=== PATIENT | female | born 1935 | race Caucasian/White ===

== ENCOUNTER 2017-07-18 19:03 | Inpatient (IN) ==
[2017-07-18] MEDS ORDERED: 0.9 % Sodium Chloride 1,000 ML IVC ONE (19:07)
--- NOTE | 2017-07-18 19:13 | Emergency Department Note ---
Disposition Clinical Impression: HCAP (healthcare-associated pneumonia) Anemia Qualifiers: Anemia type: due to chronic kidney disease Chronic kidney disease stage: unspecified stage Qualified Code(s): N18.9 - Chronic kidney disease, unspecified ; D63.1 - Anemia in chronic kidney disease; D63.1 - Anemia in chronic kidney disease Disposition: Admitted As Inpatient Condition: Fair Time of Disposition: 21:02 General Adult HPI - General Stated complaint: Low hemoglobin Time Seen by Provider: 07/18/17 19:06 Nursing Notes Reviewed: Yes Vital Signs Reviewed: Yes - History of Present Illness HPI Narrative: 82-year-old female [facility]. Patient was found to have a hemoglobin of 6.9. Patient has a history of severe dementia and severe memory. Patient currently denies any discomforts other than feeling cold. - Related Data Home Medications Medication Instructions Recorded Confirmed Bisacodyl [Dulcolax] 10 mg RC DAILY PRN 08/09/15 03/20/17 Calcium Carbonate/Vitamin D3 [Qc 1 each PO DAILY 08/09/15 03/20/17 Calcium 600-Vit D3 400 Tab] Carboxymethylcellulose Sodium 15 ml OP Q1-2H PRN 08/09/15 03/20/17 [Refresh Tears] Clopidogrel [Plavix] 75 mg PO DAILY 08/09/15 03/20/17 Docusate Sodium [Stool Softener] 100 mg PO BID 08/09/15 03/20/17 Folic Acid 1 mg PO DAILY 08/09/15 03/20/17 Guaifenesin [Mucinex] 600 mg PO DAILY PRN 08/09/15 03/20/17 Levothyroxine Sodium [Tirosint] 125 mcg PO DAILY 08/09/15 03/20/17 Loratadine [Claritin] 10 mg PO DAILY 08/09/15 03/20/17 Magnesium Hydroxide [Milk of 30 ml PO BID PRN 08/09/15 03/20/17 Magnesia] Memantine [Namenda] 5 mg PO DAILY 08/09/15 03/20/17 Polyethylene Glycol [Polyox 17 gm PO DAILY PRN 08/09/15 03/20/17 [id number]] Diltiazem CD (24hr) [Cardizem CD] 120 mg PO DAILY 01/08/16 03/20/17 Acetaminophen [Tylenol] 650 mg PO Q6HR PRN 08/27/16 03/20/17 Cholecalciferol (D-3) [Vitamin D] 1,000 unit PO DAILY 08/27/16 03/20/17 Previous Rx's Medication Instructions Recorded Ferrous Sulfate [Iron] 325 mg PO DAILY #60 tablet 03/20/17 Allergies Allergy/AdvReac Type Severity Reaction Status Date / Time darifenacin Allergy Unknown See Verified 03/20/17 10:50 Comments ciprofloxacin AdvReac Nausea Verified 03/20/17 10:50 Sulfa (Sulfonamide AdvReac Nausea Verified 03/20/17 10:50 Antibiotics) All systems ED: reviewed and negative except as stated. Review of Systems: As Per HPI Constitutional: Denies: fever, chills Gastrointestinal: Denies: abdominal pain, nausea, vomiting, diarrhea Genitourinary: Denies: dysuria Musculoskeletal: Denies: back pain Past Medical History - Past Medical History Attestation: Yes The following information was validated with the patient. Source: patient, nursing notes reviewed Medical history: Reports: dementia, dialysis, GERD, renal disease, thyroid disease Surgical history: Reports: non-contributory Psychiatric history: Reports: anxiety - Social History Smoking Status: Never smoker Smokeless Tobacco Status: No Alcohol use: Reports: none Drug use: Reports: none Physical Exam Vital Signs Temperature 98.7 F 07/18/17 19:23 Pulse Rate 73 07/18/17 19:23 Respiratory Rate 20 07/18/17 19:23 Blood Pressure 173/81 07/18/17 19:23 O2 Sat by Pulse Oximetry 96 07/18/17 19:23 Temperature 98.7 F 07/18/17 19:31 Pulse Rate 72 07/18/17 19:31 Respiratory Rate 18 07/18/17 19:31 Blood Pressure 173/81 07/18/17 19:31 O2 Sat by Pulse Oximetry 97 07/18/17 19:35 Oxygen Delivery Oxygen Delivery Nasal Cannula CONSTITUTIONAL: Well-appearing; well-nourished; A&O X 3, in no apparent distress. HEAD: Normocephalic; atraumatic EYES: PERRL, no scleral icterus NOSE: The nose is normal in appearance without rhinorrhea NECK: No JVD or distended neck veins RESP: Normal chest excursion with respiration; breath sounds clear and equal bilaterally; no wheezes, rhonchi, or rales CARD: Regular rhythm, without murmurs, rub or gallop ABD: Non-distended; non-tender, soft, without rigidity, rebound or guarding,no pulsatile mass CHEST: No pain with palpation SKIN: Normal for age and race; warm and dry without diaphoresis ; no apparent lesions EXTREMITIES: Pulses are 2 plus and equal times 4 extremities, no peripheral edema or calf muscle pain Course - Reevaluation(s) Reevaluation #1: Negative fecal occult blood tests. Time: 20:07 Vital Signs Temperature 98.7 F 07/18/17 19:23 Pulse Rate 73 07/18/17 19:23 Respiratory Rate 20 07/18/17 19:23 Blood Pressure 173/81 07/18/17 19:23 O2 Sat by Pulse Oximetry 96 07/18/17 19:23 Temperature 98.7 F 07/18/17 19:31 Pulse Rate 72 07/18/17 19:31 Respiratory Rate 18 07/18/17 19:31 Blood Pressure 173/81 07/18/17 19:31 O2 Sat by Pulse Oximetry 97 07/18/17 19:35 Oxygen Delivery Oxygen Delivery Nasal Cannula Medical Decision Making - MDM Narrative Medical decision making narrative: Patient with anemia 7.6 on her lab report here. Patient had a hemoglobin of 6.9 at [facility] care [facility] facility. Patient has physical signs of anemia conjunctival pallor, visible pallor. Patient has severe dementia and is a poor historian. Patient is under care of Dr. Mendieta of nephrology. He is currently being prepared to start hemodialysis from renal failure. Patient also has an obstructing ureteral stone, with a plan for extraction via urology at [facility] sometime next week. I discussed the case with who recommends patient be given a transfusion today. 1 unit PRBC will be transfused and patient will be admitted. Dr. Ortiz has been consulted and will see the patient once she is admitted. Patient's lab work shows no clinically relevant elevations to patient's anemia today. Troponin was negative. Chest x-ray shows left-sided left lower lung consolidation and an effusion. Patient is started on cefepime and vancomycin for healthcare associated pneumonia Patient's son at bedside is been updated on progress and direction of patient care. He understands and agrees to treatment and plan. Patient also agrees to treatment plan. Dr. Pelaez the hospitalist as accepted patient for admission in stable condition - Lab Data Lab results reviewed: Yes I reviewed the patient's lab results. Lab results narrative: Short CBC 07/18/17 Range/Units 19:33 WBC 7.4 (4.3-11.1) K/mcL Hgb 7.6 L (11.5-15.4) g/dL Hct 23.6 L (35.3-44.9) % Plt Count 360 (140-400) K/mcL Neutrophils # 4.5 (1.6-8.9) K/mcL BMP 07/18/17 Range/Units 19:33 Sodium 132 L (136-145) mEq/L Potassium 4.7 (3.5-5.1) mEq/L Chloride 103 (98-107) mEq/L Carbon Dioxide 21 L (23-29) mEq/L BUN 40 H (8-23) mg/dL Creatinine 3.96 H (0.60-1.20) mg/dL Glucose 101 (70-105) mg/dL Calcium 8.0 L (8.6-10.3) mg/dL Cardiac Enzymes 07/18/17 Range/Units 19:33 Troponin I < 0.03 (< 0.04) ng/mL Liver Function 07/18/17 Range/Units 19:33 Total Bilirubin 0.2 L (0.3-1.0) mg/dL AST 22 (13-39) Units/L ALT 12 (7-52) Units/L Alkaline Phosphatase 122 H (34-104) Units/L Albumin 2.7 L (3.5-5.7) g/dL Result diagrams: 07/18/17 19:33 07/18/17 19:33 Lab Results 07/18/17 07/18/17 07/18/17 Range/Units 19:32 19:33 19:33 WBC 7.4 (4.3-11.1) K/mcL RBC 2.70 L (3.82-4.97) M/mcL Hgb 7.6 L (11.5-15.4) g/dL Hct 23.6 L (35.3-44.9) % MCV 87.4 (83.0-100.0) fL MCH 28.1 (28.0-33.3) pg MCHC 32.2 (31.6-35.5) g/dL RDW 15.9 H (11.5-14.5) % Plt Count 360 (140-400) K/mcL MPV 9.4 (9.4-12.4) fL Immature Gran % 1.2 (0-4) % Seg Neutrophils % 60.2 % Lymphocytes % 26.8 % Monocytes % 8.9 % Eosinophils % 2.4 % Basophils % 0.5 % Neutrophils # 4.5 (1.6-8.9) K/mcL Lymphocytes # 2.0 (0.6-4.6) K/mcL Monocytes # 0.7 (0.0-1.3) K/mcL Eosinophils # 0.2 (0.0-0.6) K/mcL Basophils # 0.0 (0.0-0.2) K/mcL PT 10.9 (9.4-12.1) Seconds INR 1.0 APTT 28.2 (26.0-36.0) Seconds Sodium (136-145) mEq/L Potassium (3.5-5.1) mEq/L Chloride (98-107) mEq/L Carbon Dioxide (23-29) mEq/L BUN (8-23) mg/dL Creatinine (0.60-1.20) mg/dL Est GFR ( Amer) (> 60) Est GFR (Non-Af Amer) (> 60) BUN/Creatinine Ratio (6-26) Glucose (70-105) mg/dL Calculated Osmolality (280-300) Calcium (8.6-10.3) mg/dL Total Bilirubin (0.3-1.0) mg/dL AST (13-39) Units/L ALT (7-52) Units/L Alkaline Phosphatase (34-104) Units/L Troponin I (< 0.04) ng/mL Serum Total Protein (6.4-8.9) g/dL Albumin (3.5-5.7) g/dL Globulin (2.4-3.5) g/dL Albumin/Globulin Ratio (1.1-2.2) Blood Type O POSITIVE 07/18/17 Range/Units 19:33 WBC (4.3-11.1) K/mcL RBC (3.82-4.97) M/mcL Hgb (11.5-15.4) g/dL Hct (35.3-44.9) % MCV (83.0-100.0) fL MCH (28.0-33.3) pg MCHC (31.6-35.5) g/dL RDW (11.5-14.5) % Plt Count (140-400) K/mcL MPV (9.4-12.4) fL Immature Gran % (0-4) % Seg Neutrophils % % Lymphocytes % % Monocytes % % Eosinophils % % Basophils % % Neutrophils # (1.6-8.9) K/mcL Lymphocytes # (0.6-4.6) K/mcL Monocytes # (0.0-1.3) K/mcL Eosinophils # (0.0-0.6) K/mcL Basophils # (0.0-0.2) K/mcL PT (9.4-12.1) Seconds INR APTT (26.0-36.0) Seconds Sodium 132 L (136-145) mEq/L Potassium 4.7 (3.5-5.1) mEq/L Chloride 103 (98-107) mEq/L Carbon Dioxide 21 L (23-29) mEq/L BUN 40 H (8-23) mg/dL Creatinine 3.96 H (0.60-1.20) mg/dL Est GFR ( Amer) 13 L (> 60) Est GFR (Non-Af Amer) 11 L (> 60) BUN/Creatinine Ratio 10 (6-26) Glucose 101 (70-105) mg/dL Calculated Osmolality 284 (280-300) Calcium 8.0 L (8.6-10.3) mg/dL Total Bilirubin 0.2 L (0.3-1.0) mg/dL AST 22 (13-39) Units/L ALT 12 (7-52) Units/L Alkaline Phosphatase 122 H (34-104) Units/L Troponin I < 0.03 (< 0.04) ng/mL Serum Total Protein 6.0 L (6.4-8.9) g/dL Albumin 2.7 L (3.5-5.7) g/dL Globulin 3.3 (2.4-3.5) g/dL Albumin/Globulin Ratio 0.8 L (1.1-2.2) Blood Type - Radiology Data Radiology results reviewed: Yes I reviewed the patient's radiology results. Chest X-Ray 07/18/17 19:07 IMPRESSION: 1. Interval development of left basilar consolidation and left pleural effusion. The 2. Calcific atherosclerotic disease aorta. 3. Otherwise unremarkable chest. D/ / Jaxson Manning / Jaxson Manning Interpreting Provider: Jaxson Manning - EKG Data EKG #1 EKG attestation: Yes I reviewed and interpreted this EKG. EKG results narrative: EKG taken 07/18/2017 and 1919 hrs. shows a sinus rhythm with first-degree AV block at a rate of 75 beats minute with no acute ST elevations or depressions and a leads. Today's EKG is improved from patient's prior EKG which shows a sinus tachycardia with ST depressions in V3 and V4 V5 and V6 as well as leads 2. ST elevation in aVR
[2017-07-18] MEDS ORDERED: 0.9 % Sodium Chloride 2,000 ML ONE (19:17)
[2017-07-18 19:44] LABS: Basophils % 0.5 %; Eosinophils # 0.2 K/mcL (0.0-0.6); Eosinophils % 2.4 %; Hematocrit 23.6 % (35.3-44.9); Immature Granulocytes % 1.2 % (0-4); Lymphocytes % 26.8 %; Mean Corpuscular HGB Conc 32.2 g/dL (31.6-35.5); Mean Corpuscular Hemoglobin 28.1 pg (28.0-33.3); Mean Corpuscular Volume 87.4 fL (83.0-100.0); Mean Platelet Volume 9.4 fL (9.4-12.4); Monocytes # 0.7 K/mcL (0.0-1.3); Monocytes % 8.9 %; Neutrophils # 4.5 K/mcL (1.6-8.9); Platelet Count 360 K/mcL (140-400); Red Cell Distribution Width 15.9 % (11.5-14.5); Segmented Neutrophils % 60.2 %
[2017-07-18 19:48] LABS: Hemoglobin 7.6 g/dL (11.5-15.4)
[2017-07-18 19:53] LABS: Prothrombin Time 10.9 Seconds (9.4-12.1)
[2017-07-18 19:56] LABS: Activated Partial Thrombo Time 28.2 Seconds (26.0-36.0)
[2017-07-18 20:04] LABS: Alanine Aminotransferase 12 Units/L (7-52); Albumin 2.7 g/dL (3.5-5.7); Albumin/Globulin Ratio 0.8 (1.1-2.2); Alkaline Phosphatase 122 Units/L (34-104); Aspartate Amino Transferase 22 Units/L (13-39); BUN/Creatinine Ratio 10 (6-26); Bilirubin,Total 0.2 mg/dL (0.3-1.0); Blood Urea Nitrogen 40 mg/dL (8-23); Carbon Dioxide 21 mEq/L (23-29); Chloride 103 mEq/L (98-107); Globulin 3.3 g/dL (2.4-3.5); Glucose 101 mg/dL (70-105); Osmolality,Calculated 284 (280-300); Potassium 4.7 mEq/L (3.5-5.1); Sodium 132 mEq/L (136-145); Troponin I < 0.03 ng/mL (< 0.04); eGFR For African Americans 13 (> 60); eGFR For Non-African Americans 11 (> 60)
--- NOTE | 2017-07-18 20:13 | Emergency Department Note ---
START Narrative - START START: I examined this patient and my medical decision-making was reviewed with the Resident Physician. I agree with the documented findings, disposition and treatment plan as described except to the extent set forth below. 82-year-old female got sent in from the [facility] for anemia. Patient is chronically anemic. She has got renal disease. She is being set up for hemodialysis. They just placed the fistula. She goes to [facility] for her care. Vitals are stable. We consult with nephrology based on this being chronically anemic. He would like to transfuse 1 unit of red blood cells now. We will admit to the hospitalist. Her rectal exam was negative for any occult blood. I feel her anemia secondary to chronic renal disease. Again, she is hemodynamically stable at this time. On exam she does appear pale. She is in no distress.
[2017-07-18] MEDS ORDERED: Cefepime HCl 2,000 MG in Water for inj. (sterile) 20 ML IVP ONE (20:46)
[2017-07-18 21:47] LABS: Albumin 2.4 g/dL (3.5-5.7); Albumin/Globulin Ratio 0.7 (1.1-2.2); Bilirubin,Direct 0.1 mg/dL (0.0-0.2); Bilirubin,Indirect 0.1 mg/dL (0.0-1.2); Bilirubin,Total 0.2 mg/dL (0.3-1.0); Globulin 3.3 g/dL (2.4-3.5); Magnesium 1.7 mg/dL (1.6-2.6); Phosphorous 5.1 mg/dL (2.7-4.5); Total Protein 5.7 g/dL (6.4-8.9)
[2017-07-18] MEDS ORDERED: 0.9 % Sodium Chloride 250 ML ONE (22:08)
[2017-07-18] MEDS ORDERED: Cefepime HCl 2,000 MG in Water for inj. (sterile) 10 ML IVP STA (22:27)
[2017-07-18] MEDS ORDERED: Cefepime HCl 2,000 MG in Water for inj. (sterile) 20 ML 20 ML IVP ONE (23:00)
[2017-07-18] MEDS ORDERED: Cefepime HCl 2,000 MG in Water for inj. (sterile) 20 ML 20 ML IVP STA (23:42)
[2017-07-19] MEDS ORDERED: Naloxone 0.4 MG/ML INJ IVP PRN (01:31)
--- NOTE | 2017-07-19 02:37 | Internal Med History&Physical ---
Date of Encounter: 07/19/17 Time of Encounter: 01:00 Internal Medicine - H&P: HPI Chief complaint: Low hemoglobin Admitted From: Long-term Nursing Facility Plans for Post Hospital Care: Transfer Detention Care History of present illness: Ms. Mcgraw is a 82 year old female transferred from [facility] for low hemoglobin. Past medical history is significant for end-stage renal disease not started hemodialysis yet, anemia, dementia. Patient is demented, not oriented to time, place, and the people. History is tender from transfer documentation and ER notes. When I saw patient in the floor, she looks comfortable, in no acute distress. Patient was a found hemoglobin low to 6.9 today and was send to ER for transfusion. In the emergency room, hemoglobin was repeated at 7.6. Chest x-ray shows left lower lobe consolidation. Patient denies cough or fever. FOBT test has been done in ER, result is negative. Patient was admitted for anemia, and left lower lobe pneumonia. Cannot discuss CODE STATUS with this demented patient. Per senior living transfer note, patient's CODE STATUS is DNR CCA. Past Med Surg Social Fam HX - Past Medical History Medical history: dementia, dialysis, GERD, renal disease, thyroid disease Psychiatric history: anxiety - Past Surgical History Surgical History: non-contributory - Social History Smoking Status: Never smoker Smokeless Tobacco Status: No Alcohol use: none Drug use: none - Family History Mother History Unknown: Yes Internal Medicine - H&P: Meds Aranesp 100 mcg SQ DAILY 07/18/17 [History] Aspirin 81 mg PO DAILY 07/18/17 [History] Calcium [id number] Chw Tb 1 tab PO DAILY 07/18/17 [History] Diltiazem 24 mg PO DAILY 07/18/17 [History] Ferrous Sulfate 325 mg PO DAILY 07/18/17 [History] Folic Acid 1 tab PO DAILY 07/18/17 [History] Levothyroxine 0.125 mcg PO DAILY 07/18/17 [History] Mirtazapine 7.5 mg PO DAILY 07/18/17 [History] Polyvinyl Alcohol 1 drop BOTH EYES PRN PRN 07/18/17 [History] Sennosides/Docusate Sodium 1 tab PO BID 07/18/17 [History] Vitamin D3 1.5 tab PO DAILY 07/18/17 [History] 3 Allergy/AdvReac Type Severity Reaction Status Date / Time darifenacin Allergy Unknown See Verified 03/20/17 10:50 Comments ciprofloxacin AdvReac Nausea Verified 03/20/17 10:50 Sulfa (Sulfonamide AdvReac Nausea Verified 03/20/17 10:50 Antibiotics) All Systems PM: A 10-system review of systems was performed and is negative for pertinent findings except as documented above in the HPI. - Constitutional Vitals: Temp Pulse Resp BP Pulse Ox 99.2 F 76 16 158/80 92 07/19/17 00:29 07/19/17 00:29 07/19/17 00:29 07/19/17 00:29 07/19/17 00:29 General appearance: Present: A&O X 0, no acute distress - Head Head exam: Present: atraumatic, normocephalic - Eye Eye exam: Present: PERRL, conjuntiva pink, sclera anicteric Pupils: Present: PERRL - Neck Neck exam general surgery: Present: supple, trachea midline. Absent: lymphadenopathy - Respiratory Respiratory exam: Present: CTAB. Absent: accessory muscle use, rales, rhonchi, wheezes - Cardiovascular Cardiovascular exam: Present: RRR, +S1, +S2. Absent: diastolic murmur, gallop, rubs, systolic murmur - GI/Abdominal GI/Abdominal exam: Present: normal bowel sounds, soft, no peritoneal signs. Absent: distended, tenderness - Extremities Exam Extremities exam: Present: warm, radial pulses palpable and symmetrical. Absent : calf tenderness, cyanotic, pedal edema - Neurological Exam Neurological exam: Present: CN II-XII intact, oriented X3, no focal deficits. Absent: pronater drift, facial droop, speech deficit - Skin Skin exam: Present: dry, intact Internal Med - H&P Results - Labs CBC & Chem 7: 07/18/17 19:33 07/18/17 19:33 - EKG Data -: EKG Interpreted by Myself EKG shows normal: sinus rhythm Rate: normal - Assessment and plan (1) End stage renal disease Current Visit: Yes Status: Acute Assessment and plan: Patient is a following with nephrology. Nephrology was counseled. (2) DVT prophylaxis Current Visit: Yes Status: Acute Assessment and plan: Heparin subcutaneously (3) Dementia Current Visit: Yes Status: Acute Assessment and plan: Continue closely monitor patient. Qualifiers: Dementia type: Alzheimer's disease Alzheimer's disease onset: unspecified onset Dementia behavioral disturbance: without behavioral disturbance Qualified Code(s): G30.9 - Alzheimer's disease, unspecified; F02.80 - Dementia in other diseases classified elsewhere without behavioral disturbance; F02.80 - Dementia in other diseases classified elsewhere without behavioral disturbance; F02.80 - Dementia in other diseases classified elsewhere without behavioral disturbance (4) Anemia Current Visit: Yes Status: Acute Assessment and plan: Patient has received 1 unit PRBC per nephrology recommendation. Continue closely monitor H&H Qualifiers: Anemia type: due to chronic kidney disease Chronic kidney disease stage: stage 5, not on chronic dialysis Qualified Code(s): N18.5 - Chronic kidney disease, stage 5; D63.1 - Anemia in chronic kidney disease; D63.1 - Anemia in chronic kidney disease (5) HCAP (healthcare-associated pneumonia) Current Visit: Yes Status: Acute Assessment and plan: Incidentally found by chest x-ray. Patient has no symptoms. Place patient on Vanco and cefepime. Closely monitor patient. - Time Spent With Patient Total time spent is greater than 50% in coordination of care (as documented) at patient's floor/unit and/or counseling patient: 40 minutes Greater than 35 minutes
[2017-07-19 05:35] LABS: Basophils % 0.5 %; Eosinophils # 0.2 K/mcL (0.0-0.6); Eosinophils % 2.8 %; Hematocrit 24.3 % (35.3-44.9); Hemoglobin 7.9 g/dL (11.5-15.4); Immature Granulocytes % 1.1 % (0-4); Lymphocytes % 31.1 %; Mean Corpuscular HGB Conc 32.5 g/dL (31.6-35.5); Mean Corpuscular Hemoglobin 28.3 pg (28.0-33.3); Mean Corpuscular Volume 87.1 fL (83.0-100.0); Mean Platelet Volume 9.5 fL (9.4-12.4); Monocytes # 0.7 K/mcL (0.0-1.3); Monocytes % 10.6 %; Neutrophils # 3.5 K/mcL (1.6-8.9); Platelet Count 301 K/mcL (140-400); Red Blood Count 2.79 M/mcL (3.82-4.97); Red Cell Distribution Width 15.9 % (11.5-14.5); Segmented Neutrophils % 53.9 %
[2017-07-19 05:54] LABS: Calcium 7.6 mg/dL (8.6-10.3); Magnesium 1.7 mg/dL (1.6-2.6); Potassium 4.5 mEq/L (3.5-5.1)
[2017-07-19] MEDS ORDERED: *HR* Heparin 5,000 UNIT/ML VIAL SQ SCH (06:00)
[2017-07-19] MEDS: Aspirin 81 MG TAB.CHEW PO SCH (08:18)
--- NOTE | 2017-07-19 11:23 | Internal Med Progress Note ---
Date of Encounter: 07/19/17 Time of Encounter: 10:50 - Assessment and plan (1) HCAP (healthcare-associated pneumonia) Current Visit: Yes Status: Acute Assessment and plan: Incidental finding on chest xray. Pt is asymptomatic. No fever, chills, cough, URI symptoms. Lungs are clear, diminshed with poor inspiratory effort. Pt is not requiring supplemental 02. Continue IV Vancomycin and Cefepime 02 prn sats > 92% Chest X-Ray 07/18/17 19:07 IMPRESSION: 1. Interval development of left basilar consolidation and left pleural effusion. The 2. Calcific atherosclerotic disease aorta. 3. Otherwise unremarkable chest. D/ / Jaxson Manning / Jaxson Manning Interpreting Provider: Jaxson Manning (2) Anemia Current Visit: Yes Status: Acute Assessment and plan: Anemia of chronic disease. Pt sent from [facility] for anemia, hgb < 7. 1 unit PRBCs transfused, hgb 7.9 now. Will trend q6h x 3 and again in the a.m. No obvious signs of bleeding. Qualifiers: Anemia type: due to chronic kidney disease Chronic kidney disease stage: stage 5, not on chronic dialysis Qualified Code(s): N18.5 - Chronic kidney disease, stage 5; D63.1 - Anemia in chronic kidney disease; D63.1 - Anemia in chronic kidney disease (3) End stage renal disease Current Visit: Yes Status: Acute Assessment and plan: Nephrology following. Pt with fistula, but has not had dialysis yet. Continue to avoid nephrotoxins Vancomycin dosed by pharmacy. (4) Dementia Current Visit: Yes Status: Acute Assessment and plan: Chronic. Pt is alert, able to answer name and recognized son in her room this a.m. Monitor for safety. She is a resident at [facility]. Pt is not on any medications for Dementia. Qualifiers: Dementia type: Alzheimer's disease Alzheimer's disease onset: unspecified onset Dementia behavioral disturbance: without behavioral disturbance Qualified Code(s): G30.9 - Alzheimer's disease, unspecified; F02.80 - Dementia in other diseases classified elsewhere without behavioral disturbance; F02.80 - Dementia in other diseases classified elsewhere without behavioral disturbance; F02.80 - Dementia in other diseases classified elsewhere without behavioral disturbance (5) DVT prophylaxis Current Visit: Yes Status: Acute Assessment and plan: SCDs, no pharmacological treatment due to anemia. - Time Spent With Patient Total time spent is greater than 50% in coordination of care (as documented) at patient's floor/unit and/or counseling patient: less than 15 minutes - Subjective Interval history: Pt was seen and assessed at 1050, son at bedside. All questions answered. Pt denies headache, n/v, diarrhea, abdominal pain, chest pain, SOB, or vision changes. - Constitutional Vitals: Temp Pulse Resp BP Pulse Ox 98.6 F 76 16 155/64 90 07/19/17 07:38 07/19/17 07:38 07/19/17 07:38 07/19/17 07:38 07/19/17 07:38 General appearance: Present: cooperative, A&O X 1, pleasant, no acute distress, answers questions appropriately - Head Head exam: Present: atraumatic, normal inspection, normocephalic - Eye Eye exam: Present: normal appearance, conjuntiva pink, sclera anicteric - Neck Neck exam general surgery: Present: supple, trachea midline. Absent: lymphadenopathy, tenderness - Respiratory Respiratory exam: Present: CTAB. Absent: accessory muscle use, chest wall tenderness, rales, respiratory distress, rhonchi, wheezes - Cardiovascular Cardiovascular exam: Present: RRR, +S1, +S2. Absent: diastolic murmur, gallop, rubs, systolic murmur - GI/Abdominal GI/Abdominal exam: Present: normal bowel sounds, soft, no peritoneal signs. Absent: distended, hepatomegaly, tenderness - Extremities Exam Extremities exam: Present: normal capillary refill, normal inspection, warm, radial pulses palpable and symmetrical. Absent: calf tenderness, cyanotic, pedal edema, tenderness - Neurological Exam Neurological exam: Present: alert, no focal deficits. Absent: facial droop, speech deficit - Skin Skin exam: Present: dry, intact, normal color, warm. Absent: rash Internal Medicine: Result - Labs CBC & Chem 7: 07/19/17 04:00 07/19/17 04:00 Labs: Short CBC 07/19/17 Range/Units 04:00 WBC 6.5 (4.3-11.1) K/mcL Hgb 7.9 L (11.5-15.4) g/dL Hct 24.3 L (35.3-44.9) % Plt Count 301 (140-400) K/mcL Neutrophils # 3.5 (1.6-8.9) K/mcL BMP 07/19/17 04:00 Sodium 133 L Potassium 4.5 Chloride 106 Carbon Dioxide 20 L BUN 37 H Creatinine 3.73 H Glucose 84 Calcium 7.6 L - ABG Interpretation ABG results: PT/INR, D-dimer PT 10.9 Seconds (9.4-12.1) 07/18/17 19:33 Consult Discharge Plan - Plan Referrals: NONE,PCP [Primary Care Provider] -
--- NOTE | 2017-07-19 13:26 | Nephrology Consult Note ---
Date of Encounter: 07/19/17 Time of Encounter: 12:20 Assessment and Plan (1) End stage renal disease Current Visit: Yes Status: Acute ESRD nearing HD start. Has AVG ready for access. No immediate need to startd HD today, however most likely will start HD during this hospital admission. Hx of obstructing ureteral stone, no documented urine output. Will place Sandra catheter, obtain renal US and UA. Suggest less nephrotoxic antibiotic coverage than Vanco. History of Present Illness - Reason for Consult end stage renal disease - History of Present Illness Ms. Mcgraw is a 82 year old female brought by EMS yesterday from [facility] with Hgb 6.9. Ms. Mcgraw is known to practice with ESRD, nearing start of dialysis. She had a right brachiocephalic AV graft placed approximately one month ago by Dr. Lange at [facility] in preparation of starting HD. Ms. Mcgraw has history of profound short term memory/dementia, therefore her HPI is obtained from prior notes. Other PMH- GERD, renal disease, thyroid disease. Patient also has an obstructing ureteral stone. Plans were for extraction next week at [facility]. FBOT negative. One unit PRBC's was transfused. Today Hgb 7.9, creat 3.73. Baseline 3.7-4.0. CXR- HCAP-LLL. Started on Cefepime and Vanco. There is no documented urine output. Past Med Surg Social Fam HX - Past Medical History Medical history: dementia, dialysis, GERD, renal disease, thyroid disease Psychiatric history: anxiety - Past Surgical History Surgical History: non-contributory - Social History Smoking Status: Never smoker Smokeless Tobacco Status: No Alcohol use: none Drug use: none - Family History Mother History Unknown: Yes Medications and Allergies Aspirin [Lo-Dose Aspirin EC] 81 mg PO DAILY 07/19/17 [History] Bisacodyl [Dulcolax] 10 mg RC DAILY PRN 07/19/17 [History] Calcium Carbonate/Vitamin D3 [Calcium 600 + Vit D Tablet] 1 tab PO DAILY [History] Ceftriaxone Na/Dextrose,Iso [Ceftriaxone 2 gm Piggyback] 2 gm IV 1200 07/19/17 [ History] Cholecalciferol (D-3) [Vitamin D] 1,500 unit PO DAILY 07/19/17 [History] Diltiazem HCl [Diltiazem 24Hr Cd] 240 mg PO DAILY 07/19/17 [History] Ferrous Sulfate 325 mg PO DAILY 07/19/17 [History] Folic Acid 1 mg PO DAILY 07/19/17 [History] Guaifenesin [Mucinex] 600 mg PO DAILY PRN 07/19/17 [History] Levothyroxine [Synthroid] 125 mcg PO QAM 07/19/17 [History] Loratadine [Allergy Relief] 10 mg PO DAILY PRN 07/19/17 [History] Magnesium Hydroxide [Milk of Magnesia] 2,400 mg PO DAILY PRN 07/19/17 [History] Mirtazapine 7.5 mg PO HS 07/19/17 [History] Oxycodone HCl/Acetaminophen [Percocet 5-325 mg Tablet] 1 tab PO Q6H PRN [History] Polyethylene Glycol 3350 [MiraLAX Powder Bulk 17.9 Oz] 1 scoop PO DAILY PRN [History] Promethazine [Phenergan] 12.5 mg RC Q6H PRN 07/19/17 [History] Sennosides/Docusate Sodium [Colace 2-in-1 Tablet] 1 tab PO BID 07/19/17 [History ] 3 Allergy/AdvReac Type Severity Reaction Status Date / Time darifenacin Allergy Unknown See Verified 03/20/17 10:50 Comments ciprofloxacin AdvReac Nausea Verified 03/20/17 10:50 Sulfa (Sulfonamide AdvReac Nausea Verified 03/20/17 10:50 Antibiotics) Exam - Vital Signs Vital signs: Initial Vital Signs Temp Pulse Resp BP Pulse Ox 98.7 F 73 20 173/81 96 07/18/17 19:23 07/18/17 19:23 07/18/17 19:23 07/18/17 19:23 07/18/17 19:23 Vital Signs - Last 8 Hours Temp Pulse Resp BP Pulse Ox 07/19/17 11:47 98.8 F 75 16 153/67 93 07/19/17 07:38 98.6 F 76 16 155/64 90 - General Appearance General appearance: well-developed, well-nourished, appears started age EENT: mucous membranes moist Neck: no JVD Respiratory: clear Additional Comments: diminished Cardiology: edema, regular rate, regular rhythm Additional Comments: pdal/ankle, vascular insufficiency - Dialysis Access Dialysis Vascular Access: Arteriovenous Graft thrill: Yes bruit: Yes Gastrointestinal: normoactive bowel sounds, no tenderness Integumentary: warm and dry Psychiatric: cooperative Results - Lab Results 07/19/17 04:00 07/19/17 04:00 Most recent lab results Calcium 7.6 mg/dL (8.6-10.3) L 07/19/17 04:00 Phosphorus 5.1 mg/dL (2.7-4.5) H 07/18/17 21:08 Magnesium 1.7 mg/dL (1.6-2.6) 07/19/17 04:00 Consult Discharge Plan - Plan Referrals: NONE,PCP [Primary Care Provider] -
[2017-07-19 13:53] LABS: Hematocrit 24.9 % (35.3-44.9); Hemoglobin 7.9 g/dL (11.5-15.4)
[2017-07-19 15:19] LABS: Bilirubin,Urine Negative (Negative); Blood,Urine Large (Negative); Clarity,Urine Turbid (Clear); Color,Urine Yellow (Yellow); Glucose,Urine (UA) Normal (Normal); Ketones,Urine Negative (Negative); Leukocyte Esterase,Urine Large (Negative); Nitrite,Urine Negative (Negative); Protein,Urine 100 mg/dL (Neg-Trace); Specific Gravity,Urine 1.012 (1.010-1.025); Urobilinogen,Urine Normal (Normal)
[2017-07-19 15:21] LABS: Bacteria,Urine None Seen per hpf (None-Few); Hyaline Casts,Urine None Seen per lpf (None-Few); Squamous Epithelial Cell,Urine Many per lpf (None-Few); WBC,Urine TNTC per hpf (0-3)
[2017-07-19 15:42] LABS: RBC,Urine 30-50 per hpf (0-3)
[2017-07-19 15:50] LABS: Hepatitis B Surface Antibody 0.69 mIU/mL; Hepatitis B Surface Antigen Nonreactive (Nonreactive)
[2017-07-19] MEDS: Cefepime HCl 1,000 MG in Water for inj. (sterile) 20 ML 10 ML IVPB SCH (17:24)
[2017-07-19 17:36] LABS: Hemoglobin 7.5 g/dL (11.5-15.4)
--- NOTE | 2017-07-19 19:26 | Electrocardiograph Report ---
[address] [place] [address] Test Date: 2017-07-18 Pat Name: Ruma Mcgraw Department: 103 Room: 3B64 Gender: F [employer] Stenographer: LENO : 1935 Requested By: Chad Gupta Order Number: [id number] Reading MD: Aishwarya Brush Measurements Intervals [place] Rate: 75 P: 58 ID: [id number] QRS: 16 QRSD: 93 T: 54 QT: 385 QTc: 413 Interpretive Statements SINUS RHYTHM WITH FIRST DEGREE AV BLOCK SEPTAL MYOCARDIAL INFARCTION [40+ ms Q WAVE IN V1/V2], OF INDETERMINATE AGE Electronically Signed On 07-19-2017 19:24:41 EDT by Aishwarya Brush
[2017-07-19 23:25] LABS: Hematocrit 22.7 % (35.3-44.9); Hemoglobin 7.3 g/dL (11.5-15.4)
[2017-07-20 04:50] LABS: Basophils % 0.5 %; Eosinophils # 0.2 K/mcL (0.0-0.6); Eosinophils % 2.9 %; Hematocrit 23.2 % (35.3-44.9); Hemoglobin 7.5 g/dL (11.5-15.4); Immature Granulocytes % 1.1 % (0-4); Lymphocytes # 2.3 K/mcL (0.6-4.6); Lymphocytes % 34.8 %; Mean Corpuscular HGB Conc 32.3 g/dL (31.6-35.5); Mean Corpuscular Hemoglobin 27.9 pg (28.0-33.3); Mean Corpuscular Volume 86.2 fL (83.0-100.0); Mean Platelet Volume 9.9 fL (9.4-12.4); Monocytes # 0.7 K/mcL (0.0-1.3); Monocytes % 10.5 %; Neutrophils # 3.3 K/mcL (1.6-8.9); Platelet Count 286 K/mcL (140-400); Red Blood Count 2.69 M/mcL (3.82-4.97); Red Cell Distribution Width 16.1 % (11.5-14.5); Segmented Neutrophils % 50.2 %
[2017-07-20 05:40] LABS: Calcium 7.9 mg/dL (8.6-10.3); Potassium 4.6 mEq/L (3.5-5.1)
[2017-07-20] MEDS ORDERED: Aminoglycoside Consult 1 EACH MC ONE (07:13)
[2017-07-20] MEDS: Aspirin 81 MG TAB.CHEW PO SCH (08:01)
[2017-07-20 08:54] LABS: Bilirubin,Urine Negative (Negative); Blood,Urine Large (Negative); Clarity,Urine Turbid (Clear); Color,Urine Yellow (Yellow); Glucose,Urine (UA) Normal (Normal); Ketones,Urine Negative (Negative); Leukocyte Esterase,Urine Large (Negative); Nitrite,Urine Negative (Negative); Protein,Urine 100 mg/dL (Neg-Trace); Specific Gravity,Urine 1.017 (1.010-1.025); Urobilinogen,Urine Normal (Normal)
[2017-07-20 08:56] LABS: Bacteria,Urine None Seen per hpf (None-Few); Hyaline Casts,Urine None Seen per lpf (None-Few); RBC,Urine TNTC per hpf (0-3); Squamous Epithelial Cell,Urine Moderate per lpf (None-Few); WBC,Urine TNTC per hpf (0-3)
--- NOTE | 2017-07-20 09:19 | Nephrology Progress Note ---
Date of Encounter: 07/20/17 Time of Encounter: 08:55 - Assessment and Plan (1) End stage renal disease Current Visit: Yes Status: Acute ESRD nearing HD start. Has AVG ready for access. No immediate need to started HD today, however most likely will start HD during this hospital admission. Hx of obstructing ureteral stone, repeat renal US states bilateral non obstructing calculi. Resolved left hydronephrosis. Sandra catheter, documented urine output 700cc. UA, TNTC WBC, will obtain culture. Suggest less nephrotoxic antibiotic coverage than Vanco. Subjective Interval history: Sitting up in bed, feeding self breakfast. No new complaints. Objective - Vital Signs Vital signs: Vital Signs Temp Pulse Resp BP Pulse Ox 07/20/17 06:32 98.9 F 85 14 156/73 92 07/20/17 02:44 98.5 F 87 16 155/69 93 07/19/17 23:03 98.7 F 90 14 159/80 93 07/19/17 19:50 92 07/19/17 19:41 98.4 F 76 169/70 07/19/17 15:30 98.8 F 76 16 161/64 92 07/19/17 11:47 98.8 F 75 16 153/67 93 Intake and Output 07/19/17 07/20/17 07/20/17 23:59 07:59 15:59 Intake Total 310 / 310 200 / 200 Output Total 700 / 700 Balance -390 / -390 200 / 200 Intake: IV Fluids 10 10 Maxipime 1,000 MG In Water for inj. (sterile) 10 ML @ 150 mls/ hr IVPB Q24H [facility] Rx#:[id number] Oral 300 / 300 200 / 200 Output: Catheter 700 / 700 Other: Meal Dinner Percent of Meal Consumed 30% Stool Size Large Stool Consistency soft Stool Color Brown # Bowel Movements 1 Weight 55 kg Patient Weight 07/20/17 23:59 Weight 55 kg - General Appearance General appearance: Present: well-developed, well-nourished, appears started age EENT: Present: mucous membranes moist Neck: Present: no JVD Respiratory: Present: clear Cardiology: Present: no edema, regular rate, regular rhythm Dialysis Vascular Access: Arteriovenous Graft thrill: Yes bruit: Yes Gastrointestinal: Present: normoactive bowel sounds, no tenderness Integumentary: Present: warm and dry Psychiatric: Present: mood/affect appropriate, cooperative - Lab 07/20/17 04:00 07/20/17 04:00 Most recent lab results Calcium 7.9 mg/dL (8.6-10.3) L 07/20/17 04:00 Phosphorus 5.1 mg/dL (2.7-4.5) H 07/18/17 21:08 Magnesium 1.7 mg/dL (1.6-2.6) 07/19/17 04:00 - VTE Documentation of Mechanical Device: Intermittent pneumatic compression device Consult Discharge Plan - Plan Referrals: NONE,PCP [Primary Care Provider] -
--- NOTE | 2017-07-20 13:09 | Internal Med Progress Note ---
Date of Encounter: 07/20/17 Time of Encounter: 08:45 - Assessment and plan (1) HCAP (healthcare-associated pneumonia) Current Visit: Yes Status: Acute Assessment and plan: Pt remains asymptomatic. No fever, chills, cough, URI symptoms. Lungs are clear, diminshed with poor inspiratory effort. Pt is not requiring supplemental 02. Continue IV Cefepime, IV Vancomycin has been stopped due to worsening renal function despite it being dosed by pharmacy. 02 prn sats > 92% Chest X-Ray 07/18/17 19:07 IMPRESSION: 1. Interval development of left basilar consolidation and left pleural effusion. The 2. Calcific atherosclerotic disease aorta. 3. Otherwise unremarkable chest. D/ / Jaxson Manning / Jaxson Manning Interpreting Provider: Jaxson Manning (2) Anemia Current Visit: Yes Status: Acute Assessment and plan: Anemia of chronic disease. Hgb has remained < 8 but stable. Continue to trend. No obvious signs of bleeding. Qualifiers: Anemia type: due to chronic kidney disease Chronic kidney disease stage: stage 5, not on chronic dialysis Qualified Code(s): N18.5 - Chronic kidney disease, stage 5; D63.1 - Anemia in chronic kidney disease; D63.1 - Anemia in chronic kidney disease (3) End stage renal disease Current Visit: Yes Status: Acute Assessment and plan: Nephrology following. Pt with fistula, but has not had dialysis yet. Renal function worsening, 4.14/10. Continue to avoid nephrotoxins Vancomycin discontinued. (4) Dementia Current Visit: Yes Status: Acute Assessment and plan: Chronic. Pt is alert, able to answer name only. Monitor for safety. Bed alarm, fall precautions Pt is not on any medications for Dementia. Qualifiers: Dementia type: Alzheimer's disease Alzheimer's disease onset: unspecified onset Dementia behavioral disturbance: without behavioral disturbance Qualified Code(s): G30.9 - Alzheimer's disease, unspecified; F02.80 - Dementia in other diseases classified elsewhere without behavioral disturbance; F02.80 - Dementia in other diseases classified elsewhere without behavioral disturbance; F02.80 - Dementia in other diseases classified elsewhere without behavioral disturbance (5) DVT prophylaxis Current Visit: Yes Status: Acute Assessment and plan: SCDs, no pharmacological treatment due to anemia. - Time Spent With Patient Total time spent is greater than 50% in coordination of care (as documented) at patient's floor/unit and/or counseling patient: - Subjective Interval history: Pt was seen and assessed at 0845. Pt is alert, oriented to name only. She is eating breakfast and states that I am bothering her while she is eating and does not have to answer those questions until she is done. Pt denies headache, n /v, diarrhea, abdominal pain, chest pain, SOB, or vision changes. - Constitutional Vitals: Temp Pulse Resp BP Pulse Ox 98.3 F 79 14 179/70 94 07/20/17 11:14 07/20/17 11:14 07/20/17 11:14 07/20/17 11:14 07/20/17 11:14 General appearance: Present: cooperative, A&O X 1, pleasant, no acute distress. Absent: answers questions appropriately - Head Head exam: Present: atraumatic, normal inspection, normocephalic - Eye Eye exam: Present: normal appearance, conjuntiva pink, sclera anicteric - Neck Neck exam general surgery: Present: supple, trachea midline. Absent: lymphadenopathy, tenderness - Respiratory Respiratory exam: Present: CTAB. Absent: accessory muscle use, chest wall tenderness, rales, respiratory distress, rhonchi, wheezes - Cardiovascular Cardiovascular exam: Present: RRR, +S1, +S2. Absent: diastolic murmur, gallop, rubs, systolic murmur - GI/Abdominal GI/Abdominal exam: Present: normal bowel sounds, soft, no peritoneal signs. Absent: distended, hepatomegaly, tenderness - Extremities Exam Extremities exam: Present: normal capillary refill, normal inspection, warm, radial pulses palpable and symmetrical. Absent: calf tenderness, cyanotic, pedal edema, tenderness - Neurological Exam Neurological exam: Present: alert, oriented X3, no focal deficits. Absent: facial droop, speech deficit - Skin Skin exam: Present: dry, intact, normal color, warm. Absent: rash Internal Medicine: Result - Labs CBC & Chem 7: 07/20/17 04:00 07/20/17 04:00 Labs: Short CBC 07/19/17 07/19/17 07/19/17 Range/Units 11:15 17:15 23:05 WBC (4.3-11.1) K/mcL Hgb 7.9 L 7.5 L 7.3 L (11.5-15.4) g/dL Hct 24.9 L 23.0 L 22.7 L (35.3-44.9) % Plt Count (140-400) K/mcL Neutrophils # (1.6-8.9) K/mcL 07/20/17 Range/Units 04:00 WBC 6.6 (4.3-11.1) K/mcL Hgb 7.5 L (11.5-15.4) g/dL Hct 23.2 L (35.3-44.9) % Plt Count 286 (140-400) K/mcL Neutrophils # 3.3 (1.6-8.9) K/mcL BMP 07/20/17 04:00 Sodium 131 L Potassium 4.6 Chloride 105 Carbon Dioxide 18 L BUN 38 H Creatinine 4.14 H Glucose 75 Calcium 7.9 L Urine 07/19/17 07/20/17 Range/Units 15:00 08:26 Urine Color Yellow Yellow (Yellow) Urine Clarity Turbid A Turbid A (Clear) Urine pH 7.0 7.0 (5.0-8.0) pH Units Ur Specific [place] 1.012 1.017 (1.010-1.025) Urine Protein 100 H 100 H (Neg-Trace) mg/dL Urine Glucose (UA) Normal Normal (Normal) mg/dL - ABG Interpretation ABG results: PT/INR, D-dimer PT 10.9 Seconds (9.4-12.1) 07/18/17 19:33 - Impressions Impressions Retroperitoneum Ultrasound 07/19/17 19:00 IMPRESSION: Previously noted left hydronephrosis has essentially resolved. Atrophic appearance of the kidneys, suggestive of chronic renal disease. Bilateral nephrolithiasis. D/ / Nathan Jackson MD / Nathan Jackson MD Interpreting Provider: Nathan Jackson MD - VTE Documentation of Mechanical Device: Intermittent pneumatic compression device Consult Discharge Plan - Plan Referrals: NONE,PCP [Primary Care Provider] -
[2017-07-20] MEDS: Cefepime HCl 1,000 MG in Water for inj. (sterile) 20 ML 10 ML IVPB SCH (17:02)
[2017-07-21 01:47] LABS: Basophils % 0.3 %; Eosinophils # 0.2 K/mcL (0.0-0.6); Eosinophils % 2.6 %; Hemoglobin 7.3 g/dL (11.5-15.4); Immature Granulocytes % 1.2 % (0-4); Lymphocytes # 2.2 K/mcL (0.6-4.6); Lymphocytes % 33.4 %; Mean Corpuscular HGB Conc 31.7 g/dL (31.6-35.5); Mean Corpuscular Hemoglobin 27.9 pg (28.0-33.3); Mean Corpuscular Volume 87.8 fL (83.0-100.0); Mean Platelet Volume 9.6 fL (9.4-12.4); Monocytes # 0.7 K/mcL (0.0-1.3); Monocytes % 10.9 %; Neutrophils # 3.3 K/mcL (1.6-8.9); Platelet Count 243 K/mcL (140-400); Red Blood Count 2.62 M/mcL (3.82-4.97); Segmented Neutrophils % 51.6 %
[2017-07-21 02:02] LABS: Calcium 7.9 mg/dL (8.6-10.3); Potassium 4.5 mEq/L (3.5-5.1)
--- NOTE | 2017-07-21 08:35 | Nephrology Progress Note ---
Date of Encounter: 07/21/17 Time of Encounter: 08:10 - Assessment and Plan (1) End stage renal disease Current Visit: Yes Status: Acute ESRD nearing HD start. Creat 4.41. Has AVG ready for access. No immediate need to started HD today, however most likely will start HD during this hospital admission. Hx of obstructing ureteral stone, repeat renal US states bilateral non obstructing calculi. Resolved left hydronephrosis. Sandra catheter, documented urine output 1600cc. Urine culture pending. SBP [id number] on Amlodipine 5mg BID. Subjective Interval history: Sitting up in bed, feeding self breakfast. No new complaints. Objective - Vital Signs Vital signs: Vital Signs Temp Pulse Resp BP Pulse Ox 07/21/17 07:09 99.0 F 83 15 179/71 92 07/21/17 03:56 98.2 F 85 16 166/74 94 07/20/17 23:06 99.2 F 88 16 157/73 95 07/20/17 18:56 98 F 82 18 170/73 94 07/20/17 15:23 98.4 F 84 16 177/72 96 07/20/17 11:14 98.3 F 79 14 179/70 94 Intake and Output 07/20/17 07/21/17 07/21/17 23:59 07:59 15:59 Intake Total 120 / 120 Output Total 700 / 700 575 / 575 Balance -580 / -580 -575 / -575 Intake: Oral 120 / 120 Output: Catheter 700 / 700 575 / 575 Other: Stool Size Large Small Stool Consistency soft soft Stool Color Brown Brown # Bowel Movement Diapers 1 Weight 62.6 kg Patient Weight 07/21/17 23:59 Weight 62.6 kg - General Appearance General appearance: Present: well-developed, well-nourished, appears started age EENT: Present: mucous membranes moist Neck: Present: no JVD Cardiology: Present: no edema, regular rate, regular rhythm Dialysis Vascular Access: Arteriovenous Graft thrill: Yes bruit: Yes Gastrointestinal: Present: normoactive bowel sounds, no tenderness Integumentary: Present: warm and dry Psychiatric: Present: mood/affect appropriate, cooperative - Lab 07/21/17 01:25 07/21/17 01:25 Most recent lab results Calcium 7.9 mg/dL (8.6-10.3) L 07/21/17 01:25 Phosphorus 5.1 mg/dL (2.7-4.5) H 07/18/17 21:08 Magnesium 1.7 mg/dL (1.6-2.6) 07/19/17 04:00 - VTE Documentation of Mechanical Device: Intermittent pneumatic compression device Consult Discharge Plan - Plan Referrals: NONE,PCP [Primary Care Provider] -
[2017-07-21] MEDS: Aspirin 81 MG TAB.CHEW PO SCH (08:58)
[2017-07-21] MEDS: amLODIPine 5 MG TABLET PO SCH ×2 (09:03→19:36)
--- NOTE | 2017-07-21 12:01 | Internal Med Progress Note ---
Date of Encounter: 07/21/17 Time of Encounter: 10:50 - Assessment and plan (1) HCAP (healthcare-associated pneumonia) Current Visit: Yes Status: Acute Assessment and plan: Pt remains asymptomatic. No fever, chills, cough, URI symptoms. Lungs are clear, diminshed with poor inspiratory effort, unable to follow commands due to baseline mental status. Pt is not requiring supplemental 02. Continue IV Cefepime 02 as needed to maintain sats > 92% Chest X-Ray 07/18/17 19:07 IMPRESSION: 1. Interval development of left basilar consolidation and left pleural effusion. The 2. Calcific atherosclerotic disease aorta. 3. Otherwise unremarkable chest. D/ / Jaxson Manning / Jaxson Manning Interpreting Provider: Jaxson Manning (2) Anemia Current Visit: Yes Status: Acute Assessment and plan: Anemia of chronic disease. Hgb has remained < 8 but stable. Continue to trend daily. Urine with lg amt of blood. Nephrology following. Qualifiers: Anemia type: due to chronic kidney disease Chronic kidney disease stage: stage 5, not on chronic dialysis Qualified Code(s): N18.5 - Chronic kidney disease, stage 5; D63.1 - Anemia in chronic kidney disease; D63.1 - Anemia in chronic kidney disease (3) End stage renal disease Current Visit: Yes Status: Acute Assessment and plan: Nephrology following. Pt with fistula, but has not had dialysis yet. May start tomorrow. Renal function worsening, 4.41/10. Continue to avoid nephrotoxins Vancomycin discontinued. (4) Dementia Current Visit: Yes Status: Acute Assessment and plan: Chronic. Pt is alert, able to answer name only. Monitor for safety. Bed alarm, fall precautions Qualifiers: Dementia type: Alzheimer's disease Alzheimer's disease onset: unspecified onset Dementia behavioral disturbance: without behavioral disturbance Qualified Code(s): G30.9 - Alzheimer's disease, unspecified; F02.80 - Dementia in other diseases classified elsewhere without behavioral disturbance; F02.80 - Dementia in other diseases classified elsewhere without behavioral disturbance; F02.80 - Dementia in other diseases classified elsewhere without behavioral disturbance (5) DVT prophylaxis Current Visit: Yes Status: Acute Assessment and plan: SCDs, no pharmacological intervention due to anemia. - Time Spent With Patient Total time spent is greater than 50% in coordination of care (as documented) at patient's floor/unit and/or counseling patient: less than 15 minutes - Subjective Interval history: Pt was seen and assessed at 1050. Pt is sleeping, is easily arouseable to verbal stimuli, she is alert, oriented to name only. Pt denies headache, n/v, diarrhea, abdominal pain, chest pain, SOB, or vision changes. She is pleasant and states, "I am fine, I used to be sick but I'm getting better." - Constitutional Vitals: Temp Pulse Resp BP Pulse Ox 98.0 F 78 17 162/69 94 07/21/17 11:49 07/21/17 11:49 07/21/17 11:49 07/21/17 11:49 07/21/17 11:49 General appearance: Present: cooperative, A&O X 1, pleasant, no acute distress. Absent: answers questions appropriately - Head Head exam: Present: atraumatic, normal inspection, normocephalic - Eye Eye exam: Present: conjuntiva pink, sclera anicteric. Absent: normal appearance - Neck Neck exam general surgery: Present: supple, trachea midline. Absent: lymphadenopathy, tenderness - Respiratory Respiratory exam: Present: CTAB. Absent: accessory muscle use, chest wall tenderness, rales, respiratory distress, rhonchi, wheezes - Cardiovascular Cardiovascular exam: Present: RRR, +S1, +S2. Absent: diastolic murmur, gallop, rubs, systolic murmur - GI/Abdominal GI/Abdominal exam: Present: normal bowel sounds, soft. Absent: distended, hepatomegaly, tenderness - Extremities Exam Extremities exam: Present: normal capillary refill, warm, radial pulses palpable and symmetrical. Absent: calf tenderness, cyanotic, pedal edema, tenderness - Neurological Exam Neurological exam: Present: alert, no focal deficits. Absent: oriented X3, facial droop, speech deficit - Skin Skin exam: Present: dry, intact, normal color, warm. Absent: rash Internal Medicine: Result - Labs CBC & Chem 7: 07/21/17 01:25 07/21/17 01:25 Labs: Short CBC 07/21/17 Range/Units 01:25 WBC 6.4 (4.3-11.1) K/mcL Hgb 7.3 L (11.5-15.4) g/dL Hct 23.0 L (35.3-44.9) % Plt Count 243 (140-400) K/mcL Neutrophils # 3.3 (1.6-8.9) K/mcL BMP 07/21/17 01:25 Sodium 133 L Potassium 4.5 Chloride 108 H Carbon Dioxide 20 L BUN 41 H Creatinine 4.41 H Glucose 88 Calcium 7.9 L - ABG Interpretation ABG results: PT/INR, D-dimer PT 10.9 Seconds (9.4-12.1) 07/18/17 19:33 - VTE Documentation of Mechanical Device: Intermittent pneumatic compression device Consult Discharge Plan - Plan Referrals: NONE,PCP [Primary Care Provider] -
[2017-07-21] MEDS ORDERED: 0.9 % Sodium Chloride 250 ML ONE ×2 (13:45→16:37)
[2017-07-21] MEDS: Cefepime HCl 1,000 MG in Water for inj. (sterile) 20 ML 10 ML IVPB SCH (16:30)
[2017-07-21] MEDS: Acetaminophen 325 MG TABLET PO PRN (23:55)
[2017-07-22 04:11] LABS: Basophils # 0.1 K/mcL (0.0-0.2); Eosinophils # 0.3 K/mcL (0.0-0.6); Eosinophils % 4.3 %; Hemoglobin 8.7 g/dL (11.5-15.4); Immature Granulocytes % 1.6 % (0-4); Lymphocytes # 1.9 K/mcL (0.6-4.6); Lymphocytes % 30.6 %; Mean Corpuscular HGB Conc 32.2 g/dL (31.6-35.5); Mean Corpuscular Hemoglobin 28.2 pg (28.0-33.3); Mean Corpuscular Volume 87.4 fL (83.0-100.0); Mean Platelet Volume 9.5 fL (9.4-12.4); Monocytes # 0.6 K/mcL (0.0-1.3); Monocytes % 10.5 %; Neutrophils # 3.2 K/mcL (1.6-8.9); Platelet Count 217 K/mcL (140-400); Red Blood Count 3.09 M/mcL (3.82-4.97); Red Cell Distribution Width 15.9 % (11.5-14.5)
[2017-07-22 04:27] LABS: Calcium 8.4 mg/dL (8.6-10.3); Potassium 4.3 mEq/L (3.5-5.1)
[2017-07-22] MEDS: amLODIPine 5 MG TABLET PO SCH ×2 (07:53→20:07)
[2017-07-22] MEDS: Aspirin 81 MG TAB.CHEW PO SCH (07:53)
[2017-07-22] MEDS ORDERED: 0.9 % Sodium Chloride 250 ML IVC PRN (09:01)
--- NOTE | 2017-07-22 09:05 | Nephrology Progress Note ---
Date of Encounter: 07/22/17 Time of Encounter: 08:35 - Assessment and Plan (1) End stage renal disease Current Visit: Yes Status: Acute ESRD nearing HD start. Creat 4.16, gfr 10. Has AVG ready for access. Will start HD today, orders given. Hx of obstructing ureteral stone, repeat renal US states bilateral non obstructing calculi. Resolved left hydronephrosis. Sandra catheter, documented urine output 1700cc. Urine culture prelim-no growth. Arrangements being made with office staff for outpatient chronic HD with [facility]. Subjective Interval history: Sitting up in bed, feeding self breakfast. No new complaints. Objective - Vital Signs Vital signs: Vital Signs Temp Pulse Resp BP Pulse Ox 07/22/17 07:07 98.2 F 77 15 175/77 93 07/22/17 03:00 98.1 F 78 12 154/69 95 07/21/17 23:00 98.1 F 82 12 179/76 92 07/21/17 19:24 98.8 F 79 20 158/65 94 07/21/17 16:22 97.8 F 92 16 167/70 94 07/21/17 14:18 98.1 F 78 14 158/67 07/21/17 14:03 98.4 F 82 14 162/75 07/21/17 11:49 98.0 F 78 17 162/69 94 Intake and Output 07/21/17 07/22/17 07/22/17 23:59 07:59 15:59 Intake Total 358 / 358 Output Total 600 / 600 550 / 550 Balance -242 / -242 -550 / -550 Intake: Blood Product 358 / 358 Rbcs Leuko Poor As-1 Unit 358 / 358 [id number] Output: Catheter 600 / 600 550 / 550 Other: Stool Size Small Stool Consistency soft Stool Color Brown # Bowel Movement Diapers 1 Weight 63 kg Blood Glucose* 111 Patient Weight 07/22/17 23:59 Weight 63 kg - General Appearance General appearance: Present: well-developed, well-nourished, appears started age EENT: Present: mucous membranes moist Neck: Present: no JVD Respiratory: Present: clear Cardiology: Present: no edema Dialysis Vascular Access: Arteriovenous Graft thrill: Yes bruit: Yes Gastrointestinal: Present: normoactive bowel sounds, no tenderness Integumentary: Present: warm and dry Psychiatric: Present: mood/affect appropriate, cooperative - Lab 07/22/17 04:02 07/22/17 04:02 Most recent lab results Calcium 8.4 mg/dL (8.6-10.3) L 07/22/17 04:02 Phosphorus 5.1 mg/dL (2.7-4.5) H 07/18/17 21:08 Magnesium 1.7 mg/dL (1.6-2.6) 07/19/17 04:00 - VTE Documentation of Mechanical Device: Intermittent pneumatic compression device Consult Discharge Plan - Plan Referrals: NONE,PCP [Primary Care Provider] -
[2017-07-22] MEDS ORDERED: 0.9 % Sodium Chloride 1,000 ML PRIME SCH (09:15)
--- NOTE | 2017-07-22 17:36 | Internal Med Progress Note ---
Date of Encounter: 07/22/17 Time of Encounter: 08:45 - Assessment and plan (1) HCAP (healthcare-associated pneumonia) Current Visit: Yes Status: Acute Assessment and plan: Pt remains asymptomatic. No fever, chills, cough, URI symptoms. Lungs are clear, diminshed with poor inspiratory effort, unable to follow commands due to baseline mental status. Pt is not requiring supplemental 02. Continue IV Cefepime, tomorrow is day 5, could deescalate to po. 02 as needed to maintain sats > 92% Chest X-Ray 07/18/17 19:07 IMPRESSION: 1. Interval development of left basilar consolidation and left pleural effusion. The 2. Calcific atherosclerotic disease aorta. 3. Otherwise unremarkable chest. D/ / Jaxson Manning / Jaxson Manning Interpreting Provider: Jaxson Manning (2) Anemia Current Visit: Yes Status: Acute Assessment and plan: Anemia of chronic disease. Pt received 1 unit PRBCs last pm and has improved overall condition. Hgb 8.7 today. Continue to trend. Nephrology following. Qualifiers: Anemia type: due to chronic kidney disease Chronic kidney disease stage: stage 5, not on chronic dialysis Qualified Code(s): N18.5 - Chronic kidney disease, stage 5; D63.1 - Anemia in chronic kidney disease; D63.1 - Anemia in chronic kidney disease (3) End stage renal disease Current Visit: Yes Status: Chronic Assessment and plan: Nephrology following. Dialysis started today. Renal function worsening, 4.07/01. Continue to avoid nephrotoxins Vancomycin discontinued. (4) Dementia Current Visit: Yes Status: Chronic Assessment and plan: Chronic. Pt is alert, able to answer name only. Pt partially aware of year today. Monitor for safety. Bed alarm, fall precautions Qualifiers: Dementia type: Alzheimer's disease Alzheimer's disease onset: unspecified onset Dementia behavioral disturbance: without behavioral disturbance Qualified Code(s): G30.9 - Alzheimer's disease, unspecified; F02.80 - Dementia in other diseases classified elsewhere without behavioral disturbance; F02.80 - Dementia in other diseases classified elsewhere without behavioral disturbance; F02.80 - Dementia in other diseases classified elsewhere without behavioral disturbance (5) DVT prophylaxis Current Visit: Yes Status: Acute Assessment and plan: SCDs, no pharmacological intervention due to anemia. Encourage pt to get into chair daily. - Time Spent With Patient Total time spent is greater than 50% in coordination of care (as documented) at patient's floor/unit and/or counseling patient: less than 15 minutes - Subjective Interval history: Pt was seen and assessed at 0845. Pt is alert, awake, pleasant,oriented to name only. Pt denies headache, n/v, diarrhea, abdominal pain, chest pain, SOB, or vision changes. Pt states today that she feels well and is aware that the year is "Two thousand something." - Constitutional Vitals: Temp Pulse Resp BP Pulse Ox 99.2 F 79 15 169/75 93 07/22/17 16:13 07/22/17 16:13 07/22/17 16:13 07/22/17 16:13 07/22/17 16:13 General appearance: Present: cooperative, A&O X 1, pleasant, no acute distress. Absent: answers questions appropriately - Head Head exam: Present: atraumatic, normal inspection, normocephalic - Eye Eye exam: Present: normal appearance, conjuntiva pink, sclera anicteric - Neck Neck exam general surgery: Present: supple, trachea midline. Absent: lymphadenopathy, tenderness - Respiratory Respiratory exam: Present: CTAB. Absent: accessory muscle use, rales, rhonchi, wheezes - Cardiovascular Cardiovascular exam: Present: RRR, +S1, +S2. Absent: diastolic murmur, gallop, rubs, systolic murmur - GI/Abdominal GI/Abdominal exam: Present: normal bowel sounds, soft. Absent: distended, hepatomegaly, tenderness - Extremities Exam Extremities exam: Present: normal capillary refill, normal inspection, warm, radial pulses palpable and symmetrical. Absent: calf tenderness, cyanotic, pedal edema, tenderness - Neurological Exam Neurological exam: Present: alert, oriented X3, no focal deficits. Absent: facial droop, speech deficit - Skin Skin exam: Present: dry, intact, normal color, warm. Absent: rash Internal Medicine: Result - Labs CBC & Chem 7: 07/22/17 04:02 07/22/17 04:02 Labs: Short CBC 07/22/17 Range/Units 04:02 WBC 6.1 (4.3-11.1) K/mcL Hgb 8.7 L (11.5-15.4) g/dL Hct 27.0 L (35.3-44.9) % Plt Count 217 (140-400) K/mcL Neutrophils # 3.2 (1.6-8.9) K/mcL BMP 07/22/17 04:02 Sodium 135 L Potassium 4.3 Chloride 109 H Carbon Dioxide 19 L BUN 39 H Creatinine 4.16 H Glucose 80 Calcium 8.4 L - ABG Interpretation ABG results: PT/INR, D-dimer PT 10.9 Seconds (9.4-12.1) 07/18/17 19:33 - VTE Documentation of Mechanical Device: Intermittent pneumatic compression device Consult Discharge Plan - Plan Referrals: NONE,PCP [Primary Care Provider] -
[2017-07-22] MEDS: Cefepime HCl 1,000 MG in Water for inj. (sterile) 20 ML 10 ML IVPB SCH (18:19)
[2017-07-23 03:41] LABS: Basophils % 0.6 %; Eosinophils # 0.3 K/mcL (0.0-0.6); Eosinophils % 4.3 %; Hematocrit 23.1 % (35.3-44.9); Hemoglobin 7.6 g/dL (11.5-15.4); Immature Granulocytes % 1.5 % (0-4); Lymphocytes # 2.1 K/mcL (0.6-4.6); Lymphocytes % 29.7 %; Mean Corpuscular HGB Conc 32.9 g/dL (31.6-35.5); Mean Corpuscular Hemoglobin 28.7 pg (28.0-33.3); Mean Corpuscular Volume 87.2 fL (83.0-100.0); Mean Platelet Volume 9.4 fL (9.4-12.4); Monocytes # 0.7 K/mcL (0.0-1.3); Monocytes % 9.6 %; Neutrophils # 3.9 K/mcL (1.6-8.9); Platelet Count 176 K/mcL (140-400); Red Blood Count 2.65 M/mcL (3.82-4.97); Red Cell Distribution Width 16.1 % (11.5-14.5); Segmented Neutrophils % 54.3 %
[2017-07-23 04:03] LABS: Calcium 8.1 mg/dL (8.6-10.3); Potassium 4.5 mEq/L (3.5-5.1)
[2017-07-23] MEDS: amLODIPine 5 MG TABLET PO SCH ×2 (07:46→20:17)
[2017-07-23] MEDS: Aspirin 81 MG TAB.CHEW PO SCH (07:46)
--- NOTE | 2017-07-23 08:05 | Nephrology Progress Note ---
Date of Encounter: 07/23/17 Time of Encounter: 08:03 - Assessment and Plan (1) End-stage renal disease Current Visit: Yes Status: Acute The patient has a long-standing history of progressive chronic kidney disease. She is now at end-stage renal disease. She had her first dialysis yesterday. They dialysis session was terminated early because of infiltration of the AV access. She still has quite a bit of swelling around the access. For that reason were going to hold dialysis today. If the swelling improves we will proceed with dialysis again tomorrow. Hemoglobin is quite low. We can give her additional blood on dialysis tomorrow. (2) Anemia Current Visit: Yes Status: Acute Qualifiers: Anemia type: due to chronic kidney disease Chronic kidney disease stage: stage 5, not on chronic dialysis Qualified Code(s): N18.5 - Chronic kidney disease, stage 5; D63.1 - Anemia in chronic kidney disease; D63.1 - Anemia in chronic kidney disease (3) Dementia Current Visit: Yes Status: Chronic Qualifiers: Dementia type: Alzheimer's disease Alzheimer's disease onset: unspecified onset Dementia behavioral disturbance: without behavioral disturbance Qualified Code(s): G30.9 - Alzheimer's disease, unspecified; F02.80 - Dementia in other diseases classified elsewhere without behavioral disturbance; F02.80 - Dementia in other diseases classified elsewhere without behavioral disturbance; F02.80 - Dementia in other diseases classified elsewhere without behavioral disturbance Subjective Interval history: Patient is alert but confused. This is her baseline. She had dialysis initiated yesterday but the session was terminated early because of infiltration of her AV graft. Objective - Vital Signs Vital signs: Vital Signs Temp Pulse Resp BP Pulse Ox 07/23/17 07:19 99.0 F 83 16 163/84 90 07/23/17 02:52 98.9 F 108 15 163/68 91 07/22/17 23:27 98.7 F 82 15 154/68 96 07/22/17 19:18 98.8 F 73 16 159/62 95 07/22/17 16:13 99.2 F 79 15 169/75 93 07/22/17 12:16 98.5 F 69 15 163/70 91 07/22/17 10:25 97.9 F 20 136/60 07/22/17 10:10 134/62 07/22/17 10:00 147/70 07/22/17 09:45 148/69 07/22/17 09:30 98.0 F 18 146/69 Intake and Output 07/22/17 07/23/17 07/23/17 23:59 07:59 15:59 Intake Total 480 / 480 Output Total 500 / 500 400 / 400 Balance -20 / -20 -400 / -400 Intake: Oral 480 / 480 Output: Catheter 500 / 500 400 / 400 Other: Meal Dinner Percent of Meal Consumed 50% Stool Size Moderate # Bowel Movement Diapers 1 Weight 55.9 kg Patient Weight 07/23/17 23:59 Weight 55.9 kg - General Appearance Exam: The patient is in no acute distress. Lungs diminished breath sounds otherwise clear. Heart regular rate and rhythm with a 2/6 talk ejection murmur. Abdomen was benign. There is no lower extremity swelling. There is a functioning AV graft in the right upper extremity. There is a perigraft hematoma present from previous infiltration. There is some edema of the access arm as well. - Lab 07/23/17 03:29 07/23/17 03:29 Most recent lab results Calcium 8.1 mg/dL (8.6-10.3) L 07/23/17 03:29 Phosphorus 5.1 mg/dL (2.7-4.5) H 07/18/17 21:08 Magnesium 1.7 mg/dL (1.6-2.6) 07/19/17 04:00 - VTE Documentation of Mechanical Device: Intermittent pneumatic compression device Consult Discharge Plan - Plan Referrals: NONE,PCP [Primary Care Provider] -
[2017-07-23 08:26] LABS: Phosphorous 4.4 mg/dL (2.7-4.5)
--- NOTE | 2017-07-23 10:35 | Internal Med Progress Note ---
Date of Encounter: 07/23/17 Time of Encounter: 10:33 - Assessment and plan (1) HCAP (healthcare-associated pneumonia) Current Visit: Yes Status: Acute Assessment and plan: 07/18/17 CXR concerning for LLL pneumonia. Afebrile, no elevated to VBC, no cough, no wheezing. Completed 5 days IV cefepime (2) Anemia Current Visit: Yes Status: Acute Assessment and plan: Anemia of chronic disease. Hgb dropped to 7.3. S/p 1 unit PRBC with improvement in Hgb to 8.7. Now Hgb 7.6 with possible hematuria. Transfuse 1 unit PRBC, monitor repeat H&H. Qualifiers: Anemia type: due to chronic kidney disease Chronic kidney disease stage: stage 5, not on chronic dialysis Qualified Code(s): N18.5 - Chronic kidney disease, stage 5; D63.1 - Anemia in chronic kidney disease; D63.1 - Anemia in chronic kidney disease (3) End stage renal disease Current Visit: Yes Status: Chronic Assessment and plan: long-standing history of progressive chronic kidney disease, nnow at end-stage renal disease. First dialysis 07/22/2017. Nephrology following (4) Dementia Current Visit: Yes Status: Chronic Assessment and plan: per hx. Alert to self only; mentation at baseline. Supportive care. Qualifiers: Dementia type: Alzheimer's disease Alzheimer's disease onset: unspecified onset Dementia behavioral disturbance: without behavioral disturbance Qualified Code(s): G30.9 - Alzheimer's disease, unspecified; F02.80 - Dementia in other diseases classified elsewhere without behavioral disturbance; F02.80 - Dementia in other diseases classified elsewhere without behavioral disturbance; F02.80 - Dementia in other diseases classified elsewhere without behavioral disturbance (5) DVT prophylaxis Current Visit: Yes Status: Acute Assessment and plan: SCDs, no pharmacological intervention due to anemia. - Time Spent With Patient Total time spent is greater than 50% in coordination of care (as documented) at patient's floor/unit and/or counseling patient: - Subjective Interval history: Seen and examined at bedside. Patient is new to me, information obtained from chart review and family as patient has dementia and alert to self only. Poor historian and does not know details. Family feels patient is improved from yesterday. Spoke with Dr. Alexander and okay to discharge from a nephrology standpoint. Patient is able to answer simple yes/no questions but does not provide details. - Constitutional Vitals: Temp Pulse Resp BP Pulse Ox 99.0 F 83 16 163/84 90 07/23/17 07:19 07/23/17 07:19 07/23/17 07:19 07/23/17 07:19 07/23/17 07:19 General appearance: Present: cooperative, A&O X 1, pleasant, no acute distress. Absent: answers questions appropriately - Head Head exam: Present: atraumatic, normocephalic - Eye Eye exam: Present: PERRL, conjuntiva pink, sclera anicteric Pupils: Present: PERRL - Neck Neck exam general surgery: Present: supple, trachea midline. Absent: lymphadenopathy - Respiratory Respiratory exam: Present: CTAB. Absent: accessory muscle use, rales, rhonchi, wheezes - Cardiovascular Cardiovascular exam: Present: RRR, +S1, +S2. Absent: diastolic murmur, gallop, rubs, systolic murmur - GI/Abdominal GI/Abdominal exam: Present: normal bowel sounds, soft, no peritoneal signs. Absent: distended, tenderness - Extremities Exam Extremities exam: Present: warm, radial pulses palpable and symmetrical. Absent : calf tenderness, cyanotic, pedal edema - Neurological Exam Neurological exam: Present: CN II-XII intact, oriented X3, no focal deficits. Absent: pronater drift, facial droop, speech deficit - Skin Skin exam: Present: dry, intact Internal Medicine: Result - Labs CBC & Chem 7: 07/23/17 03:29 07/23/17 03:29 Labs: Short CBC 07/23/17 Range/Units 03:29 WBC 7.2 (4.3-11.1) K/mcL Hgb 7.6 L (11.5-15.4) g/dL Hct 23.1 L (35.3-44.9) % Plt Count 176 (140-400) K/mcL Neutrophils # 3.9 (1.6-8.9) K/mcL BMP 07/23/17 03:29 Sodium 136 Potassium 4.5 Chloride 110 H Carbon Dioxide 20 L BUN 40 H Creatinine 4.03 H Glucose 86 Calcium 8.1 L - ABG Interpretation ABG results: PT/INR, D-dimer PT 10.9 Seconds (9.4-12.1) 07/18/17 19:33 - VTE Documentation of Mechanical Device: Intermittent pneumatic compression device Consult Discharge Plan - Plan Referrals: NONE,PCP [Primary Care Provider] -
[2017-07-23] MEDS: Acetaminophen 325 MG TABLET PO PRN (17:58)
[2017-07-23] MEDS: Cefepime HCl 1,000 MG in Water for inj. (sterile) 20 ML 10 ML IVPB SCH (17:59)
[2017-07-24 03:41] LABS: Basophils # 0.1 K/mcL (0.0-0.2); Basophils % 0.9 %; Eosinophils # 0.4 K/mcL (0.0-0.6); Eosinophils % 6.5 %; Hemoglobin 8.9 g/dL (11.5-15.4); Immature Granulocytes % 3.2 % (0-4); Lymphocytes # 2.1 K/mcL (0.6-4.6); Lymphocytes % 32.2 %; Mean Corpuscular Hemoglobin 28.6 pg (28.0-33.3); Mean Corpuscular Volume 86.8 fL (83.0-100.0); Mean Platelet Volume 9.4 fL (9.4-12.4); Monocytes # 0.7 K/mcL (0.0-1.3); Monocytes % 10.7 %; Neutrophils # 3.1 K/mcL (1.6-8.9); Nucleated Red Blood Cells 0.3 /100 WBC (0); Platelet Count 177 K/mcL (140-400); Red Blood Count 3.11 M/mcL (3.82-4.97); Red Cell Distribution Width 16.6 % (11.5-14.5); Segmented Neutrophils % 46.5 %
[2017-07-24 04:00] LABS: Albumin 2.5 g/dL (3.5-5.7); Albumin/Globulin Ratio 0.8 (1.1-2.2); Bilirubin,Total 0.3 mg/dL (0.3-1.0); Calcium 8.4 mg/dL (8.6-10.3); Potassium 4.7 mEq/L (3.5-5.1); Total Protein 5.5 g/dL (6.4-8.9)
[2017-07-24] MEDS ORDERED: Ferumoxytol 510 MG in 0.9 % Sodium Chloride 100 ML IVPB ONE (08:01)
--- NOTE | 2017-07-24 08:01 | Nephrology Progress Note ---
Date of Encounter: 07/24/17 Time of Encounter: 08:00 - Assessment and Plan (1) End-stage renal disease Current Visit: Yes Status: Acute The patient has a long-standing history of progressive chronic kidney disease. She is now at end-stage renal disease. The patient still has a significant perigraft hematoma resulting from a previous infiltration. I am not going to have her get dialysis today because of the hematoma. Her renal function is stable. Hemoglobin is improved. Clinically she could be discharged back to the custodial if this is thought to be appropriate. She will then follow up with outpatient dialysis. Her iron saturation is 6% so I am going to give her some parenteral iron here today. (2) Anemia Current Visit: Yes Status: Acute Qualifiers: Anemia type: due to chronic kidney disease Chronic kidney disease stage: stage 5, not on chronic dialysis Qualified Code(s): N18.5 - Chronic kidney disease, stage 5; D63.1 - Anemia in chronic kidney disease; D63.1 - Anemia in chronic kidney disease (3) Dementia Current Visit: Yes Status: Chronic Qualifiers: Dementia type: Alzheimer's disease Alzheimer's disease onset: unspecified onset Dementia behavioral disturbance: without behavioral disturbance Qualified Code(s): G30.9 - Alzheimer's disease, unspecified; F02.80 - Dementia in other diseases classified elsewhere without behavioral disturbance; F02.80 - Dementia in other diseases classified elsewhere without behavioral disturbance; F02.80 - Dementia in other diseases classified elsewhere without behavioral disturbance Subjective Interval history: Patient is alert but confused. This is her baseline. Patient is complaining of some soreness around her AV access. She continues to have a significant hematoma. Objective - Vital Signs Vital signs: Vital Signs Temp Pulse Resp BP Pulse Ox 07/24/17 07:00 98.3 F 77 14 158/61 95 07/24/17 02:55 98.2 F 78 16 159/69 92 07/23/17 23:06 97.6 F 75 16 168/74 95 07/23/17 18:48 98.0 F 71 16 155/63 93 07/23/17 17:50 98.2 F 72 18 94 07/23/17 17:30 97.6 F 72 18 163/75 94 07/23/17 16:30 97.8 F 75 16 147/58 94 07/23/17 16:06 98.3 F 78 18 156/63 94 07/23/17 16:00 97.8 F 80 16 163/75 93 07/23/17 15:40 97.8 F 72 16 145/66 93 07/23/17 15:35 97.8 F 72 18 133/67 93 07/23/17 15:30 97.8 F 73 16 144/67 93 07/23/17 15:25 97.8 F 72 16 157/70 93 07/23/17 11:18 98.3 F 74 18 138/65 96 Intake and Output 07/23/17 07/23/17 07/24/17 15:59 23:59 07:59 Intake Total 1000 / 1000 710 / 710 Output Total 550 / 550 500 / 500 650 / 650 Balance 450 / 450 210 / 210 -650 / -650 Intake: IV Fluids Maxipime 1,000 MG In Water for inj. (sterile) 10 ML @ 150 mls/ hr IVPB Q24H [facility] Rx#:[id number] Oral 600 / 600 0 / 0 Blood Product 400 / 400 700 / 700 Rbcs Leuko Poor As-1 Unit 400 / 400 700 / 700 [id number] Output: Catheter 550 / 550 500 / 500 650 / 650 Other: Meal Lunch Percent of Meal Consumed 95% Stool Size Moderate Stool Consistency soft Stool Color Brown # Bowel Movement Diapers 1 Weight 59.8 kg Patient Weight 07/24/17 23:59 Weight 59.8 kg - General Appearance Exam: Patient is alert. Lungs essentially clear to auscultation. Heart regular rate and rhythm with a 2/6.ejection murmur. Abdomen was benign. There is no edema. She has a functioning AV graft in the right upper extremity. A bruit is present. There is a large perigraft hematoma. - Lab 07/24/17 03:06 07/24/17 03:06 Most recent lab results Calcium 8.4 mg/dL (8.6-10.3) L 07/24/17 03:06 Phosphorus 4.4 mg/dL (2.7-4.5) 07/23/17 03:29 Magnesium 1.7 mg/dL (1.6-2.6) 07/19/17 04:00 - VTE Documentation of Mechanical Device: Intermittent pneumatic compression device Consult Discharge Plan - Plan Referrals: NONE,PCP [Primary Care Provider] -
[2017-07-24] MEDS: Aspirin 81 MG TAB.CHEW PO SCH (08:09)
[2017-07-24] MEDS: amLODIPine 5 MG TABLET PO SCH (08:09)
--- NOTE | 2017-07-24 09:01 | Discharge Summary ---
Date of Encounter: 07/24/17 Time of Encounter: 08:56 - Discharge Diagnosis (1) End stage renal disease Priority: Primary Status: Chronic Assessment and Plan: long-standing history of progressive chronic kidney disease, now at end-stage renal disease. First dialysis 07/22/2017; of note, dialysis session was terminated early because of infiltration of the AV access. No further HD inpatient due to persistent right AV access hematoma. Follow-up with dialysis outpatient. Nephrology followed. (2) Ureteral stone with hydronephrosis Priority: Primary Status: Acute Assessment and Plan: Hx of obstructing ureteral stone. 07/19/2017 repeat renal US states bilateral non obstructing calculi and resolved left hydronephrosis. Leave Hoffman catheter in palce at discharge until seen by nephrology outpatient. (3) Anemia Priority: Primary Status: Acute Assessment and Plan: anemia of chronic disease combined with iron deficiency anemia. Hgb dropped to 7.3; received 2 units PRBC this admission. Iron saturation 6; received 1 time dose IV iron. Hgb 8.9 at discharge. CBC can be monitored at SNF. Qualifiers: Anemia type: due to chronic kidney disease Chronic kidney disease stage: stage 5, not on chronic dialysis Qualified Code(s): N18.5 - Chronic kidney disease, stage 5; D63.1 - Anemia in chronic kidney disease; D63.1 - Anemia in chronic kidney disease (4) HCAP (healthcare-associated pneumonia) Priority: Primary Status: Acute Assessment and Plan: 07/18/17 CXR concerning for LLL pneumonia. Afebrile, no elevated WBC, no cough, no wheezing. Completed 5 days IV cefepime (5) Dementia Priority: Secondary Status: Chronic Assessment and Plan: per hx. Alert to self only; mentation at baseline. Supportive care. Qualifiers: Dementia type: Alzheimer's disease Alzheimer's disease onset: unspecified onset Dementia behavioral disturbance: without behavioral disturbance Qualified Code(s): G30.9 - Alzheimer's disease, unspecified; F02.80 - Dementia in other diseases classified elsewhere without behavioral disturbance; F02.80 - Dementia in other diseases classified elsewhere without behavioral disturbance; F02.80 - Dementia in other diseases classified elsewhere without behavioral disturbance (6) Essential hypertension Priority: Primary Status: Acute Assessment and Plan: per hx. Diltiazem stopped and amlodipine started per Nephrology. BP normotensive. BP can be monitored at SNF (7) Hypothyroidism Priority: Primary Status: Acute Assessment and Plan: per hx. Cont home synthyroid Qualifiers: Hypothyroidism type: acquired Qualified Code(s): E03.9 - Hypothyroidism, unspecified (8) Lung nodule Priority: Secondary Status: Chronic Assessment and Plan: per hx. CXR with stable and calcified granuloma to left lung apex. Hospital course: See assessment and plan for hospital course Discharge discussed with: patient (Seen and examined at bedside; alert to self only. Complaining of some pain at right AV hematoma site. She does not describe pain, does not radiate. No CP, no SOB. Discussed case with Dr. Alexander and plan to transfer patient to SNF today.) - Time Spent with Patient Total time spent providing and/or coordinating discharge services: Greater than 30 minutes (38 minutes) - Discharge Medications Prescriptions: OxyCODONE/APAP 5/325 [Percocet 5/325 MG] 1 each PO Q8HR PRN 7 Days #21 tablet PRN Reason: Pain Home Medications: Aspirin [Lo-Dose Aspirin EC] 81 mg PO DAILY 07/19/17 [History] Bisacodyl [Dulcolax] 10 mg RC DAILY PRN 07/19/17 [History] Calcium Carbonate/Vitamin D3 [Calcium 600 + Vit D Tablet] 1 tab PO DAILY [History] Cholecalciferol (D-3) [Vitamin D] 1,500 unit PO DAILY 07/19/17 [History] Ferrous Sulfate 325 mg PO DAILY 07/19/17 [History] Folic Acid 1 mg PO DAILY 07/19/17 [History] Guaifenesin [Mucinex] 600 mg PO DAILY PRN 07/19/17 [History] Levothyroxine [Synthroid] 125 mcg PO QAM 07/19/17 [History] Loratadine [Allergy Relief] 10 mg PO DAILY PRN 07/19/17 [History] Magnesium Hydroxide [Milk of Magnesia] 2,400 mg PO DAILY PRN 07/19/17 [History] Mirtazapine 7.5 mg PO HS 07/19/17 [History] Polyethylene Glycol 3350 [MiraLAX Powder Bulk 17.9 Oz] 1 scoop PO DAILY PRN [History] Sennosides/Docusate Sodium [Colace 2-in-1 Tablet] 1 tab PO BID 07/19/17 [History ] OxyCODONE/APAP 5/325 [Percocet 5/325 MG] 1 each PO Q8HR PRN 7 Days #21 tablet [Rx] Oxycodone HCl/Acetaminophen [Percocet 5-325 mg Tablet] 1 tab PO Q8H PRN 7 Days # 21 07/24/17 [Rx] amLODIPine [Norvasc] 5 mg PO BID tablet 07/24/17 [Rx] Allergies/Adverse Reactions: 3 Allergy/AdvReac Type Severity Reaction Status Date / Time darifenacin Allergy Unknown See Verified 03/20/17 10:50 Comments ciprofloxacin AdvReac Nausea Verified 03/20/17 10:50 Sulfa (Sulfonamide AdvReac Nausea Verified 03/20/17 10:50 Antibiotics) Date of admission: 07/19/17 01:31 Primary care physician: PCP NONE Consults: 07/22/17 09:15 Consult to Dialysis [CONS] ONCE Discharging clinician: Linda Parker Anticipated date of discharge: 07/24/17 - Constitutional Vitals: Temp Pulse Resp BP Pulse Ox 98.3 F 77 14 158/61 95 07/24/17 07:00 07/24/17 07:00 07/24/17 07:00 07/24/17 07:00 07/24/17 07:00 General appearance: Present: cooperative, A&O X 1, pleasant, no acute distress. Absent: answers questions appropriately - Head Head exam: Present: atraumatic, normocephalic - Eye Eye exam: Present: PERRL, conjuntiva pink, sclera anicteric Pupils: Present: PERRL - Neck Neck exam general surgery: Present: supple, trachea midline. Absent: lymphadenopathy - Respiratory Respiratory exam: Present: CTAB. Absent: accessory muscle use, rales, rhonchi, wheezes - Cardiovascular Cardiovascular exam: Present: RRR, +S1, +S2. Absent: diastolic murmur, gallop, rubs, systolic murmur - GI/Abdominal GI/Abdominal exam: Present: normal bowel sounds, soft, no peritoneal signs. Absent: distended, tenderness - Additional comments: + hoffman catheter - Extremities Exam Extremities exam: Present: warm, radial pulses palpable and symmetrical. Absent : calf tenderness, cyanotic, pedal edema Additional comments: Right upper AV site with persistent hematoma and interstitial edema - Neurological Exam Neurological exam: Present: CN II-XII intact, oriented X3, no focal deficits. Absent: pronater drift, facial droop, speech deficit - Skin Skin exam: Present: dry, intact - Patient Status Disposition: Transfer SNF Condition: Fair Functional capacity at discharge: uses cane/walker Overall status at discharge: patient is progressing back to baseline - Discharge Instructions Instructions: Dialysis Diet (DC), End-Stage Kidney Disease (DC), Iron Rich Diet (DC), Anemia (DC) Follow Up With: NONE,PCP [Primary Care Provider] - Forms: ED Satisfaction Letter, Work/School Release - Diet and Activity Activity: as per physical therapy Diet: low salt diet - VTE Documentation of Mechanical Device: Intermittent pneumatic compression device
--- NOTE | 2017-07-24 09:29 | Physician Discharge Referral ---
ExtendedCare Referral Info Transfer To: SNF Provider in Charge: Linda Amaro CNP Provider in Charge after Transfer: PCP Institutional Level of Care: Skilled - Diagnosis (1) End stage renal disease Status: Chronic (2) Ureteral stone with hydronephrosis Status: Acute (3) Anemia Status: Acute (4) HCAP (healthcare-associated pneumonia) Status: Acute (5) Dementia Status: Chronic (6) Essential hypertension Status: Acute (7) Hypothyroidism Status: Acute (8) Lung nodule Status: Chronic - Transfer Medications Prescriptions: OxyCODONE/APAP 5/325 [Percocet 5/325 MG] 1 each PO Q8HR PRN 7 Days #21 tablet PRN Reason: Pain Home Medications: Aspirin [Lo-Dose Aspirin EC] 81 mg PO DAILY 07/19/17 [History] Bisacodyl [Dulcolax] 10 mg RC DAILY PRN 07/19/17 [History] Calcium Carbonate/Vitamin D3 [Calcium 600 + Vit D Tablet] 1 tab PO DAILY [History] Cholecalciferol (D-3) [Vitamin D] 1,500 unit PO DAILY 07/19/17 [History] Ferrous Sulfate 325 mg PO DAILY 07/19/17 [History] Folic Acid 1 mg PO DAILY 07/19/17 [History] Guaifenesin [Mucinex] 600 mg PO DAILY PRN 07/19/17 [History] Levothyroxine [Synthroid] 125 mcg PO QAM 07/19/17 [History] Loratadine [Allergy Relief] 10 mg PO DAILY PRN 07/19/17 [History] Magnesium Hydroxide [Milk of Magnesia] 2,400 mg PO DAILY PRN 07/19/17 [History] Mirtazapine 7.5 mg PO HS 07/19/17 [History] Polyethylene Glycol 3350 [MiraLAX Powder Bulk 17.9 Oz] 1 scoop PO DAILY PRN [History] Sennosides/Docusate Sodium [Colace 2-in-1 Tablet] 1 tab PO BID 07/19/17 [History ] OxyCODONE/APAP 5/325 [Percocet 5/325 MG] 1 each PO Q8HR PRN 7 Days #21 tablet [Rx] Oxycodone HCl/Acetaminophen [Percocet 5-325 mg Tablet] 1 tab PO Q8H PRN 7 Days # 21 07/24/17 [Rx] amLODIPine [Norvasc] 5 mg PO BID tablet 07/24/17 [Rx] Allergies/Adverse Reactions: 3 Allergy/AdvReac Type Severity Reaction Status Date / Time darifenacin Allergy Unknown See Verified 03/20/17 10:50 Comments ciprofloxacin AdvReac Nausea Verified 03/20/17 10:50 Sulfa (Sulfonamide AdvReac Nausea Verified 03/20/17 10:50 Antibiotics) - Respiratory Orders None Smoking Cessation: Smoking cessation has been advised. For more information, call the [place] Tobacco Quit Line at 6-840-BBQT-NOW. - Lab Orders Lab Orders: Other (include drug levels w/frequency) (Recommend repeating CBC within 3-5 days to monitor Hgb) - Advance Directives Code Status: DNR-Arrest - Mobility Orders Ambulate - Rehabiliation Orders Rehab Potential: Fair Rehab Orders: Evaluation for Physical Therapy, Evaluation for Occupational Therapy - Diet Orders Renal CERTIFICATION: I certify that the transfer of the above named patient to an Extended Care Facility is necessary for the continuing treatment of the diagnosis listed. The above information is true and accurate reflection of patient's current condition. Confidential - Redisclosure prohibited without a patient's written consent.
[2017-07-24 11:40] VITALS: BP 144/55
--- NOTE | 2017-07-24 14:48 | Event Note ---
Date of Encounter: 07/24/17 Time of Encounter: 14:47 Patient has right subclavian power line that was placed at [facility] on 07/09/17 4 snf IV access that she needed antibiotics with urosepsis and bacteremia. IV ATB completed on 07/20/2017 and no longer has a need for long- term IV access. IR consult to remove tunneled catheter.
--- NOTE | 2017-07-24 15:24 | IR Procedure Note ---
Date of procedure: 07/24/17 Consent Obtained: Verbal consent, Written consent Timeout: Correct patient and procedure verified, Correct site verified, Time out performed, Skin prep completed Local anesthetic: Lidocaine 1% Indications: no longer needed Procedure Performed: tunneled PICC removal Was there an physical therapist assistant present: No Estimated blood loss (cc): 0 Complications: None; Tolerated procedure well Specimen: none
== END 2017-07-24 16:29 | DRG 193 ==
LOC: EMEROO 19:03 → 3BNU 19:03
PROVIDERS: ADMIT Internal Medicine; ATTEND Internal Medicine

== ENCOUNTER 2017-08-13 11:19 | Inpatient (IN) ==
[2017-08-13] MEDS ORDERED: 0.9 % Sodium Chloride 1,000 ML IVC ONE (11:22)
--- NOTE | 2017-08-13 11:29 | Emergency Department Note ---
Disposition Clinical Impression: Facial droop CVA (cerebral vascular accident) Qualifiers: CVA mechanism: unspecified Qualified Code(s): I63.9 - Cerebral infarction, unspecified Disposition: Admitted As Inpatient Condition: Fair Referrals: NONE,PCP [Primary Care Provider] - Forms: ED Satisfaction Letter Time of Disposition: 13:34 Neuro HPI - General Chief Complaint: ED Neuro Symptoms/Deficit Stated Complaint: L side weakness Time Seen by Provider: 08/13/17 11:22 Source: patient, EMS Mode of arrival: EMS Limitations: no limitations Nursing Notes Reviewed: Yes Vital Signs Reviewed: Yes - History of Present Illness HPI Narrative: 82 year old female from [facility] presents to the eD via EMS for CVA rule out. Last known well was last night when she went to bed and woke up this morning around 1000. Robert presented with left sided facial droop and slurred speech and mild left upper extreimity weakness. No previisou history of strokes. No recent history of illness or fevers, cough, UTI, abdominal or chest pain. Tabitha is A/Ox2 and pleasantly demented, confusion to time. She however follows comands easily and is hearing impaired. Not currenlty on blood thinners. - Related Data Home Medications: Home Medications Medication Instructions Recorded Confirmed Aspirin [Lo-Dose Aspirin EC] 81 mg PO DAILY 07/19/17 08/13/17 Bisacodyl [Dulcolax] 10 mg RC DAILY PRN 07/19/17 08/13/17 Calcium Carbonate/Vitamin D3 1 tab PO DAILY 07/19/17 08/13/17 [Calcium 600 + Vit D Tablet] Cholecalciferol (D-3) [Vitamin D] 2,000 unit PO DAILY 07/19/17 08/13/17 Ferrous Sulfate 325 mg PO DAILY 07/19/17 08/13/17 Folic Acid 1 mg PO DAILY 07/19/17 08/13/17 Guaifenesin [Mucinex] 600 mg PO DAILY PRN 07/19/17 08/13/17 Levothyroxine [Synthroid] 125 mcg PO QAM 07/19/17 08/13/17 Loratadine [Allergy Relief] 10 mg PO DAILY PRN 07/19/17 08/13/17 Magnesium Hydroxide [Milk of 2,400 mg PO DAILY PRN 07/19/17 08/13/17 Magnesia] Mirtazapine 7.5 mg PO HS 07/19/17 08/13/17 Polyethylene Glycol 3350 [MiraLAX 1 scoop PO DAILY PRN 07/19/17 08/13/17 Powder Bulk 17.9 Oz] Sennosides/Docusate Sodium [Colace 1 tab PO BID 07/19/17 08/13/17 2-in-1 Tablet] Previous Rx's Medication Instructions Recorded Oxycodone HCl/Acetaminophen 1 tab PO Q8H PRN 7 Days #21 07/24/17 [Percocet 5-325 mg Tablet] amLODIPine [Norvasc] 5 mg PO BID tablet 07/24/17 Allergies/Adverse Reactions: Allergies Allergy/AdvReac Type Severity Reaction Status Date / Time darifenacin Allergy Unknown See Verified 08/03/17 00:29 Comments ciprofloxacin AdvReac Nausea Verified 08/03/17 00:29 Sulfa (Sulfonamide AdvReac Nausea Verified 08/03/17 00:29 Antibiotics) Constitutional: Denies: fever, chills, weakness, weight change Eyes: Denies: eye pain, eye discharge, vision change ENT ED: Denies: ear pain, throat pain, dental pain, hearing loss, epistaxis, congestion, dysphagia Cardiovascular: Denies: chest pain, palpitations, dyspnea on exertion, edema, syncope Respiratory: Denies: cough, dyspnea, wheezes, hemoptysis, stridor Gastrointestinal: Denies: abdominal pain, nausea, vomiting, diarrhea, constipation, hematemesis, melena, hematochezia Genitourinary: Denies: dysuria, frequency, hematuria, discharge Musculoskeletal: Denies: back pain, neck pain, arthralgia, myalgia Integumentary: Denies: rash, abrasion, lesions Neurological: Reports: other (left sided facial droop and slurred speech). Denies: headache, weakness, numbness, paresthesias, confusion, abnormal gait, vertigo Psychiatric: Denies: anxiety, depression, suicidal thoughts, homicidal thoughts , auditory hallucinations, visual hallucinations Endocrine: Denies: fatigue Hematological/Lymphatic: Denies: easy bleeding, easy bruising Allergic/Immunologic: Denies: facial swelling, urticaria Past Medical History - Past Medical History Medical history: Reports: dementia, dialysis, GERD, renal disease, thyroid disease Surgical history: Reports: non-contributory Psychiatric history: Reports: anxiety - Social History Smoking Status: Never smoker Smokeless Tobacco Status: No Alcohol use: Reports: none Drug use: Reports: none Physical Exam - General Limitations: no limitations General appearance: alert, in no apparent distress - Head Head exam: atraumatic, normocephalic, normal inspection - Eye Eye exam: Present: normal appearance, PERRL, EOMI - Expanded Eye Exam Pupils: Bilateral: reactive - ENT ENT exam: normal exam, normal oropharynx, mucous membranes moist - Expanded ENT Exam External ear exam: Present: normal external inspection Mouth exam: Present: normal external inspection Teeth exam: Present: normal inspection Throat exam: Present: normal inspection - Neck Neck exam: Present: normal inspection, full ROM, trachea midline - Chest Chest inspection: Present: normal inspection, symmetric chest wall rise - Respiratory Respiratory exam: Present: normal lung sounds bilaterally - Cardiovascular Cardiovascular exam: Present: regular rate, normal rhythm, normal heart sounds - Abdominal Exam Abdominal exam: Present: soft, Non-Tender. Absent: tenderness, distention, guarding, rebound, rigidity - Extremities Exam Extremities exam: Present: normal inspection, full ROM. Absent: tenderness, pedal edema - Expanded Upper Extremity Exam Shoulder exam: Present: normal inspection, full ROM Arm exam: Present: normal inspection, full ROM, ecchymosis Elbow exam: Present: normal inspection, full ROM Forearm/Wrist exam: Present: normal inspection, full ROM Hand exam: Present: normal inspection, full ROM Vascular exam: Normal: capillary refill, radial pulse - Expanded Lower Extremity Exam Hip/Pelvis exam: Present: normal inspection, full ROM Upper leg exam: Present: normal inspection, full ROM Knee exam: Present: normal inspection, full ROM Lower leg exam: Present: normal inspection, full ROM Ankle exam: Present: normal inspection, full ROM Foot/toe exam: Present: normal inspection, full ROM Neurovascular/Tendon exam: Absent: motor deficit, sensory deficit, tendon deficit - Back Exam Back exam: Present: normal inspection, full ROM. Absent: tenderness - Neurological Exam Neurological exam: Present: alert - Expanded Neurological Exam Patient oriented to: Present: person, place Speech: Present: expressive aphasia (mild to moderate slurred speech) Cranial nerves: EOM function (II, III, IV, ): Abnormal Left, facial sensation (V): Normal, facial palsy (VII): Abnormal Left, gag reflex (IX): Normal, spinal accessory function (XI): Normal, tongue deviation (XII): Normal Cerebellar function: finger to nose: Normal, heel to acuña: Normal Motor strength - LUE: 5/5 Motor strength - RUE: 5/5 Motor strength - LLE: 5/5 Motor strength - RLE: 5/5 Upper motor neuron exam: ban neglect: Absent bilaterally, pronator drift: Present on left Sensory exam upper extremity: light touch: Normal, pin prick: Normal Sensory exam lower extremity: light touch: Normal, pin prick: Normal Coma Scale Eye Opening: Spontaneous Coma Scale Motor Response: Obeys Commands Coma Scale Verbal Response: Oriented Coma Scale Total: 15 - Psychiatric Psychiatric exam: Present: normal affect, normal mood - Skin Skin exam: Present: warm, dry, intact, normal color Course Course Narrative: we will do TIA r/o CVA workup, consult with neurology and then admit to medicine - Reevaluation(s) Reevaluation #1: updated patinet and family and they are agreeable to admision. resting comfortably Time: 13:33 - Consultations Consultation #1: discussed case with Dr. Madden and he will see as consult with admissin to medicine Time: 12:06 Consultation #2: discussed case with Dr. Chaudhry and she has accepted patient to her service Time: 13:33 Vital Signs Temperature 98.9 F 08/13/17 11:23 Pulse Rate 82 08/13/17 11:23 Respiratory Rate 14 08/13/17 11:23 Blood Pressure 155/86 08/13/17 11:23 O2 Sat by Pulse Oximetry 97 08/13/17 11:23 Temperature 98.9 F 08/13/17 11:23 Pulse Rate 67 08/13/17 13:22 Respiratory Rate 14 08/13/17 13:22 Blood Pressure 155/86 08/13/17 11:23 O2 Sat by Pulse Oximetry 100 08/13/17 13:22 Oxygen Delivery Oxygen Delivery Nasal Cannula Neuro Symptoms/Deficit - Lab Data Result diagrams: 08/13/17 12:01 08/13/17 12:01 Lab Results 08/13/17 08/13/17 08/13/17 Range/Units 11:26 12:01 12:01 WBC (4.3-11.1) K/mcL RBC (3.82-4.97) M/mcL Hgb (11.5-15.4) g/dL Hct (35.3-44.9) % MCV (83.0-100.0) fL MCH (28.0-33.3) pg MCHC (31.6-35.5) g/dL RDW (11.5-14.5) % Plt Count (140-400) K/mcL MPV (9.4-12.4) fL Immature Gran % (0-4) % Seg Neutrophils % % Lymphocytes % % Monocytes % % Eosinophils % % Basophils % % Neutrophils # (1.6-8.9) K/mcL Lymphocytes # (0.6-4.6) K/mcL Monocytes # (0.0-1.3) K/mcL Eosinophils # (0.0-0.6) K/mcL Basophils # (0.0-0.2) K/mcL PT 11.3 (9.4-12.1) Seconds INR 1.1 APTT 33.3 (26.0-36.0) Seconds Sodium 136 (136-145) mEq/L Potassium 4.2 (3.5-5.1) mEq/L Chloride 101 (98-107) mEq/L Carbon Dioxide 28 (23-29) mEq/L BUN 22 (8-23) mg/dL Creatinine 2.51 H (0.60-1.20) mg/dL Est GFR ( Amer) 22 L (> 60) Est GFR (Non-Af Amer) 18 L (> 60) BUN/Creatinine Ratio 9 (6-26) Glucose 83 (70-105) mg/dL POC Glucose 80 (70-99) mg/dL Calculated Osmolality 284 (280-300) Calcium 9.3 (8.6-10.3) mg/dL Troponin I < 0.03 (< 0.04) ng/mL Ur Specimen Adequacy Urine Color (Yellow) Urine Clarity (Clear) Urine pH (5.0-8.0) pH Units Ur Specific [place] (1.010-1.025) Urine Protein (Neg-Trace) mg/dL Urine Glucose (UA) (Normal) mg/dL Urine Ketones (Negative) mg/dL Urine Blood (Negative) Urine Nitrite (Negative) Urine Bilirubin (Negative) Urine Urobilinogen (Normal) mg/dL Ur Leukocyte Esterase (Negative) Urine Microscopic RBC (0-3) per hpf Urine Microscopic WBC (0-3) per hpf Ur Squamous Epith Cells (None-Few) per lpf Urine Bacteria (None-Few) per hpf Ur Culture Indicated? (NO) Specimen Rejected 08/13/17 08/13/17 08/13/17 Range/Units 12:01 12:01 12:39 WBC 8.6 (4.3-11.1) K/mcL RBC 3.37 L (3.82-4.97) M/mcL Hgb 10.1 L (11.5-15.4) g/dL Hct 32.2 L (35.3-44.9) % MCV 95.5 D (83.0-100.0) fL MCH 30.0 (28.0-33.3) pg MCHC 31.4 L (31.6-35.5) g/dL RDW 18.6 H (11.5-14.5) % Plt Count 131 L (140-400) K/mcL MPV 9.8 (9.4-12.4) fL Immature Gran % 0.5 (0-4) % Seg Neutrophils % 47.8 % Lymphocytes % 33.5 % Monocytes % 9.7 % Eosinophils % 7.6 % Basophils % 0.9 % Neutrophils # 4.1 (1.6-8.9) K/mcL Lymphocytes # 2.9 (0.6-4.6) K/mcL Monocytes # 0.8 (0.0-1.3) K/mcL Eosinophils # 0.7 H (0.0-0.6) K/mcL Basophils # 0.1 (0.0-0.2) K/mcL PT (9.4-12.1) Seconds INR APTT (26.0-36.0) Seconds Sodium (136-145) mEq/L Potassium (3.5-5.1) mEq/L Chloride (98-107) mEq/L Carbon Dioxide (23-29) mEq/L BUN (8-23) mg/dL Creatinine (0.60-1.20) mg/dL Est GFR ( Amer) (> 60) Est GFR (Non-Af Amer) (> 60) BUN/Creatinine Ratio (6-26) Glucose (70-105) mg/dL POC Glucose (70-99) mg/dL Calculated Osmolality (280-300) Calcium (8.6-10.3) mg/dL Troponin I (< 0.04) ng/mL Ur Specimen Adequacy See below A Urine Color Yellow (Yellow) Urine Clarity Cloudy A (Clear) Urine pH 8.0 (5.0-8.0) pH Units Ur Specific [place] 1.008 L (1.010-1.025) Urine Protein >=300 H (Neg-Trace) mg/dL Urine Glucose (UA) Normal (Normal) mg/dL Urine Ketones Negative (Negative) mg/dL Urine Blood Moderate H (Negative) Urine Nitrite Positive A (Negative) Urine Bilirubin Negative (Negative) Urine Urobilinogen Normal (Normal) mg/dL Ur Leukocyte Esterase Large H (Negative) Urine Microscopic RBC 30-50 H (0-3) per hpf Urine Microscopic WBC TNTC H (0-3) per hpf Ur Squamous Epith Cells Few (None-Few) per lpf Urine Bacteria Many H (None-Few) per hpf Ur Culture Indicated? YES A (NO) Specimen Rejected MCV Delta NIH Stroke Scale - Level of Consciousness LOC: Alert - LOC Questions LOC Questions: Answers both correctly - LOC Commands LOC Commands: Performs both correctly - Best Gaze Best Gaze: Normal - Visual Visual: No visual loss - Facial Palsy Facial Palsy: Partial, total, or near-total paralysis of lower face - Motor Arms Motor Arm-Left: Drift, does NOT hit bed Motor Arm-Right: No drift for 10 seconds - Motor Legs Motor Leg-Left: No drift for 5 seconds Motor Leg-Right: No drift for 5 seconds - Limb Ataxia Limb Ataxia: Normal, No Ataxia - Sensory Sensory: Normal - Best Language Best Language: No aphasia - Dysarthria Dysarthria: Mild, slurs some words - Extinction and Inattention Extinction and Inattention: Normal - NIHSS Total Score NIHSS Total Score: 4 TPA Checklist - LKW: 3-4.5 hrs Add. Warnings/Precautions Patient/family understanding: The patient/family members have been counseled and understood the risk, benefit , and alternatives of treatment.
[2017-08-13 12:17] LABS: INR 1.1; Prothrombin Time 11.3 Seconds (9.4-12.1)
[2017-08-13 12:20] LABS: Activated Partial Thrombo Time 33.3 Seconds (26.0-36.0)
[2017-08-13 12:32] LABS: BUN/Creatinine Ratio 9 (6-26); Basophils # 0.1 K/mcL (0.0-0.2); Basophils % 0.9 %; Blood Urea Nitrogen 22 mg/dL (8-23); Calcium 9.3 mg/dL (8.6-10.3); Carbon Dioxide 28 mEq/L (23-29); Chloride 101 mEq/L (98-107); Eosinophils # 0.7 K/mcL (0.0-0.6); Eosinophils % 7.6 %; Glucose 83 mg/dL (70-105); Hematocrit 32.2 % (35.3-44.9); Hemoglobin 10.1 g/dL (11.5-15.4); Immature Granulocytes % 0.5 % (0-4); Lymphocytes # 2.9 K/mcL (0.6-4.6); Lymphocytes % 33.5 %; Mean Corpuscular HGB Conc 31.4 g/dL (31.6-35.5); Mean Platelet Volume 9.8 fL (9.4-12.4); Monocytes # 0.8 K/mcL (0.0-1.3); Monocytes % 9.7 %; Neutrophils # 4.1 K/mcL (1.6-8.9); Osmolality,Calculated 284 (280-300); Platelet Count 131 K/mcL (140-400); Potassium 4.2 mEq/L (3.5-5.1); Red Blood Count 3.37 M/mcL (3.82-4.97); Red Cell Distribution Width 18.6 % (11.5-14.5); Segmented Neutrophils % 47.8 %; Sodium 136 mEq/L (136-145); Troponin I < 0.03 ng/mL (< 0.04); eGFR For African Americans 22 (> 60); eGFR For Non-African Americans 18 (> 60)
[2017-08-13 12:33] LABS: Mean Corpuscular Volume 95.5 fL (83.0-100.0)
[2017-08-13 12:59] LABS: Bilirubin,Urine Negative (Negative); Blood,Urine Moderate (Negative); Clarity,Urine Cloudy (Clear); Color,Urine Yellow (Yellow); Glucose,Urine (UA) Normal (Normal); Ketones,Urine Negative (Negative); Leukocyte Esterase,Urine Large (Negative); Nitrite,Urine Positive (Negative); Protein,Urine >=300 mg/dL (Neg-Trace); Specific Gravity,Urine 1.008 (1.010-1.025); Urobilinogen,Urine Normal (Normal)
[2017-08-13 13:01] LABS: RBC,Urine 30-50 per hpf (0-3); Squamous Epithelial Cell,Urine Few per lpf (None-Few); WBC,Urine TNTC per hpf (0-3)
[2017-08-13 13:02] LABS: Bacteria,Urine Many per hpf (None-Few)
[2017-08-13] MEDS ORDERED: cefTRIAXone 1,000 MG in Water for inj. (sterile) 20 ML 10 ML IVP ONE (13:20)
[2017-08-13] MEDS ORDERED: MOM Conc 10 ML UD.LIQ PO PRN (15:22)
[2017-08-13] MEDS ORDERED: Loratadine 10 MG TABLET PO PRN (15:22)
[2017-08-13] MEDS ORDERED: *HR* OxyCODONE/APAP 5/325 TABLET PO PRN (15:22)
[2017-08-13] MEDS ORDERED: Bisacodyl 10 MG RECTAL SUPPOSITORY RC PRN (15:22)
[2017-08-13] MEDS ORDERED: Naloxone 0.4 MG/ML INJ IVP PRN (15:26)
[2017-08-13] MEDS ORDERED: Gadolinium Contrast Agent (WT Based) IV PRN (15:27)
--- NOTE | 2017-08-13 15:36 | Internal Med History&Physical ---
Date of Encounter: 08/13/17 Time of Encounter: 15:15 Internal Medicine - H&P: HPI Chief complaint: left sided facial droop Admitted From: Long-term Nursing Facility Plans for Post Hospital Care: Transfer Lunchroom Aide Care History of present illness: Ms. Mcgraw is a 82 year old female with PMH of ESRD on HD, HTN, hypothyroidism, advanced dementia who is sent to the ER from [place] for evaluation of left sided facial droop and slurred speech. Pt is oriented times one at baseline due to which history is obtained from the med records. Pt's last well known time was last night before she went to sleep. She woke up this morning with left sided facial droop and slurred speech and was sent to the ER. Head CT reported no acute intracranial abnormality. Neurology has been consulted by the ER physician. Pt's facial droop persists but her speech has returned to baseline. She is currently resting in bed and pleasantly confused. She is AAO x 1 and denies any headache, dizziness, vision changes, sob, chest pain, abd pain, n/v, fever, or chills. She is able to follow commands. ER work up also reported a UTI. Pt's code status is DNR CC Arrest as per her half-way documents Past Med Surg Social Fam HX - Past Medical History Medical history: dementia, dialysis, GERD, renal disease, thyroid disease Psychiatric history: anxiety - Past Surgical History Surgical History: non-contributory - Social History Smoking Status: Never smoker Smokeless Tobacco Status: No Alcohol use: none Drug use: none Internal Medicine - H&P: Meds Aspirin [Lo-Dose Aspirin EC] 81 mg PO DAILY 07/19/17 [History] Bisacodyl [Dulcolax] 10 mg RC DAILY PRN 07/19/17 [History] Calcium Carbonate/Vitamin D3 [Calcium 600 + Vit D Tablet] 1 tab PO DAILY [History] Cholecalciferol (D-3) [Vitamin D] 2,000 unit PO DAILY 07/19/17 [History] Ferrous Sulfate 325 mg PO DAILY 07/19/17 [History] Folic Acid 1 mg PO DAILY 07/19/17 [History] Guaifenesin [Mucinex] 600 mg PO DAILY PRN 07/19/17 [History] Levothyroxine [Synthroid] 125 mcg PO QAM 07/19/17 [History] Loratadine [Allergy Relief] 10 mg PO DAILY PRN 07/19/17 [History] Magnesium Hydroxide [Milk of Magnesia] 2,400 mg PO DAILY PRN 07/19/17 [History] Mirtazapine 7.5 mg PO HS 07/19/17 [History] Polyethylene Glycol 3350 [MiraLAX Powder Bulk 17.9 Oz] 1 scoop PO DAILY PRN [History] Sennosides/Docusate Sodium [Colace 2-in-1 Tablet] 1 tab PO BID 07/19/17 [History ] Oxycodone HCl/Acetaminophen [Percocet 5-325 mg Tablet] 1 tab PO Q8H PRN 7 Days # 21 07/24/17 [Rx] amLODIPine [Norvasc] 5 mg PO BID tablet 07/24/17 [Rx] 3 Allergy/AdvReac Type Severity Reaction Status Date / Time darifenacin Allergy Unknown See Verified 08/03/17 00:29 Comments ciprofloxacin AdvReac Nausea Verified 08/03/17 00:29 Sulfa (Sulfonamide AdvReac Nausea Verified 08/03/17 00:29 Antibiotics) All Systems PM: A 10-system review of systems was performed and is negative for pertinent findings except as documented above in the HPI. - EENT Eyes: no blurry vision, no change in vision, no diplopia - Cardiovascular Cardiovascular ROS IM: no chest pain, no dyspnea, no lightheadedness - Respiratory Respiratory: no cough, no dyspnea - Gastrointestinal Gastrointestinal: no diarrhea, no nausea, no vomiting - Neurological Neurological ROS: as per HPI, no confusion, no dizziness, no frequent falls, no headache(s), no loss of vision - Constitutional Vitals: Temp Pulse Resp BP Pulse Ox 98.9 F 80 18 149/97 100 08/13/17 11:23 08/13/17 14:34 08/13/17 14:40 08/13/17 14:40 08/13/17 13:22 General appearance: Present: A&O X 1, no acute distress - Head Head exam: Present: atraumatic, normocephalic - Eye Eye exam: Present: conjuntiva pink, sclera anicteric - Respiratory Respiratory exam: Present: CTAB. Absent: accessory muscle use, rales, rhonchi, wheezes - Cardiovascular Cardiovascular exam: Present: RRR, +S1, +S2. Absent: diastolic murmur, gallop, rubs, systolic murmur - GI/Abdominal GI/Abdominal exam: Present: normal bowel sounds, soft, no peritoneal signs. Absent: distended, tenderness - Extremities Exam Extremities exam: Present: warm, radial pulses palpable and symmetrical. Absent : calf tenderness, pedal edema - Neurological Exam Neurological exam: Present: alert, facial droop. Absent: pronater drift Internal Med - H&P Results - Labs CBC & Chem 7: 08/13/17 12:01 08/13/17 12:01 - Assessment and plan (1) CVA (cerebral vascular accident) Current Visit: Yes Status: Acute Assessment and plan: Concern for acute CVA given current presentation f/u neurology evaluation with Dr. Madden(called by the ER physician) continue ASA,lipitor f/u 2D echo, carotid doppler MR brain f/u speech therapy evaluation f/u PT/OT evaluation tele monitoring Qualifiers: CVA mechanism: unspecified Qualified Code(s): I63.9 - Cerebral infarction, unspecified (2) UTI (urinary tract infection) Current Visit: No Status: Acute Assessment and plan: f/u urine cultures continue IV ceftriaxone at this time Qualifiers: Urinary tract infection type: site unspecified Hematuria presence: without hematuria Qualified Code(s): N39.0 - Urinary tract infection, site not specified (3) ESRD (end stage renal disease) on dialysis Current Visit: Yes Status: Chronic Assessment and plan: f/u nephrology consult with Dr. Mendieta and continue pt's outpatient dialysis schedule (4) Anemia Current Visit: No Status: Chronic Assessment and plan: H&H low but acceptable no acute bleeding reported at this time continue to monitor continue home dose of iron supplementation Qualifiers: Anemia type: other cause Other causes of anemia: chronic disease, other Qualified Code(s): D63.8 - Anemia in other chronic diseases classified elsewhere (5) Dementia Current Visit: No Status: Chronic Qualifiers: Dementia type: Alzheimer's disease Alzheimer's disease onset: unspecified onset Dementia behavioral disturbance: without behavioral disturbance Qualified Code(s): G30.9 - Alzheimer's disease, unspecified; F02.80 - Dementia in other diseases classified elsewhere without behavioral disturbance; F02.80 - Dementia in other diseases classified elsewhere without behavioral disturbance; F02.80 - Dementia in other diseases classified elsewhere without behavioral disturbance (6) Hypothyroidism Current Visit: No Status: Chronic Assessment and plan: continue home dose of levothyroxine Qualifiers: Hypothyroidism type: acquired Qualified Code(s): E03.9 - Hypothyroidism, unspecified (7) DVT prophylaxis Current Visit: Yes Status: Acute Assessment and plan: Heparin SQ - Time Spent With Patient Total time spent is greater than 50% in coordination of care (as documented) at patient's floor/unit and/or counseling patient:
[2017-08-13] MEDS: *HR* Heparin 5,000 UNIT/ML VIAL SQ SCH (17:02)
--- NOTE | 2017-08-13 18:46 | Neurology - Consult Note ---
Date of Encounter: 08/13/17 Time of Encounter: 18:44 Assessment and Plan (1) CVA (cerebral vascular accident) Current Visit: Yes Status: Acute Patient is an 82 year old woman with HTN, and ESRD on HD hyperlipidemia who developed acute onset of left sided hemiparesis related to lacunar infarct involving the right BG, likely small vessel etiology. 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 Recommend full strength aspirin as secondary CVA prevention. Continue statin therapy. DVT prophylaxis. PT evaluation. carotid artery duplex and KARRIE. total time spend on this patient is approximately 50 minutes Qualifiers: CVA mechanism: unspecified Qualified Code(s): I63.9 - Cerebral infarction, unspecified History of Present Illness Chief complaint: left facial droop and left sided weakness HPI: Ms. Mcgraw is a 82 year old female with PMH significant for GERD, hyperlipidemia, ESRD on HD, HTN and previous history of CVA who developed acute onset of left facial droop and left sided weakness. last known last night so time onset of symptoms unclear. Initial CT of head was read as no acute intracranial abnormality. Patient states that she is not feeling bad. She denies focal weakness. Son states that she had history of stroke about 10 years ago caused ' spot on her brain' CT of head showed extensive white matter hypodensity and also left temppral encephalomalacia. At the time of this interview, MRI of brain completed and showed small lacunar infarct at the right BG, please refer to radiology report for details. NO cerebral hemorrhage noted Past Med Surg Social Fam HX - Past Medical History Medical history: dementia, dialysis, GERD, renal disease, thyroid disease Psychiatric history: anxiety - Past Surgical History Surgical History: non-contributory - Social History Smoking Status: Never smoker Smokeless Tobacco Status: No Alcohol use: none Drug use: none Medications and Allergies Aspirin [Lo-Dose Aspirin EC] 81 mg PO DAILY 07/19/17 [History] Bisacodyl [Dulcolax] 10 mg RC DAILY PRN 07/19/17 [History] Calcium Carbonate/Vitamin D3 [Calcium 600 + Vit D Tablet] 1 tab PO DAILY [History] Cholecalciferol (D-3) [Vitamin D] 2,000 unit PO DAILY 07/19/17 [History] Ferrous Sulfate 325 mg PO DAILY 07/19/17 [History] Folic Acid 1 mg PO DAILY 07/19/17 [History] Guaifenesin [Mucinex] 600 mg PO DAILY PRN 07/19/17 [History] Levothyroxine [Synthroid] 125 mcg PO QAM 07/19/17 [History] Loratadine [Allergy Relief] 10 mg PO DAILY PRN 07/19/17 [History] Magnesium Hydroxide [Milk of Magnesia] 2,400 mg PO DAILY PRN 07/19/17 [History] Mirtazapine 7.5 mg PO HS 07/19/17 [History] Polyethylene Glycol 3350 [MiraLAX Powder Bulk 17.9 Oz] 1 scoop PO DAILY PRN [History] Sennosides/Docusate Sodium [Colace 2-in-1 Tablet] 1 tab PO BID 07/19/17 [History ] Oxycodone HCl/Acetaminophen [Percocet 5-325 mg Tablet] 1 tab PO Q8H PRN 7 Days # 21 07/24/17 [Rx] amLODIPine [Norvasc] 5 mg PO BID tablet 07/24/17 [Rx] 3 Allergy/AdvReac Type Severity Reaction Status Date / Time darifenacin Allergy Unknown See Verified 08/03/17 00:29 Comments ciprofloxacin AdvReac Nausea Verified 08/03/17 00:29 Sulfa (Sulfonamide AdvReac Nausea Verified 08/03/17 00:29 Antibiotics) All Systems: The remainder of the systems were reviewed and are negative Physical Examination - Vital Signs Vital Signs: Initial Vital Signs Temp Pulse Resp BP Pulse Ox 98.9 F 82 14 155/86 97 08/13/17 11:23 08/13/17 11:23 08/13/17 11:23 08/13/17 11:23 08/13/17 11:23 - Constitutional General appearance: comfortable - Neurologic Sensorimotor examination: other (Grossly intact) Motor examination - right side: 55: deltoids, biceps, triceps, wrist flexion, wrist extension, energy efficiency engineer, hip flexors, tibialis Anterior, quadriceps, toe extension (EHL), plantarflexion Motor examination - left side: 4/5: deltoids, biceps, triceps, wrist flexion, wrist extension, hip flexors, energy efficiency engineer, quadriceps, tibialis Anterior, toe extension (EHL), plantarflexion Detailed sensory examination: other (Grossly intact) Posture: other (None) Reflex and gait examination: other (Gait not assessed) Reflexes: Biceps: 1+, Triceps: 1+, Brachioradialis: 1+, Patella: 1+, Achilles: 1 + Mental Status Examination: awake, alert, oriented to person (Recognizes his son) , oriented to place (Does not know the place), follows commands appropriately, makes eye contact, follows simple commands, answers questions by nodding yes or no, impaired memory, cognitive impairment Cranial nerve examination: PERRL, EOMI, visual mendez intact, corneal reflexes brisk symmetrically, sensory to face intact, mastication intact, no facial asymmetry is present (Left facial droop noted), no dysarthria, hearing is intact symmetrically, soft palate elevates bilaterally upon phonation, gag reflex intact, flexes SCM and trapezius muscles symmetrically with full power, tongue protrudes midline, no atrophy or facial fasiculations present Results - Laboratory Findings CBC and BMP: 08/13/17 12:01 08/13/17 12:01 Abnormal lab findings: Abnormal lab results RBC 3.37 M/mcL (3.82-4.97) L 08/13/17 12:01 Hgb 10.1 g/dL (11.5-15.4) L 08/13/17 12:01 Hct 32.2 % (35.3-44.9) L 08/13/17 12:01 MCHC 31.4 g/dL (31.6-35.5) L 08/13/17 12:01 RDW 18.6 % (11.5-14.5) H 08/13/17 12:01 Plt Count 131 K/mcL (140-400) L 08/13/17 12:01 Eosinophils # 0.7 K/mcL (0.0-0.6) H 08/13/17 12:01 Creatinine 2.51 mg/dL (0.60-1.20) H 08/13/17 12:01 Est GFR ( Amer) 22 (> 60) L 08/13/17 12:01 Est GFR (Non-Af Amer) 18 (> 60) L 08/13/17 12:01 Ur Specimen Adequacy See below A 08/13/17 12:39 Urine Clarity Cloudy (Clear) A 08/13/17 12:39 Ur Specific [place] 1.008 (1.010-1.025) L 08/13/17 12:39 Urine Protein >=300 mg/dL (Neg-Trace) H 08/13/17 12:39 Urine Blood Moderate (Negative) H 08/13/17 12:39 Urine Nitrite Positive (Negative) A 08/13/17 12:39 Ur Leukocyte Esterase Large (Negative) H 08/13/17 12:39 Urine Microscopic RBC 30-50 per hpf (0-3) H 08/13/17 12:39 Urine Microscopic WBC TNTC per hpf (0-3) H 08/13/17 12:39 Urine Bacteria Many per hpf (None-Few) H 08/13/17 12:39 Ur Culture Indicated? YES (NO) A 08/13/17 12:39 Consult Discharge Plan - Plan Referrals: NONE,PCP [Primary Care Provider] -
[2017-08-13] MEDS: Sennosides/Docusate Sodium TABLET PO SCH (21:50)
[2017-08-13] MEDS: Mirtazapine 15 MG TABLET PO SCH (21:50)
[2017-08-13] MEDS: amLODIPine 5 MG TABLET PO SCH (21:50)
[2017-08-14] MEDS: 0.9 % Sodium Chloride 1,000 ML IVC SCH ×2 (02:17→19:48)
[2017-08-14] MEDS: *HR* Heparin 5,000 UNIT/ML VIAL SQ SCH ×2 (05:40→19:51)
[2017-08-14 05:48] LABS: Basophils # 0.1 K/mcL (0.0-0.2); Eosinophils # 0.8 K/mcL (0.0-0.6); Eosinophils % 11.5 %; Hematocrit 28.2 % (35.3-44.9); Immature Granulocytes % 0.4 % (0-4); Lymphocytes # 2.4 K/mcL (0.6-4.6); Lymphocytes % 33.9 %; Mean Corpuscular HGB Conc 31.9 g/dL (31.6-35.5); Mean Corpuscular Hemoglobin 30.1 pg (28.0-33.3); Mean Corpuscular Volume 94.3 fL (83.0-100.0); Mean Platelet Volume 9.7 fL (9.4-12.4); Monocytes # 0.6 K/mcL (0.0-1.3); Monocytes % 9.2 %; Neutrophils # 3.1 K/mcL (1.6-8.9); Platelet Count 136 K/mcL (140-400); Red Blood Count 2.99 M/mcL (3.82-4.97); Red Cell Distribution Width 18.4 % (11.5-14.5)
[2017-08-14 06:06] LABS: Calcium 8.5 mg/dL (8.6-10.3); Chol/HDL Ratio 4.1 (0-4.9); Magnesium 2.1 mg/dL (1.6-2.6); Phosphorous 3.5 mg/dL (2.7-4.5); Potassium 4.1 mEq/L (3.5-5.1)
[2017-08-14] MEDS ORDERED: NON-FORMULARY MEDICATION 1 EACH EACH (Calcium Carbonate/Vitamin D3 [Calcium 600 + Vit D Ta PO SCH (09:00)
[2017-08-14] MEDS: cefTRIAXone 1,000 MG in Water for inj. (sterile) 20 ML 10 ML IVP SCH (09:43)
[2017-08-14] MEDS: Folic Acid 1 MG TABLET PO SCH (10:04)
[2017-08-14] MEDS: Sennosides/Docusate Sodium TABLET PO SCH ×2 (10:04→19:52)
[2017-08-14] MEDS: amLODIPine 5 MG TABLET PO SCH ×2 (10:04→19:52)
[2017-08-14] MEDS: Aspirin Enteric Coated 81 MG Tablet PO SCH (10:04)
[2017-08-14] MEDS: Cholecalciferol (D-3) 1,000 UNIT TABLET PO SCH (10:05)
[2017-08-14] MEDS ORDERED: 0.9 % Sodium Chloride 250 ML IVC PRN (12:11)
[2017-08-14] MEDS ORDERED: *HR* Heparin 10,000 UNIT/10 ML VIAL IV PRN (12:11)
[2017-08-14] MEDS ORDERED: 0.9 % Sodium Chloride 1,000 ML PRIME SCH (12:15)
--- NOTE | 2017-08-14 12:48 | Nephrology Consult Note ---
Date of Encounter: 08/14/17 Time of Encounter: 12:46 Assessment and Plan (1) End stage renal disease Current Visit: No Status: Chronic The patient will undergo dialysis today with the tunnel dialysis catheter. She will be on Aranesp for her anemia. Evaluation for her stroke is currently in progress. (2) Dementia Current Visit: No Status: Chronic Qualifiers: Dementia type: Alzheimer's disease Alzheimer's disease onset: unspecified onset Dementia behavioral disturbance: without behavioral disturbance Qualified Code(s): G30.9 - Alzheimer's disease, unspecified; F02.80 - Dementia in other diseases classified elsewhere without behavioral disturbance; F02.80 - Dementia in other diseases classified elsewhere without behavioral disturbance; F02.80 - Dementia in other diseases classified elsewhere without behavioral disturbance (3) CVA (cerebral vascular accident) Current Visit: Yes Status: Acute Qualifiers: CVA mechanism: unspecified Qualified Code(s): I63.9 - Cerebral infarction, unspecified History of Present Illness - History of Present Illness This is an 82-year-old female who recently started on dialysis with a history of pyelonephritis. [facility]. She has dementia and extremely limited short-term memory. [facility] staff noted that the patient had a facial droop and some left-sided weakness. She was admitted to the hospital. An MRI showed an acute stroke in the right basal ganglia. Currently the patient has a left facial droop. She has some mild dysphagia. Otherwise she appears clinically stable. She is unable to give a history on her own. She is scheduled for her usual dialysis today. Past Med Surg Social Fam HX - Past Medical History Medical history: dementia, dialysis, GERD, renal disease, thyroid disease Psychiatric history: anxiety - Past Surgical History Surgical History: non-contributory - Social History Smoking Status: Never smoker Smokeless Tobacco Status: No Alcohol use: none Drug use: none Medications and Allergies Aspirin [Lo-Dose Aspirin EC] 81 mg PO DAILY 07/19/17 [History] Bisacodyl [Dulcolax] 10 mg RC DAILY PRN 07/19/17 [History] Calcium Carbonate/Vitamin D3 [Calcium 600 + Vit D Tablet] 1 tab PO DAILY [History] Cholecalciferol (D-3) [Vitamin D] 2,000 unit PO DAILY 07/19/17 [History] Ferrous Sulfate 325 mg PO DAILY 07/19/17 [History] Folic Acid 1 mg PO DAILY 07/19/17 [History] Guaifenesin [Mucinex] 600 mg PO DAILY PRN 07/19/17 [History] Levothyroxine [Synthroid] 125 mcg PO QAM 07/19/17 [History] Loratadine [Allergy Relief] 10 mg PO DAILY PRN 07/19/17 [History] Magnesium Hydroxide [Milk of Magnesia] 2,400 mg PO DAILY PRN 07/19/17 [History] Mirtazapine 7.5 mg PO HS 07/19/17 [History] Polyethylene Glycol 3350 [MiraLAX Powder Bulk 17.9 Oz] 1 scoop PO DAILY PRN [History] Sennosides/Docusate Sodium [Colace 2-in-1 Tablet] 1 tab PO BID 07/19/17 [History ] Oxycodone HCl/Acetaminophen [Percocet 5-325 mg Tablet] 1 tab PO Q8H PRN 7 Days # 21 07/24/17 [Rx] amLODIPine [Norvasc] 5 mg PO BID tablet 07/24/17 [Rx] 3 Allergy/AdvReac Type Severity Reaction Status Date / Time darifenacin Allergy Unknown See Verified 08/03/17 00:29 Comments ciprofloxacin AdvReac Nausea Verified 08/03/17 00:29 Sulfa (Sulfonamide AdvReac Nausea Verified 08/03/17 00:29 Antibiotics) Review of Systems ROS unobtainable: due to mental status Exam - Vital Signs Vital signs: Initial Vital Signs Temp Pulse Resp BP Pulse Ox 98.9 F 82 14 155/86 97 08/13/17 11:23 08/13/17 11:23 08/13/17 11:23 08/13/17 11:23 08/13/17 11:23 Vital Signs - Last 8 Hours Temp Pulse Resp BP Pulse Ox 08/14/17 10:00 98.3 F 97 16 152/65 97 08/14/17 06:47 98.4 F 87 16 163/72 94 08/14/17 06:02 167/64 Intake and Output 08/13/17 08/14/17 08/14/17 23:59 07:59 15:59 Intake Total 0 / 0 0 / 0 0 / 0 Output Total 0 / 0 0 / 0 Balance 0 / 0 0 / 0 0 / 0 Intake: Oral 0 / 0 0 / 0 0 / 0 Output: Urine 0 / 0 0 / 0 Other: Meal Dinner Breakfast Percent of Meal Consumed 100% 50% Stool Size Smear Stool Consistency soft formed # Urine Diapers 2 1 Weight 54.4 kg Patient Weight 08/14/17 23:59 Weight 54.4 kg - General Appearance Exam: Patient is sleeping. She awakens easily. She does respond to her name and will answer simple questions. She does exhibit a left facial droop. She has tenderness motor function of both upper and lower extremities. There is a tunnel dialysis catheter in the right chest and an immature AV fistula in the right upper extremity. Lungs essentially clear to auscultation. Heart regular rate and rhythm with a 2/6 talk ejection murmur. Abdomen is benign. There is no lower extremity swelling. Results - Lab Results 08/14/17 05:19 08/14/17 05:19 Most recent lab results Calcium 8.5 mg/dL (8.6-10.3) L 08/14/17 05:19 Phosphorus 3.5 mg/dL (2.7-4.5) 08/14/17 05:19 Magnesium 2.1 mg/dL (1.6-2.6) 08/14/17 05:19 Consult Discharge Plan - Plan Referrals: NONE,PCP [Primary Care Provider] -
[2017-08-14] MEDS ORDERED: Darbepoetin 100 MCG/0.5 ML SYRINGE SQ SCH (13:00)
--- NOTE | 2017-08-14 17:06 | Neurology Progress Note ---
Date of Encounter: 08/14/17 Time of Encounter: 17:03 Assessment and Plan (1) CVA (cerebral vascular accident) Current Visit: Yes Status: Acute Patient is an 82 year old woman with HTN, and ESRD on HD hyperlipidemia who developed acute onset of left sided hemiparesis related to lacunar infarct involving the right BG, likely small vessel etiology. 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 Carotid artery duplex and TTE completed and showed no significant pathology to change current treatment plan. Recommend full strength aspirin as secondary CVA prevention. Continue statin therapy. DVT prophylaxis. PT evaluation. Will sign off at this time please call if any questions Qualifiers: CVA mechanism: unspecified Qualified Code(s): I63.9 - Cerebral infarction, unspecified Subjective Principal diagnosis: CVA Interval history: patient seen and examined. She is doing fine and denies any significant neurological discomforts. echocardiography and carotid artery duplex studies completed. normal LVEF, no regional wall motion abnormality, no PFO. No significant valvular disease. Preliminary carotid artery duplex study showed nonstenotic plaques on the right, left normal. Objective - Constitutional Vitals: Temp Pulse Resp BP Pulse Ox 98.5 F 77 15 168/65 95 08/14/17 14:24 08/14/17 14:24 08/14/17 14:24 08/14/17 14:24 08/14/17 14:24 - Neurological Exam Sensorimotor examination: Present: other (Grossly intact) Motor examination - left side: 4/5: deltoids, biceps, triceps, wrist flexion, wrist extension, hip flexors, erp implementation consultant, quadriceps, tibialis Anterior, toe extension (EHL), plantarflexion Sensation intact: Present: other (Grossly intact) Posture: Present: other (None) Reflex and gait examination: other (Gait not assessed) Mental Status Examination: Present: awake, alert, oriented to person ( Recognizes his son), oriented to place (Does not know the place), follows commands appropriately, makes eye contact, follows simple commands, answers questions by nodding yes or no, impaired memory, cognitive impairment Cranial nerve examination: Present: PERRL, EOMI, visual mendez intact, corneal reflexes brisk symmetrically, sensory to face intact, mastication intact, no facial asymmetry is present (Left facial droop noted), no dysarthria, hearing is intact symmetrically, soft palate elevates bilaterally upon phonation, gag reflex intact, flexes SCM and trapezius muscles symmetrically with full power, tongue protrudes midline, no atrophy or facial fasiculations present Results - Laboratory Findings CBC and BMP: 08/14/17 05:19 08/14/17 05:19 Abnormal lab findings: Abnormal lab results RBC 2.99 M/mcL (3.82-4.97) L 08/14/17 05:19 Hgb 9.0 g/dL (11.5-15.4) L 08/14/17 05:19 Hct 28.2 % (35.3-44.9) L 08/14/17 05:19 RDW 18.4 % (11.5-14.5) H 08/14/17 05:19 Plt Count 136 K/mcL (140-400) L 08/14/17 05:19 Eosinophils # 0.8 K/mcL (0.0-0.6) H 08/14/17 05:19 Chloride 108 mEq/L (98-107) H 08/14/17 05:19 BUN 26 mg/dL (8-23) H 08/14/17 05:19 Creatinine 2.61 mg/dL (0.60-1.20) H 08/14/17 05:19 Est GFR ( Amer) 21 (> 60) L 08/14/17 05:19 Est GFR (Non-Af Amer) 18 (> 60) L 08/14/17 05:19 Calcium 8.5 mg/dL (8.6-10.3) L 08/14/17 05:19 Cholesterol 231 mg/dL (< 200) H 08/14/17 05:19 LDL Cholesterol, Calc 152 mg/dL (0-99) H 08/14/17 05:19 Ur Specimen Adequacy See below A 08/13/17 12:39 Urine Clarity Cloudy (Clear) A 08/13/17 12:39 Ur Specific [place] 1.008 (1.010-1.025) L 08/13/17 12:39 Urine Protein >=300 mg/dL (Neg-Trace) H 08/13/17 12:39 Urine Blood Moderate (Negative) H 08/13/17 12:39 Urine Nitrite Positive (Negative) A 08/13/17 12:39 Ur Leukocyte Esterase Large (Negative) H 08/13/17 12:39 Urine Microscopic RBC 30-50 per hpf (0-3) H 08/13/17 12:39 Urine Microscopic WBC TNTC per hpf (0-3) H 08/13/17 12:39 Urine Bacteria Many per hpf (None-Few) H 08/13/17 12:39 Ur Culture Indicated? YES (NO) A 08/13/17 12:39 Consult Discharge Plan - Plan Referrals: NONE,PCP [Primary Care Provider] -
--- NOTE | 2017-08-14 18:01 | Internal Med Progress Note ---
Date of Encounter: 08/14/17 Time of Encounter: 12:50 - Assessment and plan (1) Anemia Current Visit: Yes Status: Chronic Assessment and plan: H&H low, but acceptable. Pt with chronic anemia and it appears to be above baseline. no acute bleeding reported at this time continue to monitor labs Continue Ferrous Sulfate 325mg po daily. Patient has been placed on Aranesp for anemia by nephrology. Qualifiers: Anemia type: other cause Other causes of anemia: chronic disease, other Qualified Code(s): D63.8 - Anemia in other chronic diseases classified elsewhere (2) UTI (urinary tract infection) Current Visit: Yes Status: Acute Assessment and plan: Urine indicative of UTI. Treated with Rocephin 1 gram IV daily. Initial culture gram negative rods, will narrow as sensitivity is available. Pt denies urinary symptoms. Qualifiers: Urinary tract infection type: site unspecified Hematuria presence: without hematuria Qualified Code(s): N39.0 - Urinary tract infection, site not specified (3) Dementia Current Visit: Yes Status: Chronic Assessment and plan: Pt is alert, awake, oriented to name only. She is a resident at [facility] and will go back after discharge. Monitor for safety and falls. Qualifiers: Dementia type: Alzheimer's disease Alzheimer's disease onset: unspecified onset Dementia behavioral disturbance: without behavioral disturbance Qualified Code(s): G30.9 - Alzheimer's disease, unspecified; F02.80 - Dementia in other diseases classified elsewhere without behavioral disturbance; F02.80 - Dementia in other diseases classified elsewhere without behavioral disturbance; F02.80 - Dementia in other diseases classified elsewhere without behavioral disturbance (4) Hypothyroidism Current Visit: Yes Status: Chronic Assessment and plan: Chronic. Continue home medications. Qualifiers: Hypothyroidism type: acquired Qualified Code(s): E03.9 - Hypothyroidism, unspecified (5) CVA (cerebral vascular accident) Current Visit: Yes Status: Acute Assessment and plan: Pt from [facility], reports left sided facial droop and slurred speech. Patient with advanced dementia, as well as global weakness from deconditioning. Last known well at bedtime the night prior to admission. Head CT negative. Brain MRI shows acute infarct in posterior margin of right basal ganglia extending the right periventricular white matter. No acute intracranial hemorrhage. Severe chronic small vessel ischemic changes. Remote lacunar infarct with a right basal ganglia. Echo shows LVEF of 6065%, mild LV DD, no evidence of PFO, no significant valvular dysfunction. Right carotid has minimal plaque throughout, left carotid is normal throughout. Pt has been evaluated by neurology, recommended full-strength aspirin, continue statin, PT evaluation. She has been evaluated by speech therapy, patient had modified barium swallow with speech was aspiration of thin barium and penetration of nectar thick liquid. PT recommends return to long-term care. Head CT 08/13/17 11:22 IMPRESSION: 1. No definite acute intracranial abnormality. Given the extent of chronic changes, consider further evaluation with MRI. 2. Unchanged encephalomalacia involving the bilateral temporal lobes and bilateral basal ganglia. 3. Mild age-appropriate diffuse atrophy with severe chronic small vessel ischemic changes. D/ / Fly Laws MD / Fly Laws MD Interpreting Provider: Fly Laws MD Chest X-Ray 08/13/17 11:23 IMPRESSION: No evidence for acute cardiopulmonary process. D/ / 08/13/2017 12:46:25 Ten Sharif MD / tobi Interpreting Provider: Ten Sharif MD Brain MRI 08/13/17 15:27 IMPRESSION: 1. There is an acute 1.0 x 1.5 cm infarct involving the posterior margin of the right basal ganglia extending to the right periventricular white matter. 2. No acute intracranial hemorrhage. 3. Severe chronic small vessel ischemic changes. 4. Remote lacunar infarct within the right basal ganglia. The findings were sent to the Radiology Results Communication [facility] at 6:29 pm on 08/13/2017to be communicated to a licensed caregiver. D/ / 08/13/2017 18:36:17 Kolby Brannon MD / tobi Interpreting Provider: Kolby Brannon MD Echocardiogram 08/14/17 08:00 Impressions: LVEF 60-65%. Normal LV chamber size, wall thickness and function. Mild left ventricular diastolic dysfunction. Normal right ventricular structure and function. No evidence of pulmonary hypertension. No evidence of PFO with agitated saline contrast. No significant valvular dysfunction. Left Ventricular Wall Motion: Rest Echo Findings All wall segments showed normal motion. Findings: Study Quality * Technically adequate exam. ECG Findings * Normal sinus rhythm. Left Ventricle * LVEF 60-65%. * Normal LV chamber size, wall thickness and function. * Mild left ventricular diastolic dysfunction. Right Ventricle * Normal right ventricular structure and function. Left Atrium * Mildly dilated left atrium. Right Atrium * Normal right atrial size. Aortic Valve * Aortic valve not well visualized. * Trace aortic regurgitation. * Aortic valve leaflets are restricted. Mitral Valve * Normal mitral valve structure and function. * No mitral regurgitation. * No mitral stenosis. Tricuspid Valve * Normal tricuspid valve structure and function. * Trace tricuspid regurgitation. * No evidence of pulmonary hypertension. Pulmonic Valve * Normal pulmonic valve structure and function. * No pulmonic regurgitation. Aorta * Normally sized aortic root. Pericardium * There is a trivial pericardial effusion present. IVC * Normal IVC dimensions and inspiratory collapse. Pulmonary Artery * Normal visualized portions of the main pulmonary artery. Interatrial Septum * No evidence of PFO with agitated saline contrast. Videofluoroscopic Swallow 08/14/17 16:24 IMPRESSION: Aspiration of thin barium and penetration of nectar thick liquid. Please see separate speech pathology report for full discussion of findings and recommendations. D/ / Senia Perez MD / Senia Perez MD Interpreting Provider: Senia Perez MD Qualifiers: CVA mechanism: unspecified Qualified Code(s): I63.9 - Cerebral infarction, unspecified (6) DVT prophylaxis Current Visit: Yes Status: Acute Assessment and plan: Heparin SQ twice a day. (7) ESRD (end stage renal disease) on dialysis Current Visit: Yes Status: Chronic Assessment and plan: Patient has been evaluated by nephrology. She was to have dialysis today with a tunneled dialysis catheter. Patient will continue Aranesp for her anemia. Continue to monitor labs and vital signs. Try to avoid nephrotoxins. - Time Spent With Patient Total time spent is greater than 50% in coordination of care (as documented) at patient's floor/unit and/or counseling patient: less than 15 minutes - Subjective Interval history: Pt was seen and assessed at bedside at 1250, she had just returned to the room from testing, son at bedside. Pt was alert and awake, oriented to name only, stated that she felt well. Pt with obvious left sided facial droop and slurred speech. Pt with weakness to all extremities. At the time of assessment, not all test results were back, will stay overnight and discharge in the a.m. Pt denies headache, chest pain, nausea, vomiting. - Constitutional Vitals: Temp Pulse Resp BP Pulse Ox 98.5 F 77 15 168/65 95 08/14/17 14:24 08/14/17 14:24 08/14/17 14:24 08/14/17 14:24 08/14/17 14:24 General appearance: Present: cooperative, A&O X 1, mild distress, pleasant, no acute distress. Absent: answers questions appropriately - Head Head exam: Present: atraumatic, normal inspection, normocephalic - Eye Eye exam: Present: normal appearance, conjuntiva pink, sclera anicteric - Neck Neck exam general surgery: Present: supple, trachea midline. Absent: lymphadenopathy, tenderness - Respiratory Respiratory exam: Present: CTAB. Absent: accessory muscle use, rales, rhonchi, wheezes - Cardiovascular Cardiovascular exam: Present: RRR, +S1, +S2. Absent: diastolic murmur, gallop, rubs, systolic murmur - GI/Abdominal GI/Abdominal exam: Present: normal bowel sounds, soft. Absent: distended, hepatomegaly, tenderness - Extremities Exam Extremities exam: Present: normal capillary refill, normal inspection, warm, radial pulses palpable and symmetrical. Absent: calf tenderness, cyanotic, pedal edema, tenderness - Neurological Exam Neurological exam: Present: alert, oriented X3, no focal deficits. Absent: facial droop, speech deficit - Skin Skin exam: Present: dry, intact, normal color, warm. Absent: rash Internal Medicine: Result - Labs CBC & Chem 7: 08/14/17 05:19 08/14/17 05:19 - ABG Interpretation ABG results: PT/INR, D-dimer PT 11.3 Seconds (9.4-12.1) 08/13/17 12:01 - Impressions Impressions Videofluoroscopic Swallow 08/14/17 16:24 IMPRESSION: Aspiration of thin barium and penetration of nectar thick liquid. Please see separate speech pathology report for full discussion of findings and recommendations. D/ / Senia Perez MD / Senia Perez MD Interpreting Provider: eSnia Perez MD Consult Discharge Plan - Plan Referrals: NONE,PCP [Primary Care Provider] -
[2017-08-14] MEDS: Mirtazapine 15 MG TABLET PO SCH (19:52)
[2017-08-15] MEDS: *HR* Heparin 5,000 UNIT/ML VIAL SQ SCH ×2 (05:44→17:58)
[2017-08-15 08:13] LABS: Basophils # 0.1 K/mcL (0.0-0.2); Basophils % 0.8 %; Eosinophils # 0.9 K/mcL (0.0-0.6); Eosinophils % 11.7 %; Hematocrit 33.3 % (35.3-44.9); Immature Granulocytes % 0.5 % (0-4); Lymphocytes # 2.2 K/mcL (0.6-4.6); Lymphocytes % 28.1 %; Mean Corpuscular HGB Conc 32.4 g/dL (31.6-35.5); Mean Corpuscular Hemoglobin 30.4 pg (28.0-33.3); Mean Corpuscular Volume 93.8 fL (83.0-100.0); Mean Platelet Volume 9.6 fL (9.4-12.4); Monocytes # 0.6 K/mcL (0.0-1.3); Monocytes % 8.1 %; Neutrophils # 3.9 K/mcL (1.6-8.9); Nucleated Red Blood Cells 0.3 /100 WBC (0); Platelet Count 121 K/mcL (140-400); Red Blood Count 3.55 M/mcL (3.82-4.97); Red Cell Distribution Width 17.7 % (11.5-14.5); Segmented Neutrophils % 50.8 %
[2017-08-15 09:33] LABS: Hemoglobin 10.8 g/dL (11.5-15.4)
[2017-08-15] MEDS: Sennosides/Docusate Sodium TABLET PO SCH (10:06)
[2017-08-15] MEDS: Aspirin Enteric Coated 81 MG Tablet PO SCH (10:06)
[2017-08-15] MEDS: cefTRIAXone 1,000 MG in Water for inj. (sterile) 20 ML 10 ML IVP SCH (10:07)
[2017-08-15] MEDS: Folic Acid 1 MG TABLET PO SCH (10:07)
[2017-08-15] MEDS: amLODIPine 5 MG TABLET PO SCH (10:07)
[2017-08-15] MEDS: Cholecalciferol (D-3) 1,000 UNIT TABLET PO SCH (10:07)
[2017-08-15 10:14] LABS: Calcium 9.1 mg/dL (8.6-10.3); Potassium 4.1 mEq/L (3.5-5.1)
--- NOTE | 2017-08-15 10:57 | Nephrology Progress Note ---
Date of Encounter: 08/15/17 Time of Encounter: 10:30 - Assessment and Plan (1) End-stage renal disease Current Visit: No Status: Acute Seems at prior baseline mentation. No HD today, keeping MWF schedule. Subjective Principal diagnosis: CVA Interval history: Laying in bed, alert. Short term memory per hx. Son at bedside, conversing well with him. Son states patient may be going home today. Objective - Vital Signs Vital signs: Vital Signs Temp Pulse Resp BP Pulse Ox 08/15/17 08:10 98.2 F 68 18 179/76 96 08/15/17 05:38 98.4 F 72 16 175/70 95 08/14/17 23:09 97.9 F 70 17 150/66 97 08/14/17 20:00 98.1 F 77 15 178/66 94 08/14/17 19:10 97.4 F L 18 135/67 08/14/17 18:50 131/67 08/14/17 18:35 132/65 08/14/17 18:20 122/48 08/14/17 18:05 136/54 08/14/17 17:50 139/50 08/14/17 17:35 142/51 08/14/17 17:20 139/61 08/14/17 17:05 150/64 08/14/17 16:50 144/64 08/14/17 16:35 138/65 08/14/17 16:20 129/75 08/14/17 16:05 98.6 F 18 148/67 08/14/17 14:24 98.5 F 77 15 168/65 95 08/14/17 13:55 152/65 Intake and Output 08/14/17 08/15/17 08/15/17 23:59 07:59 15:59 Intake Total 750 / 750 140 / 140 Output Total 2600 / 2600 Balance -1850 / -1850 140 / 140 Intake: IV Fluids 20 / 20 Rocephin 1,000 MG In Water for 20 / 20 inj. (sterile) 10 ML @ 600 mls/ hr IVP DAILY [facility] Rx#:[id number] Oral 150 / 150 120 / 120 Intake, Rinseback and Flushes 600 / 600 Output: Urine 0 / 0 Total Dialysis (HD) Output 2600 / 2600 Other: Meal Dinner Breakfast Percent of Meal Consumed 25% 75% # Urine Diapers 1 1 1 Weight 53.4 kg Hemodialysis Net Fluid Removed 2000 (mL) Patient Weight 08/15/17 23:59 Weight 53.4 kg - General Appearance General appearance: Present: frail EENT: Present: mucous membranes moist Neck: Present: no JVD Respiratory: Present: clear Cardiology: Present: edema, regular rate, regular rhythm Additional Comments: mild LE Dialysis Vascular Access: Arteriovenous Fistula thrill: Yes bruit: Yes Additional Comments: right CVC Gastrointestinal: Present: normoactive bowel sounds Integumentary: Present: warm and dry Psychiatric: Present: mood/affect appropriate, cooperative - Lab 08/15/17 07:52 08/15/17 07:52 Most recent lab results Calcium 9.1 mg/dL (8.6-10.3) 08/15/17 07:52 Phosphorus 3.5 mg/dL (2.7-4.5) 08/14/17 05:19 Magnesium 2.1 mg/dL (1.6-2.6) 08/14/17 05:19 Consult Discharge Plan - Plan Referrals: NONE,PCP [Primary Care Provider] -
[2017-08-15] MEDS: 0.9 % Sodium Chloride 1,000 ML IVC SCH ×2 (11:38→11:39)
--- NOTE | 2017-08-15 16:03 | Discharge Summary ---
- NOTES TO OUTPATIENT PROVIDER Notes to Outpatient Provider: Pt was admitted for CVA, UTI. Patient presented with left facial droop and slurred speech. Brain MRI showed acute infarct in posterior margin of right basal ganglia extending the right periventricular white matter. She will return to [facility] for PT and will be placed on full strength aspirin and continue statin. UTI positive for Escherichia coli she was treated with Rocephin 1 g IV daily until culture returned, patient reports Cipro is an allergy, son says that it causes her to have nausea. Patient will be sent home with a prescription for Zofran ODT and son and I discussed taking Levaquin for treatment of UTI. He was in agreement that that would be best for her versus another IV antibiotic. Orders not resulted at time of discharge: Pending orders 08/16/17 04:00 BMP [Basic Metabolic Panel] AM 0400 Complete Blood Count w/o Diff [HEME] AM 0400 08/17/17 04:00 BMP [Basic Metabolic Panel] AM 0400 Complete Blood Count w/o Diff [HEME] AM 04008/18/17 04:00 BMP [Basic Metabolic Panel] AM 0400 Complete Blood Count w/o Diff [HEME] AM 0400 08/19/17 04:00 BMP [Basic Metabolic Panel] AM 0400 Complete Blood Count w/o Diff [HEME] AM 0400 08/20/17 04:00 BMP [Basic Metabolic Panel] AM 0400 Complete Blood Count w/o Diff [HEME] AM 0400 08/21/17 04:00 BMP [Basic Metabolic Panel] AM 0400 Complete Blood Count w/o Diff [HEME] AM 0400 Date of Encounter: 08/15/17 Time of Encounter: 12:15 - Discharge Diagnosis (1) CVA (cerebral vascular accident) Priority: Primary Status: Acute Assessment and Plan: Assessment remains unchanged today. Patient is alert, awake, does not answer questions appropriately, but is at her baseline mentation. Head CT negative. Brain MRI shows acute infarct in posterior margin of right basal ganglia extending the right periventricular white matter. No acute intracranial hemorrhage. Severe chronic small vessel ischemic changes. Remote lacunar infarct with a right basal ganglia. Echo shows LVEF of 6065%, mild LV DD, no evidence of PFO, no significant valvular dysfunction. Right carotid has minimal plaque throughout, left carotid is normal throughout. Continue aspirin 325 mg by mouth daily, statin. PT recommends long-term care. She has been evaluated by speech therapy, patient had modified barium swallow with speech was aspiration of thin barium and penetration of nectar thick liquid. Head CT 08/13/17 11:22 IMPRESSION: 1. No definite acute intracranial abnormality. Given the extent of chronic changes, consider further evaluation with MRI. 2. Unchanged encephalomalacia involving the bilateral temporal lobes and bilateral basal ganglia. 3. Mild age-appropriate diffuse atrophy with severe chronic small vessel ischemic changes. D/ / Fly Laws MD / Fly Laws MD Interpreting Provider: Fly Laws MD Chest X-Ray 08/13/17 11:23 IMPRESSION: No evidence for acute cardiopulmonary process. D/ / 08/13/2017 12:46:25 Ten Sharif MD / tobi Interpreting Provider: Ten Sharif MD Brain MRI 08/13/17 15:27 IMPRESSION: 1. There is an acute 1.0 x 1.5 cm infarct involving the posterior margin of the right basal ganglia extending to the right periventricular white matter. 2. No acute intracranial hemorrhage. 3. Severe chronic small vessel ischemic changes. 4. Remote lacunar infarct within the right basal ganglia. The findings were sent to the [facility] at 6:29 pm on 08/13/2017to be communicated to a licensed caregiver. D/ / 08/13/2017 18:36:17 Kolby Brannon MD / tobi Interpreting Provider: Kolby Brannon MD Echocardiogram 08/14/17 08:00 Impressions: LVEF 60-65%. Normal LV chamber size, wall thickness and function. Mild left ventricular diastolic dysfunction. Normal right ventricular structure and function. No evidence of pulmonary hypertension. No evidence of PFO with agitated saline contrast. No significant valvular dysfunction. Left Ventricular Wall Motion: Rest Echo Findings All wall segments showed normal motion. Findings: Study Quality * Technically adequate exam. ECG Findings * Normal sinus rhythm. Left Ventricle * LVEF 60-65%. * Normal LV chamber size, wall thickness and function. * Mild left ventricular diastolic dysfunction. Right Ventricle * Normal right ventricular structure and function. Left Atrium * Mildly dilated left atrium. Right Atrium * Normal right atrial size. Aortic Valve * Aortic valve not well visualized. * Trace aortic regurgitation. * Aortic valve leaflets are restricted. Mitral Valve * Normal mitral valve structure and function. * No mitral regurgitation. * No mitral stenosis. Tricuspid Valve * Normal tricuspid valve structure and function. * Trace tricuspid regurgitation. * No evidence of pulmonary hypertension. Pulmonic Valve * Normal pulmonic valve structure and function. * No pulmonic regurgitation. Aorta * Normally sized aortic root. Pericardium * There is a trivial pericardial effusion present. IVC * Normal IVC dimensions and inspiratory collapse. Pulmonary Artery * Normal visualized portions of the main pulmonary artery. Interatrial Septum * No evidence of PFO with agitated saline contrast. Videofluoroscopic Swallow 08/14/17 16:24 IMPRESSION: Aspiration of thin barium and penetration of nectar thick liquid. Please see separate speech pathology report for full discussion of findings and recommendations. D/ / Senia Perez MD / Senia Perez MD Interpreting Provider: Senia Perez MD Qualifiers: CVA mechanism: unspecified Qualified Code(s): I63.9 - Cerebral infarction, unspecified (2) Anemia Priority: Secondary Status: Chronic Assessment and Plan: H&H low, but acceptable. Hgb 10.8 today. no acute bleeding reported at this time Continue Ferrous Sulfate 325mg po daily. Patient has been placed on Aranesp for anemia by nephrology. Qualifiers: Anemia type: other cause Other causes of anemia: chronic disease, other Qualified Code(s): D63.8 - Anemia in other chronic diseases classified elsewhere (3) UTI (urinary tract infection) Priority: Secondary Status: Acute Assessment and Plan: Urine indicative of UTI. Treated with Rocephin 1 gram IV daily. Final culture E. coli, pansensitive and will treat with Levaquin po. Pt lists Cipro as an allergy, son states that pt has nausea with it. We discussed that Levaquin is the best po antibiotic for her UTI and he is agreeable to use Levaquin po to avoid IV antibiotic at [facility]. Levaquin 500mg po every other day x 5 doses Qualifiers: Urinary tract infection type: site unspecified Hematuria presence: without hematuria Qualified Code(s): N39.0 - Urinary tract infection, site not specified (4) Dementia Priority: Primary Status: Chronic Assessment and Plan: Chronic and stable. Will return to [facility]. Qualifiers: Dementia type: Alzheimer's disease Alzheimer's disease onset: unspecified onset Dementia behavioral disturbance: without behavioral disturbance Qualified Code(s): G30.9 - Alzheimer's disease, unspecified; F02.80 - Dementia in other diseases classified elsewhere without behavioral disturbance; F02.80 - Dementia in other diseases classified elsewhere without behavioral disturbance; F02.80 - Dementia in other diseases classified elsewhere without behavioral disturbance (5) Hypothyroidism Priority: Secondary Status: Chronic Assessment and Plan: Chronic. Continue home dose of levothyroxine. Qualifiers: Hypothyroidism type: acquired Qualified Code(s): E03.9 - Hypothyroidism, unspecified (6) DVT prophylaxis Priority: Secondary Status: Acute Assessment and Plan: Heparin (7) ESRD (end stage renal disease) on dialysis Priority: Secondary Status: Chronic Assessment and Plan: Patient has been evaluated by nephrology, I appreciate the recommendation of consultation. Continue dialysis on Saturday, Saturday, Saturday schedule. Patient will continue Aranesp for her anemia. Serum creatinine 1.92, GFR 25. This is improved, both patient's normal baseline. Hospital course: Ms. Mcgraw is a 82 year old female with past medical history of hypertension, see KD stage IV, anemia, he has RD, hypothyroidism. Patient was sent from [facility] to emergency room for evaluation of slurred speech and facial droop. Patient was found to have a stroke, MRI showed acute 1.0 x 1.5 cm infarct in posterior margin of the right basal ganglia, as well as remote lacunar infarct within right basal ganglia. Patient has been evaluated by CT, will go back to [facility] and continue therapy. Her son reports that she has been in a wheelchair for about a year. Carotid Dopplers show right carotid with minimal plaque throughout, left is normal. Echocardiogram shows LVEF of 60-65%, mild LV DD, no evidence of PFO, no significant valvular dysfunction. Patient also positive for UTI. Escherichia coli was pansensitive. The best by mouth antibiotic is Levaquin, patient with Cipro as an allergy. Son reports that it makes her nauseated. We had a discussion about the risks and benefits of taking Levaquin, he was in agreement that he like to try that instead of IV antibiotic. She will be sent home with Levaquin 500 mg by mouth every 48 hours as well as Zofran ODT 4 mg 30 minutes prior to antibiotic. Son reports the patient is returned to her baseline. She is alert and oriented to name only. Her physical exam is unremarkable other than facial droop and slurred speech. Patient has been evaluated both by nephrology and neurology. Neurology's recommendation includes PT, full-strength aspirin, continue statin therapy. Patient with end-stage renal disease on dialysis, we will continue her normal Saturday, Saturday, Saturday schedule. Patient is mildly anemic which is chronic and she has been placed on Aranesp. Patient's vital signs are within normal limits, patient has mild, permissive hypertension status post CVA. She is stable and appropriate for discharge back to ECF. Discharge discussed with: family - Time Spent with Patient Total time spent providing and/or coordinating discharge services: Less than 30 minutes - Discharge Medications Prescriptions: Aspirin Enteric Coated [Aspirin EC] 325 mg PO DAILY #30 tablet. Atorvastatin [Lipitor] 40 mg PO HS #30 tablet Levofloxacin [Levaquin] 500 mg PO Q48H #5 tablet Home Medications: Bisacodyl [Dulcolax] 10 mg RC DAILY PRN 07/19/17 [History] Calcium Carbonate/Vitamin D3 [Calcium 600 + Vit D Tablet] 1 tab PO DAILY [History] Cholecalciferol (D-3) [Vitamin D] 2,000 unit PO DAILY 07/19/17 [History] Ferrous Sulfate 325 mg PO DAILY 07/19/17 [History] Folic Acid 1 mg PO DAILY 07/19/17 [History] Guaifenesin [Mucinex] 600 mg PO DAILY PRN 07/19/17 [History] Levothyroxine [Synthroid] 125 mcg PO QAM 07/19/17 [History] Loratadine [Allergy Relief] 10 mg PO DAILY PRN 07/19/17 [History] Magnesium Hydroxide [Milk of Magnesia] 2,400 mg PO DAILY PRN 07/19/17 [History] Mirtazapine 7.5 mg PO HS 07/19/17 [History] Polyethylene Glycol 3350 [MiraLAX Powder Bulk 17.9 Oz] 1 scoop PO DAILY PRN [History] Sennosides/Docusate Sodium [Colace 2-in-1 Tablet] 1 tab PO BID 07/19/17 [History ] Oxycodone HCl/Acetaminophen [Percocet 5-325 mg Tablet] 1 tab PO Q8H PRN 7 Days # 21 07/24/17 [Rx] amLODIPine [Norvasc] 5 mg PO BID tablet 07/24/17 [Rx] Aspirin Enteric Coated [Aspirin EC] 325 mg PO DAILY #30 tablet. 08/15/17 [Rx] Atorvastatin [Lipitor] 40 mg PO HS #30 tablet 08/15/17 [Rx] Darbepoetin [Aranesp] 100 mcg SQ We syringe 08/15/17 [Rx] Levofloxacin [Levaquin] 500 mg PO Q48H #5 tablet 08/15/17 [Rx] Losartan [Cozaar] 25 mg PO BID tablet 08/15/17 [Rx] Allergies/Adverse Reactions: 3 Allergy/AdvReac Type Severity Reaction Status Date / Time darifenacin Allergy Unknown See Verified 08/03/17 00:29 Comments ciprofloxacin AdvReac Nausea Verified 08/03/17 00:29 Sulfa (Sulfonamide AdvReac Nausea Verified 08/03/17 00:29 Antibiotics) Date of admission: 08/14/17 12:34 Primary care physician: PCP NONE Discharging clinician: Sarah Lazcano Anticipated date of discharge: 08/15/17 - Constitutional Vitals: Temp Pulse Resp BP Pulse Ox 98.2 F 68 18 162/68 96 08/15/17 08:10 08/15/17 08:10 08/15/17 08:10 08/15/17 12:28 08/15/17 09:00 General appearance: Present: cooperative, A&O X 1, mild distress, pleasant, no acute distress. Absent: answers questions appropriately - Head Head exam: Present: atraumatic, normal inspection, normocephalic - Eye Eye exam: Present: normal appearance, conjuntiva pink, sclera anicteric - Neck Neck exam general surgery: Present: normal inspection, supple, trachea midline. Absent: lymphadenopathy, tenderness - Respiratory Respiratory exam: Present: CTAB. Absent: accessory muscle use, rales, rhonchi, wheezes - Cardiovascular Cardiovascular exam: Present: RRR, +S1, +S2. Absent: diastolic murmur, gallop, rubs, systolic murmur - GI/Abdominal GI/Abdominal exam: Present: normal bowel sounds, soft. Absent: distended, hepatomegaly, tenderness - Extremities Exam Extremities exam: Present: normal capillary refill, normal inspection, warm, radial pulses palpable and symmetrical. Absent: calf tenderness, cyanotic, pedal edema, tenderness - Neurological Exam Neurological exam: Present: alert, oriented X3, no focal deficits. Absent: facial droop, speech deficit - Skin Skin exam: Present: dry, intact, normal color, warm. Absent: rash - Patient Status Disposition: Home, Self-Care Condition: Good Functional capacity at discharge: wheelchair bound Overall status at discharge: patient is progressing back to baseline - Discharge Instructions Follow Up With: NONE,PCP [Primary Care Provider] - - Diet and Activity Activity: increase activity as tolerated Diet: other (advanced soft diet with thin liquids)
--- NOTE | 2017-08-15 16:45 | Physician Discharge Referral ---
ExtendedCare Referral Info Transfer To: [facility] Provider in Charge after Transfer: PCP Institutional Level of Care: Intermediate - Diagnosis (1) CVA (cerebral vascular accident) Priority: Primary Status: Acute (2) Anemia Priority: Secondary Status: Chronic (3) UTI (urinary tract infection) Priority: Secondary Status: Acute (4) Dementia Priority: Secondary Status: Chronic (5) Hypothyroidism Priority: Secondary Status: Chronic (6) DVT prophylaxis Priority: Secondary Status: Acute (7) ESRD (end stage renal disease) on dialysis Priority: Secondary Status: Chronic Prognosis: Fair Aware of Diagnosis: Family - Transfer Medications Prescriptions: Aspirin Enteric Coated [Aspirin EC] 325 mg PO DAILY #30 tablet. Atorvastatin [Lipitor] 40 mg PO HS #30 tablet Levofloxacin [Levaquin] 500 mg PO Q48H #5 tablet Ondansetron ODT [Zofran ODT] 4 mg PO Q48H #5 tab.rapdis Home Medications: Bisacodyl [Dulcolax] 10 mg RC DAILY PRN 07/19/17 [History] Calcium Carbonate/Vitamin D3 [Calcium 600 + Vit D Tablet] 1 tab PO DAILY [History] Cholecalciferol (D-3) [Vitamin D] 2,000 unit PO DAILY 07/19/17 [History] Ferrous Sulfate 325 mg PO DAILY 07/19/17 [History] Folic Acid 1 mg PO DAILY 07/19/17 [History] Guaifenesin [Mucinex] 600 mg PO DAILY PRN 07/19/17 [History] Levothyroxine [Synthroid] 125 mcg PO QAM 07/19/17 [History] Loratadine [Allergy Relief] 10 mg PO DAILY PRN 07/19/17 [History] Magnesium Hydroxide [Milk of Magnesia] 2,400 mg PO DAILY PRN 07/19/17 [History] Mirtazapine 7.5 mg PO HS 07/19/17 [History] Polyethylene Glycol 3350 [MiraLAX Powder Bulk 17.9 Oz] 1 scoop PO DAILY PRN [History] Sennosides/Docusate Sodium [Colace 2-in-1 Tablet] 1 tab PO BID 07/19/17 [History ] Oxycodone HCl/Acetaminophen [Percocet 5-325 mg Tablet] 1 tab PO Q8H PRN 7 Days # 21 07/24/17 [Rx] amLODIPine [Norvasc] 5 mg PO BID tablet 07/24/17 [Rx] Aspirin Enteric Coated [Aspirin EC] 325 mg PO DAILY #30 tablet. 08/15/17 [Rx] Atorvastatin [Lipitor] 40 mg PO HS #30 tablet 08/15/17 [Rx] Darbepoetin [Aranesp] 100 mcg SQ We syringe 08/15/17 [Rx] Levofloxacin [Levaquin] 500 mg PO Q48H #5 tablet 08/15/17 [Rx] Losartan [Cozaar] 25 mg PO BID tablet 08/15/17 [Rx] Ondansetron ODT [Zofran ODT] 4 mg PO Q48H #5 tab.rapdis 08/15/17 [Rx] Allergies/Adverse Reactions: 3 Allergy/AdvReac Type Severity Reaction Status Date / Time darifenacin Allergy Unknown See Verified 08/03/17 00:29 Comments ciprofloxacin AdvReac Nausea Verified 08/03/17 00:29 Sulfa (Sulfonamide AdvReac Nausea Verified 08/03/17 00:29 Antibiotics) - Respiratory Orders Smoking Cessation: Smoking cessation has been advised. For more information, call the [place] Tobacco Quit Line at 3-497-QFBS-NOW. - Lab Orders Lab Orders: CBC, U/A, Leonardo 17, CXR yearly - Ancillary Orders May use pressure relief devices daily prn, May go on ONUR w/family/respon green party w /meds at nurse discretion PRN - Advance Directives Code Status: DNR-Arrest - Mobility Orders Chair - Rehabiliation Orders Rehab Potential: Fair Rehab Orders: ROM Exercises, Evaluation for Physical Therapy, Evaluation for Occupational Therapy, Evaluation for Speech Therapy - Treatments May check for fecal impaction rectally daily PRN, Fleet enema rectally every other day PRN cleansing purposes - Diet Orders Mechanical Soft (Thin liquids) CERTIFICATION: I certify that the transfer of the above named patient to an Extended Care Facility is necessary for the continuing treatment of the diagnosis listed. The above information is true and accurate reflection of patient's current condition. Confidential - Redisclosure prohibited without a patient's written consent.
[2017-08-15 17:30] VITALS: BP 186/78
== END 2017-08-15 20:37 | DRG 64 ==
LOC: 3ANU 11:19 → EMEROO 11:19 → 3ANU 14:06
PROVIDERS: ADMIT Internal Medicine; ATTEND Internal Medicine

== ENCOUNTER 2018-02-11 18:48 | Inpatient (IN) ==
[2018-02-11] MEDS ORDERED: 0.9 % Sodium Chloride 1,000 ML IVC ONE (18:54)
[2018-02-11] MEDS ORDERED: Ondansetron 4 MG/2 ML VIAL IVP ONE (18:54)
[2018-02-11] MEDS ORDERED: Isovue-370 500 ML INFUS..BTL IV ONE ×2 (18:56→19:07)
[2018-02-11] MEDS ORDERED: Piperacillin/Tazobactam 3.375 GM in Water for inj. (sterile) 20 ML 20 ML IVP ONE (19:08)
[2018-02-11 19:16] LABS: Basophils % 0.2 %; Eosinophils % 0.1 %; Hematocrit 34.5 % (35.3-44.9); Hemoglobin 11.4 g/dL (11.5-15.4); Immature Granulocytes % 0.5 % (0-4); Lymphocytes # 0.6 K/mcL (0.6-4.6); Lymphocytes % 3.2 %; Mean Corpuscular Hemoglobin 31.7 pg (28.0-33.3); Mean Corpuscular Volume 95.8 fL (83.0-100.0); Mean Platelet Volume 9.4 fL (9.4-12.4); Monocytes # 1.2 K/mcL (0.0-1.3); Monocytes % 5.9 %; Platelet Count 179 K/mcL (140-400); Red Cell Distribution Width 14.4 % (11.5-14.5); Segmented Neutrophils % 90.1 %
[2018-02-11] MEDS ORDERED: Ketorolac 30 MG/ML VIAL IVP ONE (19:16)
[2018-02-11 19:25] LABS: INR 1.1
[2018-02-11 19:28] LABS: Activated Partial Thrombo Time 32.7 Seconds (26.0-36.0)
[2018-02-11 19:36] LABS: Troponin I 0.03 ng/mL (< 0.04)
--- NOTE | 2018-02-11 19:41 | Emergency Department Note ---
Disposition Clinical Impression: Sepsis Qualifiers: Sepsis type: sepsis due to unspecified organism Qualified Code(s): A41.9 - Sepsis, unspecified organism Disposition: Admitted As Inpatient Condition: Good Referrals: Navid Frias [Primary Care Provider] - Time of Disposition: 19:41 General Adult HPI - General Chief complaint: ED Fever Stated complaint: nausea, vomiting Time Seen by Provider: 02/11/18 18:52 Source: EMS Limitations: no limitations - History of Present Illness Pain Scale: 0 - Related Data Home Medications Medication Instructions Recorded Confirmed Bisacodyl [Dulcolax] 10 mg RC DAILY PRN 07/19/17 08/13/17 Calcium Carbonate/Vitamin D3 1 tab PO DAILY 07/19/17 08/13/17 [Calcium 600 + Vit D Tablet] Cholecalciferol (D-3) [Vitamin D] 2,000 unit PO DAILY 07/19/17 08/13/17 Ferrous Sulfate 325 mg PO DAILY 07/19/17 08/13/17 Folic Acid 1 mg PO DAILY 07/19/17 08/13/17 Guaifenesin [Mucinex] 600 mg PO DAILY PRN 07/19/17 08/13/17 Levothyroxine [Synthroid] 125 mcg PO QAM 07/19/17 08/13/17 Loratadine [Allergy Relief] 10 mg PO DAILY PRN 07/19/17 08/13/17 Magnesium Hydroxide [Milk of 2,400 mg PO DAILY PRN 07/19/17 08/13/17 Magnesia] Mirtazapine 7.5 mg PO HS 07/19/17 08/13/17 Polyethylene Glycol 3350 [MiraLAX 1 scoop PO DAILY PRN 07/19/17 08/13/17 Powder Bulk 17.9 Oz] Sennosides/Docusate Sodium [Colace 1 tab PO BID 07/19/17 08/13/17 2-in-1 Tablet] Previous Rx's Medication Instructions Recorded Oxycodone HCl/Acetaminophen 1 tab PO Q8H PRN 7 Days #21 07/24/17 [Percocet 5-325 mg Tablet] amLODIPine [Norvasc] 5 mg PO BID tablet 07/24/17 Aspirin Enteric Coated [Aspirin EC] 325 mg PO DAILY #30 tablet. 08/15/17 Atorvastatin [Lipitor] 40 mg PO HS #30 tablet 08/15/17 Darbepoetin [Aranesp] 100 mcg SQ We syringe 08/15/17 Levofloxacin [Levaquin] 500 mg PO Q48H #5 tablet 08/15/17 Losartan [Cozaar] 25 mg PO BID tablet 08/15/17 Ondansetron ODT [Zofran ODT] 4 mg PO Q48H #5 tab.rapdis 08/15/17 Allergies Allergy/AdvReac Type Severity Reaction Status Date / Time darifenacin Allergy Unknown See Verified 08/03/17 00:29 Comments ciprofloxacin AdvReac Nausea Verified 08/03/17 00:29 Sulfa (Sulfonamide AdvReac Nausea Verified 08/03/17 00:29 Antibiotics) Past Medical History - Past Medical History Medical history: Reports: dementia, dialysis, GERD, renal disease, thyroid disease Surgical history: Reports: non-contributory Psychiatric history: Reports: anxiety - Social History Smoking Status: Never smoker Smokeless Tobacco Status: No Alcohol use: Reports: none Drug use: Reports: none Physical Exam - General Limitations: no limitations General appearance: alert Course Vital Signs Temperature 102.4 F H 02/11/18 18:58 Pulse Rate 106 02/11/18 18:58 Respiratory Rate 18 02/11/18 18:58 Blood Pressure 114/57 02/11/18 18:58 O2 Sat by Pulse Oximetry 95 02/11/18 18:58 Temperature 102.4 F H 02/11/18 18:58 Pulse Rate 106 02/11/18 18:58 Respiratory Rate 18 02/11/18 18:58 Blood Pressure 114/57 02/11/18 18:58 O2 Sat by Pulse Oximetry 95 02/11/18 18:58 Oxygen Delivery Oxygen Delivery Room Air Medical Decision Making - Lab Data Result diagrams: 02/11/18 18:58 Lab Results 02/11/18 02/11/18 02/11/18 Range/Units 18:58 18:58 18:58 WBC 20.0 H (4.3-11.1) K/mcL RBC 3.60 L (3.82-4.97) M/mcL Hgb 11.4 L (11.5-15.4) g/dL Hct 34.5 L (35.3-44.9) % MCV 95.8 (83.0-100.0) fL MCH 31.7 (28.0-33.3) pg MCHC 33.0 (31.6-35.5) g/dL RDW 14.4 (11.5-14.5) % Plt Count 179 (140-400) K/mcL MPV 9.4 (9.4-12.4) fL Immature Gran % 0.5 (0-4) % Seg Neutrophils % 90.1 % Lymphocytes % 3.2 % Monocytes % 5.9 % Eosinophils % 0.1 % Basophils % 0.2 % Neutrophils # 18.0 H (1.6-8.9) K/mcL Lymphocytes # 0.6 (0.6-4.6) K/mcL Monocytes # 1.2 (0.0-1.3) K/mcL Eosinophils # 0.0 (0.0-0.6) K/mcL Basophils # 0.0 (0.0-0.2) K/mcL PT 12.0 (9.4-12.1) Seconds INR 1.1 APTT 32.7 (26.0-36.0) Seconds Lactic Acid (0.5-2.2) mmol/L Troponin I 0.03 (< 0.04) ng/mL 02/11/18 Range/Units 18:58 WBC (4.3-11.1) K/mcL RBC (3.82-4.97) M/mcL Hgb (11.5-15.4) g/dL Hct (35.3-44.9) % MCV (83.0-100.0) fL MCH (28.0-33.3) pg MCHC (31.6-35.5) g/dL RDW (11.5-14.5) % Plt Count (140-400) K/mcL MPV (9.4-12.4) fL Immature Gran % (0-4) % Seg Neutrophils % % Lymphocytes % % Monocytes % % Eosinophils % % Basophils % % Neutrophils # (1.6-8.9) K/mcL Lymphocytes # (0.6-4.6) K/mcL Monocytes # (0.0-1.3) K/mcL Eosinophils # (0.0-0.6) K/mcL Basophils # (0.0-0.2) K/mcL PT (9.4-12.1) Seconds INR APTT (26.0-36.0) Seconds Lactic Acid 0.6 (0.5-2.2) mmol/L Troponin I (< 0.04) ng/mL Attestation Statement - Attestation Attestation: I examined this patient and my medical decision-making was reviewed with the Resident Physician. I agree with the documented findings, disposition and treatment plan as described except to the extent set forth below. 83 year old female presents to the ED with complaints of chronic dementia and sepsis criteria with fever and tachycardia and typically has a history of UTIs. PAtient is poor historn and familiy member at bedside statest that she has baseline nausea and typically has a UTI. Patient has been a SIRS alert and we will start IVF and zosyn for therapy as her UTIs have been treated with this in the past. She will be admitted to medicine after CT scans.
[2018-02-11 19:43] LABS: Albumin 3.7 g/dL (3.5-5.7); Albumin/Globulin Ratio 1.2 (1.1-2.2); Bilirubin,Direct 0.1 mg/dL (0.0-0.2); Bilirubin,Indirect 0.3 mg/dL (0.0-1.2); Bilirubin,Total 0.4 mg/dL (0.3-1.0); Calcium 8.7 mg/dL (8.6-10.3); Globulin 3.2 g/dL (2.4-3.5); Potassium 4.7 mEq/L (3.5-5.1); Total Protein 6.9 g/dL (6.4-8.9)
--- NOTE | 2018-02-11 20:02 | Emergency Department Note ---
Addendum entered and electronically signed by Justin Mohamud 02/11/18 23:40: ECG Eval performed shortly after arrival, documented after admission: Sinus Tachycardia Rate 103 Normal [place] No interval prolongation QRS <120 CT <200 No segment elevations or depressions No T wave abnormality Tachycardia, otherwise normal ECG Original Note: Disposition Clinical Impression: Sepsis Qualifiers: Sepsis type: sepsis due to unspecified organism Qualified Code(s): A41.9 - Sepsis, unspecified organism Disposition: Admitted As Inpatient Condition: Good Fever HPI - General Chief Complaint: ED Fever Stated Complaint: nausea, vomiting Time Seen by Provider: 02/11/18 18:52 Source: EMS Limitations: no limitations - History of Present Illness HPI Narrative: Ruma is an 83 YO F with a PMH significant for dementia, CHF, CKD on HD, CVA and hypothyroidism who presents to [facility] ED with a chief complaint of fever. Due to patient's demented state the history comes primarily from EMS. EMS was called by [facility] for a reported fever of 103.4. She was given rectal tylenol at some point prior to EMS arrival. Upon arrival, the patient appeared flushed and warm. She was transported to [place] where her repeat temperature was 102.4. Ruma is somewhat communicative, and she was able to deny any headache, chest pain, abdominal pain or trouble breathing. She did admit to a sore throat. Pt Subjective Complaint: fever Onset (ago): hour(s) Temperature Source: oral Associated symptoms: Reports: chills, sore throat. Denies: headache, chest pain, abdominal pain, nausea Improves with: acetaminophen Treatments prior to arrival fever: acetaminophen - Related Data Home Medications Medication Instructions Recorded Confirmed Bisacodyl [Dulcolax] 10 mg RC DAILY PRN 07/19/17 02/11/18 Folic Acid 1 mg PO DAILY 07/19/17 02/11/18 Magnesium Hydroxide [Milk of 2,400 mg PO DAILY PRN 07/19/17 02/11/18 Magnesia] Polyethylene Glycol 3350 [MiraLAX 1 scoop PO DAILY PRN 07/19/17 02/11/18 Powder Bulk 17.9 Oz] Sennosides/Docusate Sodium [Colace 1 tab PO BID 07/19/17 02/11/18 2-in-1 Tablet] Acetaminophen [Non-Aspirin] 650 mg PO Q4H PRN 02/11/18 02/11/18 Lactobacillus Acidophilus 1 cap PO DAILY 02/11/18 02/11/18 [Acidophilus Lactobacilli] Levothyroxine Sodium [Synthroid] 137 mcg PO DAILY 02/11/18 02/11/18 Losartan [Cozaar] 25 mg PO DAILY 02/11/18 02/11/18 Ondansetron ODT [Zofran ODT] 4 mg PO Q8H PRN 02/11/18 02/11/18 Sevelamer Carbonate [Renvela] 1.6 gm PO TID 02/11/18 02/11/18 amLODIPine [Norvasc] 5 mg PO DAILY 02/11/18 02/11/18 Previous Rx's Medication Instructions Recorded Aspirin Enteric Coated [Aspirin EC] 325 mg PO DAILY #30 tablet. 08/15/17 Atorvastatin [Lipitor] 40 mg PO HS #30 tablet 08/15/17 Allergies Allergy/AdvReac Type Severity Reaction Status Date / Time darifenacin Allergy Unknown See Verified 08/03/17 00:29 Comments ciprofloxacin AdvReac Nausea Verified 08/03/17 00:29 Sulfa (Sulfonamide AdvReac Nausea Verified 08/03/17 00:29 Antibiotics) Limitations: ROS unobtainable due to patients medical condition (partial ROS was obtained) Constitutional: Reports: fever, chills, weakness Eyes: Denies: eye discharge ENT ED: Reports: throat pain Cardiovascular: Denies: chest pain, palpitations Respiratory: Denies: cough, wheezes, sputum production Gastrointestinal: Denies: abdominal pain, nausea, vomiting, diarrhea Genitourinary: Reports: as per HPI. Denies: urgency, dysuria Fever PMH - Past Medical History Medical history: Reports: dementia, dialysis, GERD, renal disease, thyroid disease Surgical history: Reports: non-contributory Psychiatric history: Reports: anxiety - Social History Smoking Status: Never smoker Alcohol use: Reports: none Drug use: Reports: none Physical Exam - General Limitations: no limitations General appearance: alert, in no apparent distress - Head Head exam: atraumatic, normocephalic, normal inspection - Eye Eye exam: Present: normal appearance, PERRL, EOMI - ENT ENT exam: normal exam, normal oropharynx, mucous membranes moist - Neck Neck exam: Present: normal inspection. Absent: lymphadenopathy - Chest Chest inspection: Present: normal inspection, symmetric chest wall rise. Absent: tenderness - Respiratory Respiratory exam: Present: normal lung sounds bilaterally, respiratory distress. Absent: wheezes, accessory muscle use - Cardiovascular Cardiovascular exam: Present: regular rate, normal rhythm, tachycardia, systolic murmur. Absent: rubs, gallop - Abdominal Exam Abdominal exam: Present: soft, Non-Tender, normal bowel sounds. Absent: distention, guarding - Neurological Exam Neurological exam: Present: alert, CN II-XII intact - Psychiatric Psychiatric exam: Present: normal mood, flat affect - Skin Skin exam: Present: warm, dry, intact Course Course Narrative: Fever of unknown origin in an elderly demented female. Will obtain sepsis labs including blood cultures and start broad spectrum antibiotics. - Reevaluation(s) Reevaluation #1: Lab and imaging studies reveal leukocytosis in the setting of a urinary tract infection complicated by a nephroureteral stent. This finding was discussed with Dr. Mann of the urology team, who agreed to follow Ruma in a consulting status after being admitted. The admitting hospitalist service was contacted, who agreed to admit Ruma to inpatient care. Vital Signs Temperature 102.4 F H 02/11/18 18:58 Pulse Rate 106 02/11/18 18:58 Respiratory Rate 18 02/11/18 18:58 Blood Pressure 114/57 02/11/18 18:58 O2 Sat by Pulse Oximetry 95 02/11/18 18:58 Temperature 98.1 F 02/11/18 22:28 Pulse Rate 85 02/11/18 22:18 Respiratory Rate 18 02/11/18 22:18 Blood Pressure 105/52 02/11/18 22:18 O2 Sat by Pulse Oximetry 96 02/11/18 22:18 Oxygen Delivery Oxygen Delivery Room Air Fever - Lab Data Result diagrams: 02/11/18 18:58 02/11/18 18:58 Lab Results 02/11/18 02/11/18 02/11/18 Range/Units 18:58 18:58 18:58 WBC 20.0 H (4.3-11.1) K/mcL RBC 3.60 L (3.82-4.97) M/mcL Hgb 11.4 L (11.5-15.4) g/dL Hct 34.5 L (35.3-44.9) % MCV 95.8 (83.0-100.0) fL MCH 31.7 (28.0-33.3) pg MCHC 33.0 (31.6-35.5) g/dL RDW 14.4 (11.5-14.5) % Plt Count 179 (140-400) K/mcL MPV 9.4 (9.4-12.4) fL Immature Gran % 0.5 (0-4) % Seg Neutrophils % 90.1 % Lymphocytes % 3.2 % Monocytes % 5.9 % Eosinophils % 0.1 % Basophils % 0.2 % Neutrophils # 18.0 H (1.6-8.9) K/mcL Lymphocytes # 0.6 (0.6-4.6) K/mcL Monocytes # 1.2 (0.0-1.3) K/mcL Eosinophils # 0.0 (0.0-0.6) K/mcL Basophils # 0.0 (0.0-0.2) K/mcL PT 12.0 (9.4-12.1) Seconds INR 1.1 APTT 32.7 (26.0-36.0) Seconds Sodium 135 L (136-145) mEq/L Potassium 4.7 (3.5-5.1) mEq/L Chloride 99 (98-107) mEq/L Carbon Dioxide 24 (23-29) mEq/L BUN 48 H (8-23) mg/dL Creatinine 5.14 H (0.60-1.20) mg/dL Est GFR ( Amer) 10 L (> 60) Est GFR (Non-Af Amer) 8 L (> 60) BUN/Creatinine Ratio 9 (6-26) Glucose 126 H (70-105) mg/dL Calculated Osmolality 294 (280-300) Lactic Acid (0.5-2.2) mmol/L Calcium 8.7 (8.6-10.3) mg/dL Total Bilirubin 0.4 (0.3-1.0) mg/dL Direct Bilirubin 0.1 (0.0-0.2) mg/dL Indirect Bilirubin 0.3 (0.0-1.2) mg/dL AST 44 H (13-39) Units/L ALT 39 (7-52) Units/L Alkaline Phosphatase 97 (34-104) Units/L Troponin I 0.03 (< 0.04) ng/mL Serum Total Protein 6.9 (6.4-8.9) g/dL Albumin 3.7 (3.5-5.7) g/dL Globulin 3.2 (2.4-3.5) g/dL Albumin/Globulin Ratio 1.2 (1.1-2.2) Lipase 107 H (11-82) Units/L Urine Color (Yellow) Urine Clarity (Clear) Urine pH (5.0-8.0) pH Units Ur Specific [place] (1.010-1.025) Urine Protein (Neg-Trace) mg/dL Urine Glucose (UA) (Normal) mg/dL Urine Ketones (Negative) mg/dL Urine Blood (Negative) Urine Nitrite (Negative) Urine Bilirubin (Negative) Urine Urobilinogen (Normal) mg/dL Ur Leukocyte Esterase (Negative) Urine Microscopic RBC (0-3) per hpf Urine Microscopic WBC (0-3) per hpf Urine Bacteria (None-Few) per hpf Ur Culture Indicated? (NO) 02/11/18 02/11/18 Range/Units 18:58 20:06 WBC (4.3-11.1) K/mcL RBC (3.82-4.97) M/mcL Hgb (11.5-15.4) g/dL Hct (35.3-44.9) % MCV (83.0-100.0) fL MCH (28.0-33.3) pg MCHC (31.6-35.5) g/dL RDW (11.5-14.5) % Plt Count (140-400) K/mcL MPV (9.4-12.4) fL Immature Gran % (0-4) % Seg Neutrophils % % Lymphocytes % % Monocytes % % Eosinophils % % Basophils % % Neutrophils # (1.6-8.9) K/mcL Lymphocytes # (0.6-4.6) K/mcL Monocytes # (0.0-1.3) K/mcL Eosinophils # (0.0-0.6) K/mcL Basophils # (0.0-0.2) K/mcL PT (9.4-12.1) Seconds INR APTT (26.0-36.0) Seconds Sodium (136-145) mEq/L Potassium (3.5-5.1) mEq/L Chloride (98-107) mEq/L Carbon Dioxide (23-29) mEq/L BUN (8-23) mg/dL Creatinine (0.60-1.20) mg/dL Est GFR ( Amer) (> 60) Est GFR (Non-Af Amer) (> 60) BUN/Creatinine Ratio (6-26) Glucose (70-105) mg/dL Calculated Osmolality (280-300) Lactic Acid 0.6 (0.5-2.2) mmol/L Calcium (8.6-10.3) mg/dL Total Bilirubin (0.3-1.0) mg/dL Direct Bilirubin (0.0-0.2) mg/dL Indirect Bilirubin (0.0-1.2) mg/dL AST (13-39) Units/L ALT (7-52) Units/L Alkaline Phosphatase (34-104) Units/L Troponin I (< 0.04) ng/mL Serum Total Protein (6.4-8.9) g/dL Albumin (3.5-5.7) g/dL Globulin (2.4-3.5) g/dL Albumin/Globulin Ratio (1.1-2.2) Lipase (11-82) Units/L Urine Color Yellow (Yellow) Urine Clarity Turbid A (Clear) Urine pH 7.5 (5.0-8.0) pH Units Ur Specific [place] 1.016 (1.010-1.025) Urine Protein >=300 H (Neg-Trace) mg/dL Urine Glucose (UA) Normal (Normal) mg/dL Urine Ketones Negative (Negative) mg/dL Urine Blood Moderate H (Negative) Urine Nitrite Negative (Negative) Urine Bilirubin Negative (Negative) Urine Urobilinogen Normal (Normal) mg/dL Ur Leukocyte Esterase Large H (Negative) Urine Microscopic RBC 5-15 H (0-3) per hpf Urine Microscopic WBC TNTC H (0-3) per hpf Urine Bacteria Many H (None-Few) per hpf Ur Culture Indicated? YES A (NO)
[2018-02-11 20:31] LABS: Bilirubin,Urine Negative (Negative); Blood,Urine Moderate (Negative); Clarity,Urine Turbid (Clear); Color,Urine Yellow (Yellow); Glucose,Urine (UA) Normal (Normal); Ketones,Urine Negative (Negative); Leukocyte Esterase,Urine Large (Negative); Nitrite,Urine Negative (Negative); PH,Urine 7.5 pH Units (5.0-8.0); Protein,Urine >=300 mg/dL (Neg-Trace); Specific Gravity,Urine 1.016 (1.010-1.025); Urobilinogen,Urine Normal (Normal)
[2018-02-11 20:55] LABS: Bacteria,Urine Many per hpf (None-Few); WBC,Urine TNTC per hpf (0-3)
[2018-02-11] MEDS ORDERED: 0.9 % Sodium Chloride 500 ML IVC ONE (21:59)
[2018-02-11] MEDS ORDERED: 0.9 % Sodium Chloride 1,000 ML IVC SCH (22:00)
[2018-02-11] MEDS ORDERED: Bisacodyl 10 MG RECTAL SUPPOSITORY RC PRN (23:03)
[2018-02-11] MEDS ORDERED: MOM Conc 10 ML UD.LIQ PO PRN (23:03)
--- NOTE | 2018-02-11 23:22 | Internal Med History&Physical ---
Date of Encounter: 02/11/18 Time of Encounter: 23:19 Internal Medicine - H&P: HPI Chief complaint: fever Admitted From: Long-term Nursing Facility Plans for Post Hospital Care: Transfer Appeals Analyst Care History of present illness: Ruma Mcgraw is an 83-year-old woman with dementia, ESRD on dialysis, hypothyroidism, history of CVA and recurrent urinary tract infections who is brought into the ED with a complaint of fever. Her poor mental status impedes her ability to obtain a history from her therefore bulk of information is obtained via EMS. She comes from [facility] where it is reported she had a fever of 103.4 and was administered rectal Tylenol prior to transportation. Upon arrival to the ER she appeared flushed and warm. Her repeat temperature was 102.4 with a slight lowering trend to her blood pressure although she was never tachycardic. Studies done revealed low a WBC of 20 and a grossly remarkable UA concerning for infection. She was started on IV fluids and empiric antibiotics. On my assessment she is poorly verbal, not so head and responds yes or no occasionally. PMHx: As above. SHx: Current prison resident. FHx: Unable to obtain due to mental status. Review of systems: All systems reviewed with the yes or no questions and negative except as listed above in the HPI. Past Med Surg Social Fam HX - Past Medical History Medical history: dementia, dialysis, GERD, renal disease, thyroid disease Additional medical history: anemia Psychiatric history: anxiety - Past Surgical History Surgical History: non-contributory Additional surgical history: unknown surgical hx, right side arm fistula - Social History Smoking Status: Never smoker Smokeless Tobacco Status: No Alcohol use: none Drug use: none Internal Medicine - H&P: Meds Bisacodyl [Dulcolax] 10 mg RC DAILY PRN 07/19/17 [History] Folic Acid 1 mg PO DAILY 07/19/17 [History] Magnesium Hydroxide [Milk of Magnesia] 2,400 mg PO DAILY PRN 07/19/17 [History] Polyethylene Glycol 3350 [MiraLAX Powder Bulk 17.9 Oz] 1 scoop PO DAILY PRN 07/19/17 [History] Sennosides/Docusate Sodium [Colace 2-in-1 Tablet] 1 tab PO BID 07/19/17 [History] Aspirin Enteric Coated [Aspirin EC] 325 mg PO DAILY #30 tablet. 08/15/17 [Rx] Atorvastatin [Lipitor] 40 mg PO HS #30 tablet 08/15/17 [Rx] Acetaminophen [Non-Aspirin] 650 mg PO Q4H PRN 02/11/18 [History] Lactobacillus Acidophilus [Acidophilus Lactobacilli] 1 cap PO DAILY 02/11/18 [History] Levothyroxine Sodium [Synthroid] 137 mcg PO DAILY 02/11/18 [History] Losartan [Cozaar] 25 mg PO DAILY 02/11/18 [History] Ondansetron ODT [Zofran ODT] 4 mg PO Q8H PRN 02/11/18 [History] Sevelamer Carbonate [Renvela] 1.6 gm PO TID 02/11/18 [History] amLODIPine [Norvasc] 5 mg PO DAILY 02/11/18 [History] Allergy/AdvReac Type Severity Reaction Status Date / Time darifenacin Allergy Unknown See Verified 08/03/17 00:29 Comments ciprofloxacin AdvReac Nausea Verified 08/03/17 00:29 Sulfa (Sulfonamide AdvReac Nausea Verified 08/03/17 00:29 Antibiotics) All Systems PM: A 10-system review of systems was performed and is negative for pertinent findings except as documented above in the HPI. - Constitutional Vitals: Temp Pulse Resp BP Pulse Ox 97.5 F L 81 17 99/54 96 02/11/18 23:04 02/11/18 23:04 02/11/18 23:04 02/11/18 23:04 02/11/18 23:04 Exam: Vitals: Reviewed General: Emaciated and asthenic appearing in NAD. Skin: Warm, pale, reduced turgor. HEENT: Dry mucous membranes. (+) conjunctivae pallor. Neck: No lymphadenopathy. No JVD. No carotid bruits. No palpable thyroid. Chest: Normal thoracic expansion. Normal breath sounds. Clear to auscultation. Heart: Normal S1 & S2; rhythmic. No rubs or murmurs. Abdomen: Non-distended, soft and no apparent tenderness to palpation. : No vulvar/perineal lesions. Urine smell is pungent. Extremities: No clubbing, cyanosis or edema. No calf tenderness. Normal distal pulses. Neurological: Awake and arousable to verbal stimuli. Unable to assess orientation due to poor verbal state. Psych: Flat affect. Internal Med - H&P Results - Labs CBC & Chem 7: 02/11/18 18:58 02/11/18 18:58 Labs: Short CBC 02/11/18 Range/Units 18:58 WBC 20.0 H (4.3-11.1) K/mcL Hgb 11.4 L (11.5-15.4) g/dL Hct 34.5 L (35.3-44.9) % Plt Count 179 (140-400) K/mcL Neutrophils # 18.0 H (1.6-8.9) K/mcL BMP 02/11/18 18:58 Sodium 135 L Potassium 4.7 Chloride 99 Carbon Dioxide 24 BUN 48 H Creatinine 5.14 H Glucose 126 H Calcium 8.7 Cardiac Enzymes 02/11/18 Range/Units 18:58 Troponin I 0.03 (< 0.04) ng/mL Liver Function 02/11/18 Range/Units 18:58 Total Bilirubin 0.4 (0.3-1.0) mg/dL Direct Bilirubin 0.1 (0.0-0.2) mg/dL AST 44 H (13-39) Units/L ALT 39 (7-52) Units/L Alkaline Phosphatase 97 (34-104) Units/L Albumin 3.7 (3.5-5.7) g/dL Urine 02/11/18 Range/Units 20:06 Urine Color Yellow (Yellow) Urine Clarity Turbid A (Clear) Urine pH 7.5 (5.0-8.0) pH Units Ur Specific [place] 1.016 (1.010-1.025) Urine Protein >=300 H (Neg-Trace) mg/dL Urine Glucose (UA) Normal (Normal) mg/dL - Impressions ITS Impressions Abdomen/Pelvis CT 02/11/18 18:56 IMPRESSION: No findings to suggest large central pulmonary embolism. Optimal peripheral branch evaluation limited by artifact. Dependent bilateral atelectasis and trace pleural effusions. Nodularity is seen adjacent to staple line within the right lower lobe and there is additional nodule versus loculated fluid along the lateral margin of the right major fissure. Enlarged subcarinal lymph node is also seen. Comparison with any outside prior chest CT would be suggested to establish stability. Otherwise, given emphysema, PET-CT could be performed for further evaluation of the findings. Urothelial enhancement is demonstrated of bilateral renal pelves. Mild left renal pelviectasis, with nephroureteral stent in place. Moderate inflammatory stranding about the left renal collecting system. As infection is a consideration, recommend correlation with urinalysis. Diverticulosis. D/ / Miguel Anthony MD / Miguel Anthony MD Interpreting Provider: Miguel Anthony MD Chest CTA 02/11/18 18:56 IMPRESSION: No findings to suggest large central pulmonary embolism. Optimal peripheral branch evaluation limited by artifact. Dependent bilateral atelectasis and trace pleural effusions. Nodularity is seen adjacent to staple line within the right lower lobe and there is additional nodule versus loculated fluid along the lateral margin of the right major fissure. Enlarged subcarinal lymph node is also seen. Comparison with any outside prior chest CT would be suggested to establish stability. Otherwise, given emphysema, PET-CT could be performed for further evaluation of the findings. Urothelial enhancement is demonstrated of bilateral renal pelves. Mild left renal pelviectasis, with nephroureteral stent in place. Moderate inflammatory stranding about the left renal collecting system. As infection is a consideration, recommend correlation with urinalysis. Diverticulosis. D/ / Miguel Anthony MD / Miguel Anthony MD Interpreting Provider: Miguel Anthony MD Chest X-Ray 02/11/18 18:56 IMPRESSION: No acute pulmonary disease. Calcific atherosclerotic disease aorta. D/ / Jaxson Manning / Jaxson Manning Interpreting Provider: Jaxson Manning - Assessment and plan (1) Sepsis secondary to UTI Current Visit: Yes Status: Acute Assessment and plan: As evidenced by fever, leukocytosis and positive UA. this is a complicated UTI given her indwelling nephroureteral stent. CT findings of bilateral urothelial enhancement, mild left renal pelviectasis and moderate inflammatory stranding about the left renal collecting system are noted. Will consult urology for assistance in management and f/u. 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 Follow urine and blood cultures sent today and manage accordingly. (2) Anemia Current Visit: Yes Status: Chronic Assessment and plan: Stable. Chronic and secondary to CKD. No overt signs of bleeding. Qualifiers: Anemia type: due to chronic kidney disease Chronic kidney disease stage: on chronic dialysis Qualified Code(s): N18.6 - End stage renal disease; D63.1 - Anemia in chronic kidney disease; Z99.2 - Dependence on renal dialysis (3) CVA (cerebral vascular accident) Current Visit: Yes Status: Chronic Assessment and plan: Stable condition. Continue antiplatelet and statin therapy. Qualifiers: CVA mechanism: unspecified Qualified Code(s): I63.9 - Cerebral infarction, unspecified (4) End-stage renal disease Current Visit: Yes Status: Chronic Assessment and plan: Will consult nephrology for placement on M/W/F schedule. (5) DVT prophylaxis Current Visit: No Status: Acute - Time Spent With Patient Total time spent is greater than 50% in coordination of care (as documented) at patient's floor/unit and/or counseling patient: Greater than 35 minutes
[2018-02-12] MEDS: *HR* Heparin 5,000 UNIT/ML VIAL SQ SCH ×3 (01:26→18:11)
[2018-02-12] MEDS: Ondansetron ODT 4 MG TAB.RAPDIS PO PRN (03:23)
[2018-02-12 06:40] LABS: Basophils # 0.1 K/mcL (0.0-0.2); Basophils % 0.3 %; Eosinophils # 0.1 K/mcL (0.0-0.6); Eosinophils % 0.2 %; Hematocrit 36.7 % (35.3-44.9); Hemoglobin 11.8 g/dL (11.5-15.4); Immature Granulocytes % 0.4 % (0-4); Lymphocytes # 1.5 K/mcL (0.6-4.6); Lymphocytes % 6.5 %; Mean Corpuscular HGB Conc 32.2 g/dL (31.6-35.5); Mean Corpuscular Hemoglobin 31.7 pg (28.0-33.3); Mean Corpuscular Volume 98.7 fL (83.0-100.0); Mean Platelet Volume 9.4 fL (9.4-12.4); Monocytes # 1.1 K/mcL (0.0-1.3); Monocytes % 4.8 %; Platelet Count 138 K/mcL (140-400); Red Blood Count 3.72 M/mcL (3.82-4.97); Red Cell Distribution Width 14.6 % (11.5-14.5); Segmented Neutrophils % 87.8 %
[2018-02-12 06:59] LABS: Magnesium 2.2 mg/dL (1.6-2.6); Potassium 5.1 mEq/L (3.5-5.1)
[2018-02-12] MEDS: Lactobacillus 1 EACH CAP.SPRINK PO SCH (08:12)
[2018-02-12] MEDS: Folic Acid 1 MG TABLET PO SCH (08:12)
[2018-02-12] MEDS: Sennosides/Docusate Sodium TABLET PO SCH ×2 (08:12→21:28)
[2018-02-12] MEDS: Aspirin Enteric Coated 325 MG Tablet PO SCH (08:13)
[2018-02-12] MEDS ORDERED: amLODIPine 5 MG TABLET PO SCH (09:00)
[2018-02-12] MEDS ORDERED: Cefepime HCl 1,000 MG in Water for inj. (sterile) 20 ML 10 ML IVPB SCH ×2 (09:00→18:00)
[2018-02-12] MEDS: Acetaminophen 325 MG TABLET PO PRN (09:59)
[2018-02-12 10:05] LABS: Acinetobacter baumannii by PCR Not Detected (Not Detect); Candida albicans by PCR Not Detected (Not Detect); Candida glabrata by PCR Not Detected (Not Detect); Candida krusei by PCR Not Detected (Not Detect); Candida parapsilosis by PCR Not Detected (Not Detect); Candida tropicalis by PCR Not Detected (Not Detect); Enterobacter cloacae Cmplx PCR Not Detected (Not Detect); Enterobacteriaceae by PCR Not Detected (Not Detect); Enterococcus by PCR Not Detected (Not Detect); Escherichia coli by PCR Not Detected (Not Detect); Klebsiella oxytoca by PCR Not Detected (Not Detect); Klebsiella pneumoniae by PCR Not Detected (Not Detect); Proteus by PCR Not Detected (Not Detect); Pseudomonas aeruginosa by PCR Not Detected (Not Detect); Serratia marcescens by PCR Not Detected (Not Detect); Staphylococcus by PCR DETECTED (Not Detect); Streptococcus agalactiae(B)PCR Not Detected (Not Detect); Streptococcus by PCR Not Detected (Not Detect); Streptococcus pneumoniae PCR Not Detected (Not Detect); Streptococcus pyogenes (A) PCR Not Detected (Not Detect); blaKPC Carbapenem-Resist Gene Not Detected (Not Detect); mecA Methicillin-Resist Gene Not Detected (Not Detect); vanA/B Vancomycin-Resist Genes Not Detected (Not Detect)
[2018-02-12 10:06] LABS: Staphylococcus aureus by PCR DETECTED (Not Detect)
--- NOTE | 2018-02-12 10:55 | Urology - Consult Note ---
Addendum entered and electronically signed by Rubio Mann MD 02/12/18 13:06: Patient seen and examined with the PA. Agree with assessment and plan. We will keep the indwelling stent in place for now to maximize drainage from her kidney. This can be removed as an outpatient once her sepsis has cleared. Continue hoffman to maximize urine drainage. Sepsis/pyelonephritis may take some time resolve given ESRD. Urology will continue to follow along. Original Note: Date of Encounter: 02/12/18 Time of Encounter: 10:00 - Assessment and Plan (1) Sepsis secondary to UTI Current Visit: Yes Status: Acute Assessment and plan: Patient is a 83-year-old female who presents the history of urosepsis. Patient has been placed on IV cefepime and linezolid. Blood cultures and urine cultures are still pending. Patient's son has agreed to sign a records release in order to obtain records from [facility]. We will continue to follow patient and anticipate to proceed with a cystoscopy and ureteral stent removal as an outpatient. Urology CN:HPI Consult date: 02/12/18 Reason for consult Urology: Other (urinary tract infection; retained left ureteral stent) History of present illness: Patient is an 83-year-old female who presents the history of urinary tract infection. Patient was transferred from her extended care facility at [facility] for unexplained fever of 103 degrees. Patient was found to have a positive urine and markedly elevated white blood cell count on admission. Patient suffers from dementia, chronic kidney disease for which she is receiving dialysis, and is unable to participate in history and physical. Patient's son is present and is able to relate most of her past medical history. Patient's son reports she has had an indwelling urethral catheter for several months, and he is unsure how often it is changed at the [facility]. Patient's son states she intermittently suffers from urinary tract infections, and she does have a history of renal stones. Patient's son states she was treated at [facility] 8 months ago for a left renal stone and underwent left ureteral stent placement at that time. Patient underwent a CT scan of abdomen and pelvis revealing pelviectasis and inflammatory stranding along the left nephroureteral tract. Currently, Hoffman catheter is indwelling and draining clear urine into bedside bag. Past Med Surg Social Fam HX - Past Medical History Medical history: dementia, dialysis, GERD, renal disease, thyroid disease Additional medical history: anemia Psychiatric history: anxiety - Past Surgical History Surgical History: non-contributory Additional surgical history: unknown surgical hx, right side arm fistula - Social History Smoking Status: Never smoker Smokeless Tobacco Status: No Alcohol use: none Drug use: none Medications and Allergies Bisacodyl [Dulcolax] 10 mg RC DAILY PRN 07/19/17 [History] Folic Acid 1 mg PO DAILY 07/19/17 [History] Magnesium Hydroxide [Milk of Magnesia] 2,400 mg PO DAILY PRN 07/19/17 [History] Polyethylene Glycol 3350 [MiraLAX Powder Bulk 17.9 Oz] 1 scoop PO DAILY PRN 07/19/17 [History] Sennosides/Docusate Sodium [Colace 2-in-1 Tablet] 1 tab PO BID 07/19/17 [History] Aspirin Enteric Coated [Aspirin EC] 325 mg PO DAILY #30 tablet. 08/15/17 [Rx] Atorvastatin [Lipitor] 40 mg PO HS #30 tablet 08/15/17 [Rx] Acetaminophen [Non-Aspirin] 650 mg PO Q4H PRN 02/11/18 [History] Lactobacillus Acidophilus [Acidophilus Lactobacilli] 1 cap PO DAILY 02/11/18 [Hi story] Levothyroxine Sodium [Synthroid] 137 mcg PO DAILY 02/11/18 [History] Losartan [Cozaar] 25 mg PO DAILY 02/11/18 [History] Ondansetron ODT [Zofran ODT] 4 mg PO Q8H PRN 02/11/18 [History] Sevelamer Carbonate [Renvela] 1.6 gm PO TID 02/11/18 [History] amLODIPine [Norvasc] 5 mg PO DAILY 02/11/18 [History] Allergy/AdvReac Type Severity Reaction Status Date / Time darifenacin Allergy Unknown See Verified 08/03/17 00:29 Comments ciprofloxacin AdvReac Nausea Verified 08/03/17 00:29 Sulfa (Sulfonamide AdvReac Nausea Verified 08/03/17 00:29 Antibiotics) Review of Systems ROS unobtainable: due to mental status Exam Initial Vital Signs Temp Pulse Resp BP Pulse Ox 102.4 F H 106 18 114/57 95 02/11/18 18:58 02/11/18 18:58 02/11/18 18:58 02/11/18 18:58 02/11/18 18:58 - General physical appearance Present: well developed, no distress, no pain - Eyes Present: PERRL, normal ocular movement - ENT Present: normal nares, no congestion - Neck Present: no masses - Respiratory Present: normal respiratory effort - Cardiovascular Cardiovascular exam IM: RRR - Abdomen Abdomen: Present: soft, non tender - Genitourinary Present: other (urine is clear and draining into bedside bag ) - Integumentary Present: no rash, no abnormal pigmentation - Neurologic Present: normal coordination - Musculoskeletal Present: other (normal posture ) Urology Results - Labs 02/12/18 06:19 02/12/18 06:19 Abnormal lab results WBC 22.7 K/mcL (4.3-11.1) H 02/12/18 06:19 RBC 3.72 M/mcL (3.82-4.97) L 02/12/18 06:19 RDW 14.6 % (11.5-14.5) H 02/12/18 06:19 Plt Count 138 K/mcL (140-400) L 02/12/18 06:19 Neutrophils # 20.0 K/mcL (1.6-8.9) H 02/12/18 06:19 Carbon Dioxide 21 mEq/L (23-29) L 02/12/18 06:19 BUN 50 mg/dL (8-23) H 02/12/18 06:19 Creatinine 5.46 mg/dL (0.60-1.20) H 02/12/18 06:19 Est GFR ( Amer) 9 (> 60) L 02/12/18 06:19 Est GFR (Non-Af Amer) 7 (> 60) L 02/12/18 06:19 Phosphorus 5.0 mg/dL (2.7-4.5) H 02/12/18 06:19 AST 44 Units/L (13-39) H 02/11/18 18:58 Lipase 107 Units/L (11-82) H 02/11/18 18:58 Urine Clarity Turbid (Clear) A 02/11/18 20:06 Urine Protein >=300 mg/dL (Neg-Trace) H 02/11/18 20:06 Urine Blood Moderate (Negative) H 02/11/18 20:06 Ur Leukocyte Esterase Large (Negative) H 02/11/18 20:06 Urine Microscopic RBC 5-15 per hpf (0-3) H 02/11/18 20:06 Urine Microscopic WBC TNTC per hpf (0-3) H 02/11/18 20:06 Urine Bacteria Many per hpf (None-Few) H 02/11/18 20:06 Ur Culture Indicated? YES (NO) A 02/11/18 20:06 Staphylococcus sp PCR DETECTED (Not Detect) A 02/11/18 18:58 Staph aureus (PCR) DETECTED (Not Detect) A 02/11/18 18:58 Diabetes panel 02/11/18 02/12/18 Range/Units 18:58 06:19 Sodium 135 L 137 (136-145) mEq/L Potassium 4.7 5.1 (3.5-5.1) mEq/L Chloride 99 105 (98-107) mEq/L Carbon Dioxide 24 21 L (23-29) mEq/L BUN 48 H 50 H (8-23) mg/dL Creatinine 5.14 H 5.46 H (0.60-1.20) mg/dL Glucose 126 H 77 (70-105) mg/dL Calcium 8.7 9.0 (8.6-10.3) mg/dL AST 44 H (13-39) Units/L ALT 39 (7-52) Units/L Alkaline Phosphatase 97 (34-104) Units/L Albumin 3.7 (3.5-5.7) g/dL Calcium panel 02/11/18 02/12/18 Range/Units 18:58 06:19 Calcium 8.7 9.0 (8.6-10.3) mg/dL Phosphorus 5.0 H (2.7-4.5) mg/dL Albumin 3.7 (3.5-5.7) g/dL Pituitary panel 02/11/18 02/12/18 Range/Units 18:58 06:19 Sodium 135 L 137 (136-145) mEq/L Potassium 4.7 5.1 (3.5-5.1) mEq/L Chloride 99 105 (98-107) mEq/L Carbon Dioxide 24 21 L (23-29) mEq/L BUN 48 H 50 H (8-23) mg/dL Creatinine 5.14 H 5.46 H (0.60-1.20) mg/dL Glucose 126 H 77 (70-105) mg/dL Calcium 8.7 9.0 (8.6-10.3) mg/dL Adrenal panel 02/11/18 02/12/18 Range/Units 18:58 06:19 Sodium 135 L 137 (136-145) mEq/L Potassium 4.7 5.1 (3.5-5.1) mEq/L Chloride 99 105 (98-107) mEq/L Carbon Dioxide 24 21 L (23-29) mEq/L BUN 48 H 50 H (8-23) mg/dL Creatinine 5.14 H 5.46 H (0.60-1.20) mg/dL Glucose 126 H 77 (70-105) mg/dL Calcium 8.7 9.0 (8.6-10.3) mg/dL Total Bilirubin 0.4 (0.3-1.0) mg/dL AST 44 H (13-39) Units/L ALT 39 (7-52) Units/L Alkaline Phosphatase 97 (34-104) Units/L Albumin 3.7 (3.5-5.7) g/dL All other labs normal. - Imaging CT scan - abdomen: report reviewed, image reviewed CT scan - pelvis: report reviewed, image reviewed Consult Discharge Plan - Plan Referrals: Navid Frias [Primary Care Provider] -
[2018-02-12] MEDS ORDERED: 0.9 % Sodium Chloride 250 ML IVC PRN (12:24)
[2018-02-12] MEDS ORDERED: *HR* Heparin 10,000 UNIT/10 ML VIAL IV PRN (12:24)
[2018-02-12] MEDS ORDERED: 0.9 % Sodium Chloride 1,000 ML PRIME SCH (12:30)
--- NOTE | 2018-02-12 12:50 | Internal Med Progress Note ---
Hospitalist Progress Note - Encounter Date of Encounter: 02/12/18 Time of Encounter: 11:00 - Subjective Interval History: H&P reviewed. Patient with history of ESRD on hemodialysis, kidney stones status post left ureteral stent insertion, dementia, recurrent UTI, is admitted for fever with concern for urosepsis. Had temperature of 102.4 in the ED but has been afebrile since then. History is limited due to her underlying dementia the patient appears comfortable. - Exam Vitals: Temp Pulse Resp BP Pulse Ox 98.4 F 77 18 104/48 95 02/12/18 10:59 02/12/18 10:59 02/12/18 10:59 02/12/18 10:59 02/12/18 10:59 Exam: General: Alert, confused, not in acute distress. Cardiovascular:Normal S1 & S2, No JVD. Pulse regular. Lungs: clear to auscultation, no wheezes/rales Abdomen:Soft, non-tender, no rigidity. : No CVA tenderness Neurological: grossly non-focal - Assessment and Plan (1) Sepsis secondary to UTI Current Visit: Yes Status: Acute Assessment and Plan: As evidenced by fever, leukocytosis and positive UA Complicated UTI given her indwelling nephroureteral stent. CT findings of bilateral urothelial enhancement, mild left renal pelviectasis and moderate inflammatory stranding about the left renal collecting system are noted Urology input appreciated: Likely for outpatient cystoscopy and ureteral stent removal started on zyvox/cefepime based on her old urine cultures Hold off on antihypertensives will consult ID follow up on blood and urine cultures (2) End-stage renal disease Current Visit: Yes Status: Chronic Assessment and Plan: HD MWF follow with nephrology (3) Essential hypertension Current Visit: No Status: Chronic Assessment and Plan: Hold off on Norvasc and losartan given her sepsis with borderline pressure (4) Anemia Current Visit: Yes Status: Chronic Assessment and Plan: Stable. Chronic and secondary to CKD. No overt signs of bleeding. (5) CVA (cerebral vascular accident) Current Visit: Yes Status: Chronic Assessment and Plan: Stable condition. Continue antiplatelet and statin therapy. (6) DVT prophylaxis Current Visit: No Status: Acute Assessment and Plan: Sub-cutaneous heparin - Time Spent with Patient Total time spent is greater than 50% in coordination of care (as documented) at patient's floor/unit and/or counseling patient: Plan of Care Discussed with: nurse (Also discussed with ID) Internal Medicine: Result - Labs CBC & Chem 7: 02/12/18 06:19 02/12/18 06:19 Labs: Short CBC 02/11/18 02/12/18 Range/Units 18:58 06:19 WBC 20.0 H 22.7 H (4.3-11.1) K/mcL Hgb 11.4 L 11.8 (11.5-15.4) g/dL Hct 34.5 L 36.7 (35.3-44.9) % Plt Count 179 138 L (140-400) K/mcL Neutrophils # 18.0 H 20.0 H (1.6-8.9) K/mcL BMP 02/11/18 02/12/18 18:58 06:19 Sodium 135 L 137 Potassium 4.7 5.1 Chloride 99 105 Carbon Dioxide 24 21 L BUN 48 H 50 H Creatinine 5.14 H 5.46 H Glucose 126 H 77 Calcium 8.7 9.0 Cardiac Enzymes 02/11/18 Range/Units 18:58 Troponin I 0.03 (< 0.04) ng/mL Liver Function 02/11/18 Range/Units 18:58 Total Bilirubin 0.4 (0.3-1.0) mg/dL Direct Bilirubin 0.1 (0.0-0.2) mg/dL AST 44 H (13-39) Units/L ALT 39 (7-52) Units/L Alkaline Phosphatase 97 (34-104) Units/L Albumin 3.7 (3.5-5.7) g/dL Urine 02/11/18 Range/Units 20:06 Urine Color Yellow (Yellow) Urine Clarity Turbid A (Clear) Urine pH 7.5 (5.0-8.0) pH Units Ur Specific Vaughn 1.016 (1.010-1.025) Urine Protein >=300 H (Neg-Trace) mg/dL Urine Glucose (UA) Normal (Normal) mg/dL - ABG Interpretation ABG results: PT/INR, D-dimer PT 12.0 Seconds (9.4-12.1) 02/11/18 18:58 - Impressions Impressions Abdomen/Pelvis CT 02/11/18 18:56 IMPRESSION: No findings to suggest large central pulmonary embolism. Optimal peripheral branch evaluation limited by artifact. Dependent bilateral atelectasis and trace pleural effusions. Nodularity is seen adjacent to staple line within the right lower lobe and there is additional nodule versus loculated fluid along the lateral margin of the right major fissure. Enlarged subcarinal lymph node is also seen. Comparison with any outside prior chest CT would be suggested to establish stability. Otherwise, given emphysema, PET-CT could be performed for further evaluation of the findings. Urothelial enhancement is demonstrated of bilateral renal pelves. Mild left renal pelviectasis, with nephroureteral stent in place. Moderate inflammatory stranding about the left renal collecting system. As infection is a consideration, recommend correlation with urinalysis. Diverticulosis. D/ / Miguel Anthony MD / Miguel Anthony MD Interpreting Provider: Miguel Anthony MD Chest CTA 02/11/18 18:56 IMPRESSION: No findings to suggest large central pulmonary embolism. Optimal peripheral branch evaluation limited by artifact. Dependent bilateral atelectasis and trace pleural effusions. Nodularity is seen adjacent to staple line within the right lower lobe and there is additional nodule versus loculated fluid along the lateral margin of the right major fissure. Enlarged subcarinal lymph node is also seen. Comparison with any outside prior chest CT would be suggested to establish stability. Otherwise, given emphysema, PET-CT could be performed for further evaluation of the findings. Urothelial enhancement is demonstrated of bilateral renal pelves. Mild left renal pelviectasis, with nephroureteral stent in place. Moderate inflammatory stranding about the left renal collecting system. As infection is a consideration, recommend correlation with urinalysis. Diverticulosis. D/ / Miguel Anthony MD / Miguel Anthony MD Interpreting Provider: Miguel Anthony MD Chest X-Ray 02/11/18 18:56 IMPRESSION: No acute pulmonary disease. Calcific atherosclerotic disease aorta. D/ / Jaxson Manning / Jaxson Manning Interpreting Provider: Jaxson Manning Consult Discharge Plan - Plan Referrals: Navid Frias [Primary Care Provider] - (4) Anemia Qualifiers: Anemia type: due to chronic kidney disease Chronic kidney disease stage: on chronic dialysis Qualified Code(s): N18.6 - End stage renal disease; D63.1 - Anemia in chronic kidney disease; Z99.2 - Dependence on renal dialysis (5) CVA (cerebral vascular accident) Qualifiers: CVA mechanism: unspecified Qualified Code(s): I63.9 - Cerebral infarction, unspecified
--- NOTE | 2018-02-12 13:06 | Infectious Disease Consult ---
Date of Encounter: 02/12/18 Time of Encounter: 13:02 Assessment and Plan (1) Sepsis Status: Acute Assessment and plan: The patient had three SIRS criteria on admission. Likely secondary to bacteremia and possible UTI. WBc worse this morning, but she has been afebrile. Tachycardia has improved. Blood cultures drawn peripherally 02/11/18 are positive 2/2 sets for GPC, MSSA per PCR. Recommendations: - Exchange hoffman catheter and repeat urine culture. - Await final ID and sensitivities on blood cultures. - Await urine culture results. - Repeat blood cultures x 2 sets now (1 peripherally and 1 from the HD catheter - draw at the same time). - Will likely need to remove HD catheter. Will discuss with nephrology. - Check rheumatoid factor. - Get TTE. Will likely need a KARRIE prior to discharge. - Recommend pulmonary to evaluate for lung nodule. - Continue Zyvox 600mg IV Q12H. - Continue cefepime 2 grams IV daily on HD days only. - Duration of treatment depends on the clinical picture. - Monitor renal function and for drug toxicity and dose-adjust antibiotics. Qualifiers: Sepsis type: sepsis due to unspecified organism Qualified Code(s): A41.9 - Sepsis, unspecified organism (2) Bacteremia Status: Acute Assessment and plan: Causative organism: MSSA per PCR. Source: Unclear. Urine vs. HD catheter vs. other. Blood cultures drawn 02/11/18 are positive 2/2 sets for MSSA per PCR. Clinically, the patient's HD catheter does not appear infected, but we do not have another source. I do not appreciate any other skin or soft tissue infections. It is possible that the urine is the source, but not likely. The patient has one major and one minor Modified Erwin's criteria. No endocarditis stigmata noted on exam. (3) UTI (urinary tract infection) Status: Acute Assessment and plan: UTI vs. asymptomatic bacteriuria. CT scan of the abdomen and pelvis does show moderate inflammatory stranding at the left renal collection system and mild left renal pelviactasis with nephroureteral stent in place. Urology consulted. Recommendations as stated above. Qualifiers: Urinary tract infection type: site unspecified Hematuria presence: without hematuria Qualified Code(s): N39.0 - Urinary tract infection, site not specified (4) Lung nodule Status: Chronic Assessment and plan: CT Chest showed a nodule vs. loculation at the lateral margin of the right fissure. Recommend pulmonary to evaluate. (5) Dementia Status: Chronic Qualifiers: Dementia type: Alzheimer's disease Alzheimer's disease onset: unspecified onset Dementia behavioral disturbance: without behavioral disturbance Qualified Code(s): G30.9 - Alzheimer's disease, unspecified; F02.80 - Dementia in other diseases classified elsewhere without behavioral disturbance (6) ESRD (end stage renal disease) on dialysis Status: Chronic Assessment and plan: Nephrology consulted to assist with HD management. Infectious Disease HPI - Data of Consult Patient: new to practice Consult date: 02/12/18 Requesting Physician: Jeromy Blackburn MD Primary Care Provider: Navid Frias - Consult Narrative Reason for consult: Sepsis, hx UTI History of present illness: Ms. Mcgraw is a 83 year old female with a past medical history of dementia, end- stage renal disease on hemodialysis, GERD, CVA, CHF, and recurrent urinary tract infections status post nephroureteral stent placement about 8 months ago at [facility]. The patient was admitted to the hospital 02/11/18 for sepsis. We are consulted 02/12/18 for antibiotic recommendations for sepsis with a history of UTI. Briefly, the patient is an 83-year-old female with past medical history as stated above. Her dementia precludes her ability to provide me with much information therefore most of the information is obtained from medical record. Apparently, the patient presented to the emergency department from the retirement where she resides with complaints of fever, nausea, and vomiting. Upon arrival, she was febrile with 2 major 1 and 2.4 with tachycardia and leukocytosis. Lactic acid was normal. Renal function was indicative of her end-stage renal disease. Urinalysis was obtained that showed moderate blood, too numerous to count white cells, and many bacteria. She was CT of the abdomen and pelvis that showed a nodule versus loculation at the lateral margin of the right fissure, moderate inflammatory stranding of the left renal collection system, mild left renal pelviectasis with nephroureteral stent placement. Blood cultures were obtained 2 sets. She was started empirically on IV antibiotics and admitted to the hospital for further evaluation. Since admission, the patient has been afebrile. Her white blood cell count did go up today to 22. Urology has been consulted to assist with management of her ureteral stent. Nephrology is being consulted to assist with managing her dialysis schedule. Blood cultures obtained in the emergency department are +1 out of 2 sets for MSSA per the PCR. Currently, she is on cefepime and Zyvox. Review of her culture history indicates a previous urine culture in November positive for Escherichia coli, enterococcus, Morganella. Prior to that in October, she had a urine culture positive for Escherichia coli and Klebsiella. In September she had a urine culture positive for VRE. In August she had a urine culture positive for Proteus and VRE. In July, she had a urine culture positive for Escherichia coli. We have been asked to evaluate and make further recommendations. During my exam today, the patient states overall she feels well. She denies chest pain, shortness of breath, or cough. Denies known urinary symptoms and has a chronic indwelling hoffman catheter and she is not sure the last time it was changed. She denies abdominal pain and states her appetite has been okay. States she thinks she has been having fevers, but she isn't sure about chills or rigors. ROS is otherwise negative. CC: Jeromy Blackburn MD Past Med Surg Social Fam HX - Past Medical History Source: old records reviewed, nursing notes reviewed Medical history: dementia, dialysis, GERD, renal disease, thyroid disease Additional medical history: anemia Psychiatric history: anxiety - Past Surgical History Surgical History: non-contributory Additional surgical history: unknown surgical hx, right side arm fistula - Social History Smoking Status: Never smoker Smokeless Tobacco Status: No Alcohol use: none Drug use: none Current living situation: [facility] Infectious Disease-CN:Meds RX: Bisacodyl [Dulcolax] 10 mg RC DAILY PRN 07/19/17 [History] RX: Folic Acid 1 mg PO DAILY 07/19/17 [History] RX: Magnesium Hydroxide [Milk of Magnesia] 2,400 mg PO DAILY PRN 07/19/17 [History] RX: Polyethylene Glycol 3350 [MiraLAX Powder Bulk 17.9 Oz] 1 scoop PO DAILY PRN 07/19/17 [History] RX: Sennosides/Docusate Sodium [Colace 2-in-1 Tablet] 1 tab PO BID 07/19/17 [History] Aspirin Enteric Coated [Aspirin EC] 325 mg PO DAILY #30 tablet. 08/15/17 [Rx] RX: Atorvastatin [Lipitor] 40 mg PO HS #30 tablet 08/15/17 [Rx] Acetaminophen [Non-Aspirin] 650 mg PO Q4H PRN 02/11/18 [History] Lactobacillus Acidophilus [Acidophilus Lactobacilli] 1 cap PO DAILY 02/11/18 [H istory] Levothyroxine Sodium [Synthroid] 137 mcg PO DAILY 02/11/18 [History] Ondansetron ODT [Zofran ODT] 4 mg PO Q8H PRN 02/11/18 [History] RX: Losartan [Cozaar] 25 mg PO DAILY 02/11/18 [History] RX: amLODIPine [Norvasc] 5 mg PO DAILY 02/11/18 [History] Sevelamer Carbonate [Renvela] 1.6 gm PO TID 02/11/18 [History] Allergy/AdvReac Type Severity Reaction Status Date / Time darifenacin Allergy Unknown See Verified 08/03/17 00:29 Comments ciprofloxacin AdvReac Nausea Verified 08/03/17 00:29 Sulfa (Sulfonamide AdvReac Nausea Verified 08/03/17 00:29 Antibiotics) All systems: reviewed and no additional remarkable complaints except as stated Exam - Constitutional Vitals: Temp Pulse Resp BP Pulse Ox 98.4 F 77 18 104/48 95 02/12/18 10:59 02/12/18 10:59 02/12/18 10:59 02/12/18 10:59 02/12/18 10:59 General appearance: average body habitus, cooperative, no acute distress - Head Head exam: Present: atraumatic, normal inspection, normocephalic - Eye Eye exam: Present: EOMI, normal appearance, PERRL Pupils: Present: normal accommodation Additional comments: No subconjunctival hemorrhage noted. - ENT ENT exam: Present: mucous membranes moist - Neck Neck exam: Present: normal inspection - Respiratory Respiratory exam: Present: CTAB. Absent: rales, respiratory distress, rhonchi, wheezes - Cardiovascular Cardiovascular exam: Present: RRR, +S1, +S2 - GI/Abdominal GI/Abdominal exam: Present: normal bowel sounds, soft. Absent: distended, tenderness - Extremities Exam Extremities exam: Present: normal inspection. Absent: joint swelling, pedal edema, tenderness Additional comments: No endocarditis stigmata noted. AV fistula noted to the RUE without redness, warmth, or drainage. - Neurological Exam Neurological exam: Present: alert, no focal deficits. Absent: oriented X3 (Oriented to person only.) - Psychiatric Psychiatric exam: Present: normal affect, normal mood - Skin Skin exam: Present: dry, intact, normal color, warm - Additional findings Additional findings: Perma-cath noted to the right upper chest with transparent dressing C/D/I. No erythema, warmth, or tenderness noted. Infectious Disease CN: Results - Labs CBC & Chem 7: 02/13/18 06:25 02/13/18 06:25 Cultures: Cultures 02/11/18 18:58 Blood Culture - Preliminary Peripheral Venipuncture Gram Positive Cocci 02/11/18 20:12 Blood Culture - Preliminary Peripheral Venipuncture Culture is incubating and being continuously monitored for growth. Final report to follow. Serology: Serology 02/11/18 02/11/18 Range/Units 20:06 18:58 Urine Color Yellow (Yellow) Urine Clarity Turbid A (Clear) Urine pH 7.5 (5.0-8.0) pH Units Ur Specific [place] 1.016 (1.010-1.025) Urine Protein >=300 H (Neg-Trace) mg/dL Urine Glucose (UA) Normal (Normal) mg/dL Urine Ketones Negative (Negative) mg/dL Urine Blood Moderate H (Negative) Urine Nitrite Negative (Negative) Urine Bilirubin Negative (Negative) Urine Urobilinogen Normal (Normal) mg/dL Ur Leukocyte Esterase Large H (Negative) Urine Microscopic RBC 5-15 H (0-3) per hpf Urine Microscopic WBC TNTC H (0-3) per hpf Urine Bacteria Many H (None-Few) per hpf Ur Culture Indicated? YES A (NO) A. baumannii (PCR) Not Detected (Not Detect) Adri albicans (PCR) Not Detected (Not Detect) C. glabrata (PCR) Not Detected (Not Detect) C. krusei (PCR) Not Detected (Not Detect) C. parapsilosis (PCR) Not Detected (Not Detect) C. tropicalis (PCR) Not Detected (Not Detect) Enterobacteriac sp PCR Not Detected (Not Detect) E. cloacae complex PCR Not Detected (Not Detect) Enterococcus sp PCR Not Detected (Not Detect) E. coli (PCR) Not Detected (Not Detect) H. influenzae (PCR) Not Detected (Not Detect) Klebsiella oxytoca PCR Not Detected (Not Detect) Klebsiella pneumoniae Not Detected (Not Detect) List. monocytogenes PCR Not Detected (Not Detect) N. meningitidis (PCR) Not Detected (Not Detect) Proteus species (PCR) Not Detected (Not Detect) Serratia marcescens PCR Not Detected (Not Detect) Staphylococcus sp PCR DETECTED A (Not Detect) Staph aureus (PCR) DETECTED A (Not Detect) mecA-Methicil Res Gene Not Detected (Not Detect) Streptococcus sp PCR Not Detected (Not Detect) Group A Strep DNA Not Detected (Not Detect) Group B Strep (PCR) Not Detected (Not Detect) Strep pneumoniae (PCR) Not Detected (Not Detect) P. aeruginosa (PCR) Not Detected (Not Detect) Dyan/B-Vanco Res Genes Not Detected (Not Detect) KPC (blaKPC) Detect PCR Not Detected (Not Detect) Consult Discharge Plan - Plan Referrals: Navid Frias [Primary Care Provider] - - Attending Attestation I examined this patient and my medical decision-making was reviewed with the Resident Physician. I agree with the documented findings, disposition and treatment plan as described except to the extent set forth below. This is an addendum to original report dictated by Dior Paez CNP. Please refer to Dior's note for full detail. Patient seen and examined during dialysis. She tells me that she has not fe eling well. I agree with above findings and review of system. Next Assessment and plan: Sepsis Bacteremia with MSSA. Source not clear History of UTI with multidrug resistant organisms including Enterobacter and her he Assessment and plan: At this point will continue broad-spectrum antibiotics while the cultures finalize I will probably have to switch the patient to the appropriate antibiotics once cultures finalize. I am not sure if the patient does have a UTI or asymptomatic bacteriuria. She does use quite a lot of urine but patient tells me she is asymptomatic. Maybe the sepsis is alternated to the MSSA bacteremia Patient will need a TTE and a KARRIE prior to discharge
[2018-02-12 14:15] LABS: Hepatitis B Surface Antigen Nonreactive (Nonreactive)
[2018-02-12 14:16] LABS: Hepatitis B Surface Antibody 21.71 mIU/mL
--- NOTE | 2018-02-12 17:03 | Nephrology Consult Note ---
Date of Encounter: 02/12/18 Time of Encounter: 17:00 Assessment and Plan (1) ESRD (end stage renal disease) on dialysis Current Visit: No Status: Chronic HD MWF. Renal vitamins. Renal dose medications. Renal diet. Additional dialysis and ultrafiltration as needed. Patient was seen on dialysis today. (2) Sepsis secondary to UTI Current Visit: Yes Status: Acute Being managed by the primary team and infectious disease. (3) Anemia Current Visit: Yes Status: Chronic Transfuse as needed. Qualifiers: Anemia type: due to chronic kidney disease Chronic kidney disease stage: on chronic dialysis Qualified Code(s): N18.6 - End stage renal disease; D63.1 - Anemia in chronic kidney disease; Z99.2 - Dependence on renal dialysis (4) Essential hypertension Current Visit: No Status: Chronic Titrate antihypertensive medication as needed. History of Present Illness - Reason for Consult Consult date: 02/12/18 end stage renal disease - Chief Complaint ESRD - History of Present Illness Ms. Mcgraw is an 83 yo woman with a history of ESRD. Patient is unable to provide history so the history is obtained from review of her medical records. She is in with altered mental status from a suspected infection. [facility] was consulted for ongoing dialysis needs. Patient was seen in her room and later while she was on dialysis.. Past Med Surg Social Fam HX - Past Medical History Medical history: dementia, dialysis, GERD, renal disease, thyroid disease Additional medical history: anemia Psychiatric history: anxiety - Past Surgical History Surgical History: non-contributory Additional surgical history: unknown surgical hx, right side arm fistula - Social History Smoking Status: Never smoker Smokeless Tobacco Status: No Alcohol use: none Drug use: none Medications and Allergies Bisacodyl [Dulcolax] 10 mg RC DAILY PRN 07/19/17 [History] Folic Acid 1 mg PO DAILY 07/19/17 [History] Magnesium Hydroxide [Milk of Magnesia] 2,400 mg PO DAILY PRN 07/19/17 [History] Polyethylene Glycol 3350 [MiraLAX Powder Bulk 17.9 Oz] 1 scoop PO DAILY PRN 07/19/17 [History] Sennosides/Docusate Sodium [Colace 2-in-1 Tablet] 1 tab PO BID 07/19/17 [History] Aspirin Enteric Coated [Aspirin EC] 325 mg PO DAILY #30 tablet. 08/15/17 [Rx] Atorvastatin [Lipitor] 40 mg PO HS #30 tablet 08/15/17 [Rx] Acetaminophen [Non-Aspirin] 650 mg PO Q4H PRN 02/11/18 [History] Lactobacillus Acidophilus [Acidophilus Lactobacilli] 1 cap PO DAILY 02/11/18 [History] Levothyroxine Sodium [Synthroid] 137 mcg PO DAILY 02/11/18 [History] Losartan [Cozaar] 25 mg PO DAILY 02/11/18 [History] Ondansetron ODT [Zofran ODT] 4 mg PO Q8H PRN 02/11/18 [History] Sevelamer Carbonate [Renvela] 1.6 gm PO TID 02/11/18 [History] amLODIPine [Norvasc] 5 mg PO DAILY 02/11/18 [History] Allergy/AdvReac Type Severity Reaction Status Date / Time darifenacin Allergy Unknown See Verified 08/03/17 00:29 Comments ciprofloxacin AdvReac Nausea Verified 08/03/17 00:29 Sulfa (Sulfonamide AdvReac Nausea Verified 08/03/17 00:29 Antibiotics) Review of Systems ROS unobtainable: due to mental status Exam - Vital Signs Vital signs: Initial Vital Signs Temp Pulse Resp BP Pulse Ox 102.4 F H 106 18 114/57 95 02/11/18 18:58 02/11/18 18:58 02/11/18 18:58 02/11/18 18:58 02/11/18 18:58 Vital Signs - Last 8 Hours Temp Pulse Resp BP Pulse Ox 02/12/18 16:30 113/53 02/12/18 16:15 101/51 02/12/18 16:00 107/51 02/12/18 15:45 98/43 02/12/18 15:30 98/43 02/12/18 15:15 103/52 02/12/18 15:00 114/49 02/12/18 14:45 86/45 02/12/18 14:30 93/48 02/12/18 14:15 98.2 F 18 96/47 02/12/18 10:59 98.4 F 77 18 104/48 95 Intake and Output 02/12/18 02/12/18 02/12/18 07:59 15:59 23:59 Intake Total 500 / 500 840 / 840 Balance 500 / 500 840 / 840 Intake: IV Fluids 500 / 500 0.9 % Sodium Chloride 500 ML @ 500 / 500 999 mls/hr IVC .Q31M ONE Rx#: [id number] Oral 240 / 240 Intake, Rinseback and Flushes 600 / 600 Other: Meal Breakfast Percent of Meal Consumed 60% Weight 57.9 kg Hemodialysis Net Fluid Removed 1000 1430 (mL) Patient Weight 02/12/18 23:59 Weight 57.9 kg - General Appearance General appearance: well-developed, well-nourished EENT: ATNC Neck: supple Respiratory: clear Cardiology: no edema, regular rate - Dialysis Access Dialysis Vascular Access: Venous Catheter Gastrointestinal: no guarding Integumentary: warm and dry Musculoskeletal: no cyanosis Results - Lab Results 02/12/18 06:19 02/12/18 06:19 Most recent lab results Calcium 9.0 mg/dL (8.6-10.3) 02/12/18 06:19 Phosphorus 5.0 mg/dL (2.7-4.5) H 02/12/18 06:19 Magnesium 2.2 mg/dL (1.6-2.6) 02/12/18 06:19 Consult Discharge Plan - Plan Referrals: Navid Frias [Primary Care Provider] -
[2018-02-13] MEDS: *HR* Heparin 5,000 UNIT/ML VIAL SQ SCH ×2 (06:02→16:47)
[2018-02-13 07:08] LABS: Basophils % 0.3 %; Eosinophils # 0.1 K/mcL (0.0-0.6); Eosinophils % 0.7 %; Hematocrit 31.6 % (35.3-44.9); Hemoglobin 10.4 g/dL (11.5-15.4); Immature Granulocytes % 0.6 % (0-4); Lymphocytes # 1.3 K/mcL (0.6-4.6); Lymphocytes % 8.8 %; Mean Corpuscular HGB Conc 32.9 g/dL (31.6-35.5); Mean Corpuscular Volume 97.2 fL (83.0-100.0); Mean Platelet Volume 9.9 fL (9.4-12.4); Monocytes % 7.2 %; Neutrophils # 11.7 K/mcL (1.6-8.9); Platelet Count 148 K/mcL (140-400); Red Blood Count 3.25 M/mcL (3.82-4.97); Red Cell Distribution Width 14.4 % (11.5-14.5); Segmented Neutrophils % 82.4 %
--- NOTE | 2018-02-13 08:07 | Urology Progress Note ---
Date of Encounter: 02/13/18 Time of Encounter: 08:06 - Assessment and Plan (1) Sepsis secondary to UTI Current Visit: Yes Status: Acute Assessment and plan: 83-year-old woman with an indwelling left ureteral stent and a urinary tract infection. Await results of urine cultures. Continue antibiotic. We will arrange to remove her stent as an outpatient. (2) Ureteral stone with hydronephrosis Current Visit: No Status: Acute Progress Note Narrative: Patient seems to be at her baseline. No fevers overnight. Urine is cloudy. Objective Initial Vital Signs Temp Pulse Resp BP Pulse Ox 102.4 F H 106 18 114/57 95 02/11/18 18:58 02/11/18 18:58 02/11/18 18:58 02/11/18 18:58 02/11/18 18:58 - General physical appearance Present: other (Confused) - Genitourinary Urine Appearance: Present: Clear, Cloudy - Labs 02/13/18 06:25 02/12/18 06:19 Consult Discharge Plan - Plan Referrals: Navid Frias [Primary Care Provider] -
[2018-02-13 08:44] LABS: Calcium 8.6 mg/dL (8.6-10.3); Potassium 3.8 mEq/L (3.5-5.1)
--- NOTE | 2018-02-13 08:53 | Electrocardiograph Report ---
[address] [place] [address] Test Date: 2018-02-11 Pat Name: Ruma Mcgraw Department: [id number] Room: 2A Gender: F [employer]bound Sales [employer]: : 1935 Requested By: Krysta Vigil Order Number: [id number] Reading MD: Luciano Carrillo Measurements Intervals [place] Rate: 103 P: 76 CT: 207 QRS: 25 QRSD: 84 T: 77 QT: 334 QTc: 438 Interpretive Statements Sinus tachycardia Borderline prolonged CT interval Possible septal infarct, old Electronically Signed On 02-13-2018 8:51:24 EST by Luciano Carrillo
[2018-02-13] MEDS: Folic Acid 1 MG TABLET PO SCH (09:00)
[2018-02-13] MEDS: Sennosides/Docusate Sodium TABLET PO SCH ×2 (09:00→20:53)
[2018-02-13] MEDS: Lactobacillus 1 EACH CAP.SPRINK PO SCH (09:00)
[2018-02-13] MEDS: Aspirin Enteric Coated 325 MG Tablet PO SCH (09:01)
--- NOTE | 2018-02-13 10:51 | Internal Med Progress Note ---
Hospitalist Progress Note - Encounter Date of Encounter: 02/13/18 Time of Encounter: 09:20 - Subjective Interval History: Patient appears more alert and interactive today. No focal complaints. Spoke to patient's son by bedside who also reports that his mother looks better than yesterday. No fever overnight. - Exam Vitals: Temp Pulse Resp BP Pulse Ox 99.4 F 82 16 113/50 96 02/13/18 07:25 02/13/18 07:25 02/13/18 07:25 02/13/18 07:25 02/13/18 07:25 Exam: General: Alert, confused, not in acute distress. Chest: R tunneled HD catheter site appears unremarkable. Cardiovascular:Normal S1 & S2, No JVD. Pulse regular. Lungs: clear to auscultation, no wheezes/rales Abdomen:Soft, non-tender, no rigidity. : No CVA tenderness Neurological: grossly non-focal - Assessment and Plan (1) Sepsis Current Visit: Yes Status: Suspected Assessment and Plan: As evidenced by fever, leukocytosis and positive UA initially attributed to complicated UTI given her indwelling nephroureteral stent. CT findings of bilateral urothelial enhancement, mild left renal pelviectasis and moderate inflammatory stranding about the left renal collecting system are noted previous urine culture grews Escherichia coli, enterococcus, Morganella, and VRE Urology input appreciated: Likely for outpatient cystoscopy and ureteral stent removal blood culture growing GPC, preliminary report is S. aureus ?other source of sepsis, she has hoffman, HD catheter, and ureteral stent as well repeat culture from HD catheter 02/12 pending discussed with nephro today regarding HD catheter removal, appreciate further input started on zyvox/cefepime with downtrending WBC, continue per ID TTE, may also need KARRIE if negative will consult pulm tomorrow for R lower lobe/major fissure nodule ?septic emboli Hold off on antihypertensives (2) End-stage renal disease Current Visit: Yes Status: Chronic Assessment and Plan: HD MWF follow with nephrology HD catheter and alternative access discussed with nephro (3) Essential hypertension Current Visit: No Status: Chronic Assessment and Plan: Hold off on Norvasc and losartan given her sepsis (4) Anemia Current Visit: Yes Status: Chronic Assessment and Plan: Stable. Chronic and secondary to CKD. No overt signs of bleeding. (5) CVA (cerebral vascular accident) Current Visit: Yes Status: Chronic Assessment and Plan: Stable condition. Continue antiplatelet and statin therapy. (6) DVT prophylaxis Current Visit: No Status: Acute Assessment and Plan: Sub-cutaneous heparin - Time Spent with Patient Total time spent is greater than 50% in coordination of care (as documented) at patient's floor/unit and/or counseling patient: Greater than 35 minutes Plan of Care Discussed with: family (discussed with pt's son and nephrology at length) Internal Medicine: Result - Labs CBC & Chem 7: 02/13/18 06:25 02/13/18 06:25 Labs: Short CBC 02/13/18 Range/Units 06:25 WBC 14.2 H (4.3-11.1) K/mcL Hgb 10.4 L (11.5-15.4) g/dL Hct 31.6 L (35.3-44.9) % Plt Count 148 (140-400) K/mcL Neutrophils # 11.7 H (1.6-8.9) K/mcL BMP 02/13/18 06:25 Sodium 136 Potassium 3.8 Chloride 101 Carbon Dioxide 24 BUN 24 H Creatinine 3.61 H Glucose 111 H Calcium 8.6 - ABG Interpretation ABG results: PT/INR, D-dimer PT 12.0 Seconds (9.4-12.1) 02/11/18 18:58 Consult Discharge Plan - Plan Referrals: Navid Frias [Primary Care Provider] - (1) Sepsis Qualifiers: Sepsis type: methicillin susceptible Staphylococcus aureus Qualified Code(s): A41.01 - Sepsis due to Methicillin susceptible Staphylococcus aureus (4) Anemia Qualifiers: Anemia type: due to chronic kidney disease Chronic kidney disease stage: on chronic dialysis Qualified Code(s): N18.6 - End stage renal disease; D63.1 - Anemia in chronic kidney disease; Z99.2 - Dependence on renal dialysis (5) CVA (cerebral vascular accident) Qualifiers: CVA mechanism: unspecified Qualified Code(s): I63.9 - Cerebral infarction, unspecified
--- NOTE | 2018-02-13 11:03 | Infectious Disease Progress No ---
Date of Encounter: 02/13/18 Time of Encounter: 11:02 - Assessment and Plan (1) Sepsis Current Visit: Yes Status: Suspected The patient had three SIRS criteria on admission. Likely secondary to bacteremia and possible UTI. WBc worse this morning, but she has been afebrile. Tachycardia has improved. Blood cultures drawn peripherally 02/11/18 are positive 2/2 sets for GPC, MSSA per PCR. Recommendations: - Exchange hoffman catheter and repeat urine culture. - Await final ID and sensitivities on blood cultures. - Await urine culture results. - Based on the clinical picture, I believe that the sepsis is due to the bacteremia with MSSA likely source HD catheter but we are not sure. I will DC the Zyvox and cefepime and start the patient on cefazolin and see how she does clinically. - Repeat blood cultures 2 to make sure they bacteremia has resolved - If patient starts having sepsis like picture and then then we will reconsider treating the asymptomatic bacteriuria/UTI - We will need to TTE and KARRIE prior to discharge Qualifiers: Sepsis type: methicillin susceptible Staphylococcus aureus Qualified Code (s): A41.01 - Sepsis due to Methicillin susceptible Staphylococcus aureus (2) Bacteremia Current Visit: Yes Status: Acute Causative organism: MSSA per PCR. Source: Unclear. Urine vs. HD catheter vs. other. Blood cultures drawn 02/11/18 are positive 2/2 sets for MSSA per PCR. Clinically, the patient's HD catheter does not appear infected, but we do not have another source. I do not appreciate any other skin or soft tissue infections. It is possible that the urine is the source, but not likely. The patient has one major and one minor Modified Erwin's criteria. No endocarditis stigmata noted on exam. (3) UTI (urinary tract infection) Current Visit: No Status: Acute I believe this time and set asymptomatic bacteriuria I believe that the sepsis is due to the bacteremia with MSSA Will not treat the UTI/asymptomatic bacteriuria at this time unless clinically the patient changes or show signs of worsening sepsis/infection Continue to put the patient in contact isolation second or 2 previous VRE Qualifiers: Urinary tract infection type: site unspecified Hematuria presence: without hematuria Qualified Code(s): N39.0 - Urinary tract infection, site not spec ified (4) Lung nodule Current Visit: No Status: Chronic (5) Dementia Current Visit: No Status: Chronic Qualifiers: Dementia type: Alzheimer's disease Alzheimer's disease onset: unspecified onset Dementia behavioral disturbance: without behavioral disturbance Qu alified Code(s): G30.9 - Alzheimer's disease, unspecified; F02.80 - Dementia in other diseases classified elsewhere without behavioral disturbance (6) ESRD (end stage renal disease) on dialysis Current Visit: No Status: Chronic - Subjective Interval history: Patient seen and examined. Appears comfortable. More awake more alert. No chest pain or shortness of breath. No nausea or vomiting. Good appetite. No urinary symptoms. Patient afebrile with a MAXIMUM TEMPERATURE of 99.4 Tachycardic Labs: WBC 14.2 down from 22.7 BUN 24 creatinine 3.61 Blood cultures 2 out of 2 sets MSSA Urine culture pending Infect Dis PN-Objective Data - Labs CBC & Chem 7: 02/13/18 06:25 02/13/18 06:25 Labs: Laboratory Results - last 24 hr 02/12/18 02/13/18 02/13/18 12:39 06:25 06:25 WBC 14.2 H RBC 3.25 L Hgb 10.4 L Hct 31.6 L MCV 97.2 MCH 32.0 MCHC 32.9 RDW 14.4 Plt Count 148 MPV 9.9 Immature Gran % 0.6 Seg Neutrophils % 82.4 Lymphocytes % 8.8 Monocytes % 7.2 Eosinophils % 0.7 Basophils % 0.3 Neutrophils # 11.7 H Lymphocytes # 1.3 Monocytes # 1.0 Eosinophils # 0.1 Basophils # 0.0 Sodium 136 Potassium 3.8 Chloride 101 Carbon Dioxide 24 BUN 24 H Creatinine 3.61 H Est GFR ( Amer) 15 L Est GFR (Non-Af Amer) 12 L BUN/Creatinine Ratio 7 Glucose 111 H Calculated Osmolality 287 Calcium 8.6 Hep Bs Antigen Nonreactive Hep Bs Antibody 21.71 Cultures: Cultures 02/11/18 18:58 Blood Culture - Preliminary Peripheral Venipuncture Gram Positive Cocci 02/11/18 20:12 Blood Culture - Preliminary Peripheral Venipuncture Gram Positive Cocci 02/12/18 14:15 Blood Culture - Preliminary Central Venous Catheter Culture is incubating and being continuously monitored for growth. Final report to follow. Serology 02/12/18 02/11/18 02/11/18 Range/Units 12:39 20:06 18:58 Urine Color Yellow (Yellow) Urine Clarity Turbid A (Clear) Urine pH 7.5 (5.0-8.0) pH Units Ur Specific [place] 1.016 (1.010-1.025) Urine Protein >=300 H (Neg-Trace) mg/dL Urine Glucose (UA) Normal (Normal) mg/dL Urine Ketones Negative (Negative) mg/dL Urine Blood Moderate H (Negative) Urine Nitrite Negative (Negative) Urine Bilirubin Negative (Negative) Urine Urobilinogen Normal (Normal) mg/dL Ur Leukocyte Esterase Large H (Negative) Urine Microscopic RBC 5-15 H (0-3) per hpf Urine Microscopic WBC TNTC H (0-3) per hpf Urine Bacteria Many H (None-Few) per hpf Ur Culture Indicated? YES A (NO) A. baumannii (PCR) Not Detected (Not Detect) Adri albicans (PCR) Not Detected (Not Detect) C. glabrata (PCR) Not Detected (Not Detect) C. krusei (PCR) Not Detected (Not Detect) C. parapsilosis (PCR) Not Detected (Not Detect) C. tropicalis (PCR) Not Detected (Not Detect) Enterobacteriac sp PCR Not Detected (Not Detect) E. cloacae complex PCR Not Detected (Not Detect) Enterococcus sp PCR Not Detected (Not Detect) E. coli (PCR) Not Detected (Not Detect) H. influenzae (PCR) Not Detected (Not Detect) Hep Bs Antigen Nonreactive (Nonreactive) Hep Bs Antibody 21.71 mIU/mL Klebsiella oxytoca PCR Not Detected (Not Detect) Klebsiella pneumoniae Not Detected (Not Detect) List. monocytogenes PCR Not Detected (Not Detect) N. meningitidis (PCR) Not Detected (Not Detect) Proteus species (PCR) Not Detected (Not Detect) Serratia marcescens PCR Not Detected (Not Detect) Staphylococcus sp PCR DETECTED A (Not Detect) Staph aureus (PCR) DETECTED A (Not Detect) mecA-Methicil Res Gene Not Detected (Not Detect) Streptococcus sp PCR Not Detected (Not Detect) Group A Strep DNA Not Detected (Not Detect) Group B Strep (PCR) Not Detected (Not Detect) Strep pneumoniae (PCR) Not Detected (Not Detect) P. aeruginosa (PCR) Not Detected (Not Detect) Dyna/B-Vanco Res Genes Not Detected (Not Detect) KPC (blaKPC) Detect PCR Not Detected (Not Detect) Exam - Constitutional Vitals: Temp Pulse Resp BP Pulse Ox 99.4 F 82 16 113/50 96 02/13/18 07:25 02/13/18 07:25 02/13/18 07:25 02/13/18 07:25 02/13/18 07:25 General appearance: no acute distress, no febrile - Respiratory Respiratory exam: Present: CTAB. Absent: wheezes - Cardiovascular Cardiovascular exam: Present: RRR, +S1, +S2 Additional comments: Dialysis catheter right chest intact with no signs of erythema or drainage - GI/Abdominal GI/Abdominal exam: Present: soft. Absent: tenderness - Extremities Exam Extremities exam: Present: normal inspection. Absent: pedal edema Consult Discharge Plan - Plan Referrals: Navid Frias [Primary Care Provider] -
[2018-02-13] MEDS: ceFAZolin 1,000 MG in Water for inj. (sterile) 20 ML 10 ML IVP SCH (13:35)
[2018-02-13 15:10] LABS: Bilirubin,Urine Small (Negative); Blood,Urine Large (Negative); Clarity,Urine Turbid (Clear); Color,Urine Dark Yellow (Yellow); Glucose,Urine (UA) Normal (Normal); Ketones,Urine Negative (Negative); Leukocyte Esterase,Urine Large (Negative); Nitrite,Urine Negative (Negative); Protein,Urine >=300 mg/dL (Neg-Trace); Urobilinogen,Urine Normal (Normal)
[2018-02-13 15:12] LABS: Bacteria,Urine None Seen per hpf (None-Few); Hyaline Casts,Urine Few per lpf (None-Few); RBC,Urine TNTC per hpf (0-3); Squamous Epithelial Cell,Urine Moderate per lpf (None-Few); WBC,Urine TNTC per hpf (0-3)
--- NOTE | 2018-02-13 19:04 | Nephrology Progress Note ---
Date of Encounter: 02/13/18 Time of Encounter: 10:00 - Assessment and Plan (1) ESRD (end stage renal disease) on dialysis Current Visit: No Status: Chronic HD MWF. Renal vitamins. Renal dose medications. Renal diet. Additional dialysis and ultrafiltration as needed. Plan to use fistula and if it works will remove her tunneled catheter. (2) Sepsis secondary to UTI Current Visit: Yes Status: Acute Being managed by the primary team and infectious disease. Presumed secondary to UTI. With bacteremia (GPC) could be from line infection. Await blood cultures from HD catheter and remove catheter if fistula works or if culture is positive. Discussed with Dr. Blackburn. (3) Anemia Current Visit: Yes Status: Chronic Transfuse as needed. Qualifiers: Anemia type: due to chronic kidney disease Chronic kidney disease stage: on chronic dialysis Qualified Code(s): N18.6 - End stage renal disease; D63.1 - Anemia in chronic kidney disease; Z99.2 - Dependence on renal dialysis (4) Essential hypertension Current Visit: No Status: Chronic Titrate antihypertensive medication as needed. Subjective Principal diagnosis: ESRD Interval history: Patient seen and evaluated. She is pleasantly demented. She denies new complaint. Objective - Vital Signs Vital signs: Vital Signs Temp Pulse Resp BP Pulse Ox 02/13/18 18:48 98.0 F 84 16 104/54 96 02/13/18 15:50 98.1 F 75 17 105/46 96 02/13/18 11:19 98.0 F 78 16 116/57 94 02/13/18 07:25 99.4 F 82 16 113/50 96 02/13/18 04:45 99.3 F 82 16 102/56 96 02/13/18 00:03 98.8 F 94 17 140/48 97 02/12/18 20:36 99.6 F 98 14 90/48 95 Intake and Output 02/13/18 02/13/18 02/13/18 07:59 15:59 23:59 Intake Total 360 / 360 Output Total 100 / 100 Balance 260 / 260 Intake: Oral 360 / 360 Output: Catheter 100 / 100 Other: Meal Lunch Percent of Meal Consumed 20% Weight 56.9 kg Patient Weight 02/13/18 23:59 Weight 56.9 kg - General Appearance General appearance: Present: well-developed, well-nourished, frail EENT: Present: ATNC Neck: Present: supple Respiratory: Present: course breath sounds Cardiology: Present: no edema, regular rate Dialysis Vascular Access: Arteriovenous Fistula (RUE) thrill: Yes bruit: Yes Gastrointestinal: Present: no tenderness Integumentary: Present: warm and dry Musculoskeletal: Present: no cyanosis Psychiatric: Present: mood/affect appropriate - Lab 02/13/18 06:25 02/13/18 06:25 Most recent lab results Calcium 8.6 mg/dL (8.6-10.3) 02/13/18 06:25 Phosphorus 5.0 mg/dL (2.7-4.5) H 02/12/18 06:19 Magnesium 2.2 mg/dL (1.6-2.6) 02/12/18 06:19 Consult Discharge Plan - Plan Referrals: Navid Frias [Primary Care Provider] -
[2018-02-14 04:55] LABS: Basophils # 0.1 K/mcL (0.0-0.2); Basophils % 0.5 %; Eosinophils # 0.3 K/mcL (0.0-0.6); Eosinophils % 2.9 %; Hemoglobin 9.6 g/dL (11.5-15.4); Immature Granulocytes % 0.5 % (0-4); Lymphocytes # 1.8 K/mcL (0.6-4.6); Lymphocytes % 18.3 %; Mean Corpuscular Hemoglobin 31.1 pg (28.0-33.3); Mean Corpuscular Volume 97.1 fL (83.0-100.0); Mean Platelet Volume 9.9 fL (9.4-12.4); Monocytes % 10.5 %; Neutrophils # 6.7 K/mcL (1.6-8.9); Platelet Count 160 K/mcL (140-400); Red Blood Count 3.09 M/mcL (3.82-4.97); Red Cell Distribution Width 14.3 % (11.5-14.5); Segmented Neutrophils % 67.3 %
[2018-02-14 05:11] LABS: Calcium 8.7 mg/dL (8.6-10.3); Phosphorous 2.7 mg/dL (2.7-4.5)
[2018-02-14] MEDS: *HR* Heparin 5,000 UNIT/ML VIAL SQ SCH ×2 (05:52→17:08)
[2018-02-14] MEDS ORDERED: 0.9 % Sodium Chloride 250 ML IVC PRN (08:14)
[2018-02-14] MEDS ORDERED: *HR* Heparin 10,000 UNIT/10 ML VIAL IV PRN (08:14)
[2018-02-14] MEDS ORDERED: 0.9 % Sodium Chloride 1,000 ML PRIME SCH (08:15)
[2018-02-14] MEDS: Folic Acid 1 MG TABLET PO SCH (08:53)
[2018-02-14] MEDS: Lactobacillus 1 EACH CAP.SPRINK PO SCH (08:53)
[2018-02-14] MEDS: Sennosides/Docusate Sodium TABLET PO SCH ×2 (08:53→20:42)
[2018-02-14] MEDS: ceFAZolin 1,000 MG in Water for inj. (sterile) 20 ML 10 ML IVP SCH ×2 (08:53→17:07)
[2018-02-14] MEDS: Aspirin Enteric Coated 325 MG Tablet PO SCH (08:53)
--- NOTE | 2018-02-14 09:58 | Nephrology Progress Note ---
Addendum entered and electronically signed by Karsten Chairez MD 02/14/18 18:19: I examined this patient and my medical decision-making was reviewed with the Resident Physician. I agree with the documented findings, disposition and treatment plan as described except to the extent set forth below. Patient seen on dialysis. Plan to remove the HD line after dialysis. Continue antibiotics for bacteremia. Will use fistula during dialysis on Saturday. Original Note: Date of Encounter: 02/14/18 Time of Encounter: 10:03 - Assessment and Plan (1) ESRD (end stage renal disease) on dialysis Current Visit: Yes Status: Chronic - Hemodialysis normally scheduled Saturday - Dialysis via tunneled dialysis line in right IJ - Electrolytes and kidney function at baseline - Renal vitamins - Renal diet - Proceed with scheduled HD this morning Plan - Does have sepsis with MSSA bacteremia, infectious disease is following -Possible source of bacteremia does include the dialysis line - Patient does have fistula on right arm which appears to be patent with bruit and thrill - We will attempt to use fistula during dialysis session today. If successful, can remove tunneled catheter - If unable to use fistula, will still need removal of catheter with replacement likely Saturday. (2) Sepsis secondary to UTI Current Visit: Yes Status: Acute - Being managed by primary team and infectious disease - This was secondary to UTI versus bacteremia versus CLABSI - Cultures from dialysis line of so far negative for growth, however on inspection of the area there is a discharge coming from the site is suspicious for infection - We will continue to await blood cultures from HD catheter and remove as above - Discussed with primary team (3) Anemia Current Visit: Yes Status: Chronic Stable at 9.6 this morning. At baseline Transfuse as needed Qualifiers: Anemia type: due to chronic kidney disease Chronic kidney disease stage: on chronic dialysis Qualified Code(s): N18.6 - End stage renal disease; D63.1 - Anemia in chronic kidney disease; Z99.2 - Dependence on renal dialysis (4) Essential hypertension Current Visit: Yes Status: Chronic Well-controlled at this time Continue to monitor and resume home medications of amlodipine and losartan as needed Subjective Principal diagnosis: ESRD Interval history: Patient was seen and examined at bedside this morning. She is notably not oriented and asks repeating questions. Her son who is at bedside states that this is her baseline mental status. 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 Per the son, her dialysis line has been present for about 6 weeks at which point was changed out due to central line infection. She does have a fistula in her right arm which is present for about 7-8 months but has not been used. The son stated that it was tried one time before the fistula was fully matured and has not been attempted since. At this time, he did have questions regarding continuing dialysis versus stopping as the lines keep getting infected. I did inform him that discontinuing dialysis would lead to increased confusion, renal failure, electrolyte abnormalities and eventually . He did understand this and acknowledge it. Objective - Vital Signs Vital signs: Vital Signs Temp Pulse Resp BP Pulse Ox 02/14/18 07:07 99.1 F 79 16 123/68 96 02/14/18 04:04 99.3 F 91 16 129/62 98 02/13/18 23:39 99.0 F 73 16 135/53 95 02/13/18 18:48 98.0 F 84 16 104/54 96 02/13/18 15:50 98.1 F 75 17 105/46 96 02/13/18 11:19 98.0 F 78 16 116/57 94 Intake and Output 02/13/18 02/14/18 02/14/18 23:59 07:59 15:59 Intake Total 130 / 130 Balance 130 / 130 Intake: IV Fluids Ancef 1,000 MG In Water for inj . (sterile) 10 ML @ 200 mls/hr IVP DAILY [facility] Rx#:[id number] Oral 120 / 120 Other: Weight 58 kg - General Appearance Exam: Gen.: Vitals noted. No acute distress. AOx1, resting comfortably in bed. Thin HEENT: PERRL/EOMI, oropharynx clear, Normocephalic, atraumatic, MMM Cardiac: RRR, systolic murmur present, +S1/S2 Pulmonary: CTA bilaterally, no wheezes, rales or rhonchi, equal chest expansion Abdomen: soft, nontender, BS noted, no guarding, no rebound. MSK: ROM assessed, no joint swelling noted Extremities: no BLE edema, nontender calf, no cyanosis or clubbing. Right arm fistula wit palpable thrill and bruit Neuro: A&Ox1, moves all extremities, no focal deficits Psych: Appropriate mood and behavior, pleasant - Lab 02/14/18 04:33 02/14/18 04:33 Most recent lab results Calcium 8.7 mg/dL (8.6-10.3) 02/14/18 04:33 Phosphorus 2.7 mg/dL (2.7-4.5) 02/14/18 04:33 Magnesium 2.2 mg/dL (1.6-2.6) 02/12/18 06:19 Consult Discharge Plan - Plan Referrals: Navid Frias [Primary Care Provider] -
--- NOTE | 2018-02-14 11:00 | Internal Med Progress Note ---
Hospitalist Progress Note - Encounter Date of Encounter: 02/14/18 Time of Encounter: 08:30 - Subjective Interval History: Up in bed and having breakfast without new complaints. No fever overnight. Overnight RN noted that she had unopposed wound on her R neck (where her CVC was) that had some yellowish discharges expressed. - Exam Vitals: Temp Pulse Resp BP Pulse Ox 99.1 F 79 16 123/68 96 02/14/18 07:07 02/14/18 07:07 02/14/18 07:07 02/14/18 07:07 02/14/18 07:07 Exam: General: Alert, confused, not in acute distress. Neck: R neck puncture/incision sites with minimal amount of yellowish discharge, dressing also slightly stained with the same material Chest: R tunneled HD catheter site appears unremarkable. Cardiovascular:Normal S1 & S2, No JVD. Pulse regular. Lungs: clear to auscultation, no wheezes/rales Abdomen:Soft, non-tender, no rigidity. : No CVA tenderness - Assessment and Plan (1) Sepsis Current Visit: Yes Status: Acute Assessment and Plan: As evidenced by fever, leukocytosis and positive UA initially attributed to complicated UTI given her indwelling nephroureteral stent. CT findings of bilateral urothelial enhancement, mild left renal pelviectasis and moderate inflammatory stranding about the left renal collecting system are noted previous urine culture grews Escherichia coli, enterococcus, Morganella, and VRE blood culture 02/11 MSSA repeat culture from HD catheter 02/12 pending possibly from skin source where her CVC was inserted, wound has not completely opposed yet wound care ordered discussed with nephro: will attempt dialysis through the fistula today and remove HD catheter, appreciate input started on zyvox/cefepime -> switch to cefazolin and WBC downtrending, continue per ID TTE -ve, will discuss with ID today regarding KARRIE as well as the need to consult pulm ?septic emboli in R lower lobe/major fissure nodule Urology input appreciated: Likely for outpatient cystoscopy and ureteral stent removal (2) End-stage renal disease Current Visit: Yes Status: Chronic Assessment and Plan: HD MWF follow with nephrology HD catheter and alternative access discussed with nephro as above (3) Essential hypertension Current Visit: No Status: Chronic Assessment and Plan: Hold off on Norvasc and losartan given her sepsis and normotension (4) Anemia Current Visit: Yes Status: Chronic Assessment and Plan: Stable. Chronic and secondary to CKD. No signs of overt bleeding. (5) CVA (cerebral vascular accident) Current Visit: Yes Status: Chronic Assessment and Plan: Stable condition. Continue antiplatelet and statin therapy. (6) DVT prophylaxis Current Visit: No Status: Acute Assessment and Plan: Sub-cutaneous heparin - Time Spent with Patient Total time spent is greater than 50% in coordination of care (as documented) at patient's floor/unit and/or counseling patient: Plan of Care Discussed with: patient (discussed with pt's son, department of sociology chair, and ID in detail) Internal Medicine: Result - Labs CBC & Chem 7: 02/14/18 04:33 02/14/18 04:33 Labs: Short CBC 02/14/18 Range/Units 04:33 WBC 9.9 (4.3-11.1) K/mcL Hgb 9.6 L (11.5-15.4) g/dL Hct 30.0 L (35.3-44.9) % Plt Count 160 (140-400) K/mcL Neutrophils # 6.7 (1.6-8.9) K/mcL BMP 02/14/18 04:33 Sodium 137 Potassium 4.0 Chloride 102 Carbon Dioxide 26 BUN 40 H Creatinine 5.21 H Glucose 96 Calcium 8.7 Urine 02/13/18 Range/Units 15:03 Urine Color Dark Yellow (Yellow) Urine Clarity Turbid A (Clear) Urine pH 8.0 (5.0-8.0) pH Units Ur Specific [place] 1.010 (1.010-1.025) Urine Protein >=300 H (Neg-Trace) mg/dL Urine Glucose (UA) Normal (Normal) mg/dL - ABG Interpretation ABG results: PT/INR, D-dimer PT 12.0 Seconds (9.4-12.1) 02/11/18 18:58 - Impressions Impressions Echocardiogram 02/13/18 10:56 Impressions: LVEF 60-65%. Normal LV chamber size, wall thickness and function. Mild left ventricular diastolic dysfunction. Normal right ventricular structure and function. Aortic valve not well visualized. Mild aortic stenosis by Doppler. Mean gradient 13 mmHg. No evidence of pulmonary hypertension. Left Ventricular Wall Motion: Rest Echo Findings All wall segments showed normal motion. Findings: Study Quality * Technically adequate exam. ECG Findings * Normal sinus rhythm. Left Ventricle * LVEF 60-65%. * Normal LV chamber size, wall thickness and function. * Mild left ventricular diastolic dysfunction. Right Ventricle * Normal right ventricular structure and function. Left Atrium * Mildly dilated left atrium. Right Atrium * Normal right atrial size. Aortic Valve * Aortic valve not well visualized. * Mild aortic stenosis by Doppler. Mean gradient 13 mmHg. * Trace aortic regurgitation. Mitral Valve * Mild mitral annular calcification * Mildly thickened mitral valve leaflets. * No mitral regurgitation. * No mitral stenosis. Tricuspid Valve * Normal tricuspid valve structure and function. * Trace tricuspid regurgitation. * No evidence of pulmonary hypertension. Pulmonic Valve * Pulmonic valve is not well visualized. Aorta * Normally sized aortic root. Pericardium * The pericardium appears normal. IVC * Normal IVC dimensions and inspiratory collapse. Pulmonary Artery * Normal visualized portions of the main pulmonary artery. Consult Discharge Plan - Plan Referrals: Navid Frias [Primary Care Provider] - (1) Sepsis Qualifiers: Sepsis type: methicillin susceptible Staphylococcus aureus Qualified Code(s): A41.01 - Sepsis due to Methicillin susceptible Staphylococcus aureus (4) Anemia Qualifiers: Anemia type: due to chronic kidney disease Chronic kidney disease stage: on chronic dialysis Qualified Code(s): N18.6 - End stage renal disease; D63.1 - Anemia in chronic kidney disease; Z99.2 - Dependence on renal dialysis (5) CVA (cerebral vascular accident) Qualifiers: CVA mechanism: unspecified Qualified Code(s): I63.9 - Cerebral infarction, unspecified
--- NOTE | 2018-02-14 16:18 | Infectious Disease Progress No ---
Date of Encounter: 02/14/18 Time of Encounter: 16:16 - Assessment and Plan (1) Sepsis Current Visit: Yes Status: Acute The patient had three SIRS criteria on admission. Likely secondary to bacteremia and possible UTI. WBc worse this morning, but she has been afebrile. Tachycardia has improved. Blood cultures drawn peripherally 02/11/18 are positive 2/2 sets for GPC, MSSA per PCR. Recommendations: - Exchange hoffman catheter and repeat urine culture. - Await final ID and sensitivities on blood cultures. - Await urine culture results. - Based on the clinical picture, I believe that the sepsis is due to the bacteremia with MSSA likely source HD catheter but we are not sure. I will DC the Zyvox and cefepime and start the patient on cefazolin and see how she does clinically. - Repeat blood cultures 2 to make sure they bacteremia has resolved - If patient starts having sepsis like picture and then then we will reconsider treating the asymptomatic bacteriuria/UTI - We will need to TTE and KARRIE prior to discharge Qualifiers: Sepsis type: methicillin susceptible Staphylococcus aureus Qualified Code(s): A41.01 - Sepsis due to Methicillin susceptible Staphylococcus aureus (2) Bacteremia Current Visit: Yes Status: Acute Causative organism: MSSA per PCR. Source: Unclear. Urine vs. HD catheter vs. other. Blood cultures drawn 02/11/18 are positive 2/2 sets for MSSA per PCR. Clinically, the patient's HD catheter does not appear infected, but we do not have another source. I do not appreciate any other skin or soft tissue infections. It is possible that the urine is the source, but not likely. The patient has one major and one minor Modified Erwin's criteria. No endocarditis stigmata noted on exam. (3) UTI (urinary tract infection) Current Visit: No Status: Acute I believe this time and set asymptomatic bacteriuria I believe that the sepsis is due to the bacteremia with MSSA Will not treat the UTI/asymptomatic bacteriuria at this time unless clinically the patient changes or show signs of worsening sepsis/infection Continue to put the patient in contact isolation second or 2 previous VRE Qualifiers: Urinary tract infection type: site unspecified Hematuria presence: without hematuria Qualified Code(s): N39.0 - Urinary tract infection, site not specified (4) Lung nodule Current Visit: No Status: Chronic (5) Dementia Current Visit: No Status: Chronic Qualifiers: Dementia type: Alzheimer's disease Alzheimer's disease onset: unspecified onset Dementia behavioral disturbance: without behavioral disturbance Qualif ied Code(s): G30.9 - Alzheimer's disease, unspecified; F02.80 - Dementia in other diseases classified elsewhere without behavioral disturbance (6) ESRD (end stage renal disease) on dialysis Current Visit: Yes Status: Chronic - Subjective Interval history: Patient seen and examined. Appears comfortable. More awake more alert. No chest pain or shortness of breath. No nausea or vomiting. Good appetite. No urinary symptoms. Patient afebrile Labs: WBC 9.9 Blood cultures 2 out of 2 sets MSSA repeat culture February 12 no growth Urine culture pending Infect Dis PN-Objective Data - Labs CBC & Chem 7: 02/14/18 04:33 02/14/18 04:33 Labs: Laboratory Results - last 24 hr 02/14/18 02/14/18 04:33 04:33 WBC 9.9 RBC 3.09 L Hgb 9.6 L Hct 30.0 L MCV 97.1 MCH 31.1 MCHC 32.0 RDW 14.3 Plt Count 160 MPV 9.9 Immature Gran % 0.5 Seg Neutrophils % 67.3 Lymphocytes % 18.3 Monocytes % 10.5 Eosinophils % 2.9 Basophils % 0.5 Neutrophils # 6.7 Lymphocytes # 1.8 Monocytes # 1.0 Eosinophils # 0.3 Basophils # 0.1 Sodium 137 Potassium 4.0 Chloride 102 Carbon Dioxide 26 BUN 40 H Creatinine 5.21 H Est GFR ( Amer) 10 L Est GFR (Non-Af Amer) 8 L BUN/Creatinine Ratio 8 Glucose 96 Calculated Osmolality 294 Calcium 8.7 Phosphorus 2.7 Cultures: Cultures 02/13/18 15:03 Urine Culture - Final Urine,[place] No significant growth. 02/11/18 18:58 Blood Culture - Final Peripheral Venipuncture Staphylococcus aureus 02/11/18 20:12 Blood Culture - Final Peripheral Venipuncture Staphylococcus aureus 02/11/18 20:06 Urine Culture - Final Urine,Clean Catch Escherichia coli Klebsiella oxytoca 02/12/18 14:15 Blood Culture - Preliminary Central Venous Catheter Culture is incubating and being continuously monitored for growth. Final report to follow. Serology 02/13/18 02/12/18 02/11/18 Range/Units 15:03 12:39 20:06 Urine Color Dark Yellow Yellow (Yellow) Urine Clarity Turbid A Turbid A (Clear) Urine pH 8.0 7.5 (5.0-8.0) pH Units Ur Specific [place] 1.010 1.016 (1.010-1.025) Urine Protein >=300 H >=300 H (Neg-Trace) mg/dL Urine Glucose (UA) Normal Normal (Normal) mg/dL Urine Ketones Negative Negative (Negative) mg/dL Urine Blood Large H Moderate H (Negative) Urine Nitrite Negative Negative (Negative) Urine Bilirubin Small H Negative (Negative) Urine Urobilinogen Normal Normal (Normal) mg/dL Ur Leukocyte Esterase Large H Large H (Negative) Urine Microscopic RBC TNTC H 5-15 H (0-3) per hpf Urine Microscopic WBC TNTC H TNTC H (0-3) per hpf Ur Squamous Epith Cells Moderate H (None-Few) per lpf Urine Bacteria None Seen Many H (None-Few) per hpf Hyaline Casts Few (None-Few) per lpf Ur Culture Indicated? YES A YES A (NO) A. baumannii (PCR) (Not Detect) Adri albicans (PCR) (Not Detect) C. glabrata (PCR) (Not Detect) C. krusei (PCR) (Not Detect) C. parapsilosis (PCR) (Not Detect) C. tropicalis (PCR) (Not Detect) Enterobacteriac sp PCR (Not Detect) E. cloacae complex PCR (Not Detect) Enterococcus sp PCR (Not Detect) E. coli (PCR) (Not Detect) H. influenzae (PCR) (Not Detect) Hep Bs Antigen Nonreactive (Nonreactive) Hep Bs Antibody 21.71 mIU/mL Klebsiella oxytoca PCR (Not Detect) Klebsiella pneumoniae (Not Detect) List. monocytogenes PCR (Not Detect) N. meningitidis (PCR) (Not Detect) Proteus species (PCR) (Not Detect) Serratia marcescens PCR (Not Detect) Staphylococcus sp PCR (Not Detect) Staph aureus (PCR) (Not Detect) mecA-Methicil Res Gene (Not Detect) Streptococcus sp PCR (Not Detect) Group A Strep DNA (Not Detect) Group B Strep (PCR) (Not Detect) Strep pneumoniae (PCR) (Not Detect) P. aeruginosa (PCR) (Not Detect) Dyan/B-Vanco Res Genes (Not Detect) KPC (blaKPC) Detect PCR (Not Detect) 02/11/18 Range/Units 18:58 Urine Color (Yellow) Urine Clarity (Clear) Urine pH (5.0-8.0) pH Units Ur Specific [place] (1.010-1.025) Urine Protein (Neg-Trace) mg/dL Urine Glucose (UA) (Normal) mg/dL Urine Ketones (Negative) mg/dL Urine Blood (Negative) Urine Nitrite (Negative) Urine Bilirubin (Negative) Urine Urobilinogen (Normal) mg/dL Ur Leukocyte Esterase (Negative) Urine Microscopic RBC (0-3) per hpf Urine Microscopic WBC (0-3) per hpf Ur Squamous Epith Cells (None-Few) per lpf Urine Bacteria (None-Few) per hpf Hyaline Casts (None-Few) per lpf Ur Culture Indicated? (NO) A. baumannii (PCR) Not Detected (Not Detect) Adri albicans (PCR) Not Detected (Not Detect) C. glabrata (PCR) Not Detected (Not Detect) C. krusei (PCR) Not Detected (Not Detect) C. parapsilosis (PCR) Not Detected (Not Detect) C. tropicalis (PCR) Not Detected (Not Detect) Enterobacteriac sp PCR Not Detected (Not Detect) E. cloacae complex PCR Not Detected (Not Detect) Enterococcus sp PCR Not Detected (Not Detect) E. coli (PCR) Not Detected (Not Detect) H. influenzae (PCR) Not Detected (Not Detect) Hep Bs Antigen (Nonreactive) Hep Bs Antibody mIU/mL Klebsiella oxytoca PCR Not Detected (Not Detect) Klebsiella pneumoniae Not Detected (Not Detect) List. monocytogenes PCR Not Detected (Not Detect) N. meningitidis (PCR) Not Detected (Not Detect) Proteus species (PCR) Not Detected (Not Detect) Serratia marcescens PCR Not Detected (Not Detect) Staphylococcus sp PCR DETECTED A (Not Detect) Staph aureus (PCR) DETECTED A (Not Detect) mecA-Methicil Res Gene Not Detected (Not Detect) Streptococcus sp PCR Not Detected (Not Detect) Group A Strep DNA Not Detected (Not Detect) Group B Strep (PCR) Not Detected (Not Detect) Strep pneumoniae (PCR) Not Detected (Not Detect) P. aeruginosa (PCR) Not Detected (Not Detect) Dyan/B-Vanco Res Genes Not Detected (Not Detect) KPC (blaKPC) Detect PCR Not Detected (Not Detect) - Impressions Impressions Echocardiogram 02/13/18 10:56 Impressions: LVEF 60-65%. Normal LV chamber size, wall thickness and function. Mild left ventricular diastolic dysfunction. Normal right ventricular structure and function. Aortic valve not well visualized. Mild aortic stenosis by Doppler. Mean gradient 13 mmHg. No evidence of pulmonary hypertension. Left Ventricular Wall Motion: Rest Echo Findings All wall segments showed normal motion. Findings: Study Quality * Technically adequate exam. ECG Findings * Normal sinus rhythm. Left Ventricle * LVEF 60-65%. * Normal LV chamber size, wall thickness and function. * Mild left ventricular diastolic dysfunction. Right Ventricle * Normal right ventricular structure and function. Left Atrium * Mildly dilated left atrium. Right Atrium * Normal right atrial size. Aortic Valve * Aortic valve not well visualized. * Mild aortic stenosis by Doppler. Mean gradient 13 mmHg. * Trace aortic regurgitation. Mitral Valve * Mild mitral annular calcification * Mildly thickened mitral valve leaflets. * No mitral regurgitation. * No mitral stenosis. Tricuspid Valve * Normal tricuspid valve structure and function. * Trace tricuspid regurgitation. * No evidence of pulmonary hypertension. Pulmonic Valve * Pulmonic valve is not well visualized. Aorta * Normally sized aortic root. Pericardium * The pericardium appears normal. IVC * Normal IVC dimensions and inspiratory collapse. Pulmonary Artery * Normal visualized portions of the main pulmonary artery. Tunnelled Catheter Removal 02/14/18 00:00 IMPRESSION: Successful subcutaneous Permacath removal. D/ / 02/14/2018 15:22:16 Lynette Kauffman MD / earnold Interpreting Provider: Lynette Kauffman MD Exam - Constitutional Vitals: Temp Pulse Resp BP Pulse Ox 98.0 F 82 16 94/52 96 02/14/18 15:45 02/14/18 15:45 02/14/18 15:45 02/14/18 15:45 02/14/18 15:45 General appearance: cooperative, no febrile - Respiratory Respiratory exam: Present: CTAB. Absent: wheezes - Cardiovascular Cardiovascular exam: Present: RRR, +S1, +S2 - GI/Abdominal GI/Abdominal exam: Present: soft. Absent: tenderness - Extremities Exam Extremities exam: Present: normal inspection. Absent: joint swelling Consult Discharge Plan - Plan Referrals: Navid Frias [Primary Care Provider] - (Patient is going to [facility])
[2018-02-15] MEDS: *HR* Heparin 5,000 UNIT/ML VIAL SQ SCH ×2 (05:47→18:15)
[2018-02-15] MEDS: Folic Acid 1 MG TABLET PO SCH (08:38)
[2018-02-15] MEDS: Sennosides/Docusate Sodium TABLET PO SCH ×2 (08:38→21:01)
[2018-02-15] MEDS: Aspirin Enteric Coated 325 MG Tablet PO SCH ×2 (08:38→09:02)
[2018-02-15] MEDS: Lactobacillus 1 EACH CAP.SPRINK PO SCH (08:38)
--- NOTE | 2018-02-15 09:35 | Internal Med Progress Note ---
Hospitalist Progress Note - Encounter Date of Encounter: 02/15/18 Time of Encounter: 08:20 - Subjective Interval History: Patient remains confused on where she is but otherwise appears comfortable. Remains afebrile, no acute events overnight. - Exam Vitals: Temp Pulse Resp BP Pulse Ox 99.3 F 75 17 143/63 94 02/15/18 07:08 02/15/18 07:08 02/15/18 07:08 02/15/18 07:08 02/15/18 07:08 Exam: General: Alert, confused, not in acute distress. Neck: R neck dressing dry and clean Chest: R chest where HD catheter was removed from appears unremarkable Cardiovascular:Normal S1 & S2, No JVD. Pulse regular. Lungs: clear to auscultation, no wheezes/rales Abdomen:Soft, non-tender, no rigidity. : No CVA tenderness - Assessment and Plan (1) Sepsis Current Visit: Yes Status: Acute Assessment and Plan: As evidenced by fever, leukocytosis and positive UA initially attributed to complicated UTI given her indwelling nephroureteral stent. CT findings of bilateral urothelial enhancement, mild left renal pelviectasis and moderate inflammatory stranding about the left renal collecting system are noted previous urine culture grews Escherichia coli, enterococcus, Morganella, and VRE blood culture 02/11 MSSA repeat culture from HD catheter 02/12 NGTD blood cultures repeated on 02/14, follow up possibly from skin source where her CVC was inserted as the wound has not completely opposed yet. Wound culture growing S. aureus follow with wound care HD catheter removed after HD yesterday currently on cefazolin with downtrending WBC, continue. Appreciate ID input TTE -ve, will proceed with KARRIE on Saturday Pulm consult for ?septic emboli in R lower lobe/major fissure nodule Urology input appreciated: Likely for outpatient cystoscopy and ureteral stent removal (2) End-stage renal disease Current Visit: Yes Status: Chronic Assessment and Plan: HD MWF follow with nephrology HD catheter removed as above, will attempt to use RUE fistula on Saturday (3) Essential hypertension Current Visit: Yes Status: Chronic Assessment and Plan: Hold off on Norvasc and losartan given her sepsis and normotension (4) Anemia Current Visit: Yes Status: Chronic Assessment and Plan: Stable. Chronic and secondary to CKD. No signs of overt bleeding. (5) CVA (cerebral vascular accident) Current Visit: Yes Status: Chronic Assessment and Plan: Stable condition. Continue antiplatelet and statin therapy. (6) DVT prophylaxis Current Visit: No Status: Acute Assessment and Plan: Sub-cutaneous heparin - Time Spent with Patient Total time spent is greater than 50% in coordination of care (as documented) at patient's floor/unit and/or counseling patient: Plan of Care Discussed with: nurse Internal Medicine: Result - Labs CBC & Chem 7: 02/14/18 04:33 02/14/18 04:33 - ABG Interpretation ABG results: PT/INR, D-dimer PT 12.0 Seconds (9.4-12.1) 02/11/18 18:58 - Impressions Impressions Echocardiogram 02/13/18 10:56 Impressions: LVEF 60-65%. Normal LV chamber size, wall thickness and function. Mild left ventricular diastolic dysfunction. Normal right ventricular structure and function. Aortic valve not well visualized. Mild aortic stenosis by Doppler. Mean gradient 13 mmHg. No evidence of pulmonary hypertension. Left Ventricular Wall Motion: Rest Echo Findings All wall segments showed normal motion. Findings: Study Quality * Technically adequate exam. ECG Findings * Normal sinus rhythm. Left Ventricle * LVEF 60-65%. * Normal LV chamber size, wall thickness and function. * Mild left ventricular diastolic dysfunction. Right Ventricle * Normal right ventricular structure and function. Left Atrium * Mildly dilated left atrium. Right Atrium * Normal right atrial size. Aortic Valve * Aortic valve not well visualized. * Mild aortic stenosis by Doppler. Mean gradient 13 mmHg. * Trace aortic regurgitation. Mitral Valve * Mild mitral annular calcification * Mildly thickened mitral valve leaflets. * No mitral regurgitation. * No mitral stenosis. Tricuspid Valve * Normal tricuspid valve structure and function. * Trace tricuspid regurgitation. * No evidence of pulmonary hypertension. Pulmonic Valve * Pulmonic valve is not well visualized. Aorta * Normally sized aortic root. Pericardium * The pericardium appears normal. IVC * Normal IVC dimensions and inspiratory collapse. Pulmonary Artery * Normal visualized portions of the main pulmonary artery. Tunnelled Catheter Removal 02/14/18 00:00 IMPRESSION: Successful subcutaneous Permacath removal. D/ /14/2018 15:22:16 Lynette Kauffman MD / earnold Interpreting Provider: Lynette Kauffman MD Consult Discharge Plan - Plan Referrals: Navid Frias [Primary Care Provider] - (Patient is going to [facility]) (1) Sepsis Qualifiers: Sepsis type: methicillin susceptible Staphylococcus aureus Qualified Code(s): A41.01 - Sepsis due to Methicillin susceptible Staphylococcus aureus (4) Anemia Qualifiers: Anemia type: due to chronic kidney disease Chronic kidney disease stage: on chronic dialysis Qualified Code(s): N18.6 - End stage renal disease; D63.1 - Anemia in chronic kidney disease; Z99.2 - Dependence on renal dialysis (5) CVA (cerebral vascular accident) Qualifiers: CVA mechanism: unspecified Qualified Code(s): I63.9 - Cerebral infarction, unspecified
[2018-02-15] MEDS: Aspirin 325 MG TABLET PO SCH (10:02)
--- NOTE | 2018-02-15 10:02 | Nephrology Progress Note ---
Date of Encounter: 02/15/18 Time of Encounter: 10:02 - Assessment and Plan (1) ESRD (end stage renal disease) on dialysis Current Visit: Yes Status: Chronic HD MWF. Renal vitamins. Renal dose medications. Renal diet. Additional dialysis and ultrafiltration as needed. Plan for HD on Saturday. (2) Sepsis secondary to UTI Current Visit: Yes Status: Acute (3) Anemia Current Visit: Yes Status: Chronic Transfuse as needed. (4) Essential hypertension Current Visit: Yes Status: Chronic Titrate antihypertensive medication as needed. Subjective Principal diagnosis: ESRD Interval history: Patient seen and evaluated. She is pleasantly demented. She denies new complaint. Objective - Vital Signs Vital signs: Vital Signs Temp Pulse Resp BP Pulse Ox 02/15/18 07:08 99.3 F 75 17 143/63 94 02/15/18 04:23 99.0 F 72 16 158/89 98 02/14/18 23:03 99.6 F 82 17 135/70 98 02/14/18 19:24 98.4 F 84 17 127/55 94 02/14/18 15:45 98.0 F 82 16 94/52 96 02/14/18 14:00 97.4 F L 18 112/60 02/14/18 13:45 100/56 02/14/18 13:30 99/56 02/14/18 13:15 113/57 02/14/18 13:00 106/49 02/14/18 12:45 102/62 02/14/18 12:30 104/56 02/14/18 12:15 108/58 02/14/18 12:00 107/55 02/14/18 11:45 125/66 02/14/18 11:30 117/59 02/14/18 11:15 119/57 02/14/18 11:00 112/51 02/14/18 10:45 126/67 02/14/18 10:30 126/67 02/14/18 10:15 97.8 F 18 119/54 Intake and Output 02/14/18 02/15/18 02/15/18 23:59 07:59 15:59 Intake Total 240 / 240 Output Total 250 / 250 Balance -240 / -240 240 / 240 Intake: IV Fluids Ancef 1,000 MG In Water for inj . (sterile) 10 ML @ 200 mls/hr IVP Q24H [facility] Rx#:[id number] Oral 240 / 240 Output: Catheter 250 / 250 Other: Meal Breakfast Percent of Meal Consumed 100% Weight 57.1 kg - General Appearance General appearance: Present: well-developed, well-nourished EENT: Present: ATNC Neck: Present: supple Cardiology: Present: regular rate Integumentary: Present: warm and dry Neurologic: Present: alert and oriented x3 Psychiatric: Present: mood/affect appropriate - Lab 02/14/18 04:33 02/14/18 04:33 Most recent lab results Calcium 8.7 mg/dL (8.6-10.3) 02/14/18 04:33 Phosphorus 2.7 mg/dL (2.7-4.5) 02/14/18 04:33 Magnesium 2.2 mg/dL (1.6-2.6) 02/12/18 06:19 Consult Discharge Plan - Plan Referrals: Navid Frias [Primary Care Provider] - (Patient is going to [facility])
--- NOTE | 2018-02-15 11:43 | Pulmonology Consult Note ---
Date of Encounter: 02/15/18 Time of Encounter: 11:00 Assessment and Plan (1) Lung nodule Current Visit: No Status: Chronic His lung nodules looks like chronic needs to be follow-up as an outpatient . Low concern for septic emboli some chronic changes along the right major fissure. No evidence of consolidation except for some bibasilar atelectasis. No convincing evidence of pneumonia. Please arrange outpatient follow-up in 8 weeks pulmonary will sign off please call with questions if anything changes. Thank you for the consultation. (2) Sepsis Current Visit: Yes Status: Acute Most likely due to permacath with the wound culture is also growing the same organism as the blood culture. Management according to infectious disease. Qualifiers: Sepsis type: methicillin susceptible Staphylococcus aureus Qualified Code(s): A41.01 - Sepsis due to Methicillin susceptible Staphylococcus aureus (3) COPD suggested by initial evaluation Current Visit: Yes Status: Acute Patient has some emphysematous changes currently does not have any symptoms of COPD . short-acting bronchodilators if required on discharge. Will evaluate as an outpatient if needed History of Present Illness Consult date: 02/15/18 Requesting physician: Jeromy Blackburn Reason for consult: abnormal CXR/CT Chief complaint: Altered mental status History of present illness: 83-year-old female is presenting with altered mental status found to have urinary tract infection complicated with bacteremia suspected dialysis catheter infection pulmonary was consulted for evaluation of this lung nodules for possible septic emboli patient on my interview pleasantly confused denies any chest pain chest tightness denies any cough or sputum production denies any hemoptysis denies any chest pain denies any palpitation or syncope during my interview she was asking every 30 seconds where am i . Patient denies any abdominal symptoms denies any headache denies any symptoms pertaining to focal neurological deficit. Past Med Surg Social Fam HX - Past Medical History Medical history: dementia, dialysis, GERD, renal disease, thyroid disease Additional medical history: anemia Psychiatric history: anxiety - Past Surgical History Surgical History: non-contributory Additional surgical history: unknown surgical hx, right side arm fistula - Social History Smoking Status: Never smoker Smokeless Tobacco Status: No Alcohol use: none Drug use: none Medications and Allergies Bisacodyl [Dulcolax] 10 mg RC DAILY PRN 07/19/17 [History] Folic Acid 1 mg PO DAILY 07/19/17 [History] Magnesium Hydroxide [Milk of Magnesia] 2,400 mg PO DAILY PRN 07/19/17 [History] Polyethylene Glycol 3350 [MiraLAX Powder Bulk 17.9 Oz] 1 scoop PO DAILY PRN 07/19/17 [History] Sennosides/Docusate Sodium [Colace 2-in-1 Tablet] 1 tab PO BID 07/19/17 [History] Aspirin Enteric Coated [Aspirin EC] 325 mg PO DAILY #30 tablet. 08/15/17 [Rx] Atorvastatin [Lipitor] 40 mg PO HS #30 tablet 08/15/17 [Rx] Acetaminophen [Non-Aspirin] 650 mg PO Q4H PRN 02/11/18 [History] Lactobacillus Acidophilus [Acidophilus Lactobacilli] 1 cap PO DAILY 02/11/18 [History] Levothyroxine Sodium [Synthroid] 137 mcg PO DAILY 02/11/18 [History] Losartan [Cozaar] 25 mg PO DAILY 02/11/18 [History] Ondansetron ODT [Zofran ODT] 4 mg PO Q8H PRN 02/11/18 [History] Sevelamer Carbonate [Renvela] 1.6 gm PO TID 02/11/18 [History] amLODIPine [Norvasc] 5 mg PO DAILY 02/11/18 [History] Allergy/AdvReac Type Severity Reaction Status Date / Time darifenacin Allergy Unknown See Verified 08/03/17 00:29 Comments ciprofloxacin AdvReac Nausea Verified 08/03/17 00:29 Sulfa (Sulfonamide AdvReac Nausea Verified 08/03/17 00:29 Antibiotics) All Systems: The remainder of the systems were reviewed and are negative Physical Examination Vital Signs: Vital Signs, Last 4 Hours Temp Pulse Resp BP Pulse Ox 02/15/18 11:15 99.4 F 75 17 125/69 97 General appearance: no acute distress Auscultation: bilateral: diminished breath sounds (basilar diminished breadth sounds ) non-focal exam, other (patient is confused but alert answering questions ) Results - Laboratory Findings CBC and BMP: 02/14/18 04:33 02/14/18 04:33 PT/INR, D-dimer PT 12.0 Seconds (9.4-12.1) 02/11/18 18:58 Abnormal lab findings: Abnormal lab results RBC 3.09 M/mcL (3.82-4.97) L 02/14/18 04:33 Hgb 9.6 g/dL (11.5-15.4) L 02/14/18 04:33 Hct 30.0 % (35.3-44.9) L 02/14/18 04:33 BUN 40 mg/dL (8-23) H 02/14/18 04:33 Creatinine 5.21 mg/dL (0.60-1.20) H 02/14/18 04:33 Est GFR ( Amer) 10 (> 60) L 02/14/18 04:33 Est GFR (Non-Af Amer) 8 (> 60) L 02/14/18 04:33 AST 44 Units/L (13-39) H 02/11/18 18:58 Lipase 107 Units/L (11-82) H 02/11/18 18:58 Urine Clarity Turbid (Clear) A 02/13/18 15:03 Urine Protein >=300 mg/dL (Neg-Trace) H 02/13/18 15:03 Urine Blood Large (Negative) H 02/13/18 15:03 Urine Bilirubin Small (Negative) H 02/13/18 15:03 Ur Leukocyte Esterase Large (Negative) H 02/13/18 15:03 Urine Microscopic RBC TNTC per hpf (0-3) H 02/13/18 15:03 Urine Microscopic WBC TNTC per hpf (0-3) H 02/13/18 15:03 Ur Squamous Epith Cells Moderate per lpf (None-Few) H 02/13/18 15:03 Ur Culture Indicated? YES (NO) A 02/13/18 15:03 Staphylococcus sp PCR DETECTED (Not Detect) A 02/11/18 18:58 Staph aureus (PCR) DETECTED (Not Detect) A 02/11/18 18:58 - Microbiology Findings Microbiology Findings: Microbiology, Last 48 Hours 02/12/18 14:15 Blood Culture - Preliminary Central Venous Catheter Gram Positive Cocci 02/14/18 04:10 Wound Culture - Preliminary Neck Staphylococcus aureus 02/14/18 16:23 Blood Culture - Preliminary Peripheral Venipuncture Culture is incubating and being continuously zev tored for growth. Final report to follow. 02/14/18 16:28 Blood Culture - Preliminary Peripheral Venipuncture Culture is incubating and being continuously monitored for growth. Final report to follow. 02/13/18 15:03 Urine Culture - Final Urine,[place] No significant growth. 02/11/18 18:58 Blood Culture - Final Peripheral Venipuncture Staphylococcus aureus 02/11/18 20:12 Blood Culture - Final Peripheral Venipuncture Staphylococcus aureus 02/11/18 20:06 Urine Culture - Final Urine,Clean Catch Escherichia coli Klebsiella oxytoca - Clinical Findings Intake & Output: Intake & Output 02/14/18 02/15/18 02/15/18 23:59 07:59 15:59 Intake Total 240 / 240 Output Total 250 / 250 Balance -240 / -240 240 / 240 Weight 57.1 kg Consult Discharge Plan - Plan Referrals: Navid Frias [Primary Care Provider] - (Patient is going to [facility])
[2018-02-15] MEDS: ceFAZolin 1,000 MG in Water for inj. (sterile) 20 ML 10 ML IVP SCH (16:55)
[2018-02-16] MEDS: *HR* Heparin 5,000 UNIT/ML VIAL SQ SCH ×2 (06:30→17:29)
[2018-02-16 07:23] LABS: Basophils # 0.1 K/mcL (0.0-0.2); Basophils % 0.6 %; Eosinophils # 0.2 K/mcL (0.0-0.6); Eosinophils % 2.2 %; Hematocrit 33.5 % (35.3-44.9); Hemoglobin 10.8 g/dL (11.5-15.4); Immature Granulocytes % 1.4 % (0-4); Lymphocytes # 1.9 K/mcL (0.6-4.6); Lymphocytes % 17.6 %; Mean Corpuscular HGB Conc 32.2 g/dL (31.6-35.5); Mean Corpuscular Hemoglobin 31.9 pg (28.0-33.3); Mean Corpuscular Volume 98.8 fL (83.0-100.0); Mean Platelet Volume 9.5 fL (9.4-12.4); Monocytes # 1.1 K/mcL (0.0-1.3); Neutrophils # 7.2 K/mcL (1.6-8.9); Platelet Count 184 K/mcL (140-400); Red Blood Count 3.39 M/mcL (3.82-4.97); Red Cell Distribution Width 14.1 % (11.5-14.5); Segmented Neutrophils % 68.2 %
[2018-02-16 07:43] LABS: Calcium 9.2 mg/dL (8.6-10.3); Potassium 4.1 mEq/L (3.5-5.1)
[2018-02-16] MEDS: Folic Acid 1 MG TABLET PO SCH (07:47)
[2018-02-16] MEDS: Lactobacillus 1 EACH CAP.SPRINK PO SCH (07:47)
[2018-02-16] MEDS: Sennosides/Docusate Sodium TABLET PO SCH ×2 (07:47→21:40)
[2018-02-16] MEDS: Aspirin 325 MG TABLET PO SCH (07:48)
--- NOTE | 2018-02-16 08:20 | Nephrology Progress Note ---
Date of Encounter: 02/16/18 Time of Encounter: 08:20 - Assessment and Plan (1) ESRD (end stage renal disease) on dialysis Current Visit: Yes Status: Chronic HD MWF. Renal vitamins. Renal dose medications. Renal diet. Additional dialysis and ultrafiltration as needed. Plan for HD on Saturday via her fistula. (2) Sepsis secondary to UTI Current Visit: Yes Status: Acute Being managed by the primary team and infectious disease. Presumed secondary to UTI. However patient with bacteremia (MSSA) likely from line/tunnel infection. blood cultures from HD catheter NTD Catheter removed and will use fistula on Saturday. Discussed with Dr. Blackburn. (3) Anemia Current Visit: Yes Status: Chronic Transfuse as needed. Qualifiers: Anemia type: due to chronic kidney disease Chronic kidney disease stage: on chronic dialysis Qualified Code(s): N18.6 - End stage renal disease; D63.1 - Anemia in chronic kidney disease; Z99.2 - Dependence on renal dialysis (4) Essential hypertension Current Visit: Yes Status: Chronic Titrate antihypertensive medication as needed. Subjective Principal diagnosis: ESRD Interval history: Patient seen and evaluated. She is pleasantly demented. She denies new complaint. Objective - Vital Signs Vital signs: Vital Signs Temp Pulse Resp BP Pulse Ox 02/16/18 07:35 99.1 F 74 16 142/63 96 02/16/18 05:02 99.0 F 80 16 156/62 92 02/15/18 20:45 98.5 F 80 16 136/68 96 02/15/18 18:34 97.9 F 80 16 124/71 97 02/15/18 16:26 99.6 F 73 16 132/73 96 02/15/18 11:15 99.4 F 75 17 125/69 97 Intake and Output 02/15/18 02/16/18 02/16/18 23:59 07:59 15:59 Intake Total 10 10 Output Total 100 / 100 Balance 10 / 10 -100 / -100 Intake: IV Fluids 10 10 Ancef 1,000 MG In Water for inj . (sterile) 10 ML @ 200 mls/hr IVP Q24H [facility] Rx#:[id number] Output: Catheter 100 / 100 - General Appearance General appearance: Present: well-developed, well-nourished EENT: Present: ATNC Neck: Present: supple Cardiology: Present: regular rate Dialysis Vascular Access: Arteriovenous Fistula Integumentary: Present: warm and dry Musculoskeletal: Present: no cyanosis Psychiatric: Present: mood/affect appropriate - Lab 02/16/18 06:52 02/16/18 06:52 Most recent lab results Calcium 9.2 mg/dL (8.6-10.3) 02/16/18 06:52 Phosphorus 2.7 mg/dL (2.7-4.5) 02/14/18 04:33 Magnesium 2.2 mg/dL (1.6-2.6) 02/12/18 06:19 Consult Discharge Plan - Plan Referrals: Navid Frias [Primary Care Provider] - (Patient is going to [facility])
[2018-02-16] MEDS: amLODIPine 5 MG TABLET PO SCH (09:30)
--- NOTE | 2018-02-16 09:59 | Internal Med Progress Note ---
Hospitalist Progress Note - Encounter Date of Encounter: 02/16/18 Time of Encounter: 08:20 - Subjective Interval History: Patient remains confused on where she is but otherwise appears comfortable. States that she has no complaints today. Remains afebrile with normal white blood cell count. - Exam Vitals: Temp Pulse Resp BP Pulse Ox 99.1 F 74 16 142/63 96 02/16/18 07:35 02/16/18 07:35 02/16/18 07:35 02/16/18 07:35 02/16/18 07:35 Exam: General: Alert, confused, not in acute distress. Neck: R neck dressing dry and clean Chest: R chest dressing dry and clean Cardiovascular:Normal S1 & S2, No JVD. Pulse regular. Lungs: clear to auscultation, no wheezes/rales Abdomen:Soft, non-tender, no rigidity. : No CVA tenderness - Assessment and Plan (1) Sepsis Current Visit: Yes Status: Acute Assessment and Plan: As evidenced by fever, leukocytosis and positive UA initially attributed to complicated UTI given her indwelling nephroureteral stent. CT findings of bilateral urothelial enhancement, mild left renal pelviectasis and moderate inflammatory stranding about the left renal collecting system are noted previous urine culture grews Escherichia coli, enterococcus, Morganella, and VRE blood culture 02/11 MSSA repeat culture from HD catheter 02/12 NGTD blood cultures repeated on 02/14, NGT, wound culture from R neck where her CVC was inserted grew MSSA follow with wound care HD catheter removed after HD 02/14 currently on cefazolin with normalization of WBC, continue. Appreciate ID input TTE -ve, will proceed with KARRIE on tomorrow. NPO after midnight Pulm input appreciated: Lung nodules appear chronic and will need to be followed up as outpatient in 8 weeks. Low concern for septic emboli Urology input appreciated: Likely for outpatient cystoscopy and ureteral stent removal (2) End-stage renal disease Current Visit: Yes Status: Chronic Assessment and Plan: HD MWF follow with nephrology HD catheter removed as above, will attempt to use RUE fistula tomorrow (3) Essential hypertension Current Visit: Yes Status: Chronic Assessment and Plan: restart Norvasc today. May need to resume losartan as well if BP is elevated (4) Anemia Current Visit: Yes Status: Chronic Assessment and Plan: Stable. Chronic and secondary to CKD. No signs of overt bleeding. (5) CVA (cerebral vascular accident) Current Visit: Yes Status: Chronic Assessment and Plan: Stable condition. Continue antiplatelet and statin therapy. (6) DVT prophylaxis Current Visit: No Status: Acute Assessment and Plan: Sub-cutaneous heparin - Time Spent with Patient Total time spent is greater than 50% in coordination of care (as documented) at patient's floor/unit and/or counseling patient: Plan of Care Discussed with: nurse Internal Medicine: Result - Labs CBC & Chem 7: 02/16/18 06:52 02/16/18 06:52 Labs: Short CBC 02/16/18 Range/Units 06:52 WBC 10.6 (4.3-11.1) K/mcL Hgb 10.8 L (11.5-15.4) g/dL Hct 33.5 L (35.3-44.9) % Plt Count 184 (140-400) K/mcL Neutrophils # 7.2 (1.6-8.9) K/mcL BMP 02/16/18 06:52 Sodium 138 Potassium 4.1 Chloride 102 Carbon Dioxide 27 BUN 41 H Creatinine 5.09 H Glucose 98 Calcium 9.2 - ABG Interpretation ABG results: PT/INR, D-dimer PT 12.0 Seconds (9.4-12.1) 02/11/18 18:58 Consult Discharge Plan - Plan Referrals: Navid Frias [Primary Care Provider] - (Patient is going to [facility]) (1) Sepsis Qualifiers: Sepsis type: methicillin susceptible Staphylococcus aureus Qualified Code(s): A41.01 - Sepsis due to Methicillin susceptible Staphylococcus aureus (4) Anemia Qualifiers: Anemia type: due to chronic kidney disease Chronic kidney disease stage: on chronic dialysis Qualified Code(s): N18.6 - End stage renal disease; D63.1 - Anemia in chronic kidney disease; Z99.2 - Dependence on renal dialysis (5) CVA (cerebral vascular accident) Qualifiers: CVA mechanism: unspecified Qualified Code(s): I63.9 - Cerebral infarction, unspecified
[2018-02-16] MEDS: ceFAZolin 1,000 MG in Water for inj. (sterile) 20 ML 10 ML IVP SCH (17:29)
[2018-02-17 04:47] LABS: Basophils # 0.1 K/mcL (0.0-0.2); Basophils % 0.6 %; Eosinophils # 0.2 K/mcL (0.0-0.6); Eosinophils % 1.5 %; Hematocrit 32.3 % (35.3-44.9); Hemoglobin 10.3 g/dL (11.5-15.4); Immature Granulocytes % 2.4 % (0-4); Lymphocytes # 2.2 K/mcL (0.6-4.6); Lymphocytes % 17.3 %; Mean Corpuscular HGB Conc 31.9 g/dL (31.6-35.5); Mean Corpuscular Hemoglobin 30.9 pg (28.0-33.3); Mean Platelet Volume 9.4 fL (9.4-12.4); Monocytes # 1.1 K/mcL (0.0-1.3); Monocytes % 8.7 %; Neutrophils # 8.7 K/mcL (1.6-8.9); Platelet Count 199 K/mcL (140-400); Red Blood Count 3.33 M/mcL (3.82-4.97); Segmented Neutrophils % 69.5 %
[2018-02-17 05:04] LABS: Calcium 9.3 mg/dL (8.6-10.3); Phosphorous 2.5 mg/dL (2.7-4.5); Potassium 4.2 mEq/L (3.5-5.1)
[2018-02-17] MEDS: *HR* Heparin 5,000 UNIT/ML VIAL SQ SCH ×2 (05:52→17:15)
[2018-02-17] MEDS ORDERED: 0.9 % Sodium Chloride 2,000 ML ONE (07:41)
[2018-02-17] MEDS ORDERED: 0.9 % Sodium Chloride 250 ML IVC PRN (08:13)
[2018-02-17] MEDS ORDERED: *HR* Heparin 10,000 UNIT/10 ML VIAL IV PRN (08:13)
[2018-02-17] MEDS ORDERED: 0.9 % Sodium Chloride 1,000 ML PRIME SCH (08:15)
--- NOTE | 2018-02-17 11:35 | Internal Med Progress Note ---
Hospitalist Progress Note - Encounter Date of Encounter: 02/17/18 Time of Encounter: 08:40 - Subjective Interval History: Patient remains confused on where she is but otherwise appears comfortable. No focal complaints although she had temp of 99.7 at 8pm associated with slightly elevated WBC. - Exam Vitals: Temp Pulse Resp BP Pulse Ox 98.9 F 90 16 147/64 90 02/17/18 07:52 02/17/18 07:52 02/17/18 07:52 02/17/18 07:52 02/17/18 09:10 Exam: General: Alert, confused, not in acute distress. Neck: R neck dressing dry and clean Chest: R chest dressing dry and clean Cardiovascular:Normal S1 & S2, No JVD. Pulse regular. Lungs: clear to auscultation, no wheezes/rales Abdomen:Soft, non-tender, no rigidity. : No CVA tenderness - Assessment and Plan (1) Sepsis Current Visit: Yes Status: Acute Assessment and Plan: As evidenced by fever, leukocytosis initially attributed to complicated UTI given her indwelling nephroureteral stent and positive UA. CT findings of bilateral urothelial enhancement, mild left renal pelviectasis and moderate inflammatory stranding about the left renal collecting system are noted previous urine culture grews Escherichia coli, enterococcus, Morganella, and VRE however, blood culture 02/11 came back MSSA with wound culture from R neck where her CVC was inserted growing the same repeat culture from HD catheter 02/12 NGTD blood cultures repeated on 02/14, NGTD HD catheter removed after HD 02/14 currently on cefazolin with clinical improvement but she had low grade temp overnight with slightly increased WBC. will defer addition of abx to ID, appreciate input TTE -ve, was planned for KARRIE but cancelled. NPO after midnight for KARRIE tomorrow will need to determine the duration and IV access after KARRIE Pulm input appreciated: Lung nodules appear chronic and will need to be followed up as outpatient in 8 weeks. Low concern for septic emboli Urology input appreciated: Likely for outpatient cystoscopy and ureteral stent removal (2) End-stage renal disease Current Visit: Yes Status: Chronic Assessment and Plan: HD MWF HD catheter removed as above, will attempt to use RUE fistula today. follow with nephrology (3) Essential hypertension Current Visit: Yes Status: Chronic Assessment and Plan: both Norvasc and losartan resumed (4) Anemia Current Visit: Yes Status: Chronic Assessment and Plan: Stable. Chronic and secondary to CKD. No signs of overt bleeding. (5) CVA (cerebral vascular accident) Current Visit: Yes Status: Chronic Assessment and Plan: Stable condition. Continue antiplatelet and statin therapy. (6) DVT prophylaxis Current Visit: No Status: Acute Assessment and Plan: Sub-cutaneous heparin - Time Spent with Patient Total time spent is greater than 50% in coordination of care (as documented) at patient's floor/unit and/or counseling patient: Plan of Care Discussed with: nurse Internal Medicine: Result - Labs CBC & Chem 7: 02/17/18 04:30 02/17/18 04:30 Labs: Short CBC 02/17/18 Range/Units 04:30 WBC 12.5 H (4.3-11.1) K/mcL Hgb 10.3 L (11.5-15.4) g/dL Hct 32.3 L (35.3-44.9) % Plt Count 199 (140-400) K/mcL Neutrophils # 8.7 (1.6-8.9) K/mcL BMP 02/17/18 04:30 Sodium 139 Potassium 4.2 Chloride 102 Carbon Dioxide 27 BUN 54 H Creatinine 6.08 H Glucose 108 H Calcium 9.3 - ABG Interpretation ABG results: PT/INR, D-dimer PT 12.0 Seconds (9.4-12.1) 02/11/18 18:58 Consult Discharge Plan - Plan Referrals: Navid Frias [Primary Care Provider] - (Patient is going to [facility]) ___ (1) Sepsis Qualifiers: Sepsis type: methicillin susceptible Staphylococcus aureus Qualified Code(s): A41.01 - Sepsis due to Methicillin susceptible Staphylococcus aureus (4) Anemia Qualifiers: Anemia type: due to chronic kidney disease Chronic kidney disease stage: on chronic dialysis Qualified Code(s): N18.6 - End stage renal disease; D63.1 - Anemia in chronic kidney disease; Z99.2 - Dependence on renal dialysis (5) CVA (cerebral vascular accident) Qualifiers: CVA mechanism: unspecified Qualified Code(s): I63.9 - Cerebral infarction, unspecified
--- NOTE | 2018-02-17 12:41 | Infectious Disease Progress No ---
Date of Encounter: 02/17/18 Time of Encounter: 12:39 - Assessment and Plan (1) Sepsis Current Visit: Yes Status: Acute The patient had three SIRS criteria on admission. Likely secondary to bacteremia and possible UTI. WBc worse this morning, but she has been afebrile. Tachycardia has improved. Blood cultures drawn peripherally 02/11/18 are positive 2/2 sets for GPC, MSSA per PCR. Recommendations: - Exchange hoffman catheter and repeat urine culture. - Await final ID and sensitivities on blood cultures. - Await urine culture results. - Based on the clinical picture, I believe that the sepsis is due to the bacteremia with MSSA likely source HD catheter but we are not sure. I will DC the Zyvox and cefepime and start the patient on cefazolin and see how she does clinically. - Repeat blood cultures 2 to make sure they bacteremia has resolved - If patient starts having sepsis like picture and then then we will reconsider treating the asymptomatic bacteriuria/UTI - We will need to TTE and KARRIE prior to discharge Qualifiers: Sepsis type: methicillin susceptible Staphylococcus aureus Qualified Code(s): A41.01 - Sepsis due to Methicillin susceptible Staphylococcus aureus (2) Bacteremia Current Visit: Yes Status: Acute Causative organism: MSSA per PCR. Source: Unclear. Urine vs. HD catheter vs. other. Blood cultures drawn 02/11/18 are positive 2/2 sets for MSSA per PCR. Clinically, the patient's HD catheter does not appear infected, but we do not have another source. I do not appreciate any other skin or soft tissue infections. It is possible that the urine is the source, but not likely. The patient has one major and one minor Modified Erwin's criteria. No endocarditis stigmata noted on exam. (3) UTI (urinary tract infection) Current Visit: No Status: Acute I believe this time and set asymptomatic bacteriuria I believe that the sepsis is due to the bacteremia with MSSA Will not treat the UTI/asymptomatic bacteriuria at this time unless clinically the patient changes or show signs of worsening sepsis/infection Continue to put the patient in contact isolation second or 2 previous VRE Qualifiers: Urinary tract infection type: site unspecified Hematuria presence: without hematuria Qualified Code(s): N39.0 - Urinary tract infection, site not specified (4) Lung nodule Current Visit: No Status: Chronic (5) Dementia Current Visit: No Status: Chronic Qualifiers: Dementia type: Alzheimer's disease Alzheimer's disease onset: unspecified onset Dementia behavioral disturbance: without behavioral disturbance Qualif ied Code(s): G30.9 - Alzheimer's disease, unspecified; F02.80 - Dementia in other diseases classified elsewhere without behavioral disturbance (6) ESRD (end stage renal disease) on dialysis Current Visit: Yes Status: Chronic - Subjective Interval history: Patient seen and examined. Appears comfortable. More awake more alert. No chest pain or shortness of breath. No nausea or vomiting. Good appetite. No urinary symptoms. Patient afebrile; MAXIMUM TEMPERATURE 99.7. Tachycardic heart rate 111 Labs: WBC 12.5 Blood cultures 2 out of 2 sets MSSA repeat culture February 12 no growth Urine culture Escherichia coli and klebsiella oxytoca susceptible to cephalosporins Infect Dis PN-Objective Data - Labs CBC & Chem 7: 02/18/18 03:30 02/18/18 03:30 Labs: Laboratory Results - last 24 hr 02/17/18 02/17/18 04:30 04:30 WBC 12.5 H RBC 3.33 L Hgb 10.3 L Hct 32.3 L MCV 97.0 MCH 30.9 MCHC 31.9 RDW 14.0 Plt Count 199 MPV 9.4 Immature Gran % 2.4 Seg Neutrophils % 69.5 Lymphocytes % 17.3 Monocytes % 8.7 Eosinophils % 1.5 Basophils % 0.6 Neutrophils # 8.7 Lymphocytes # 2.2 Monocytes # 1.1 Eosinophils # 0.2 Basophils # 0.1 Sodium 139 Potassium 4.2 Chloride 102 Carbon Dioxide 27 BUN 54 H Creatinine 6.08 H Est GFR ( Amer) 8 L Est GFR (Non-Af Amer) 7 L BUN/Creatinine Ratio 9 Glucose 108 H Calculated Osmolality 303 H Calcium 9.3 Phosphorus 2.5 L Cultures: Cultures 02/14/18 04:10 Wound Culture - Final Neck Staphylococcus aureus 02/12/18 14:15 Blood Culture - Final Central Venous Catheter Staphylococcus aureus 02/14/18 16:23 Blood Culture - Preliminary Peripheral Venipuncture Culture is incubating and being continuously monitored for growth. Final report to follow. 02/14/18 16:28 Blood Culture - Preliminary Peripheral Venipuncture Culture is incubating and being continuously monitored for growth. Final report to follow. 02/13/18 15:03 Urine Culture - Final Urine,[place] No significant growth. 02/11/18 18:58 Blood Culture - Final Peripheral Venipuncture Staphylococcus aureus 02/11/18 20:12 Blood Culture - Final Peripheral Venipuncture Staphylococcus aureus 02/11/18 20:06 Urine Culture - Final Urine,Clean Catch Escherichia coli Klebsiella oxytoca Serology 02/13/18 02/12/18 02/11/18 Range/Units 15:03 12:39 20:06 Urine Color Dark Yellow Yellow (Yellow) Urine Clarity Turbid A Turbid A (Clear) Urine pH 8.0 7.5 (5.0-8.0) pH Units Ur Specific [place] 1.010 1.016 (1.010-1.025) Urine Protein >=300 H >=300 H (Neg-Trace) mg/dL Urine Glucose (UA) Normal Normal (Normal) mg/dL Urine Ketones Negative Negative (Negative) mg/dL Urine Blood Large H Moderate H (Negative) Urine Nitrite Negative Negative (Negative) Urine Bilirubin Small H Negative (Negative) Urine Urobilinogen Normal Normal (Normal) mg/dL Ur Leukocyte Esterase Large H Large H (Negative) Urine Microscopic RBC TNTC H 5-15 H (0-3) per hpf Urine Microscopic WBC TNTC H TNTC H (0-3) per hpf Ur Squamous Epith Cells Moderate H (None-Few) per lpf Urine Bacteria None Seen Many H (None-Few) per hpf Hyaline Casts Few (None-Few) per lpf Ur Culture Indicated? YES A YES A (NO) A. baumannii (PCR) (Not Detect) Adri albicans (PCR) (Not Detect) C. glabrata (PCR) (Not Detect) C. krusei (PCR) (Not Detect) C. parapsilosis (PCR) (Not Detect) C. tropicalis (PCR) (Not Detect) Enterobacteriac sp PCR (Not Detect) E. cloacae complex PCR (Not Detect) Enterococcus sp PCR (Not Detect) E. coli (PCR) (Not Detect) H. influenzae (PCR) (Not Detect) Hep Bs Antigen Nonreactive (Nonreactive) Hep Bs Antibody 21.71 mIU/mL Klebsiella oxytoca PCR (Not Detect) Klebsiella pneumoniae (Not Detect) List. monocytogenes PCR (Not Detect) N. meningitidis (PCR) (Not Detect) Proteus species (PCR) (Not Detect) Serratia marcescens PCR (Not Detect) Staphylococcus sp PCR (Not Detect) Staph aureus (PCR) (Not Detect) mecA-Methicil Res Gene (Not Detect) Streptococcus sp PCR (Not Detect) Group A Strep DNA (Not Detect) Group B Strep (PCR) (Not Detect) Strep pneumoniae (PCR) (Not Detect) P. aeruginosa (PCR) (Not Detect) Dyan/B-Vanco Res Genes (Not Detect) KPC (blaKPC) Detect PCR (Not Detect) 02/11/18 Range/Units 18:58 Urine Color (Yellow) Urine Clarity (Clear) Urine pH (5.0-8.0) pH Units Ur Specific [place] (1.010-1.025) Urine Protein (Neg-Trace) mg/dL Urine Glucose (UA) (Normal) mg/dL Urine Ketones (Negative) mg/dL Urine Blood (Negative) Urine Nitrite (Negative) Urine Bilirubin (Negative) Urine Urobilinogen (Normal) mg/dL Ur Leukocyte Esterase (Negative) Urine Microscopic RBC (0-3) per hpf Urine Microscopic WBC (0-3) per hpf Ur Squamous Epith Cells (None-Few) per lpf Urine Bacteria (None-Few) per hpf Hyaline Casts (None-Few) per lpf Ur Culture Indicated? (NO) A. baumannii (PCR) Not Detected (Not Detect) Adri albicans (PCR) Not Detected (Not Detect) C. glabrata (PCR) Not Detected (Not Detect) C. krusei (PCR) Not Detected (Not Detect) C. parapsilosis (PCR) Not Detected (Not Detect) C. tropicalis (PCR) Not Detected (Not Detect) Enterobacteriac sp PCR Not Detected (Not Detect) E. cloacae complex PCR Not Detected (Not Detect) Enterococcus sp PCR Not Detected (Not Detect) E. coli (PCR) Not Detected (Not Detect) H. influenzae (PCR) Not Detected (Not Detect) Hep Bs Antigen (Nonreactive) Hep Bs Antibody mIU/mL Klebsiella oxytoca PCR Not Detected (Not Detect) Klebsiella pneumoniae Not Detected (Not Detect) List. monocytogenes PCR Not Detected (Not Detect) N. meningitidis (PCR) Not Detected (Not Detect) Proteus species (PCR) Not Detected (Not Detect) Serratia marcescens PCR Not Detected (Not Detect) Staphylococcus sp PCR DETECTED A (Not Detect) Staph aureus (PCR) DETECTED A (Not Detect) mecA-Methicil Res Gene Not Detected (Not Detect) Streptococcus sp PCR Not Detected (Not Detect) Group A Strep DNA Not Detected (Not Detect) Group B Strep (PCR) Not Detected (Not Detect) Strep pneumoniae (PCR) Not Detected (Not Detect) P. aeruginosa (PCR) Not Detected (Not Detect) Dyan/B-Vanco Res Genes Not Detected (Not Detect) KPC (blaKPC) Detect PCR Not Detected (Not Detect) Exam - Constitutional Vitals: Temp Pulse Resp BP Pulse Ox 98.9 F 111 18 161/70 95 02/17/18 11:34 02/17/18 11:34 02/17/18 11:34 02/17/18 11:34 02/17/18 11:34 General appearance: disheveled, no febrile, no cooperative - Respiratory Additional comments: Air sounds audible both lung mendez. Diffuse rhonchi at the bases. Poor inspiratory effort. - Cardiovascular Cardiovascular exam: Present: irregular rhythm, +S1, +S2 - GI/Abdominal GI/Abdominal exam: Present: normal bowel sounds, soft. Absent: tenderness - Extremities Exam Extremities exam: Present: full ROM, normal inspection Consult Discharge Plan - Plan Referrals: Navid Frias [Primary Care Provider] - (Patient is going to [facility])
[2018-02-17] MEDS: Aspirin 325 MG TABLET PO SCH (12:52)
[2018-02-17] MEDS: Lactobacillus 1 EACH CAP.SPRINK PO SCH (12:53)
[2018-02-17] MEDS: Folic Acid 1 MG TABLET PO SCH (12:53)
[2018-02-17] MEDS: Sennosides/Docusate Sodium TABLET PO SCH ×2 (12:53→20:26)
[2018-02-17] MEDS: amLODIPine 5 MG TABLET PO SCH (12:53)
[2018-02-17] MEDS: Acetaminophen 325 MG TABLET PO PRN (12:53)
--- NOTE | 2018-02-17 14:27 | Nephrology Progress Note ---
<Rubio Ruiz - Last Filed: 02/17/18 15:16> Date of Encounter: 02/17/18 Time of Encounter: 13:05 - Assessment and Plan (1) ESRD (end stage renal disease) on dialysis Current Visit: Yes Status: Chronic - Hemodialysis normally scheduled Saturday - Electrolytes and kidney function at baseline - Renal vitamins - Renal diet - HD catheter removed on 02/14/18 due to bacteremia. -Attempted dialysis this morning with fistula. Did not complete session as the IV was pulled out. Plan - Does have sepsis with MSSA bacteremia, infectious disease is following -Possible source of bacteremia does include the dialysis line - We will assess labs tomorrow morning to reassess for possible need for further dialysis - If unable to use fistula, will need HD catheter replacement -- Consider palliative evaluation if unable to tolerate fistula use and recurrent CLABSI (2) Sepsis secondary to UTI Current Visit: Yes Status: Acute - Secondary to UTI versus more likely secondary to hemodialysis catheter. - HD catheter removed on 02/14/18 - Blood cultures positive for MSSA. Repeat blood cultures negative so far - Right neck culture and CBC culture growing Staphylococcus aureus - We will need KARRIE prior to discharge - Infectious disease is following (3) Anemia Current Visit: Yes Status: Chronic - Stable at baseline at 10.3/32.3 - Transfuse as needed Qualifiers: Anemia type: due to chronic kidney disease Chronic kidney disease stage: on chronic dialysis Qualified Code(s): N18.6 - End stage renal disease; D63.1 - Anemia in chronic kidney disease; Z99.2 - Dependence on renal dialysis (4) Essential hypertension Current Visit: Yes Status: Chronic Titrate antihypertensives as necessary Subjective Principal diagnosis: ESRD Interval history: Patient was seen and examined at bedside this morning. She is notably not oriented and asks repeating questions. She is not a reliable historian at this time. She does deny any symptoms of fevers, chills, pain. She is unable to tell me how she tolerated her breakfast was sitting beside her. No family present at bedside. She reportedly attempted to use her fistula for dialysis today and tolerated this for about an hour before she moved her arm and the IV was pulled out. Objective - Vital Signs Vital signs: Vital Signs Temp Pulse Resp BP Pulse Ox 02/17/18 11:34 98.9 F 111 18 161/70 95 02/17/18 11:25 98.7 F 17 167/70 02/17/18 11:00 146/89 02/17/18 10:45 154/76 02/17/18 10:30 146/68 02/17/18 10:15 181/66 02/17/18 10:00 98.7 F 17 170/73 02/17/18 09:10 90 02/17/18 07:52 98.9 F 90 16 147/64 90 02/17/18 04:17 99.0 F 78 20 141/70 93 02/16/18 23:59 98.9 F 88 17 139/66 94 02/16/18 19:46 99.7 F H 92 17 166/70 92 02/16/18 16:14 99.5 F 83 16 146/65 92 Intake and Output 02/16/18 02/17/18 02/17/18 23:59 07:59 15:59 Intake Total 120 / 120 10 10 600 / 600 Output Total 1050 / 1050 100 / 100 1036 / 1036 Balance -930 / -930 -90 / -90 -436 / -436 Intake: IV Fluids Ancef 1,000 MG In Water for inj . (sterile) 10 ML @ 200 mls/hr IVP Q24H [facility] Rx#:[id number] Oral 120 / 120 0 / 0 Intake, Rinseback and Flushes 600 / 600 Output: Urine 0 / 0 Total Dialysis (HD) Output 1036 / 1036 Catheter 1050 / 1050 100 / 100 Urethral (Sandra) 200 / 200 Other: Meal Dinner Percent of Meal Consumed 10% Stool Size Small Stool Consistency soft Stool Color Brown # Bowel Movements 1 # Bowel Movement Diapers 1 Weight 56.9 kg Hemodialysis Net Fluid Removed 1036 (mL) - General Appearance Exam: Gen.: Vitals noted. No acute distress. AOx1, resting comfortably in bed. Thin HEENT: PERRL/EOMI, oropharynx clear, Normocephalic, atraumatic, MMM Cardiac: RRR, systolic murmur present, +S1/S2 Pulmonary: CTA bilaterally, no wheezes, rales or rhonchi, equal chest expansion Abdomen: soft, nontender, BS noted, no guarding, no rebound. MSK: ROM assessed, no joint swelling noted Extremities: no BLE edema, nontender calf, no cyanosis or clubbing. Right arm fistula wit palpable thrill and bruit Neuro: A&Ox1, moves all extremities, no focal deficits Psych: Appropriate mood and behavior, pleasant - Lab 02/17/18 04:30 02/17/18 04:30 Most recent lab results Calcium 9.3 mg/dL (8.6-10.3) 02/17/18 04:30 Phosphorus 2.5 mg/dL (2.7-4.5) L 02/17/18 04:30 Magnesium 2.2 mg/dL (1.6-2.6) 02/12/18 06:19 Consult Discharge Plan - Plan Referrals: Navid Frias [Primary Care Provider] - (Patient is going to [facility]) <Philipp Del Rosario - Last Filed: 02/17/18 20:15> Date of Encounter: 02/17/18 - Assessment and Plan (1) Anemia Current Visit: Yes Status: Chronic (2) Essential hypertension Current Visit: Yes Status: Chronic (3) ESRD (end stage renal disease) on dialysis Current Visit: Yes Status: Chronic (4) Sepsis secondary to UTI Current Visit: Yes Status: Acute Objective - Vital Signs Vital signs: Vital Signs Temp Pulse Resp BP Pulse Ox 02/17/18 19:11 98.5 F 80 16 151/69 95 02/17/18 15:47 99.2 F 88 18 129/64 95 02/17/18 11:34 98.9 F 111 18 161/70 95 02/17/18 11:25 98.7 F 17 167/70 02/17/18 11:00 146/89 02/17/18 10:45 154/76 02/17/18 10:30 146/68 02/17/18 10:15 181/66 02/17/18 10:00 98.7 F 17 170/73 02/17/18 09:10 90 02/17/18 07:52 98.9 F 90 16 147/64 90 02/17/18 04:17 99.0 F 78 20 141/70 93 02/16/18 23:59 98.9 F 88 17 139/66 94 Intake and Output 02/17/18 02/17/18 02/17/18 07:59 15:59 23:59 Intake Total 600 / 600 110 / 110 Output Total 100 / 100 1036 / 1036 150 / 150 Balance -90 / -90 -436 / -436 -40 / -40 Intake: IV Fluids Ancef 1,000 MG In Water for inj . (sterile) 10 ML @ 200 mls/hr IVP Q24H [facility] Rx#:[id number] Oral 0 / 0 100 / 100 Intake, Rinseback and Flushes 600 / 600 Output: Urine 0 / 0 Total Dialysis (HD) Output 1036 / 1036 Catheter 100 / 100 150 / 150 Other: Stool Size Small Small Stool Consistency soft soft Stool Color Brown Brown # Bowel Movements 1 # Bowel Movement Diapers 1 Hemodialysis Net Fluid Removed 1036 (mL) - Lab 02/17/18 04:30 02/17/18 04:30 Most recent lab results Calcium 9.3 mg/dL (8.6-10.3) 02/17/18 04:30 Phosphorus 2.5 mg/dL (2.7-4.5) L 02/17/18 04:30 Magnesium 2.2 mg/dL (1.6-2.6) 02/12/18 06:19 - Attending Attestation I examined this patient and my medical decision-making was reviewed with the Resident Physician. I agree with the documented findings, disposition and treatment plan as described except to the extent set forth below. Pt seen and examined HD stopped early as AVF infiltrated from exceesive hand movements dislodging the needles. This is the second infiltration in the last 2 HD sessions for the same reason. Pt very plesant but gets disoriented, no LE edema. Labs reviewed. Agree with HD termination due to AVf infiltration. Continued HD problematic if pt unable to keep arm still enough to complete HD. Will apply ice pack to AVF but will need to discuss goals of care with family before next HD session.
[2018-02-17] MEDS: ceFAZolin 1,000 MG in Water for inj. (sterile) 20 ML 10 ML IVP SCH (17:15)
[2018-02-17] MEDS: MICONAZOLE NITRATE 57 GM TUBE TP SCH (20:26)
[2018-02-18 04:00] LABS: Basophils # 0.1 K/mcL (0.0-0.2); Basophils % 0.4 %; Eosinophils # 0.2 K/mcL (0.0-0.6); Eosinophils % 1.3 %; Hematocrit 30.9 % (35.3-44.9); Hemoglobin 9.9 g/dL (11.5-15.4); Immature Granulocytes % 1.9 % (0-4); Lymphocytes # 2.7 K/mcL (0.6-4.6); Lymphocytes % 17.1 %; Mean Corpuscular Hemoglobin 31.7 pg (28.0-33.3); Mean Platelet Volume 9.6 fL (9.4-12.4); Monocytes # 1.2 K/mcL (0.0-1.3); Monocytes % 7.7 %; Neutrophils # 11.5 K/mcL (1.6-8.9); Platelet Count 240 K/mcL (140-400); Red Blood Count 3.12 M/mcL (3.82-4.97); Red Cell Distribution Width 14.2 % (11.5-14.5); Segmented Neutrophils % 71.6 %
[2018-02-18 04:12] LABS: Calcium 8.8 mg/dL (8.6-10.3); Potassium 4.3 mEq/L (3.5-5.1)
[2018-02-18] MEDS: *HR* Heparin 5,000 UNIT/ML VIAL SQ SCH ×2 (05:41→18:03)
[2018-02-18] MEDS ORDERED: *HR* FentaNYL (PF) 100 MCG/2 ML VIAL IVP PRN (09:07)
[2018-02-18] MEDS ORDERED: 0.9 % Sodium Chloride 500 ML IVC ONE (09:08)
[2018-02-18] MEDS ORDERED: Tetracaine/Benzocaine/Butamben 1 SPRAY AEROSOL MM ONE (09:09)
[2018-02-18] MEDS: *HR* Midazolam HCl 5 MG/5 ML VIAL IVP PRN ×2 (09:45→09:50)
[2018-02-18] MEDS: amLODIPine 5 MG TABLET PO SCH (11:41)
[2018-02-18] MEDS: Folic Acid 1 MG TABLET PO SCH (11:41)
[2018-02-18] MEDS: MICONAZOLE NITRATE 57 GM TUBE TP SCH ×2 (11:41→20:53)
[2018-02-18] MEDS: Aspirin 325 MG TABLET PO SCH (11:41)
[2018-02-18] MEDS: Lactobacillus 1 EACH CAP.SPRINK PO SCH (11:41)
[2018-02-18] MEDS: Sennosides/Docusate Sodium TABLET PO SCH ×2 (11:42→20:49)
--- NOTE | 2018-02-18 12:30 | Internal Med Progress Note ---
Hospitalist Progress Note - Encounter Date of Encounter: 02/18/18 Time of Encounter: 12:28 - Subjective Interval History: Patient seen and examined this morning. No acute overnight events. Patient alert oriented 1. Patient is confused and repeats the same question. Afebrile. Does not offer any complaints. - Exam Vitals: Temp Pulse Resp BP Pulse Ox 98.7 F 80 16 116/57 98 02/18/18 10:52 02/18/18 10:52 02/18/18 10:52 02/18/18 10:52 02/18/18 10:52 Exam: General: Alert, confused, not in acute distress. CVS :Normal S1 & S2, No JVD. Pulse regular. Lungs: clear to auscultation, no wheezes/rales Abdomen:Soft, non-tender, no rigidity. : No CVA tenderness, hoffman in place Ext: Rt arm AV fistula with thrill present. - Assessment and Plan (1) Sepsis Current Visit: Yes Status: Acute (2) Anemia Current Visit: Yes Status: Chronic (3) End-stage renal disease Current Visit: Yes Status: Chronic (4) Essential hypertension Current Visit: Yes Status: Chronic (5) CVA (cerebral vascular accident) Current Visit: Yes Status: Chronic (6) DVT prophylaxis Current Visit: No Status: Acute - Summary of Assessment and Plan Summary of Assessment and Plan: Sepsis - As evidenced by fever, leukocytosis - Likely due to Bacteremia. blood culture 02/11 positive for MSSA with wound culture from R neck where her CVC was inserted growing the same - repeat culture from HD catheter 02/14 NGTD. repeat cultures collected 02/17 - HD catheter removed after HD 02/14 - Had KARRIE today. no evidence of vegetations. EF 55-60 - c/w cefazolin. WBC increased to 16 from 12. Afebrile and hemodynamically stable. Will f/u ID for duration of antibiotics given negative KARRIE. - Per pulm Lung nodules appear chronic and will need to be followed up as outpatient in 8 weeks. Low concern for septic emboli - Urology for outpatient cystoscopy and ureteral stent removal UTI - Likely with asymptomatic bacteuria. End-stage renal disease - HD MWF - Patient moving arm yesterday which prevented getting her full HD. Had 2 hr of dialysis. HD catheter removed as above - To attempt to use RUE fistula tomorrow again. - nephrology following - Will consult palliative care for goals of care discussion given pt might not be able to get adequate HD via fistula. Essential hypertension - c/w Norvasc and losartan Anemia - Stable. - Chronic , likely secondary to CKD. No signs of overt bleeding. CVA - c/w home antiplatelet and statin therapy. DVT prophylaxis - c/w Sub-cutaneous heparin - Time Spent with Patient Total time spent is greater than 50% in coordination of care (as documented) at patient's floor/unit and/or counseling patient: Internal Medicine: Result - Labs CBC & Chem 7: 02/18/18 03:30 02/18/18 03:30 Labs: Short CBC 02/18/18 Range/Units 03:30 WBC 16.0 H (4.3-11.1) K/mcL Hgb 9.9 L (11.5-15.4) g/dL Hct 30.9 L (35.3-44.9) % Plt Count 240 (140-400) K/mcL Neutrophils # 11.5 H (1.6-8.9) K/mcL BMP 02/18/18 03:30 Sodium 142 Potassium 4.3 Chloride 104 Carbon Dioxide 25 BUN 49 H Creatinine 5.82 H Glucose 96 Calcium 8.8 - ABG Interpretation ABG results: PT/INR, D-dimer PT 12.0 Seconds (9.4-12.1) 02/11/18 18:58 Consult Discharge Plan - Plan Referrals: Navid Frias [Primary Care Provider] - (Patient is going to [facility]) (1) Sepsis Qualifiers: Sepsis type: methicillin susceptible Staphylococcus aureus Qualified Code(s): A41.01 - Sepsis due to Methicillin susceptible Staphylococcus aureus (2) Anemia Qualifiers: Anemia type: due to chronic kidney disease Chronic kidney disease stage: on chronic dialysis Qualified Code(s): N18.6 - End stage renal disease; D63.1 - Anemia in chronic kidney disease; Z99.2 - Dependence on renal dialysis (5) CVA (cerebral vascular accident) Qualifiers: CVA mechanism: unspecified Qualified Code(s): I63.9 - Cerebral infarction, unspecified
--- NOTE | 2018-02-18 13:25 | Nephrology Progress Note ---
Date of Encounter: 02/18/18 Time of Encounter: 10:52 - Assessment and Plan (1) ESRD (end stage renal disease) on dialysis Current Visit: Yes Status: Chronic - Hemodialysis normally scheduled Saturday - Electrolytes and kidney function at baseline - Renal vitamins - Renal diet - HD catheter removed on 02/14/18 due to bacteremia. -Attempted dialysis this morning with fistula. Did not complete session as the IV was pulled out. Plan - Does have sepsis with MSSA bacteremia, infectious disease is following -Possible source of bacteremia does include the dialysis line - We will assess labs tomorrow morning to reassess for possible need for further dialysis - If unable to use fistula, will need HD catheter replacement -- Consider palliative evaluation if unable to tolerate fistula use and recurrent CLABSI -- We will attempt to discuss further plans and prognosis with the family, however son was not present at bedside today. We will attempt to dialyze with her fistula tomorrow and attempt to hold her arm still. Her IV did infiltrate twice because she reportedly jerks her arm. If this is not successful, we will discuss with the son the options of placing another dialysis line vs no dialysis (2) Anemia Current Visit: Yes Status: Chronic - Stable at baseline at hemoglobin of 9.9 - Transfuse as needed Qualifiers: Anemia type: due to chronic kidney disease Chronic kidney disease stage: on chronic dialysis Qualified Code(s): N18.6 - End stage renal disease; D63.1 - Anemia in chronic kidney disease; Z99.2 - Dependence on renal dialysis (3) Essential hypertension Current Visit: Yes Status: Chronic Titrate antihypertensives as necessary (4) Sepsis secondary to UTI Current Visit: Yes Status: Resolved - Secondary to UTI versus more likely secondary to hemodialysis catheter. - HD catheter removed on 02/14/18 - Blood cultures positive for MSSA. Repeat blood cultures negative so far - Right neck culture and CBC culture growing Staphylococcus aureus - We will need KARRIE prior to discharge, scheduled for this morning - Infectious disease is following (5) Bacteremia Current Visit: Yes Status: Acute As above for sepsis Subjective Principal diagnosis: ESRD Interval history: Patient was seen and examined at bedside this morning. She is notably not oriented and asks repeating questions. She is not a reliable historian at this time. She does deny any symptoms of fevers, chills, pain. No family present at bedside. She is not able to remember the events of dialysis yesterday. Objective - Vital Signs Vital signs: Vital Signs Temp Pulse Resp BP Pulse Ox 02/18/18 10:52 98.7 F 80 16 116/57 98 02/18/18 09:26 97.4 F L 87 24 143/73 95 02/18/18 06:54 98.5 F 93 16 124/63 93 02/18/18 05:14 92 160/68 02/18/18 04:35 98.6 F 110 16 170/97 96 02/18/18 00:26 98.2 F 80 17 148/63 96 02/17/18 22:03 95 02/17/18 19:11 98.5 F 80 16 151/69 95 02/17/18 15:47 99.2 F 88 18 129/64 95 Intake and Output 02/17/18 02/18/18 02/18/18 23:59 07:59 15:59 Intake Total 110 / 110 Output Total 150 / 150 Balance -40 / -40 Intake: IV Fluids 0.9 % Sodium Chloride 500 ML @ 10 mls/hr IVC .Q24H ONE Rx#: [id number] Ancef 1,000 MG In Water for inj . (sterile) 10 ML @ 200 mls/hr IVP Q24H GINA Rx#:[id number] Oral 100 / 100 Output: Catheter 150 / 150 Other: Stool Size Small Smear Stool Consistency soft soft Stool Color Brown # Bowel Movements 1 # Bowel Movement Diapers 1 Weight 57.2 kg 57.153 kg Patient Weight 02/18/18 23:59 Weight 57.153 kg - General Appearance Exam: Gen.: Vitals noted. No acute distress. AOx1, resting comfortably in bed. Thin HEENT: PERRL/EOMI, oropharynx clear, Normocephalic, atraumatic, MMM Cardiac: RRR, systolic murmur present, +S1/S2 Pulmonary: CTA bilaterally, no wheezes, rales or rhonchi, equal chest expansion Abdomen: soft, nontender, BS noted, no guarding, no rebound. MSK: ROM assessed, no joint swelling noted Extremities: no BLE edema, nontender calf, no cyanosis or clubbing. Right arm fistula wit palpable thrill and bruit Neuro: A&Ox1, moves all extremities, no focal deficits Psych: Appropriate mood and behavior, pleasant - Lab 02/18/18 03:30 02/18/18 03:30 Most recent lab results Calcium 8.8 mg/dL (8.6-10.3) 02/18/18 03:30 Phosphorus 2.5 mg/dL (2.7-4.5) L 02/17/18 04:30 Magnesium 2.2 mg/dL (1.6-2.6) 02/12/18 06:19 Consult Discharge Plan - Plan Referrals: Navid Frias [Primary Care Provider] - (Patient is going to [facility])
--- NOTE | 2018-02-18 14:17 | Palliative - Consult Note ---
Date of Encounter: 02/18/18 Time of Encounter: 14:30 - Assessment and Plan (1) Constipation Current Visit: Yes Status: Acute Assessment and plan: Currently on Senna BID, and has Dulcolax supp ordered. She is in mild distress trying to have BM and yelling, "I can't get it out". D/W RN to administer Dulcolax suppository. Qualifiers: Constipation type: unspecified constipation type Qualified Code(s): K59.00 - Constipation, unspecified (2) Infection, dialysis vascular access Current Visit: Yes Status: Acute Assessment and plan: ID following. HD line has been removed and IV atb continue. Qualifiers: Qualified Code(s): T82.7XXA - Infection and inflammatory reaction due to other cardiac and vascular devices, implants and grafts, initial encounter (3) Problem with dialysis access Current Visit: Yes Status: Acute Assessment and plan: Will D/W son when he arrives. She has been restless and has had infiltrations with graft access during dialysis. Qualifiers: Qualified Code(s): T82.898A - Other specified complication of vascular prosthetic devices, implants and grafts, initial encounter (4) Advance care planning Current Visit: Yes Status: Acute Assessment and plan: Patient is confused and is not able to make her own medical decisions. She is feeding herself lunch throughout our conversation. Son BARBER Meyer, at bedside. Discussed current clinical state and goals of care. She is halfway at [facility] and a Medicaid bedhold. Discussed issues with vascular access for dialysis. Son desires to continue dialysis. STates that they have discussed her access issues with Dr. Barker (spelling?) from [place] at length and he had offered them a jump graft to hopefully be done within the next week. He states that she is a dialysis pickup at 530am starting at 6, and he plans on attending these with her to try and keep her still to avoid infiltration, in order to buy time prior to jumpgraft. He knows that this is probably last resort for maintaining access. D/W primary nurse Parris and Susanne [employer] - Nephrology who will notify Dr. Del Rosario. (5) ESRD (end stage renal disease) on dialysis Current Visit: Yes Status: Chronic Palliative-CN HPI - Data of Consult Consult date: 02/18/18 Requesting Physician: Annita Strong MD Primary Care Provider: Navid Frias - Consult Narrative Palliative Care/Comfort Measures: Palliative care History of present illness: Ms. Mcgraw is a 83 year old female with a history of dementia and end stage renal disease who originally presented a week ago to hospital for fever, AMS. She is unable to provide any medical history and is oriented to name only. Son is at bedside reporting information. She has been resident of [facility] and reportedly had fever over 103, and was found to have leukocytosis. She has dialysis MWF and is followed by Dr. Barker (sp?) at [place]. Over the past week, ID was consulted and recommendations were to remove dialysis line. Blood cultures drawn peripherally 02/11/18 are positive 2/2 sets for GPC, MSSA per PCR. IV atb have been deescalated to Cefazolin. KARRIE today was negative for vegetations, EF 55 - 60%. Other medical problems besides ESRD and dementia consist of: GERD and thyroid disease. She had previous graft in place, however, with pt demential, she is restless during sessions, and has had issues with infiltration. Only had treatment 1-2 hours yesterday before infiltration. With this issues and bacteremia from previous access, further treatment for end stage renal disease needs to be discussed with family. Palliative care was consulted to assist with these goals of care discussions. Upon my visit, patient is feeding herself lunch. In some distress, stating "I have to poop and cannot get it out". Son is at bedside. She denies any pain other than in rectal area from constipation. Denies n/v, dyspnea, anxiety. Can follow simple commands and tell me her name. J CC: Annita Strong MD - Time Spent with Patient Time: Total time spent is greater than 50% in coordination of care (as documented) at patient's floor/unit and/or counseling patient: Time with patient: 30 minutes Past Med Surg Social Fam HX - Past Medical History Medical history: dementia, dialysis, GERD, renal disease, thyroid disease Additional medical history: anemia Psychiatric history: anxiety - Past Surgical History Surgical History: non-contributory Additional surgical history: unknown surgical hx, right side arm fistula - Social History Smoking Status: Never smoker Smokeless Tobacco Status: No Alcohol use: none Drug use: none Medications and Allergies Bisacodyl [Dulcolax] 10 mg RC DAILY PRN 07/19/17 [History] Folic Acid 1 mg PO DAILY 07/19/17 [History] Magnesium Hydroxide [Milk of Magnesia] 2,400 mg PO DAILY PRN 07/19/17 [History] Polyethylene Glycol 3350 [MiraLAX Powder Bulk 17.9 Oz] 1 scoop PO DAILY PRN 07/19/17 [History] Sennosides/Docusate Sodium [Colace 2-in-1 Tablet] 1 tab PO BID 07/19/17 [H istory] Aspirin Enteric Coated [Aspirin EC] 325 mg PO DAILY #30 tablet. 08/15/17 [Rx] Atorvastatin [Lipitor] 40 mg PO HS #30 tablet 08/15/17 [Rx] Acetaminophen [Non-Aspirin] 650 mg PO Q4H PRN 02/11/18 [History] Lactobacillus Acidophilus [Acidophilus Lactobacilli] 1 cap PO DAILY 02/11/18 [History] Levothyroxine Sodium [Synthroid] 137 mcg PO DAILY 02/11/18 [History] Losartan [Cozaar] 25 mg PO DAILY 02/11/18 [History] Ondansetron ODT [Zofran ODT] 4 mg PO Q8H PRN 02/11/18 [History] Sevelamer Carbonate [Renvela] 1.6 gm PO TID 02/11/18 [History] amLODIPine [Norvasc] 5 mg PO DAILY 02/11/18 [History] Allergy/AdvReac Type Severity Reaction Status Date / Time darifenacin Allergy Unknown See Verified 08/03/17 00:29 Comments ciprofloxacin AdvReac Nausea Verified 08/03/17 00:29 Sulfa (Sulfonamide AdvReac Nausea Verified 08/03/17 00:29 Antibiotics) ROS unobtainable: due to mental status Palliative Care-Exam - Constitutional Vitals: Temp Pulse Resp BP Pulse Ox 98.7 F 80 16 116/57 98 02/18/18 10:52 02/18/18 10:52 02/18/18 10:52 02/18/18 10:52 02/18/18 10:52 General appearance: Present: mild distress - Head Head Exam: Present: normocephalic - Respiratory Respiratory exam: Present: decreased breath sounds, CTAB - Cardiovascular Cardiovascular exam: Present: +S1, +S2 - GI/Abdominal Exam GI/Abdominal exam: Present: normal bowel sounds, soft - Extremities Exam Extremities exam: Present: normal capillary refill, normal inspection - Neurological Exam Neurological exam: Present: alert Additional comments: pleasantly confused. Able to follow simple commands - Psychiatric Psychiatric exam: Present: anxious - Skin Skin exam: Present: dry, pallor, warm Internal Medicine - CN: Reslt - Labs CBC & Chem 7: 02/18/18 03:30 02/18/18 03:30 Labs: Short CBC 02/18/18 Range/Units 03:30 WBC 16.0 H (4.3-11.1) K/mcL Hgb 9.9 L (11.5-15.4) g/dL Hct 30.9 L (35.3-44.9) % Plt Count 240 (140-400) K/mcL Neutrophils # 11.5 H (1.6-8.9) K/mcL BMP 02/18/18 03:30 Sodium 142 Potassium 4.3 Chloride 104 Carbon Dioxide 25 BUN 49 H Creatinine 5.82 H Glucose 96 Calcium 8.8 - ABG Interpretation ABG results: PT/INR, D-dimer PT 12.0 Seconds (9.4-12.1) 02/11/18 18:58 Consult Discharge Plan - Plan Referrals: Navid Frias [Primary Care Provider] - (Patient is going to [facility]) Palliative Quality Palliative Quality: Screen for Code Status: Yes, Screen for Goals of Care: Yes, Screen for Pain: Yes, If Pain Regimen Started, Initiate Bowel Regimen: Yes, Screen for Nausea/Vomitting: Yes Code Status: 02/12/18 05:14 DNR [Resuscitation Status: Active] [RES] Routine Comment: Resuscitation Status: DNR-Comfort Care-Arrest Palliative Scale - Palliative Performance Scale How ambulatory is this patient?: Mainly sit / lie What is patient's level of activity and evidence of disease?: Unable to do any work, Extensive disease How much self-care assistance does patient require?: Considerable assistance required How much oral intake does the patient have?: Normal or reduced What is this patient's level of consciousness?: Full or confusion Palliative Performance Score: 50 %
--- NOTE | 2018-02-18 16:52 | Infectious Disease Progress No ---
Date of Encounter: 02/18/18 Time of Encounter: 16:50 - Assessment and Plan (1) Sepsis Current Visit: Yes Status: Acute The patient had three SIRS criteria on admission. Likely secondary to bacteremia and possible UTI. WBc worse this morning, but she has been afebrile. Tachycardia has improved. Blood cultures drawn peripherally 02/11/18 are positive 2/2 sets for GPC, MSSA per PCR. Recommendations: - Continue cefazolin 1 g every 24 hours through 03/01/2018 Not sure whether patient is to have worsening leukocytosis consider repeating chest x-ray and abdominal x-ray Check LFTs, lipase and amylase If WBC continues to worsen repeat blood cultures 2 tomorrow Qualifiers: Sepsis type: methicillin susceptible Staphylococcus aureus Qualified Code(s): A41.01 - Sepsis due to Methicillin susceptible Staphylococcus aureus (2) Bacteremia Current Visit: Yes Status: Acute Causative organism: MSSA per PCR. Source: Unclear. Urine vs. HD catheter vs. other. Blood cultures drawn 02/11/18 are positive 2/2 sets for MSSA per PCR. Clinically, the patient's HD catheter does not appear infected, but we do not have another source. I do not appreciate any other skin or soft tissue infections. It is possible that the urine is the source, but not likely. The patient has one major and one minor Modified Erwin's criteria. No endocarditis stigmata noted on exam. (3) UTI (urinary tract infection) Current Visit: No Status: Acute I believe this time and set asymptomatic bacteriuria I believe that the sepsis is due to the bacteremia with MSSA Will not treat the UTI/asymptomatic bacteriuria at this time unless clinically the patient changes or show signs of worsening sepsis/infection Continue to put the patient in contact isolation second or 2 previous VRE Qualifiers: Urinary tract infection type: site unspecified Hematuria presence: without hematuria Qualified Code(s): N39.0 - Urinary tract infection, site not specified (4) Lung nodule Current Visit: No Status: Chronic (5) Dementia Current Visit: No Status: Chronic Qualifiers: Dementia type: Alzheimer's disease Alzheimer's disease onset: unspecified onset Dementia behavioral disturbance: without behavioral disturbance Qualified Code(s): G30.9 - Alzheimer's disease, unspecified; F02.80 - Dementia in other diseases classified elsewhere without behavioral disturbance (6) ESRD (end stage renal disease) on dialysis Current Visit: Yes Status: Chronic - Subjective Interval history: Patient seen and examined. Appears comfortable. Appears cachectic. Opens eyes spontaneously answers simple questions. Command. Review of systems Limited. Patient afebrile; MAXIMUM TEMPERATURE 99.7. Intermittent tachycardia Labs: WBC 16 with normal differential Blood cultures 2 out of 2 sets MSSA repeat culture February 12 no growth Urine culture Escherichia coli and klebsiella oxytoca susceptible to cephalosporins Infect Dis PN-Objective Data - Labs CBC & Chem 7: 02/18/18 03:30 02/18/18 03:30 Labs: Laboratory Results - last 24 hr 02/18/18 02/18/18 03:30 03:30 WBC 16.0 H RBC 3.12 L Hgb 9.9 L Hct 30.9 L MCV 99.0 MCH 31.7 MCHC 32.0 RDW 14.2 Plt Count 240 MPV 9.6 Immature Gran % 1.9 Seg Neutrophils % 71.6 Lymphocytes % 17.1 Monocytes % 7.7 Eosinophils % 1.3 Basophils % 0.4 Neutrophils # 11.5 H Lymphocytes # 2.7 Monocytes # 1.2 Eosinophils # 0.2 Basophils # 0.1 Sodium 142 Potassium 4.3 Chloride 104 Carbon Dioxide 25 BUN 49 H Creatinine 5.82 H Est GFR ( Amer) 8 L Est GFR (Non-Af Amer) 7 L BUN/Creatinine Ratio 8 Glucose 96 Calculated Osmolality 307 H Calcium 8.8 Cultures: Cultures 02/17/18 13:14 Blood Culture - Preliminary Central Venous Catheter Culture is incubating and being continuously monitored for growth. Final report to follow. 02/14/18 04:10 Wound Culture - Final Neck Staphylococcus aureus 02/12/18 14:15 Blood Culture - Final Central Venous Catheter Staphylococcus aureus 02/14/18 16:23 Blood Culture - Preliminary Peripheral Venipuncture Culture is incubating and being continuously monitored for growth. Final report to follow. 02/14/18 16:28 Blood Culture - Preliminary Peripheral Venipuncture Culture is incubating and being continuously monitored for growth. Final report to follow. 02/13/18 15:03 Urine Culture - Final Urine,[place] No significant growth. 02/11/18 18:58 Blood Culture - Final Peripheral Venipuncture Staphylococcus aureus 02/11/18 20:12 Blood Culture - Final Peripheral Venipuncture Staphylococcus aureus 02/11/18 20:06 Urine Culture - Final Urine,Clean Catch Escherichia coli Klebsiella oxytoca Serology 02/13/18 02/12/18 02/11/18 Range/Units 15:03 12:39 20:06 Urine Color Dark Yellow Yellow (Yellow) Urine Clarity Turbid A Turbid A (Clear) Urine pH 8.0 7.5 (5.0-8.0) pH Units Ur Specific [place] 1.010 1.016 (1.010-1.025) Urine Protein >=300 H >=300 H (Neg-Trace) mg/dL Urine Glucose (UA) Normal Normal (Normal) mg/dL Urine Ketones Negative Negative (Negative) mg/dL Urine Blood Large H Moderate H (Negative) Urine Nitrite Negative Negative (Negative) Urine Bilirubin Small H Negative (Negative) Urine Urobilinogen Normal Normal (Normal) mg/dL Ur Leukocyte Esterase Large H Large H (Negative) Urine Microscopic RBC TNTC H 5-15 H (0-3) per hpf Urine Microscopic WBC TNTC H TNTC H (0-3) per hpf Ur Squamous Epith Cells Moderate H (None-Few) per lpf Urine Bacteria None Seen Many H (None-Few) per hpf Hyaline Casts Few (None-Few) per lpf Ur Culture Indicated? YES A YES A (NO) A. baumannii (PCR) (Not Detect) Adri albicans (PCR) (Not Detect) C. glabrata (PCR) (Not Detect) C. krusei (PCR) (Not Detect) C. parapsilosis (PCR) (Not Detect) C. tropicalis (PCR) (Not Detect) Enterobacteriac sp PCR (Not Detect) E. cloacae complex PCR (Not Detect) Enterococcus sp PCR (Not Detect) E. coli (PCR) (Not Detect) H. influenzae (PCR) (Not Detect) Hep Bs Antigen Nonreactive (Nonreactive) Hep Bs Antibody 21.71 mIU/mL Klebsiella oxytoca PCR (Not Detect) Klebsiella pneumoniae (Not Detect) List. monocytogenes PCR (Not Detect) N. meningitidis (PCR) (Not Detect) Proteus species (PCR) (Not Detect) Serratia marcescens PCR (Not Detect) Staphylococcus sp PCR (Not Detect) Staph aureus (PCR) (Not Detect) mecA-Methicil Res Gene (Not Detect) Streptococcus sp PCR (Not Detect) Group A Strep DNA (Not Detect) Group B Strep (PCR) (Not Detect) Strep pneumoniae (PCR) (Not Detect) P. aeruginosa (PCR) (Not Detect) Dyan/B-Vanco Res Genes (Not Detect) KPC (blaKPC) Detect PCR (Not Detect) 02/11/18 Range/Units 18:58 Urine Color (Yellow) Urine Clarity (Clear) Urine pH (5.0-8.0) pH Units Ur Specific [place] (1.010-1.025) Urine Protein (Neg-Trace) mg/dL Urine Glucose (UA) (Normal) mg/dL Urine Ketones (Negative) mg/dL Urine Blood (Negative) Urine Nitrite (Negative) Urine Bilirubin (Negative) Urine Urobilinogen (Normal) mg/dL Ur Leukocyte Esterase (Negative) Urine Microscopic RBC (0-3) per hpf Urine Microscopic WBC (0-3) per hpf Ur Squamous Epith Cells (None-Few) per lpf Urine Bacteria (None-Few) per hpf Hyaline Casts (None-Few) per lpf Ur Culture Indicated? (NO) A. baumannii (PCR) Not Detected (Not Detect) Adri albicans (PCR) Not Detected (Not Detect) C. glabrata (PCR) Not Detected (Not Detect) C. krusei (PCR) Not Detected (Not Detect) C. parapsilosis (PCR) Not Detected (Not Detect) C. tropicalis (PCR) Not Detected (Not Detect) Enterobacteriac sp PCR Not Detected (Not Detect) E. cloacae complex PCR Not Detected (Not Detect) Enterococcus sp PCR Not Detected (Not Detect) E. coli (PCR) Not Detected (Not Detect) H. influenzae (PCR) Not Detected (Not Detect) Hep Bs Antigen (Nonreactive) Hep Bs Antibody mIU/mL Klebsiella oxytoca PCR Not Detected (Not Detect) Klebsiella pneumoniae Not Detected (Not Detect) List. monocytogenes PCR Not Detected (Not Detect) N. meningitidis (PCR) Not Detected (Not Detect) Proteus species (PCR) Not Detected (Not Detect) Serratia marcescens PCR Not Detected (Not Detect) Staphylococcus sp PCR DETECTED A (Not Detect) Staph aureus (PCR) DETECTED A (Not Detect) mecA-Methicil Res Gene Not Detected (Not Detect) Streptococcus sp PCR Not Detected (Not Detect) Group A Strep DNA Not Detected (Not Detect) Group B Strep (PCR) Not Detected (Not Detect) Strep pneumoniae (PCR) Not Detected (Not Detect) P. aeruginosa (PCR) Not Detected (Not Detect) Dyan/B-Vanco Res Genes Not Detected (Not Detect) KPC (blaKPC) Detect PCR Not Detected (Not Detect) Exam - Constitutional Vitals: Temp Pulse Resp BP Pulse Ox 99.0 F 93 16 114/45 96 02/18/18 15:25 02/18/18 15:25 02/18/18 15:25 02/18/18 15:25 02/18/18 15:25 General appearance: cooperative, no acute distress, no febrile - Head Head exam: Present: atraumatic, normocephalic - Respiratory Additional comments: Poor inspiratory effort. Breath sounds audible both lung mendez. No wheezing - Cardiovascular Cardiovascular exam: Present: RRR, +S1, +S2 - GI/Abdominal GI/Abdominal exam: Present: hypoactive bowel sounds, soft - Extremities Exam Extremities exam: Present: normal inspection Consult Discharge Plan - Plan Referrals: Navid Frias [Primary Care Provider] - (Patient is going to [facility])
[2018-02-18] MEDS: ceFAZolin 1,000 MG in Water for inj. (sterile) 20 ML 10 ML IVP SCH (18:02)
[2018-02-19 04:40] LABS: Calcium 9.3 mg/dL (8.6-10.3); Potassium 4.6 mEq/L (3.5-5.1)
[2018-02-19] MEDS: *HR* Heparin 5,000 UNIT/ML VIAL SQ SCH ×2 (05:33→18:30)
[2018-02-19 06:50] LABS: Hematocrit 28.8 % (35.3-44.9); Hemoglobin 9.1 g/dL (11.5-15.4); Mean Corpuscular HGB Conc 31.6 g/dL (31.6-35.5); Mean Corpuscular Hemoglobin 31.2 pg (28.0-33.3); Mean Corpuscular Volume 98.6 fL (83.0-100.0); Mean Platelet Volume 9.3 fL (9.4-12.4); Platelet Count 257 K/mcL (140-400); Red Blood Count 2.92 M/mcL (3.82-4.97); Red Cell Distribution Width 14.4 % (11.5-14.5)
[2018-02-19 07:14] LABS: Alanine Aminotransferase < 3 Units/L (7-52); Albumin 3.2 g/dL (3.5-5.7); Albumin/Globulin Ratio 1.1 (1.1-2.2); Alkaline Phosphatase 83 Units/L (34-104); Amylase 29 Units/L (29-103); Aspartate Amino Transferase 26 Units/L (13-39); Bilirubin,Indirect 0.3 mg/dL (0.0-1.2); Bilirubin,Total 0.3 mg/dL (0.3-1.0); Globulin 2.8 g/dL (2.4-3.5); Lipase 36 Units/L (11-82)
[2018-02-19] MEDS ORDERED: 0.9 % Sodium Chloride 250 ML IVC PRN (08:55)
[2018-02-19] MEDS ORDERED: 0.9 % Sodium Chloride 1,000 ML PRIME SCH (09:00)
[2018-02-19] MEDS: Lactobacillus 1 EACH CAP.SPRINK PO SCH (09:07)
[2018-02-19] MEDS: Aspirin 325 MG TABLET PO SCH (09:07)
[2018-02-19] MEDS: amLODIPine 5 MG TABLET PO SCH (09:07)
[2018-02-19] MEDS: Sennosides/Docusate Sodium TABLET PO SCH ×2 (09:08→22:04)
[2018-02-19] MEDS: MICONAZOLE NITRATE 57 GM TUBE TP SCH ×2 (09:08→22:04)
[2018-02-19] MEDS: Folic Acid 1 MG TABLET PO SCH (09:08)
[2018-02-19 10:23] LABS: Adenovirus Not Detected (Not Detect); Bordetella Pertussis Not Detected (Not Detect); Chlamydophila pneumoniae Not Detected (Not Detect); Coronavirus 229E Not Detected (Not Detect); Coronavirus HKU1 Not Detected (Not Detect); Coronavirus NL63 Not Detected (Not Detect); Coronavirus OC43 Not Detected (Not Detect); Human Metapneumovirus Not Detected (Not Detect); Human Rhinovirus/Enterovirus Not Detected (Not Detect); Influenza A Subtype 2009 H1 Not Detected (Not Detect); Influenza A Untypeable Not Detected (Not Detect); Influenza B Not Detected (Not Detect); Mycoplasma pneumoniae Not Detected (Not Detect); Parainfluenza Virus 1 Not Detected (Not Detect); Parainfluenza Virus 2 Not Detected (Not Detect); Parainfluenza Virus 3 Not Detected (Not Detect); Parainfluenza Virus 4 Not Detected (Not Detect); Respiratory Syncytial Virus Not Detected (Not Detect)
--- NOTE | 2018-02-19 10:33 | Nephrology Progress Note ---
Date of Encounter: 02/19/18 Time of Encounter: 10:30 - Assessment and Plan (1) ESRD (end stage renal disease) on dialysis Current Visit: Yes Status: Chronic - Hemodialysis normally scheduled Saturday - Electrolytes and kidney function at baseline - Renal vitamins - Renal diet - HD catheter removed on 02/14/18 due to bacteremia. -Attempted dialysis this morning with fistula. Unsuccessful so far, repeated times in progress Plan - Does have sepsis with MSSA bacteremia, infectious disease is following -Possible source of bacteremia does include the dialysis line - If unable to use fistula, will need HD catheter replacement - Per chart review and palliative care team, patient does have outpatient plans with Dr. Mendieta and vascular surgeon for a jump graft. We will continue to attempt to use fistula while inpatient but if unsuccessful will mean dialysis catheter placement. (2) Anemia Current Visit: Yes Status: Chronic Stable at baseline at 9.1 hemoglobin Transfusion parameters per primary team Qualifiers: Anemia type: due to chronic kidney disease Chronic kidney disease stage: on chronic dialysis Qualified Code(s): N18.6 - End stage renal disease; D63.1 - Anemia in chronic kidney disease; Z99.2 - Dependence on renal dialysis (3) Essential hypertension Current Visit: Yes Status: Chronic Titrate antihypertensives as necessary (4) Sepsis secondary to UTI Current Visit: Yes Status: Resolved - Secondary to UTI versus more likely secondary to hemodialysis catheter. - HD catheter removed on 02/14/18 - Blood cultures positive for MSSA. Repeat blood cultures negative so far - Right neck culture and CBC culture growing Staphylococcus aureus --- Repeat blood cultures ordered this morning due to increasing leukocytosis - KARRIE did not show any signs of vegetations - Infectious disease is following (5) Bacteremia Current Visit: Yes Status: Acute As above for sepsis Repeat blood cultures negative so far and can place hemodialysis catheter when necessary Subjective Principal diagnosis: ESRD Interval history: Patient was seen and examined at bedside this morning in dialysis. She states overall she is doing well with no complaints this time. She is notably improved her mental status today and alert and oriented 1. She denies any symptoms of fevers, chills, nausea, vomiting, pain at this time. She attempted to use her fistula this morning but admits have been unsuccessful so far. Dialysis team is still working on this. Objective - Vital Signs Vital signs: Vital Signs Temp Pulse Resp BP Pulse Ox 02/19/18 07:59 97.7 F 79 17 123/65 97 02/19/18 04:52 98.5 F 86 16 110/60 95 02/19/18 00:30 99.4 F 95 16 125/64 98 02/18/18 20:36 99.2 F 97 17 124/58 94 02/18/18 15:25 99.0 F 93 16 114/45 96 02/18/18 10:52 98.7 F 80 16 116/57 98 Intake and Output 02/18/18 02/19/18 02/19/18 23:59 07:59 15:59 Intake Total 120 / 120 Output Total 200 / 200 Balance -200 / -200 120 / 120 Intake: Oral 120 / 120 Output: Catheter 200 / 200 Other: Meal Breakfast Percent of Meal Consumed 30% Weight 52.3 kg Patient Weight 02/19/18 23:59 Weight 52.3 kg - General Appearance Exam: Gen.: Vitals noted. No acute distress. AAOx1. Resting comfortably in bed HEENT: PERRL/EOMI, oropharynx clear, Normocephalic, atraumatic, MMM Cardiac: Irregular rhythm, systolic murmur appreciated, +S1/S2 Pulmonary: CTA bilaterally, no wheezes, rales or rhonchi, equal chest expansion Abdomen: soft, nontender, BS noted, no guarding, no rebound. MSK: ROM not assessed, no joint swelling noted. Extremities: no BLE edema, nontender calf, no cyanosis or clubbing. Right upper extremity fistula bandaged and nonbleeding. Neuro: A&Ox1, moves all extremities, no focal deficits Psych: Appropriate mood and behavior - Lab 02/19/18 06:35 02/19/18 04:00 Most recent lab results Calcium 9.3 mg/dL (8.6-10.3) 02/19/18 04:00 Phosphorus 2.5 mg/dL (2.7-4.5) L 02/17/18 04:30 Magnesium 2.2 mg/dL (1.6-2.6) 02/12/18 06:19 Consult Discharge Plan - Plan Referrals: Navid Frias [Primary Care Provider] - (Patient is going to [facility])
--- NOTE | 2018-02-19 11:59 | Internal Med Progress Note ---
Hospitalist Progress Note - Encounter Date of Encounter: 02/19/18 Time of Encounter: 11:57 - Subjective Interval History: Patient seen and examined this morning. No acute overnight events. Confused and disoriented. AOX1. Does not offer any complains. Had attempt at dialysis via fistula this morning. Could not access fistula for HD. - Exam Vitals: Temp Pulse Resp BP Pulse Ox 97.7 F 79 17 123/65 97 02/19/18 07:59 02/19/18 07:59 02/19/18 07:59 02/19/18 07:59 02/19/18 07:59 Exam: General: Alert, confused, not in acute distress. CVS : Normal S1 & S2, No JVD. Pulse regular. Lungs: clear to auscultation, no wheezes/rales Abdomen:Soft, non-tender, no rigidity. : hoffman in place with some urine. Ext: Rt arm AV fistula with thrill present. Neuro: AOx1. Grossly non-focal. - Assessment and Plan (1) Sepsis Current Visit: Yes Status: Acute (2) Anemia Current Visit: Yes Status: Chronic (3) End-stage renal disease Current Visit: Yes Status: Chronic (4) Essential hypertension Current Visit: Yes Status: Chronic (5) CVA (cerebral vascular accident) Current Visit: Yes Status: Chronic (6) DVT prophylaxis Current Visit: No Status: Acute - Summary of Assessment and Plan Summary of Assessment and Plan: Sepsis - Had SIR on admission. - Likely due to Bacteremia. blood culture 02/11 positive for MSSA with wound culture from R neck where her CVC was inserted growing the same - repeat culture from HD catheter 02/14 NGTD. - HD catheter removed after HD 02/14 - KARRIE with no evidence of vegetations. EF 55-60 - Per pulm Lung nodules appear chronic and will need to be followed up as outpatient in 8 weeks. Low concern for septic emboli - Urology for outpatient cystoscopy and ureteral stent removal - WBC still elevated. Afebrile and hemodynamically stable. Unclear reason. CXR unremarkable. KUB without signs of obstruction. RIP negative. - c/w cefazolin for 2 weeks. ID recommendation appreciated. Will discuss about safe day for placement of dialysis access temp vs permacath. Last BC negative was on 02/14. Repeated BC today. UTI - Urine culture from 02/11 with Klebsiella and Ecoli. - Likely with asymptomatic bacteuria and not causing sepsis. End-stage renal disease - HD MWF - Not able to access Fistula. May need to get temp access catheter vs permcath as Son, BARBER, wants to continue dialysis - nephrology following. No recommendation for acute dialysis today. Essential hypertension - c/w Norvasc and losartan Anemia - Stable. - Chronic , likely secondary to CKD. No signs of overt bleeding. CVA - c/w home antiplatelet and statin therapy. Severe Protein Calorie Malnutrition - Likely related to chronic illness and debility with decreased PO intake - c/w diet/nutritional supplement per nutrition. DVT prophylaxis - c/w Sub-cutaneous heparin - Time Spent with Patient Total time spent is greater than 50% in coordination of care (as documented) at patient's floor/unit and/or counseling patient: Internal Medicine: Result - Labs CBC & Chem 7: 02/19/18 06:35 02/19/18 04:00 Labs: Short CBC 02/19/18 Range/Units 06:35 WBC 16.9 H (4.3-11.1) K/mcL Hgb 9.1 L (11.5-15.4) g/dL Hct 28.8 L (35.3-44.9) % Plt Count 257 (140-400) K/mcL BMP 02/19/18 04:00 Sodium 142 Potassium 4.6 Chloride 103 Carbon Dioxide 27 BUN 65 H Creatinine 7.12 H Glucose 97 Calcium 9.3 Liver Function 02/19/18 Range/Units 06:35 Total Bilirubin 0.3 (0.3-1.0) mg/dL Direct Bilirubin 0.0 (0.0-0.2) mg/dL AST 26 (13-39) Units/L ALT < 3 L (7-52) Units/L Alkaline Phosphatase 83 (34-104) Units/L Albumin 3.2 L (3.5-5.7) g/dL - ABG Interpretation ABG results: PT/INR, D-dimer PT 12.0 Seconds (9.4-12.1) 02/11/18 18:58 - Impressions Impressions Chest X-Ray 02/19/18 06:25 IMPRESSION: 1. No acute cardiopulmonary disease. 2. No radiographic evidence of bowel obstruction. 3. Large stool burden identified in the rectum. 4. Emphysema. 5. Left ureteral stent in place. No stones identified along its course. D/ / 02/19/2018 07:44:56 Carmen Saucdeo MD / teofilo Interpreting Provider: Carmen Saucedo MD KUB X-Ray 02/19/18 06:25 IMPRESSION: 1. No acute cardiopulmonary disease. 2. No radiographic evidence of bowel obstruction. 3. Large stool burden identified in the rectum. 4. Emphysema. 5. Left ureteral stent in place. No stones identified along its course. D/ / 02/19/2018 07:44:56 Carmen Saucedo MD / teofilo Interpreting Provider: Carmen Saucedo MD Consult Discharge Plan - Plan Referrals: Navid Frias [Primary Care Provider] - (Patient is going to [facility]) (1) Sepsis Qualifiers: Sepsis type: methicillin susceptible Staphylococcus aureus Qualified Code(s): A41.01 - Sepsis due to Methicillin susceptible Staphylococcus aureus (2) Anemia Qualifiers: Anemia type: due to chronic kidney disease Chronic kidney disease stage: on chronic dialysis Qualified Code(s): N18.6 - End stage renal disease; D63.1 - Anemia in chronic kidney disease; Z99.2 - Dependence on renal dialysis (5) CVA (cerebral vascular accident) Qualifiers: CVA mechanism: unspecified Qualified Code(s): I63.9 - Cerebral infarction, unspecified
--- NOTE | 2018-02-19 15:49 | Infectious Disease Progress No ---
Date of Encounter: 02/19/18 Time of Encounter: 15:42 - Assessment and Plan (1) Sepsis Current Visit: Yes Status: Acute The patient had three SIRS criteria on admission. Likely secondary to bacteremia and possible UTI. WBc worse this morning, but she has been afebrile. Tachycardia has improved. Blood cultures drawn peripherally 02/11/18 are positive 2/2 sets for GPC, MSSA per PCR. Recommendations: - Continue cefazolin 1 g every 24 hours through 03/01/2018 Not sure whether patient is to have worsening leukocytosis repeat chest x-ray and KUB noted. infectious panel negative Repeat blood cultures no growth to date Continue cefazolin, duration of treatment through 03/03/2018 Monitor labs and for drug toxicity There is an issue with dialysis and placement of catheter. Discussed with Dr. Strong and he I explained to him that if Per permacath or temperature dialysis catheter that is okay from an infectious disease point of view. Qualifiers: Sepsis type: methicillin susceptible Staphylococcus aureus Qualified Code(s): A41.01 - Sepsis due to Methicillin susceptible Staphylococcus aureus (2) Bacteremia Current Visit: Yes Status: Acute Causative organism: MSSA per PCR. Source: Unclear. Urine vs. HD catheter vs. other. Blood cultures drawn 02/11/18 are positive 2/2 sets for MSSA per PCR. Clinically, the patient's HD catheter does not appear infected, but we do not have another source. I do not appreciate any other skin or soft tissue infections. It is possible that the urine is the source, but not likely. The patient has one major and one minor Modified Erwin's criteria. No endocarditis stigmata noted on exam. (3) UTI (urinary tract infection) Current Visit: No Status: Acute I believe this time and set asymptomatic bacteriuria I believe that the sepsis is due to the bacteremia with MSSA Will not treat the UTI/asymptomatic bacteriuria at this time unless clinically the patient changes or show signs of worsening sepsis/infection Continue to put the patient in contact isolation second or 2 previous VRE Qualifiers: Urinary tract infection type: site unspecified Hematuria presence: without hematuria Qualified Code(s): N39.0 - Urinary tract infection, site not specified (4) Lung nodule Current Visit: No Status: Chronic (5) Dementia Current Visit: No Status: Chronic Qualifiers: Dementia type: Alzheimer's disease Alzheimer's disease onset: unspecified onset Dementia behavioral disturbance: without behavioral disturbance Qualified Code(s): G30.9 - Alzheimer's disease, unspecified; F02.80 - Dementia in other diseases classified elsewhere without behavioral disturbance (6) ESRD (end stage renal disease) on dialysis Current Visit: Yes Status: Chronic - Subjective Interval history: Patient seen and examined. Appears comfortable. Appears cachectic. Opens eyes spontaneously answers simple questions. Command. Review of systems Limited. Patient afebrile; MAXIMUM TEMPERATURE 99.7. Intermittent tachycardia Labs: WBC 16 with normal differential Blood cultures 2 out of 2 sets MSSA repeat culture February 12 no growth Urine culture Escherichia coli and klebsiella oxytoca susceptible to cephalosporins Infect Dis PN-Objective Data - Labs CBC & Chem 7: 02/19/18 06:35 02/19/18 04:00 Labs: Laboratory Results - last 24 hr 02/19/18 02/19/18 02/19/18 04:00 06:35 06:35 WBC 16.9 H RBC 2.92 L Hgb 9.1 L Hct 28.8 L MCV 98.6 MCH 31.2 MCHC 31.6 RDW 14.4 Plt Count 257 MPV 9.3 L Sodium 142 Potassium 4.6 Chloride 103 Carbon Dioxide 27 BUN 65 H Creatinine 7.12 H Est GFR ( Amer) 7 L Est GFR (Non-Af Amer) 6 L BUN/Creatinine Ratio 9 Glucose 97 Calculated Osmolality 313 H Calcium 9.3 Total Bilirubin 0.3 Direct Bilirubin 0.0 Indirect Bilirubin 0.3 AST 26 ALT < 3 L Alkaline Phosphatase 83 Serum Total Protein 6.0 L Albumin 3.2 L Globulin 2.8 Albumin/Globulin Ratio 1.1 Amylase 29 Lipase 36 Chlamy pneumoniae PCR Adenovirus (PCR) B. pertussis DNA (PCR) B.parapertussis DNA PCR Coronavirus OC43 (PCR) Coronavirus HKU1 (PCR) Coronavirus 229E (PCR) Coronavirus NL63 (PCR) Human Metapneumovir PCR Influenza A (H1) PCR Influ A (H1N1/09) PCR Influenza A (H3) PCR Influenza A Untype (PCR) Influenza Type B (PCR) M.pneumoniae DNA (PCR) Parainfluenza 1 (PCR) Parainfluenza 2 (PCR) Parainfluenza 3 (PCR) Parainfluenza 4 (PCR) RSV (PCR) Entero/Rhino (PCR) 02/19/18 09:25 WBC RBC Hgb Hct MCV MCH MCHC RDW Plt Count MPV Sodium Potassium Chloride Carbon Dioxide BUN Creatinine Est GFR ( Amer) Est GFR (Non-Af Amer) BUN/Creatinine Ratio Glucose Calculated Osmolality Calcium Total Bilirubin Direct Bilirubin Indirect Bilirubin AST ALT Alkaline Phosphatase Serum Total Protein Albumin Globulin Albumin/Globulin Ratio Amylase Lipase Chlamy pneumoniae PCR Not Detected Adenovirus (PCR) Not Detected B. pertussis DNA (PCR) Not Detected B.parapertussis DNA PCR Not Detected Coronavirus OC43 (PCR) Not Detected Coronavirus HKU1 (PCR) Not Detected Coronavirus 229E (PCR) Not Detected Coronavirus NL63 (PCR) Not Detected Human Metapneumovir PCR Not Detected Influenza A (H1) PCR Not Detected Influ A (H1N1/09) PCR Not Detected Influenza A (H3) PCR Not Detected Influenza A Untype (PCR) Not Detected Influenza Type B (PCR) Not Detected M.pneumoniae DNA (PCR) Not Detected Parainfluenza 1 (PCR) Not Detected Parainfluenza 2 (PCR) Not Detected Parainfluenza 3 (PCR) Not Detected Parainfluenza 4 (PCR) Not Detected RSV (PCR) Not Detected Entero/Rhino (PCR) Not Detected Cultures: Cultures 02/19/18 07:46 Blood Culture - Preliminary Peripheral Venipuncture Culture is incubating and being continuously monitored for growth. Final report to follow. 02/19/18 07:46 Blood Culture - Preliminary Peripheral Venipuncture Culture is incubating and being continuously monitored for growth. Final report to follow. 02/17/18 13:14 Blood Culture - Preliminary Central Venous Catheter Culture is incubating and being continuously monitored for growth. Final report to follow. 02/14/18 04:10 Wound Culture - Final Neck Staphylococcus aureus 02/12/18 14:15 Blood Culture - Final Central Venous Catheter Staphylococcus aureus 02/14/18 16:23 Blood Culture - Preliminary Peripheral Venipuncture Culture is incubating and being continuously monitored for growth. Final report to follow. 02/14/18 16:28 Blood Culture - Preliminary Peripheral Venipuncture Culture is incubating and being continuously monito red for growth. Final report to follow. 02/13/18 15:03 Urine Culture - Final Urine,[place] No significant growth. 02/11/18 18:58 Blood Culture - Final Peripheral Venipuncture Staphylococcus aureus 02/11/18 20:12 Blood Culture - Final Peripheral Venipuncture Staphylococcus aureus 02/11/18 20:06 Urine Culture - Final Urine,Clean Catch Escherichia coli Klebsiella oxytoca Serology 02/19/18 02/13/18 02/12/18 Range/Units 09:25 15:03 12:39 Urine Color Dark Yellow (Yellow) Urine Clarity Turbid A (Clear) Urine pH 8.0 (5.0-8.0) pH Units Ur Specific [place] 1.010 (1.010-1.025) Urine Protein >=300 H (Neg-Trace) mg/dL Urine Glucose (UA) Normal (Normal) mg/dL Urine Ketones Negative (Negative) mg/dL Urine Blood Large H (Negative) Urine Nitrite Negative (Negative) Urine Bilirubin Small H (Negative) Urine Urobilinogen Normal (Normal) mg/dL Ur Leukocyte Esterase Large H (Negative) Urine Microscopic RBC TNTC H (0-3) per hpf Urine Microscopic WBC TNTC H (0-3) per hpf Ur Squamous Epith Cells Moderate H (None-Few) per lpf Urine Bacteria None Seen (None-Few) per hpf Hyaline Casts Few (None-Few) per lpf Ur Culture Indicated? YES A (NO) A. baumannii (PCR) (Not Detect) Chlamy pneumoniae PCR Not Detected (Not Detect) Adenovirus (PCR) Not Detected (Not Detect) B. pertussis DNA (PCR) Not Detected (Not Detect) B.parapertussis DNA PCR Not Detected (Not Detect) Adri albicans (PCR) (Not Detect) C. glabrata (PCR) (Not Detect) C. krusei (PCR) (Not Detect) C. parapsilosis (PCR) (Not Detect) C. tropicalis (PCR) (Not Detect) Coronavirus OC43 (PCR) Not Detected (Not Detect) Coronavirus HKU1 (PCR) Not Detected (Not Detect) Coronavirus 229E (PCR) Not Detected (Not Detect) Coronavirus NL63 (PCR) Not Detected (Not Detect) Enterobacteriac sp PCR (Not Detect) E. cloacae complex PCR (Not Detect) Enterococcus sp PCR (Not Detect) E. coli (PCR) (Not Detect) H. influenzae (PCR) (Not Detect) Hep Bs Antigen Nonreactive (Nonreactive) Hep Bs Antibody 21.71 mIU/mL Human Metapneumovir PCR Not Detected (Not Detect) Influenza A (H1) PCR Not Detected (Not Detect) Influ A (H1N1/09) PCR Not Detected (Not Detect) Influenza A (H3) PCR Not Detected (Not Detect) Influenza A Untype (PCR) Not Detected (Not Detect) Influenza Type B (PCR) Not Detected (Not Detect) Klebsiella oxytoca PCR (Not Detect) Klebsiella pneumoniae (Not Detect) List. monocytogenes PCR (Not Detect) M.pneumoniae DNA (PCR) Not Detected (Not Detect) N. meningitidis (PCR) (Not Detect) Parainfluenza 1 (PCR) Not Detected (Not Detect) Parainfluenza 2 (PCR) Not Detected (Not Detect) Parainfluenza 3 (PCR) Not Detected (Not Detect) Parainfluenza 4 (PCR) Not Detected (Not Detect) Proteus species (PCR) (Not Detect) RSV (PCR) Not Detected (Not Detect) Entero/Rhino (PCR) Not Detected (Not Detect) Serratia marcescens PCR (Not Detect) Staphylococcus sp PCR (Not Detect) Staph aureus (PCR) (Not Detect) mecA-Methicil Res Gene (Not Detect) Streptococcus sp PCR (Not Detect) Group A Strep DNA (Not Detect) Group B Strep (PCR) (Not Detect) Strep pneumoniae (PCR) (Not Detect) P. aeruginosa (PCR) (Not Detect) Dyan/B-Vanco Res Genes (Not Detect) KPC (blaKPC) Detect PCR (Not Detect) 02/11/18 02/11/18 Range/Units 20:06 18:58 Urine Color Yellow (Yellow) Urine Clarity Turbid A (Clear) Urine pH 7.5 (5.0-8.0) pH Units Ur Specific [place] 1.016 (1.010-1.025) Urine Protein >=300 H (Neg-Trace) mg/dL Urine Glucose (UA) Normal (Normal) mg/dL Urine Ketones Negative (Negative) mg/dL Urine Blood Moderate H (Negative) Urine Nitrite Negative (Negative) Urine Bilirubin Negative (Negative) Urine Urobilinogen Normal (Normal) mg/dL Ur Leukocyte Esterase Large H (Negative) Urine Microscopic RBC 5-15 H (0-3) per hpf Urine Microscopic WBC TNTC H (0-3) per hpf Ur Squamous Epith Cells (None-Few) per lpf Urine Bacteria Many H (None-Few) per hpf Hyaline Casts (None-Few) per lpf Ur Culture Indicated? YES A (NO) A. baumannii (PCR) Not Detected (Not Detect) Chlamy pneumoniae PCR (Not Detect) Adenovirus (PCR) (Not Detect) B. pertussis DNA (PCR) (Not Detect) B.parapertussis DNA PCR (Not Detect) Adri albicans (PCR) Not Detected (Not Detect) C. glabrata (PCR) Not Detected (Not Detect) C. krusei (PCR) Not Detected (Not Detect) C. parapsilosis (PCR) Not Detected (Not Detect) C. tropicalis (PCR) Not Detected (Not Detect) Coronavirus OC43 (PCR) (Not Detect) Coronavirus HKU1 (PCR) (Not Detect) Coronavirus 229E (PCR) (Not Detect) Coronavirus NL63 (PCR) (Not Detect) Enterobacteriac sp PCR Not Detected (Not Detect) E. cloacae complex PCR Not Detected (Not Detect) Enterococcus sp PCR Not Detected (Not Detect) E. coli (PCR) Not Detected (Not Detect) H. influenzae (PCR) Not Detected (Not Detect) Hep Bs Antigen (Nonreactive) Hep Bs Antibody mIU/mL Human Metapneumovir PCR (Not Detect) Influenza A (H1) PCR (Not Detect) Influ A (H1N1/09) PCR (Not Detect) Influenza A (H3) PCR (Not Detect) Influenza A Untype (PCR) (Not Detect) Influenza Type B (PCR) (Not Detect) Klebsiella oxytoca PCR Not Detected (Not Detect) Klebsiella pneumoniae Not Detected (Not Detect) List. monocytogenes PCR Not Detected (Not Detect) M.pneumoniae DNA (PCR) (Not Detect) N. meningitidis (PCR) Not Detected (Not Detect) Parainfluenza 1 (PCR) (Not Detect) Parainfluenza 2 (PCR) (Not Detect) Parainfluenza 3 (PCR) (Not Detect) Parainfluenza 4 (PCR) (Not Detect) Proteus species (PCR) Not Detected (Not Detect) RSV (PCR) (Not Detect) Entero/Rhino (PCR) (Not Detect) Serratia marcescens PCR Not Detected (Not Detect) Staphylococcus sp PCR DETECTED A (Not Detect) Staph aureus (PCR) DETECTED A (Not Detect) mecA-Methicil Res Gene Not Detected (Not Detect) Streptococcus sp PCR Not Detected (Not Detect) Group A Strep DNA Not Detected (Not Detect) Group B Strep (PCR) Not Detected (Not Detect) Strep pneumoniae (PCR) Not Detected (Not Detect) P. aeruginosa (PCR) Not Detected (Not Detect) Dyan/B-Vanco Res Genes Not Detected (Not Detect) KPC (blaKPC) Detect PCR Not Detected (Not Detect) - Impressions Impressions Chest X-Ray 02/19/18 06:25 IMPRESSION: 1. No acute cardiopulmonary disease. 2. No radiographic evidence of bowel obstruction. 3. Large stool burden identified in the rectum. 4. Emphysema. 5. Left ureteral stent in place. No stones identified along its course. D/ / 02/19/2018 07:44:56 Carmen Saucedo MD / teofilo Interpreting Provider: Carmen Saucedo MD X-Ray 02/19/18 06:25 IMPRESSION: 1. No acute cardiopulmonary disease. 2. No radiographic evidence of bowel obstruction. 3. Large stool burden identified in the rectum. 4. Emphysema. 5. Left ureteral stent in place. No stones identified along its course. D/ / 02/19/2018 07:44:56 Carmen Saucedo MD / teofilo Interpreting Provider: Carmen Saucedo MD Exam - Constitutional Vitals: Temp Pulse Resp BP Pulse Ox 98.2 F 82 17 128/56 96 02/19/18 12:40 02/19/18 12:40 02/19/18 12:40 02/19/18 12:40 02/19/18 12:40 General appearance: disheveled, no febrile, no cooperative - Respiratory Respiratory exam: Present: CTAB. Absent: wheezes - Cardiovascular Cardiovascular exam: Present: RRR, +S1, +S2 - GI/Abdominal GI/Abdominal exam: Present: normal bowel sounds, soft. Absent: tenderness - Neurological Exam Neurological exam: Present: alert Additional comments: Confused. Only oriented to person. Consult Discharge Plan - Plan Referrals: Navid Frias [Primary Care Provider] - (Patient is going to [facility])
[2018-02-19] MEDS: ceFAZolin 1,000 MG in Water for inj. (sterile) 20 ML 10 ML IVP SCH (18:29)
[2018-02-20] MEDS: *HR* Heparin 5,000 UNIT/ML VIAL SQ SCH ×2 (05:09→16:57)
[2018-02-20 05:37] LABS: Basophils # 0.1 K/mcL (0.0-0.2); Basophils % 0.8 %; Eosinophils # 0.5 K/mcL (0.0-0.6); Eosinophils % 3.6 %; Hematocrit 28.3 % (35.3-44.9); Immature Granulocytes % 4.9 % (0-4); Lymphocytes # 2.8 K/mcL (0.6-4.6); Lymphocytes % 22.6 %; Mean Corpuscular HGB Conc 31.8 g/dL (31.6-35.5); Mean Corpuscular Hemoglobin 31.6 pg (28.0-33.3); Mean Corpuscular Volume 99.3 fL (83.0-100.0); Mean Platelet Volume 9.3 fL (9.4-12.4); Monocytes # 0.9 K/mcL (0.0-1.3); Monocytes % 7.1 %; Neutrophils # 7.6 K/mcL (1.6-8.9); Platelet Count 249 K/mcL (140-400); Red Blood Count 2.85 M/mcL (3.82-4.97); Red Cell Distribution Width 14.5 % (11.5-14.5)
[2018-02-20 05:58] LABS: Calcium 9.1 mg/dL (8.6-10.3); Potassium 4.1 mEq/L (3.5-5.1)
[2018-02-20] MEDS: Acetaminophen 325 MG TABLET PO PRN ×3 (09:38→21:43)
[2018-02-20] MEDS: Folic Acid 1 MG TABLET PO SCH (09:38)
[2018-02-20] MEDS: Sennosides/Docusate Sodium TABLET PO SCH ×2 (09:38→21:43)
[2018-02-20] MEDS: amLODIPine 5 MG TABLET PO SCH (09:38)
[2018-02-20] MEDS: Lactobacillus 1 EACH CAP.SPRINK PO SCH (09:38)
[2018-02-20] MEDS: MICONAZOLE NITRATE 57 GM TUBE TP SCH ×2 (09:39→21:43)
[2018-02-20] MEDS: Aspirin 325 MG TABLET PO SCH (10:08)
--- NOTE | 2018-02-20 10:47 | Infectious Disease Progress No ---
Date of Encounter: 02/20/18 Time of Encounter: 10:45 - Assessment and Plan (1) Sepsis Current Visit: Yes Status: Acute The patient had three SIRS criteria on admission. Likely secondary to bacteremia. WBC remains elevated, but improved. Afebrile. Tachycardia resolved. Blood cultures drawn peripherally 02/11/18 are positive 2/2 sets for MSSA. Repeat blood culture drawn 02/12/18 x 1 set from her Perma-cath is positive for MSSA. Repeat blood cultures drawn peripherally 02/14/18 are negative x 2 sets. Repeat blood culture drawn 02/17/18 x 1 set from a central access (HD fistula?) is NGTD. Additional repeat blood cultures drawn peripherally 02/19/18 are NGTD x 2 sets. Recommendations: - Await repeat blood cultures to finalize. - Continue cefazolin 1 g every 24 hours (dose-adjusted for HD status). - Duration of treatment depends on the clinical picture, but likely a total of 2 weeks from when the HD catheter was removed and her first set of blood cultures were negative (02/14/18). Treat through 03/01/18. - Okay from an ID standpoint to have Perma-cath re-inserted. - Monitor labs and dose-adjust for HD status. Qualifiers: Sepsis type: methicillin susceptible Staphylococcus aureus Qualified Code(s ): A41.01 - Sepsis due to Methicillin susceptible Staphylococcus aureus (2) Bacteremia Current Visit: Yes Status: Resolved Causative organism: MSSA Source: Likely the HD catheter. Blood cultures drawn 02/11/18 drawn peripherally are positive 2/2 sets for MSSA. Repeat blood culture drawn 02/12/18 x 1 set from her Perma-cath is positive for MSSA. Repeat blood cultures drawn peripherally 02/14/18 are negative x 2 sets. Repeat blood culture drawn 02/17/18 x 1 set from a central access (HD fistula?) is NGTD. Additional repeat blood cultures drawn peripherally 02/19/18 are NGTD x 2 sets. Wound culture of the perma-cath site was positive for MSSA. Clinically, the patient's HD catheter does not appear infected, but we do not have another source. I do not appreciate any other skin or soft tissue infections. The patient has one major and one minor Modified Erwin's criteria. No endocarditis stigmata noted on exam. KARRIE negative for endocarditis. Status post perma-cath removal 02/14/18. Currently on cefazolin. (3) UTI (urinary tract infection) Current Visit: No Status: Acute Urine culture was negative. Sepsis is likely due to the bacteremia with MSSA. Will not treat the UTI/asymptomatic bacteriuria at this time unless clinically the patient changes or show signs of worsening sepsis/infection. 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 Qualifiers: Urinary tract infection type: site unspecified Hematuria presence: without hematuria Qualified Code(s): N39.0 - Urinary tract infection, site not specified (4) Lung nodule Current Visit: No Status: Chronic (5) Dementia Current Visit: No Status: Chronic Qualifiers: Dementia type: Alzheimer's disease Alzheimer's disease onset: unspecified onset Dementia behavioral disturbance: without behavioral disturbance Qualified Code(s): G30.9 - Alzheimer's disease, unspecified; F02.80 - Dementia in other diseases classified elsewhere without behavioral disturbance (6) ESRD (end stage renal disease) on dialysis Current Visit: Yes Status: Chronic Nephrology consulted and following. - Subjective Interval history: Patient seen and examined. No acute events noted overnight. Patient having Perma-cath placed today. Denies fevers, chills, or rigors. Denies chest pain or shortness of breath, but reports a dry cough. Denies nausea, vomiting, or diarrhea. Sandra catheter patent with clear yellow urine. Denies abdominal pain. States her appetite is okay. Denies oral thrush or skin lesions. Infect Dis PN-Objective Data - Labs CBC & Chem 7: 02/21/18 04:00 02/21/18 04:00 Labs: Laboratory Results - last 24 hr 02/19/18 02/20/18 02/20/18 16:36 04:00 04:00 WBC 12.5 H RBC 2.85 L Hgb 9.0 L Hct 28.3 L MCV 99.3 MCH 31.6 MCHC 31.8 RDW 14.5 Plt Count 249 MPV 9.3 L Immature Gran % 4.9 H Seg Neutrophils % 61.0 Lymphocytes % 22.6 Monocytes % 7.1 Eosinophils % 3.6 Basophils % 0.8 Neutrophils # 7.6 Lymphocytes # 2.8 Monocytes # 0.9 Eosinophils # 0.5 Basophils # 0.1 Sodium 139 Potassium 4.1 Chloride 102 Carbon Dioxide 25 BUN 77 H Creatinine 8.19 H Est GFR ( Amer) 6 L Est GFR (Non-Af Amer) 5 L BUN/Creatinine Ratio 9 Glucose 98 POC Glucose 118 H Calculated Osmolality 311 H Calcium 9.1 Cultures: Cultures 02/14/18 16:23 Blood Culture - Final Peripheral Venipuncture No growth. Final report. 02/14/18 16:28 Blood Culture - Final Peripheral Venipuncture No growth. Final report. 02/19/18 07:46 Blood Culture - Preliminary Peripheral Venipuncture Culture is incubating and being continuously monitored for growth. Final report to follow. 02/19/18 07:46 Blood Culture - Preliminary Peripheral Venipuncture Culture is incubating and being continuously monitored for growth. Final report to follow. 02/17/18 13:14 Blood Culture - Preliminary Central Venous Catheter Culture is incubating and being continuously monitored for growth. Final report to follow. 02/14/18 04:10 Wound Culture - Final Neck Staphylococcus aureus 02/12/18 14:15 Blood Culture - Final Central Venous Catheter Staphylococcus aureus 02/13/18 15:03 Urine Culture - Final Urine,Sandra Port No significant growth. 02/11/18 18:58 Blood Culture - Final Peripheral Venipuncture Staphylococcus aureus 02/11/18 20:12 Blood Culture - Final Peripheral Venipuncture Staphylococcus aureus 02/11/18 20:06 Urine Culture - Final Urine,Clean Catch Escherichia coli Klebsiella oxytoca Serology 02/19/18 02/13/18 02/12/18 Range/Units 09:25 15:03 12:39 Urine Color Dark Yellow (Yellow) Urine Clarity Turbid A (Clear) Urine pH 8.0 (5.0-8.0) pH Units Ur Specific Bow 1.010 (1.010-1.025) Urine Protein >=300 H (Neg-Trace) mg/dL Urine Glucose (UA) Normal (Normal) mg/dL Urine Ketones Negative (Negative) mg/dL Urine Blood Large H (Negative) Urine Nitrite Negative (Negative) Urine Bilirubin Small H (Negative) Urine Urobilinogen Normal (Normal) mg/dL Ur Leukocyte Esterase Large H (Negative) Urine Microscopic RBC TNTC H (0-3) per hpf Urine Microscopic WBC TNTC H (0-3) per hpf Ur Squamous Epith Cells Moderate H (None-Few) per lpf Urine Bacteria None Seen (None-Few) per hpf Hyaline Casts Few (None-Few) per lpf Ur Culture Indicated? YES A (NO) A. baumannii (PCR) (Not Detect) Chlamy pneumoniae PCR Not Detected (Not Detect) Adenovirus (PCR) Not Detected (Not Detect) B. pertussis DNA (PCR) Not Detected (Not Detect) B.parapertussis DNA PCR Not Detected (Not Detect) Adri albicans (PCR) (Not Detect) C. glabrata (PCR) (Not Detect) C. krusei (PCR) (Not Detect) C. parapsilosis (PCR) (Not Detect) C. tropicalis (PCR) (Not Detect) Coronavirus OC43 (PCR) Not Detected (Not Detect) Coronavirus HKU1 (PCR) Not Detected (Not Detect) Coronavirus 229E (PCR) Not Detected (Not Detect) Coronavirus NL63 (PCR) Not Detected (Not Detect) Enterobacteriac sp PCR (Not Detect) E. cloacae complex PCR (Not Detect) Enterococcus sp PCR (Not Detect) E. coli (PCR) (Not Detect) H. influenzae (PCR) (Not Detect) Hep Bs Antigen Nonreactive (Nonreactive) Hep Bs Antibody 21.71 mIU/mL Human Metapneumovir PCR Not Detected (Not Detect) Influenza A (H1) PCR Not Detected (Not Detect) Influ A (H1N1/09) PCR Not Detected (Not Detect) Influenza A (H3) PCR Not Detected (Not Detect) Influenza A Untype (PCR) Not Detected (Not Detect) Influenza Type B (PCR) Not Detected (Not Detect) Klebsiella oxytoca PCR (Not Detect) Klebsiella pneumoniae (Not Detect) List. monocytogenes PCR (Not Detect) M.pneumoniae DNA (PCR) Not Detected (Not Detect) N. meningitidis (PCR) (Not Detect) Parainfluenza 1 (PCR) Not Detected (Not Detect) Parainfluenza 2 (PCR) Not Detected (Not Detect) Parainfluenza 3 (PCR) Not Detected (Not Detect) Parainfluenza 4 (PCR) Not Detected (Not Detect) Proteus species (PCR) (Not Detect) RSV (PCR) Not Detected (Not Detect) Entero/Rhino (PCR) Not Detected (Not Detect) Serratia marcescens PCR (Not Detect) Staphylococcus sp PCR (Not Detect) Staph aureus (PCR) (Not Detect) mecA-Methicil Res Gene (Not Detect) Streptococcus sp PCR (Not Detect) Group A Strep DNA (Not Detect) Group B Strep (PCR) (Not Detect) Strep pneumoniae (PCR) (Not Detect) P. aeruginosa (PCR) (Not Detect) Dyan/B-Vanco Res Genes (Not Detect) KPC (blaKPC) Detect PCR (Not Detect) 02/11/18 02/11/18 Range/Units 20:06 18:58 Urine Color Yellow (Yellow) Urine Clarity Turbid A (Clear) Urine pH 7.5 (5.0-8.0) pH Units Ur Specific Bow 1.016 (1.010-1.025) Urine Protein >=300 H (Neg-Trace) mg/dL Urine Glucose (UA) Normal (Normal) mg/dL Urine Ketones Negative (Negative) mg/dL Urine Blood Moderate H (Negative) Urine Nitrite Negative (Negative) Urine Bilirubin Negative (Negative) Urine Urobilinogen Normal (Normal) mg/dL Ur Leukocyte Esterase Large H (Negative) Urine Microscopic RBC 5-15 H (0-3) per hpf Urine Microscopic WBC TNTC H (0-3) per hpf Ur Squamous Epith Cells (None-Few) per lpf Urine Bacteria Many H (None-Few) per hpf Hyaline Casts (None-Few) per lpf Ur Culture Indicated? YES A (NO) A. baumannii (PCR) Not Detected (Not Detect) Chlamy pneumoniae PCR (Not Detect) Adenovirus (PCR) (Not Detect) B. pertussis DNA (PCR) (Not Detect) B.parapertussis DNA PCR (Not Detect) Adri albicans (PCR) Not Detected (Not Detect) C. glabrata (PCR) Not Detected (Not Detect) C. krusei (PCR) Not Detected (Not Detect) C. parapsilosis (PCR) Not Detected (Not Detect) C. tropicalis (PCR) Not Detected (Not Detect) Coronavirus OC43 (PCR) (Not Detect) Coronavirus HKU1 (PCR) (Not Detect) Coronavirus 229E (PCR) (Not Detect) Coronavirus NL63 (PCR) (Not Detect) Enterobacteriac sp PCR Not Detected (Not Detect) E. cloacae complex PCR Not Detected (Not Detect) Enterococcus sp PCR Not Detected (Not Detect) E. coli (PCR) Not Detected (Not Detect) H. influenzae (PCR) Not Detected (Not Detect) Hep Bs Antigen (Nonreactive) Hep Bs Antibody mIU/mL Human Metapneumovir PCR (Not Detect) Influenza A (H1) PCR (Not Detect) Influ A (H1N1/09) PCR (Not Detect) Influenza A (H3) PCR (Not Detect) Influenza A Untype (PCR) (Not Detect) Influenza Type B (PCR) (Not Detect) Klebsiella oxytoca PCR Not Detected (Not Detect) Klebsiella pneumoniae Not Detected (Not Detect) List. monocytogenes PCR Not Detected (Not Detect) M.pneumoniae DNA (PCR) (Not Detect) N. meningitidis (PCR) Not Detected (Not Detect) Parainfluenza 1 (PCR) (Not Detect) Parainfluenza 2 (PCR) (Not Detect) Parainfluenza 3 (PCR) (Not Detect) Parainfluenza 4 (PCR) (Not Detect) Proteus species (PCR) Not Detected (Not Detect) RSV (PCR) (Not Detect) Entero/Rhino (PCR) (Not Detect) Serratia marcescens PCR Not Detected (Not Detect) Staphylococcus sp PCR DETECTED A (Not Detect) Staph aureus (PCR) DETECTED A (Not Detect) mecA-Methicil Res Gene Not Detected (Not Detect) Streptococcus sp PCR Not Detected (Not Detect) Group A Strep DNA Not Detected (Not Detect) Group B Strep (PCR) Not Detected (Not Detect) Strep pneumoniae (PCR) Not Detected (Not Detect) P. aeruginosa (PCR) Not Detected (Not Detect) Dyan/B-Vanco Res Genes Not Detected (Not Detect) KPC (blaKPC) Detect PCR Not Detected (Not Detect) - Impressions Impressions Chest X-Ray 02/19/18 06:25 IMPRESSION: 1. No acute cardiopulmonary disease. 2. No radiographic evidence of bowel obstruction. 3. Large stool burden identified in the rectum. 4. Emphysema. 5. Left ureteral stent in place. No stones identified along its course. D/ / 02/19/2018 07:44:56 Carmen Saucedo MD / teofilo Interpreting Provider: Carmen Saucedo MD X-Ray 11/28/18 06:25 IMPRESSION: 1. No acute cardiopulmonary disease. 2. No radiographic evidence of bowel obstruction. 3. Large stool burden identified in the rectum. 4. Emphysema. 5. Left ureteral stent in place. No stones identified along its course. D/ / 02/19/2018 07:44:56 Carmen Saucedo MD / bcartmanuel Interpreting Provider: Carmen Saucedo MD Exam - Constitutional Vitals: Temp Pulse Resp BP Pulse Ox 98.6 F 77 16 145/78 97 02/20/18 07:40 02/20/18 07:40 02/20/18 07:40 02/20/18 07:40 02/20/18 07:40 General appearance: cooperative, no acute distress, thin - Head Head exam: Present: atraumatic, normal inspection, normocephalic - Eye Eye exam: Present: EOMI, normal appearance, PERRL Pupils: Present: normal accommodation Additional comments: No subconjunctival hemorrhage noted. - ENT ENT exam: Present: mucous membranes moist - Neck Neck exam: Present: normal inspection - Respiratory Respiratory exam: Present: CTAB. Absent: rales, respiratory distress, rhonchi, wheezes - Cardiovascular Cardiovascular exam: Present: RRR, +S1, +S2 - GI/Abdominal GI/Abdominal exam: Present: normal bowel sounds, soft. Absent: distended, tenderness Additional comments: Sandra catheter noted to be draining clear yellow urine. - Extremities Exam Extremities exam: Present: normal inspection Additional comments: AV fistula noted to the RUE +/+. - Neurological Exam Neurological exam: Present: alert, no focal deficits. Absent: oriented X3 (Oriented to person only.) - Psychiatric Psychiatric exam: Present: normal affect, normal mood - Skin Skin exam: Present: dry, intact, normal color, warm Additional comments: No endocarditis stigmata noted. Consult Discharge Plan - Plan Referrals: Navid Frias [Primary Care Provider] - (Patient is going to [facility]) Prescriptions: ceFAZolin [Ancef] 1,000 gm IV DAILY 9 Days #9 vial - Attending Attestation I examined this patient and my medical decision-making was reviewed with the Resident Physician. I agree with the documented findings, disposition and treatment plan as described except to the extent set forth below.
--- NOTE | 2018-02-20 11:14 | Internal Med Progress Note ---
Hospitalist Progress Note - Encounter Date of Encounter: 02/20/18 Time of Encounter: 09:23 - Subjective Interval History: Patient seen and examined this morning. No acute overnight events. AOX1. Does not offer any complains. Son at bedside, says mentation in baseline. Had a big bowel movement yesterday - Exam Vitals: Temp Pulse Resp BP Pulse Ox 98.6 F 77 16 145/78 97 02/20/18 07:40 02/20/18 07:40 02/20/18 07:40 02/20/18 07:40 02/20/18 09:30 Exam: General: Alert, confused, not in acute distress. CVS : Normal S1 & S2, No JVD. Pulse regular. Lungs: clear to auscultation, no wheezes/rales Abdomen:Soft, non-tender, no rigidity. : hoffman in place with cloudy urine. Ext: Rt arm AV fistula with thrill present. Neuro: AOx1. Grossly non-focal. - Assessment and Plan (1) Sepsis Current Visit: Yes Status: Acute (2) Anemia Current Visit: Yes Status: Chronic (3) End-stage renal disease Current Visit: Yes Status: Chronic (4) Essential hypertension Current Visit: Yes Status: Chronic (5) CVA (cerebral vascular accident) Current Visit: Yes Status: Chronic (6) DVT prophylaxis Current Visit: No Status: Acute - Summary of Assessment and Plan Summary of Assessment and Plan: Sepsis - Had SIR on admission. - Likely due to Bacteremia. blood culture 02/11 positive for MSSA with wound culture from R neck where her CVC was inserted growing the same - repeat culture from HD catheter 02/14 NGTD. - HD catheter removed after HD 02/14 - KRARIE with no evidence of vegetations. EF 55-60 - Per pulm Lung nodules appear chronic and will need to be followed up as outpatient in 8 weeks. Low concern for septic emboli - Urology for outpatient cystoscopy and ureteral stent removal - WBC improved today. Afebrile and hemodynamically stable. CXR unremarkable. KUB without signs of obstruction. RIP negative. - c/w cefazolin till . ID recommendation appreciated. UTI - Urine culture from 02/11 with Klebsiella and Ecoli. - Likely with asymptomatic bacteuria and not causing sepsis. End-stage renal disease - HD MWF - Not able to access Fistula. Plan for Permacath placement today. Repeat culture s have been negative since 02/14. - nephrology following. Essential hypertension - c/w Norvasc and losartan Anemia - Stable. - Chronic , likely secondary to CKD. No signs of overt bleeding. CVA - c/w home antiplatelet and statin therapy. Severe Protein Calorie Malnutrition - Likely related to chronic illness and debility with decreased PO intake - c/w diet/nutritional supplement per nutrition. DVT prophylaxis - c/w Sub-cutaneous heparin - Time Spent with Patient Total time spent is greater than 50% in coordination of care (as documented) at patient's floor/unit and/or counseling patient: Internal Medicine: Result - Labs CBC & Chem 7: 02/20/18 04:00 02/20/18 04:00 Labs: Short CBC 02/20/18 Range/Units 04:00 WBC 12.5 H (4.3-11.1) K/mcL Hgb 9.0 L (11.5-15.4) g/dL Hct 28.3 L (35.3-44.9) % Plt Count 249 (140-400) K/mcL Neutrophils # 7.6 (1.6-8.9) K/mcL BMP 02/20/18 04:00 Sodium 139 Potassium 4.1 Chloride 102 Carbon Dioxide 25 BUN 77 H Creatinine 8.19 H Glucose 98 Calcium 9.1 - ABG Interpretation ABG results: PT/INR, D-dimer PT 12.0 Seconds (9.4-12.1) 02/11/18 18:58 - Impressions Impressions Chest X-Ray 02/19/18 06:25 IMPRESSION: 1. No acute cardiopulmonary disease. 2. No radiographic evidence of bowel obstruction. 3. Large stool burden identified in the rectum. 4. Emphysema. 5. Left ureteral stent in place. No stones identified along its course. D/ / 02/19/2018 07:44:56 Carmen Saucedo MD / teofilo Interpreting Provider: Carmen Saucedo MD X-Ray 02/19/18 06:25 IMPRESSION: 1. No acute cardiopulmonary disease. 2. No radiographic evidence of bowel obstruction. 3. Large stool burden identified in the rectum. 4. Emphysema. 5. Left ureteral stent in place. No stones identified along its course. D/ / 02/19/2018 07:44:56 Carmen Saucedo MD / teofilo Interpreting Provider: Carmen Saucedo MD Consult Discharge Plan - Plan Referrals: Navid Frias [Primary Care Provider] - (Patient is going to [facility]) (1) Sepsis Qualifiers: Sepsis type: methicillin susceptible Staphylococcus aureus Qualified Code(s): A41.01 - Sepsis due to Methicillin susceptible Staphylococcus aureus (2) Anemia Qualifiers: Anemia type: due to chronic kidney disease Chronic kidney disease stage: on chronic dialysis Qualified Code(s): N18.6 - End stage renal disease; D63.1 - Anemia in chronic kidney disease; Z99.2 - Dependence on renal dialysis (5) CVA (cerebral vascular accident) Qualifiers: CVA mechanism: unspecified Qualified Code(s): I63.9 - Cerebral infarction, unspecified
--- NOTE | 2018-02-20 13:47 | Event Note ---
Date of Encounter: 02/20/18 Time of Encounter: 13:50 Patient awake and alert. Son Cristhian at bedside. She is scheduled for permacath today, son upset she has been NPO and it has not been done yet. Stated, "the other day she was without food and fluids all day, and I certainly hope you all don't do this to her again and then cancel it". 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 Stated he was staying with the current plan for permacath, and dialysis center setting up "jump graft" to be done later. D/W Dr. Del Rosario this am. Palliative will sign off. Please call if needed.
--- NOTE | 2018-02-20 14:24 | Nephrology Progress Note ---
Date of Encounter: 02/20/18 Time of Encounter: 10:25 - Assessment and Plan (1) ESRD (end stage renal disease) on dialysis Current Visit: Yes Status: Chronic - Hemodialysis normally scheduled Saturday - Electrolytes and kidney function at baseline - Renal vitamins - Renal diet - HD catheter removed on 02/14/18 due to bacteremia. -Attempted dialysis with fistula. Infiltrated multiple times. - Will need to have permacath placed today, discussed with ID and primary team. Blood cultures remain negative Plan - Per chart review and palliative care team, patient does have outpatient plans with Dr. Mendieta and vascular surgeon for a jump graft. In the meantime, will need HD perm cath placed today. Consult to IR placed. (2) Anemia Current Visit: Yes Status: Chronic Stable at baseline at 9.0 hemoglobin Transfusion parameters per primary team Qualifiers: Anemia type: due to chronic kidney disease Chronic kidney disease stage: on chronic dialysis Qualified Code(s): N18.6 - End stage renal disease; D63.1 - Anemia in chronic kidney disease; Z99.2 - Dependence on renal dialysis (3) Essential hypertension Current Visit: Yes Status: Chronic Titrate antihypertensives as necessary (4) Sepsis secondary to UTI Current Visit: Yes Status: Resolved - Secondary to UTI versus more likely secondary to hemodialysis catheter. - HD catheter removed on 02/14/18, Permcath placed today - Blood cultures positive for MSSA. Repeat blood cultures negative so far - Right neck culture and CBC culture growing Staphylococcus aureus --- Repeat blood cultures ordered this morning due to increasing leukocytosis - KARRIE did not show any signs of vegetations - Infectious disease is following (5) Bacteremia Current Visit: Yes Status: Resolved as above. resolved. Subjective Principal diagnosis: ESRD Interval history: Patient was seen and examined at bedside this morning. She states overall she is doing well with no complaints this time. She denies any symptoms of fevers, chills, nausea, vomiting, pain at this time. She does repeat herself and asks multiple times where she is. No overnight events. Family still wishes to proceed with dialysis. Objective - Vital Signs Vital signs: Vital Signs Temp Pulse Resp BP Pulse Ox 02/20/18 11:00 98.0 F 71 16 145/74 97 02/20/18 09:30 97 02/20/18 07:40 98.6 F 77 16 145/78 97 02/20/18 04:20 98.4 F 82 16 127/40 97 02/19/18 23:45 99 F 84 16 113/61 97 02/19/18 20:02 98.1 F 79 17 125/42 97 02/19/18 16:41 98.5 F 79 16 115/55 95 Intake and Output 02/19/18 02/20/18 02/20/18 23:59 07:59 15:59 Intake Total Output Total 400 / 400 Balance -400 / -400 Intake: IV Fluids Ancef 1,000 MG In Water for inj . (sterile) 10 ML @ 200 mls/hr IVP Q24H GINA Rx#:[id number] Output: Catheter 400 / 400 Other: Stool Size Small Stool Consistency liquid Stool Color Brown Ritter # Bowel Movement Diapers 1 Weight 53.1 kg Blood Glucose* 118 96 - General Appearance Exam: Gen.: Vitals noted. No acute distress. AAOx1. Resting comfortably in bed HEENT: PERRL/EOMI, oropharynx clear, Normocephalic, atraumatic, MMM Cardiac: Irregular rhythm, systolic murmur appreciated, +S1/S2 Pulmonary: CTA bilaterally, no wheezes, rales or rhonchi, equal chest expansion Abdomen: soft, nontender, BS noted, no guarding, no rebound. MSK: ROM not assessed, no joint swelling noted. Extremities: no BLE edema, nontender calf, no cyanosis or clubbing. Right upper extremity fistula Neuro: A&Ox1, moves all extremities, no focal deficits Psych: Appropriate mood and behavior - Lab 02/20/18 04:00 02/20/18 04:00 Most recent lab results Calcium 9.1 mg/dL (8.6-10.3) 02/20/18 04:00 Phosphorus 2.5 mg/dL (2.7-4.5) L 02/17/18 04:30 Magnesium 2.2 mg/dL (1.6-2.6) 02/12/18 06:19 Consult Discharge Plan - Plan Referrals: Navid Frias [Primary Care Provider] - (Patient is going to [facility])
[2018-02-20] MEDS ORDERED: Heparin 1,000 UNITS/500 mL 500 ML ONE (15:46)
[2018-02-20] MEDS ORDERED: *HR* FentaNYL (PF) 100 MCG/2 ML VIAL IVP ONE (15:56)
[2018-02-20] MEDS ORDERED: *HR* FentaNYL (PF) 100 MCG/2 ML VIAL ONE (15:59)
[2018-02-20] MEDS ORDERED: 0.9 % Sodium Chloride 1,000 ML ONE (15:59)
[2018-02-20] MEDS ORDERED: *HR* Heparin 5,000 UNIT/ML VIAL ONE (16:14)
--- NOTE | 2018-02-20 16:16 | IR Procedure Note ---
Date of procedure: 02/20/18 Consent Obtained: Written consent Timeout: Correct patient and procedure verified, Correct site verified, Time out performed, Skin prep completed Local anesthetic: Lidocaine 1% Indications: termite technician dialysis Procedure Performed: right external jugular permacath Was there an child nutrition assistant present: No Site/Technique: right external jugular, right IJ not visualized Results/Findings: successful permacath Estimated blood loss (cc): 0 Complications: None; Tolerated procedure well Post Procedure Treatment Plan: ok to use catheter Specimen: NA
[2018-02-20] MEDS: ceFAZolin 1,000 MG in Water for inj. (sterile) 20 ML 10 ML IVP SCH (16:56)
[2018-02-21] MEDS: *HR* Heparin 5,000 UNIT/ML VIAL SQ SCH (06:16)
[2018-02-21 06:22] LABS: Hemoglobin 8.5 g/dL (11.5-15.4); Mean Corpuscular HGB Conc 31.5 g/dL (31.6-35.5); Mean Corpuscular Hemoglobin 31.3 pg (28.0-33.3); Mean Corpuscular Volume 99.3 fL (83.0-100.0); Mean Platelet Volume 9.4 fL (9.4-12.4); Platelet Count 247 K/mcL (140-400); Red Blood Count 2.72 M/mcL (3.82-4.97); Red Cell Distribution Width 14.5 % (11.5-14.5)
[2018-02-21 06:41] LABS: Calcium 8.7 mg/dL (8.6-10.3); Potassium 4.7 mEq/L (3.5-5.1)
[2018-02-21 06:44] LABS: INR 1.3
[2018-02-21] MEDS ORDERED: *HR* Heparin 10,000 UNIT/10 ML VIAL IV PRN (07:46)
[2018-02-21] MEDS ORDERED: 0.9 % Sodium Chloride 250 ML IVC PRN (07:46)
[2018-02-21] MEDS ORDERED: 0.9 % Sodium Chloride 1,000 ML ONE ×2 (07:58→12:32)
[2018-02-21] MEDS ORDERED: 0.9 % Sodium Chloride 1,000 ML PRIME SCH (08:00)
[2018-02-21] MEDS: Folic Acid 1 MG TABLET PO SCH (09:40)
[2018-02-21] MEDS: Ondansetron ODT 4 MG TAB.RAPDIS PO PRN (09:40)
[2018-02-21] MEDS: Aspirin 325 MG TABLET PO SCH (09:40)
[2018-02-21] MEDS: Sennosides/Docusate Sodium TABLET PO SCH (09:40)
[2018-02-21] MEDS: Lactobacillus 1 EACH CAP.SPRINK PO SCH (09:40)
--- NOTE | 2018-02-21 10:09 | Infectious Disease Progress No ---
Date of Encounter: 02/21/18 Time of Encounter: 10:08 - Assessment and Plan (1) Sepsis Status: Acute The patient had three SIRS criteria on admission. Likely secondary to bacteremia. WBC remains elevated, but improved. Afebrile. Tachycardia resolved. Blood cultures drawn peripherally 02/11/18 are positive 2/2 sets for MSSA. Repeat blood culture drawn 02/12/18 x 1 set from her Perma-cath is positive for MSSA. Repeat blood cultures drawn peripherally 02/14/18 are negative x 2 sets. Repeat blood culture drawn 02/17/18 x 1 set from a central access (HD fistula?) is NGTD. Additional repeat blood cultures drawn peripherally 02/19/18 are NGTD x 2 sets. Recommendations: - Await repeat blood cultures to finalize. - Continue cefazolin 1 g every 24 hours (dose-adjusted for HD status). - Duration of treatment through 03/01/18. - Okay from an ID standpoint to have Perma-cath re-inserted. - Monitor labs and dose-adjust for HD status. Qualifiers: Sepsis type: methicillin susceptible Staphylococcus aureus Qualified Code(s): A41.01 - Sepsis due to Methicillin susceptible Staphylococcus aureus (2) Bacteremia Status: Resolved Causative organism: MSSA Source: Likely the HD catheter. Blood cultures drawn 02/11/18 drawn peripherally are positive 2/2 sets for MSSA. Repeat blood culture drawn 02/12/18 x 1 set from her Perma-cath is positive for MSSA. Repeat blood cultures drawn peripherally 02/14/18 are negative x 2 sets. Repeat blood culture drawn 02/17/18 x 1 set from a central access (HD fistula?) is NGTD. Additional repeat blood cultures drawn peripherally 02/19/18 are NGTD x 2 sets. Wound culture of the perma-cath site was positive for MSSA. Clinically, the patient's HD catheter does not appear infected, but we do not have another source. I do not appreciate any other skin or soft tissue infections. The patient has one major and one minor Modified Erwin's criteria. No endocarditis stigmata noted on exam. KARRIE negative for endocarditis. Status post perma-cath removal 02/14/18. Currently on cefazolin. (3) UTI (urinary tract infection) Status: Acute Urine culture was negative. Sepsis is likely due to the bacteremia with MSSA. Will not treat the UTI/asymptomatic bacteriuria at this time unless clinically the patient changes or show signs of worsening sepsis/infection. 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 Qualifiers: Urinary tract infection type: site unspecified Hematuria presence: without hematuria Qualified Code(s): N39.0 - Urinary tract infection, site not specified (4) Lung nodule Status: Chronic (5) Dementia Status: Chronic Qualifiers: Dementia type: Alzheimer's disease Alzheimer's disease onset: unspecified onset Dementia behavioral disturbance: without behavioral disturbance Qualified Code(s): G30.9 - Alzheimer's disease, unspecified; F02.80 - Dementia in other diseases classified elsewhere without behavioral disturbance (6) ESRD (end stage renal disease) on dialysis Status: Chronic Nephrology consulted and following. - Subjective Interval history: Patient seen and examined. Appears comfortable. no chest pain no shortness of breath no abdominal pain no diarrhea no urinary symptoms. Vital signs: Afebrile no tachycardia no tachypnea Labs: WBC 10.6; blood cultures from 02/19/2018 no growth to date Infect Dis PN-Objective Data - Labs CBC & Chem 7: 02/21/18 04:00 02/21/18 04:00 Labs: Laboratory Results - last 24 hr 02/20/18 02/21/18 02/21/18 13:32 04:00 04:00 WBC 10.6 RBC 2.72 L Hgb 8.5 L Hct 27.0 L MCV 99.3 MCH 31.3 MCHC 31.5 L RDW 14.5 Plt Count 247 MPV 9.4 PT 15.0 H INR 1.3 Sodium Potassium Chloride Carbon Dioxide BUN Creatinine Est GFR ( Amer) Est GFR (Non-Af Amer) BUN/Creatinine Ratio Glucose POC Glucose 96 Calculated Osmolality Calcium 02/21/18 04:00 WBC RBC Hgb Hct MCV MCH MCHC RDW Plt Count MPV PT INR Sodium 139 Potassium 4.7 Chloride 103 Carbon Dioxide 23 BUN 89 H Creatinine 8.83 H Est GFR ( Amer) 5 L Est GFR (Non-Af Amer) 4 L BUN/Creatinine Ratio 10 Glucose 95 POC Glucose Calculated Osmolality 315 H Calcium 8.7 Cultures: Cultures 02/14/18 16:23 Blood Culture - Final Peripheral Venipuncture No growth. Final report. 02/14/18 16:28 Blood Culture - Final Peripheral Venipuncture No growth. Final report. 02/19/18 07:46 Blood Culture - Preliminary Peripheral Venipuncture Culture is incubating and being continuously monitored for growth. Final report to follow. 02/19/18 07:46 Blood Culture - Preliminary Peripheral Venipuncture Culture is incubating and being continuously monitored for growth. Final report to follow. 02/17/18 13:14 Blood Culture - Preliminary Central Venous Catheter Culture is incubating and being continuously monitored for growth. Final report to follow. 02/14/18 04:10 Wound Culture - Final Neck Staphylococcus aureus 02/12/18 14:15 Blood Culture - Final Central Venous Catheter Staphylococcus aureus 02/13/18 15:03 Urine Culture - Final Urine,[place] No significant growth. 02/11/18 18:58 Blood Culture - Final Peripheral Venipuncture Staphylococcus aureus 02/11/18 20:12 Blood Culture - Final Peripheral Venipuncture Staphylococcus aureus 02/11/18 20:06 Urine Culture - Final Urine,Clean Catch Escherichia coli Klebsiella oxytoca Serology 02/19/18 02/13/18 02/12/18 Range/Units 09:25 15:03 12:39 Urine Color Dark Yellow (Yellow) Urine Clarity Turbid A (Clear) Urine pH 8.0 (5.0-8.0) pH Units Ur Specific [place] 1.010 (1.010-1.025) Urine Protein >=300 H (Neg-Trace) mg/dL Urine Glucose (UA) Normal (Normal) mg/dL Urine Ketones Negative (Negative) mg/dL Urine Blood Large H (Negative) Urine Nitrite Negative (Negative) Urine Bilirubin Small H (Negative) Urine Urobilinogen Normal (Normal) mg/dL Ur Leukocyte Esterase Large H (Negative) Urine Microscopic RBC TNTC H (0-3) per hpf Urine Microscopic WBC TNTC H (0-3) per hpf Ur Squamous Epith Cells Moderate H (None-Few) per lpf Urine Bacteria None Seen (None-Few) per hpf Hyaline Casts Few (None-Few) per lpf Ur Culture Indicated? YES A (NO) A. baumannii (PCR) (Not Detect) Chlamy pneumoniae PCR Not Detected (Not Detect) Adenovirus (PCR) Not Detected (Not Detect) B. pertussis DNA (PCR) Not Detected (Not Detect) B.parapertussis DNA PCR Not Detected (Not Detect) Adri albicans (PCR) (Not Detect) C. glabrata (PCR) (Not Detect) C. krusei (PCR) (Not Detect) C. parapsilosis (PCR) (Not Detect) C. tropicalis (PCR) (Not Detect) Coronavirus OC43 (PCR) Not Detected (Not Detect) Coronavirus HKU1 (PCR) Not Detected (Not Detect) Coronavirus 229E (PCR) Not Detected (Not Detect) Coronavirus NL63 (PCR) Not Detected (Not Detect) Enterobacteriac sp PCR (Not Detect) E. cloacae complex PCR (Not Detect) Enterococcus sp PCR (Not Detect) E. coli (PCR) (Not Detect) H. influenzae (PCR) (Not Detect) Hep Bs Antigen Nonreactive (Nonreactive) Hep Bs Antibody 21.71 mIU/mL Human Metapneumovir PCR Not Detected (Not Detect) Influenza A (H1) PCR Not Detected (Not Detect) Influ A (H1N1/09) PCR Not Detected (Not Detect) Influenza A (H3) PCR Not Detected (Not Detect) Influenza A Untype (PCR) Not Detected (Not Detect) Influenza Type B (PCR) Not Detected (Not Detect) Klebsiella oxytoca PCR (Not Detect) Klebsiella pneumoniae (Not Detect) List. monocytogenes PCR (Not Detect) M.pneumoniae DNA (PCR) Not Detected (Not Detect) N. meningitidis (PCR) (Not Detect) Parainfluenza 1 (PCR) Not Detected (Not Detect) Parainfluenza 2 (PCR) Not Detected (Not Detect) Parainfluenza 3 (PCR) Not Detected (Not Detect) Parainfluenza 4 (PCR) Not Detected (Not Detect) Proteus species (PCR) (Not Detect) RSV (PCR) Not Detected (Not Detect) Entero/Rhino (PCR) Not Detected (Not Detect) Serratia marcescens PCR (Not Detect) Staphylococcus sp PCR (Not Detect) Staph aureus (PCR) (Not Detect) mecA-Methicil Res Gene (Not Detect) Streptococcus sp PCR (Not Detect) Group A Strep DNA (Not Detect) Group B Strep (PCR) (Not Detect) Strep pneumoniae (PCR) (Not Detect) P. aeruginosa (PCR) (Not Detect) Dyan/B-Vanco Res Genes (Not Detect) KPC (blaKPC) Detect PCR (Not Detect) 02/11/18 02/11/18 Range/Units 20:06 18:58 Urine Color Yellow (Yellow) Urine Clarity Turbid A (Clear) Urine pH 7.5 (5.0-8.0) pH Units Ur Specific [place] 1.016 (1.010-1.025) Urine Protein >=300 H (Neg-Trace) mg/dL Urine Glucose (UA) Normal (Normal) mg/dL Urine Ketones Negative (Negative) mg/dL Urine Blood Moderate H (Negative) Urine Nitrite Negative (Negative) Urine Bilirubin Negative (Negative) Urine Urobilinogen Normal (Normal) mg/dL Ur Leukocyte Esterase Large H (Negative) Urine Microscopic RBC 5-15 H (0-3) per hpf Urine Microscopic WBC TNTC H (0-3) per hpf Ur Squamous Epith Cells (None-Few) per lpf Urine Bacteria Many H (None-Few) per hpf Hyaline Casts (None-Few) per lpf Ur Culture Indicated? YES A (NO) A. baumannii (PCR) Not Detected (Not Detect) Chlamy pneumoniae PCR (Not Detect) Adenovirus (PCR) (Not Detect) B. pertussis DNA (PCR) (Not Detect) B.parapertussis DNA PCR (Not Detect) Adri albicans (PCR) Not Detected (Not Detect) C. glabrata (PCR) Not Detected (Not Detect) C. krusei (PCR) Not Detected (Not Detect) C. parapsilosis (PCR) Not Detected (Not Detect) C. tropicalis (PCR) Not Detected (Not Detect) Coronavirus OC43 (PCR) (Not Detect) Coronavirus HKU1 (PCR) (Not Detect) Coronavirus 229E (PCR) (Not Detect) Coronavirus NL63 (PCR) (Not Detect) Enterobacteriac sp PCR Not Detected (Not Detect) E. cloacae complex PCR Not Detected (Not Detect) Enterococcus sp PCR Not Detected (Not Detect) E. coli (PCR) Not Detected (Not Detect) H. influenzae (PCR) Not Detected (Not Detect) Hep Bs Antigen (Nonreactive) Hep Bs Antibody mIU/mL Human Metapneumovir PCR (Not Detect) Influenza A (H1) PCR (Not Detect) Influ A (H1N1/09) PCR (Not Detect) Influenza A (H3) PCR (Not Detect) Influenza A Untype (PCR) (Not Detect) Influenza Type B (PCR) (Not Detect) Klebsiella oxytoca PCR Not Detected (Not Detect) Klebsiella pneumoniae Not Detected (Not Detect) List. monocytogenes PCR Not Detected (Not Detect) M.pneumoniae DNA (PCR) (Not Detect) N. meningitidis (PCR) Not Detected (Not Detect) Parainfluenza 1 (PCR) (Not Detect) Parainfluenza 2 (PCR) (Not Detect) Parainfluenza 3 (PCR) (Not Detect) Parainfluenza 4 (PCR) (Not Detect) Proteus species (PCR) Not Detected (Not Detect) RSV (PCR) (Not Detect) Entero/Rhino (PCR) (Not Detect) Serratia marcescens PCR Not Detected (Not Detect) Staphylococcus sp PCR DETECTED A (Not Detect) Staph aureus (PCR) DETECTED A (Not Detect) mecA-Methicil Res Gene Not Detected (Not Detect) Streptococcus sp PCR Not Detected (Not Detect) Group A Strep DNA Not Detected (Not Detect) Group B Strep (PCR) Not Detected (Not Detect) Strep pneumoniae (PCR) Not Detected (Not Detect) P. aeruginosa (PCR) Not Detected (Not Detect) Dyan/B-Vanco Res Genes Not Detected (Not Detect) KPC (blaKPC) Detect PCR Not Detected (Not Detect) - Impressions Impressions Guidance Ultrasound 02/20/18 00:00 IMPRESSION: Successful ultrasound and fluoroscopy guided tunneled catheter placement via the right external jugular vein. The right internal jugular vein was not visualized, possibly due to occlusion. D/ / Vernon Brown / Vernon Brown Interpreting Provider: Vernon Brown Insertion Tunneled Catheter 02/20/18 00:00 IMPRESSION: Successful ultrasound and fluoroscopy guided tunneled catheter placement via the right external jugular vein. The right internal jugular vein was not visualized, possibly due to occlusion. D/ / Vernon Brown / Vernon Brown Interpreting Provider: Vernon Brown Exam - Constitutional Vitals: Temp Pulse Resp BP Pulse Ox 98.6 F 93 16 177/77 96 02/21/18 07:00 02/21/18 07:00 02/21/18 07:00 02/21/18 07:00 02/21/18 07:00 General appearance: cooperative, no acute distress, no febrile - Respiratory Respiratory exam: Present: CTAB. Absent: wheezes - Cardiovascular Cardiovascular exam: Present: RRR, +S1, +S2. Absent: systolic murmur - GI/Abdominal GI/Abdominal exam: Present: soft. Absent: tenderness Consult Discharge Plan - Plan Referrals: Navid Frias [Primary Care Provider] - (Patient is going to [facility]) Prescriptions: ceFAZolin [Ancef] 1,000 gm IV DAILY 9 Days #9 vial
--- NOTE | 2018-02-21 13:05 | Discharge Summary ---
- NOTES TO OUTPATIENT PROVIDER Notes to Outpatient Provider: To continue IV cefazolin antibiotics until 03/01/18 for MSSA bacteremia. Patient had dialysis catheter replaced. Patient's son wishes to continue her dialysis after discussion with palliative care. Orders not resulted at time of discharge: Pending orders 02/12/18 14:15 Culture,Blood [BC] Stat 02/19/18 07:46 Culture,Blood [BC] Routine 02/22/18 04:00 Basic Metabolic Panel AM 0400 CBC no Diff [Complete Blood Count w/o Diff] [HEME] AM 04002/23/18 04:00 Basic Metabolic Panel AM 0400 CBC no Diff [Complete Blood Count w/o Diff] [HEME] AM 04002/24/18 04:00 Basic Metabolic Panel AM 0400 CBC no Diff [Complete Blood Count w/o Diff] [HEME] AM 0400 Date of Encounter: 02/21/18 Time of Encounter: 13:05 - Discharge Diagnosis (1) Sepsis Priority: Primary Status: Acute Qualifiers: Sepsis type: methicillin susceptible Staphylococcus aureus Qualified Code(s): A41.01 - Sepsis due to Methicillin susceptible Staphylococcus aureus (2) Anemia Priority: Secondary Status: Chronic Qualifiers: Anemia type: due to chronic kidney disease Chronic kidney disease stage: on chronic dialysis Qualified Code(s): N18.6 - End stage renal disease; D63.1 - Anemia in chronic kidney disease; Z99.2 - Dependence on renal dialysis (3) End-stage renal disease Priority: Secondary Status: Chronic (4) Essential hypertension Priority: Secondary Status: Chronic (5) CVA (cerebral vascular accident) Priority: Secondary Status: Chronic Qualifiers: CVA mechanism: unspecified Qualified Code(s): I63.9 - Cerebral infarction, unspecified (6) DVT prophylaxis Priority: Secondary Status: Acute (7) Goals of care, counseling/discussion Priority: Secondary Status: Acute (8) Infection, dialysis vascular access Priority: Primary Status: Acute Qualifiers: Qualified Code(s): T82.7XXA - Infection and inflammatory reaction due to other cardiac and vascular devices, implants and grafts, initial encounter (9) Bacteremia Priority: Primary Status: Resolved (10) Dementia Priority: Secondary Status: Chronic Qualifiers: Dementia type: Alzheimer's disease Alzheimer's disease onset: unspecified onset Dementia behavioral disturbance: without behavioral disturbance Qualified Code(s): G30.9 - Alzheimer's disease, unspecified; F02.80 - Dementia in other diseases classified elsewhere without behavioral disturbance (11) Lung nodule Priority: Secondary Status: Chronic Hospital course: Ms. Mcgraw is a 83 year old female past medical history of ESRD on dialysis, dementia, hypothyroidism, CVA came in with complaint of fever. He was started on linezolid and cefepime initially for UTI with history of VRE. CT showed bilateral urothelial enhancement. Urology was consulted who recommended outpatient cystoscopy and ureteral stent removal. Infectious disease was consulted. Blood cultures came positive which later grew MSSA. Cultures from dialysis access also grew the same. Dialysis catheter was removed on 02/14. Patient antibiotics were switched to cefazolin. Patient had KARRIE which did not show any endocarditis. Patient was monitored for renal function and azotemia, as well as unexplained leukocytosis which resolved after patient had a big bowel movement. Given her debility palliative consult was obtained and after discussion with patient son who was decided to obtain dialysis access. Patient had a permacath placed after 6 days of negative blood cultures. Patient was dialyzed today. Patient would be discharged to continue IV cefazolin until 03/01/18. Patient's bacteremia was likely from her dialysis access. UTI was likely asymptomatic bacteriuria. Patient had incidental lung nodule found on initial CT scan which thought to be chronic and would be followed as outpatient in 8 weeks per professional sports scout. - Time Spent with Patient Total time spent providing and/or coordinating discharge services: Greater than 30 minutes (46) - Discharge Medications Prescriptions: ceFAZolin [Ancef] 1,000 gm IV DAILY 9 Days #9 vial Home Medications: Bisacodyl [Dulcolax] 10 mg RC DAILY PRN 07/19/17 [History] Folic Acid 1 mg PO DAILY 07/19/17 [History] Magnesium Hydroxide [Milk of Magnesia] 2,400 mg PO DAILY PRN 07/19/17 [History] Polyethylene Glycol 3350 [MiraLAX Powder Bulk 17.9 Oz] 1 scoop PO DAILY PRN 07/19/17 [History] Sennosides/Docusate Sodium [Colace 2-in-1 Tablet] 1 tab PO BID 07/19/17 [History] Aspirin Enteric Coated [Aspirin EC] 325 mg PO DAILY #30 tablet. 08/15/17 [Rx] Atorvastatin [Lipitor] 40 mg PO HS #30 tablet 08/15/17 [Rx] Acetaminophen [Non-Aspirin] 650 mg PO Q4H PRN 02/11/18 [History] Lactobacillus Acidophilus [Acidophilus Lactobacilli] 1 cap PO DAILY 02/11/18 [History] Levothyroxine Sodium [Synthroid] 137 mcg PO DAILY 02/11/18 [History] Losartan [Cozaar] 25 mg PO DAILY 02/11/18 [History] Ondansetron ODT [Zofran ODT] 4 mg PO Q8H PRN 02/11/18 [History] Sevelamer Carbonate [Renvela] 1.6 gm PO TID 02/11/18 [History] amLODIPine [Norvasc] 5 mg PO DAILY 02/11/18 [History] ceFAZolin [Ancef] 1,000 gm IV DAILY 9 Days #9 vial 02/20/18 [Rx] Allergies/Adverse Reactions: Allergy/AdvReac Type Severity Reaction Status Date / Time darifenacin Allergy Unknown See Verified 08/03/17 00:29 Comments ciprofloxacin AdvReac Nausea Verified 08/03/17 00:29 Sulfa (Sulfonamide AdvReac Nausea Verified 08/03/17 00:29 Antibiotics) Date of admission: 02/11/18 23:00 Primary care physician: Navid Frias Consults: 02/11/18 21:49 Consult to Urology [CONS] Stat Consulting Provider: [facility] Reason for Consult: UTI, nephro stent Time Notified: 21:49 Call Completed: Yes 02/11/18 23:03 Consult to Nephrology [CONS] Routine Consulting Provider: [facility]/ISABELL/ZACKARY/JOSEPH Reason for Consult: ESRD patient needs placement on HD schedule Call Completed: No 02/12/18 08:22 Consult to Certified Legal Investigator [CONS] Routine Reason for SW Consult: return to [facility], NCR? 02/12/18 10:08 Consult to Infectious Diseases [CONS] Routine Consulting Provider: Infectious Disease [place] Reason for Consult: Recurrent UTI, previous culture +ve for VRE, E. coli, enterococcus, morganella. Currently on zyvox and cefepime Call Completed: Yes 02/12/18 12:30 Consult to Dialysis [CONS] ONCE 02/14/18 08:15 Consult to Dialysis [CONS] ONCE 02/14/18 10:53 Consult to Wound Care [CONS] Routine Reason for Consult: R CVC site wound, dressing Call Completed: No 02/14/18 11:05 Consult to Interventional Radiology [CONS] Routine Consulting Provider: Radiology Interventional [facility] Reason for Consult: MSSA bacteremia, removal of HD catheter Call Completed: Yes 02/14/18 13:56 Consult to Invasive Line Access Team [CONS] Routine Reason for Consult: home atb Line Type: EPIV 02/15/18 09:40 Consult to Pulmonology [CONS] Routine Consulting Provider: Pulm Crit [facility] Reason for Consult: MSSA bacteremia, lung nodules ?septic emboli Call Completed: Yes 02/17/18 08:15 Consult to Dialysis [CONS] ONCE 02/18/18 12:44 Consult to Palliative Care [CONS] Routine Comment: Consulting Provider: Palliative Care [facility] Reason for Consult: goals of care discussion Call Completed: Yes 02/18/18 14:02 Consult to Nutrition [CONS] Routine Comment: Consulting Provider: NUTRITION Reason for Dietary Consult: PO Supplementation 02/19/18 09:00 Consult to Dialysis [CONS] ONCE 02/20/18 06:28 Consult to Interventional Radiology [CONS] Routine Consulting Provider: Radiology Interventional [facility] Reason for Consult: Permacath placement Call Completed: No 02/21/18 08:00 Consult to Dialysis [CONS] ONCE Discharging clinician: Annita Strong - Constitutional Vitals: Temp Pulse Resp BP Pulse Ox 98.0 F 93 18 96/56 96 02/21/18 09:50 02/21/18 07:00 02/21/18 09:50 02/21/18 11:20 02/21/18 07:00 Exam: General: In no acute distress. Conversant. confused, frail Respiratory exam: CTAB. no accessory muscle use, rales, rhonchi, wheezes Cardiovascular exam: RRR, +S1, +S2. no murmur, gallop, rubs. GI/Abdominal exam: Non-tender, Non-distended, normal bowel sounds, soft, no peritoneal signs. hoffman in place Extremities exam: full ROM, no pedal edema, warm, pulses palpable in b/l lower extremities. no calf tenderness. Rt arm fistula with thrill Neurological exam: CN II-XII intact, AO X1, no focal deficits. no pronater drift, facial droop, speech deficit. Confused and disoriented. Skin exam: No skin rash, ulcer, purpura or ecchymosis. - Patient Status Disposition: Transfer SNF Condition: Fair - Discharge Instructions Follow Up With: Navid Frias [Primary Care Provider] - (Patient is going to [facility]) - Diet and Activity Activity: as per physical therapy
--- NOTE | 2018-02-21 13:14 | Nephrology Progress Note ---
Date of Encounter: 02/21/18 Time of Encounter: 10:05 - Assessment and Plan (1) ESRD (end stage renal disease) on dialysis Current Visit: Yes Status: Chronic - Hemodialysis normally scheduled Saturday - In hemodialysis today - Electrolytes and kidney function at baseline - Renal vitamins - Renal diet - HD catheter removed on 02/14/18 due to bacteremia. Replaced on 02/20/18 -Attempted dialysis with fistula. Infiltrated multiple times. Plan - Per chart review and palliative care team, patient does have outpatient plans with Dr. Mendieta and vascular surgeon for a jump graft. In the meantime, will need HD perm cath placed. - Continue MWF dialysis (2) Anemia Current Visit: Yes Status: Chronic Stable at baseline at 8.5 hemoglobin Transfusion parameters per primary team Qualifiers: Anemia type: due to chronic kidney disease Chronic kidney disease stage: on chronic dialysis Qualified Code(s): N18.6 - End stage renal disease; D63.1 - Anemia in chronic kidney disease; Z99.2 - Dependence on renal dialysis (3) Essential hypertension Current Visit: Yes Status: Chronic Titrate antihypertensives as necessary (4) Sepsis secondary to UTI Current Visit: Yes Status: Resolved - Secondary to UTI versus more likely secondary to hemodialysis catheter. - HD catheter removed on 02/14/18, Permcath placed 02/20 - Blood cultures positive for MSSA. Repeat blood cultures negative so far - Right neck culture and CBC culture growing Staphylococcus aureus --- Repeat blood cultures ordered this morning due to increasing leukocytosis - KARRIE did not show any signs of vegetations - Infectious disease is following (5) Bacteremia Current Visit: Yes Status: Resolved As above, resolved Subjective Principal diagnosis: ESRD Interval history: Patient was seen and examined at bedside this morning in dialysis. She states overall she is doing well with no complaints this time. She denies any symptoms of fevers, chills, nausea, vomiting, pain at this time. She does repeat herself and asks multiple times where she is. No overnight events. Family still wishes to proceed with dialysis. Objective - Vital Signs Vital signs: Vital Signs Temp Pulse Resp BP Pulse Ox 02/21/18 13:11 97.2 F L 18 107/61 02/21/18 12:50 104/61 02/21/18 12:35 91/64 02/21/18 12:20 90/59 02/21/18 12:05 112/68 02/21/18 11:50 110/71 02/21/18 11:35 97/49 02/21/18 11:20 96/56 02/21/18 11:05 90/52 02/21/18 10:50 124/60 02/21/18 10:35 127/56 02/21/18 10:20 116/58 02/21/18 10:05 118/62 02/21/18 09:50 98.0 F 18 146/70 02/21/18 07:00 98.6 F 93 16 177/77 96 02/21/18 04:58 98.7 F 79 16 138/56 97 02/21/18 01:16 98.4 F 76 16 113/54 96 02/20/18 19:38 97.7 F 77 15 105/56 96 02/20/18 16:36 98.0 F 83 16 130/69 94 Intake and Output 02/20/18 02/21/18 02/21/18 23:59 07:59 15:59 Intake Total 240 / 240 390 / 390 600 / 600 Output Total 200 / 200 100 / 100 2404 / 2404 Balance 40 / 40 290 / 290 -1804 / -1804 Intake: Oral 240 / 240 390 / 390 0 / 0 Intake, Rinseback and Flushes 600 / 600 Output: Urine 0 / 0 Total Dialysis (HD) Output 2404 / 2404 Catheter 200 / 200 100 / 100 Other: Meal Dinner Percent of Meal Consumed 65% Stool Size Large # Bowel Movement Diapers 1 Weight 54.4 kg Blood Glucose* 100 Hemodialysis Net Fluid Removed 1804 (mL) Patient Weight 02/21/18 23:59 Weight 54.4 kg - General Appearance Exam: Gen.: Vitals noted. No acute distress. AAOx1. Resting comfortably in bed HEENT: PERRL/EOMI, oropharynx clear, Normocephalic, atraumatic, MMM Cardiac: Irregular rhythm, systolic murmur appreciated, +S1/S2 Pulmonary: CTA bilaterally, no wheezes, rales or rhonchi, equal chest expansion Abdomen: soft, nontender, BS noted, no guarding, no rebound. MSK: ROM not assessed, no joint swelling noted. Extremities: no BLE edema, nontender calf, no cyanosis or clubbing. Right upper extremity fistula, not in use Neuro: A&Ox1, moves all extremities, no focal deficits Psych: Appropriate mood and behavior - Lab 02/21/18 04:00 02/21/18 04:00 Most recent lab results Calcium 8.7 mg/dL (8.6-10.3) 02/21/18 04:00 Phosphorus 2.5 mg/dL (2.7-4.5) L 02/17/18 04:30 Magnesium 2.2 mg/dL (1.6-2.6) 02/12/18 06:19 Consult Discharge Plan - Plan Referrals: Navid Frias [Primary Care Provider] - (Patient is going [facility]) Prescriptions: ceFAZolin [Ancef] 1,000 gm IV DAILY 9 Days #9 vial
[2018-02-21 13:15] VITALS: BP 107/61
--- NOTE | 2018-02-21 13:58 | Physician Discharge Referral ---
ExtendedCare Referral Info Institutional Level of Care: Skilled - Diagnosis (1) Sepsis Status: Acute (2) Anemia Status: Chronic (3) End-stage renal disease Status: Chronic (4) Essential hypertension Status: Chronic (5) CVA (cerebral vascular accident) Status: Chronic (6) DVT prophylaxis Status: Acute (7) Goals of care, counseling/discussion Status: Acute (8) Infection, dialysis vascular access Status: Acute (9) Bacteremia Status: Resolved (10) Dementia Status: Chronic (11) Lung nodule Status: Chronic - Transfer Medications Prescriptions: ceFAZolin [Ancef] 1,000 gm IV DAILY 9 Days #9 vial Home Medications: Bisacodyl [Dulcolax] 10 mg RC DAILY PRN 07/19/17 [History] Folic Acid 1 mg PO DAILY 07/19/17 [History] Magnesium Hydroxide [Milk of Magnesia] 2,400 mg PO DAILY PRN 07/19/17 [History] Polyethylene Glycol 3350 [MiraLAX Powder Bulk 17.9 Oz] 1 scoop PO DAILY PRN 07/19/17 [History] Sennosides/Docusate Sodium [Colace 2-in-1 Tablet] 1 tab PO BID 07/19/17 [History] Aspirin Enteric Coated [Aspirin EC] 325 mg PO DAILY #30 tablet. 08/15/17 [Rx] Atorvastatin [Lipitor] 40 mg PO HS #30 tablet 08/15/17 [Rx] Acetaminophen [Non-Aspirin] 650 mg PO Q4H PRN 02/11/18 [History] Lactobacillus Acidophilus [Acidophilus Lactobacilli] 1 cap PO DAILY 02/11/18 [History] Levothyroxine Sodium [Synthroid] 137 mcg PO DAILY 02/11/18 [History] Losartan [Cozaar] 25 mg PO DAILY 02/11/18 [History] Ondansetron ODT [Zofran ODT] 4 mg PO Q8H PRN 02/11/18 [History] Sevelamer Carbonate [Renvela] 1.6 gm PO TID 02/11/18 [History] amLODIPine [Norvasc] 5 mg PO DAILY 02/11/18 [History] ceFAZolin [Ancef] 1,000 gm IV DAILY 9 Days #9 vial 02/20/18 [Rx] Allergies/Adverse Reactions: Allergy/AdvReac Type Severity Reaction Status Date / Time darifenacin Allergy Unknown See Verified 08/03/17 00:29 Comments ciprofloxacin AdvReac Nausea Verified 08/03/17 00:29 Sulfa (Sulfonamide AdvReac Nausea Verified 08/03/17 00:29 Antibiotics) - Respiratory Orders Smoking Cessation: Smoking cessation has been advised. For more information, call the [place] Tobacco Quit Line at 9-485-TYEW-NOW. - Rehabiliation Orders Rehab Orders: Evaluation for Physical Therapy CERTIFICATION: I certify that the transfer of the above named patient to an Extended Care Facility is necessary for the continuing treatment of the diagnosis listed. The above information is true and accurate reflection of patient's current condition. Confidential - Redisclosure prohibited without a patient's written consent.
[2018-02-21] MEDS: MICONAZOLE NITRATE 57 GM TUBE TP SCH (16:25)
[2018-02-21] MEDS: amLODIPine 5 MG TABLET PO SCH (16:25)
[2018-02-21] MEDS: ceFAZolin 1,000 MG in Water for inj. (sterile) 20 ML 10 ML IVP SCH (16:33)
== END 2018-02-21 17:29 | DRG 286 ==
LOC: EMEROOARM 18:48 → 2ANU 18:48 → SUATTDRO 23:00
PROVIDERS: ADMIT Internal Medicine; ATTEND Internal Medicine
PROC: IRPERMA (2018-02-20 12:00)

== ENCOUNTER 2018-10-24 16:30 | Inpatient (IN) ==
--- NOTE | 2018-10-24 16:48 | Emergency Department Note ---
Disposition Clinical Impression: Pyelonephritis Sepsis Qualifiers: Sepsis type: sepsis due to unspecified organism Sepsis acute organ dysfunction status: unspecified Qualified Code(s): A41.9 - Sepsis, unspecified organism Chronic kidney disease (CKD) Qualifiers: Chronic kidney disease stage: unspecified stage Qualified Code(s): N18.9 - Chronic kidney disease, unspecified Disposition: Admitted As Inpatient Condition: Fair Referrals: Navid Frias [Primary Care Provider] - Time of Disposition: 18:21 Nausea/Vomiting/Diarrhea HPI - General Stated complaint: vomitting Time Seen by Provider: 10/24/18 16:38 Source: patient Mode of arrival: EMS Limitations: altered mental status (History of Alzheimer's) Nursing Notes Reviewed: Yes Vital Signs Reviewed: Yes - History of Present Illness HPI Narrative: The patient was sent from the [facility] for vomiting. The patient is unable to corroborate this history. She has a history of dementia which makes obtaining an accurate history as well as a full review of systems impossible. She does complain of lower abdominal pain. She has a temperature of 99.6 upon arrival. She is alert and oriented to person only Pt Subjective Complaint: vomiting Onset (ago): unknown Associated symptoms: Reports: other (Abdominal pain) - Related Data Home Medications Medication Instructions Recorded Confirmed Bisacodyl [Dulcolax] 10 mg RC DAILY PRN 07/19/17 02/11/18 Folic Acid 1 mg PO DAILY 07/19/17 02/11/18 Magnesium Hydroxide [Milk of 2,400 mg PO DAILY PRN 07/19/17 02/11/18 Magnesia] Polyethylene Glycol 3350 [MiraLAX 1 scoop PO DAILY PRN 07/19/17 02/11/18 Powder Bulk 17.9 Oz] Sennosides/Docusate Sodium [Colace 1 tab PO BID 07/19/17 02/11/18 2-in-1 Tablet] Acetaminophen [Non-Aspirin] 650 mg PO Q4H PRN 02/11/18 02/11/18 Lactobacillus Acidophilus 1 cap PO DAILY 02/11/18 02/11/18 [Acidophilus Lactobacilli] Levothyroxine Sodium [Synthroid] 137 mcg PO DAILY 02/11/18 02/11/18 Losartan [Cozaar] 25 mg PO DAILY 02/11/18 02/11/18 Ondansetron ODT [Zofran ODT] 4 mg PO Q8H PRN 02/11/18 02/11/18 Sevelamer Carbonate [Renvela] 1.6 gm PO TID 02/11/18 02/11/18 amLODIPine [Norvasc] 5 mg PO DAILY 02/11/18 02/11/18 Previous Rx's Medication Instructions Recorded Aspirin Enteric Coated [Aspirin EC] 325 mg PO DAILY #30 tablet. 08/15/17 Atorvastatin [Lipitor] 40 mg PO HS #30 tablet 08/15/17 Allergies Allergy/AdvReac Type Severity Reaction Status Date / Time darifenacin Allergy Unknown See Verified 08/03/17 00:29 Comments ciprofloxacin AdvReac Nausea Verified 08/03/17 00:29 Sulfa (Sulfonamide AdvReac Nausea Verified 08/03/17 00:29 Antibiotics) Limitations: ROS unobtainable due to patients medical condition Past Medical History - Past Medical History Source: old records reviewed Medical history: Reports: dementia, dialysis, GERD, renal disease, thyroid disease, other (herpes encephalitis) Surgical history: Reports: non-contributory Psychiatric history: Reports: anxiety - Social History Smoking Status: Never smoker Smokeless Tobacco Status: No Alcohol use: Reports: none Drug use: Reports: none Physical Exam - General Limitations: altered mental status General appearance: alert - Head Head exam: atraumatic - Eye Eye exam: Present: normal appearance, PERRL - ENT ENT exam: normal exam - Neck Neck exam: Present: normal inspection, full ROM - Chest Chest inspection: Present: normal inspection, symmetric chest wall rise - Respiratory Respiratory exam: Present: normal lung sounds bilaterally - Cardiovascular Cardiovascular exam: Present: regular rate, normal rhythm - Abdominal Exam Abdominal exam: Present: soft, Non-Tender, normal bowel sounds, other (Indwelling Sandra catheter) - Rectal Exam Rectal exam: Present: deferred - Extremities Exam Extremities exam: Present: normal inspection - Neurological Exam Neurological exam: Present: alert, other (Oriented to person only. Concern to place and time) - Psychiatric Psychiatric exam: Present: flat affect - Skin Skin exam: Present: warm, dry, intact, other (Tactile fever) Course Course Narrative: Patient presents to emergency department with vomiting. History limited by Alzheimer's. She does complain of abdominal tenderness. She has a tactile fever. Concern for acute intra-abdominal surgical process versus UTI. Concern for sepsis. Workup initiated Vital Signs Temperature 99.2 F 10/24/18 16:38 Pulse Rate 84 10/24/18 16:38 Respiratory Rate 14 10/24/18 16:38 Blood Pressure 118/64 10/24/18 16:38 O2 Sat by Pulse Oximetry 94 10/24/18 16:38 Temperature 99.2 F 10/24/18 16:38 Pulse Rate 88 10/24/18 18:56 Respiratory Rate 16 10/24/18 18:56 Blood Pressure 121/60 10/24/18 18:56 O2 Sat by Pulse Oximetry 95 10/24/18 18:56 Oxygen Delivery Oxygen Delivery Room Air Nausea/Vomiting/Diarrhea - MDM Narrative Medical decision making narrative: urine cultures dated 04/2018 reviewed by me: urine grew out klebsiella oxytoca, E. coli and E faecalis - Medical Records Medical records reviewed: Yes I reviewed the patient's medical records. - Lab Data Lab results reviewed: Yes I reviewed the patient's lab results. Result diagrams: 10/24/18 16:09 10/24/18 16:09 Lab Results 10/24/18 10/24/18 10/24/18 Range/Units 16:09 16:09 16:09 WBC 19.8 H (4.3-11.1) K/mcL RBC 3.58 L (3.82-4.97) M/mcL Hgb 11.8 (11.5-15.4) g/dL Hct 35.8 (35.3-44.9) % MCV 100.0 (83.0-100.0) fL MCH 33.0 (28.0-33.3) pg MCHC 33.0 (31.6-35.5) g/dL RDW 13.4 (11.5-14.5) % Plt Count 159 (140-400) K/mcL MPV 10.2 (9.4-12.4) fL Immature Gran % 0.5 (0-4) % Seg Neutrophils % 86.4 % Lymphocytes % 8.3 % Monocytes % 4.6 % Eosinophils % 0.0 % Basophils % 0.2 % Neutrophils # 17.1 H (1.6-8.9) K/mcL Lymphocytes # 1.6 (0.6-4.6) K/mcL Monocytes # 0.9 (0.0-1.3) K/mcL Eosinophils # 0.0 (0.0-0.6) K/mcL Basophils # 0.0 (0.0-0.2) K/mcL PT 12.4 H (9.4-12.1) Seconds INR 1.1 Sodium 139 (136-145) mEq/L Potassium 5.0 (3.5-5.1) mEq/L Chloride 103 (98-107) mEq/L Carbon Dioxide 25 (23-29) mEq/L BUN 65 H (8-23) mg/dL Creatinine 5.75 H (0.60-1.20) mg/dL Est GFR ( Amer) 9 L (> 60) Est GFR (Non-Af Amer) 7 L (> 60) BUN/Creatinine Ratio 11 (6-26) Glucose 126 H (70-105) mg/dL Calculated Osmolality 308 H (280-300) Lactic Acid (0.5-2.2) mmol/L Calcium 9.7 (8.6-10.3) mg/dL Magnesium 2.5 (1.6-2.6) mg/dL Total Bilirubin 0.6 (0.3-1.0) mg/dL Direct Bilirubin 0.2 (0.0-0.2) mg/dL Indirect Bilirubin 0.4 (0.0-1.2) mg/dL AST 18 (13-39) Units/L ALT 14 (7-52) Units/L Alkaline Phosphatase 109 H (34-104) Units/L Serum Total Protein 6.8 (6.4-8.9) g/dL Albumin 4.0 (3.5-5.7) g/dL Globulin 2.8 (2.4-3.5) g/dL Albumin/Globulin Ratio 1.4 (1.1-2.2) Urine Color (Yellow) Urine Clarity (Clear) Urine pH (5.0-8.0) pH Units Ur Specific [place] (1.010-1.025) Urine Protein (Neg-Trace) mg/dL Urine Glucose (UA) (Normal) mg/dL Urine Ketones (Negative) mg/dL Urine Blood (Negative) Urine Nitrite (Negative) Urine Bilirubin (Negative) Urine Urobilinogen (Normal) mg/dL Ur Leukocyte Esterase (Negative) Urine Microscopic RBC (0-3) per hpf Urine Microscopic WBC (0-3) per hpf Ur Squamous Epith Cells (None-Few) per lpf Urine Bacteria (None-Few) per hpf Hyaline Casts (None-Few) per lpf Ur Culture Indicated? (NO) 10/24/18 10/24/18 Range/Units 16:59 18:00 WBC (4.3-11.1) K/mcL RBC (3.82-4.97) M/mcL Hgb (11.5-15.4) g/dL Hct (35.3-44.9) % MCV (83.0-100.0) fL MCH (28.0-33.3) pg MCHC (31.6-35.5) g/dL RDW (11.5-14.5) % Plt Count (140-400) K/mcL MPV (9.4-12.4) fL Immature Gran % (0-4) % Seg Neutrophils % % Lymphocytes % % Monocytes % % Eosinophils % % Basophils % % Neutrophils # (1.6-8.9) K/mcL Lymphocytes # (0.6-4.6) K/mcL Monocytes # (0.0-1.3) K/mcL Eosinophils # (0.0-0.6) K/mcL Basophils # (0.0-0.2) K/mcL PT (9.4-12.1) Seconds INR Sodium (136-145) mEq/L Potassium (3.5-5.1) mEq/L Chloride (98-107) mEq/L Carbon Dioxide (23-29) mEq/L BUN (8-23) mg/dL Creatinine (0.60-1.20) mg/dL Est GFR ( Amer) (> 60) Est GFR (Non-Af Amer) (> 60) BUN/Creatinine Ratio (6-26) Glucose (70-105) mg/dL Calculated Osmolality (280-300) Lactic Acid 1.3 (0.5-2.2) mmol/L Calcium (8.6-10.3) mg/dL Magnesium (1.6-2.6) mg/dL Total Bilirubin (0.3-1.0) mg/dL Direct Bilirubin (0.0-0.2) mg/dL Indirect Bilirubin (0.0-1.2) mg/dL AST (13-39) Units/L ALT (7-52) Units/L Alkaline Phosphatase (34-104) Units/L Serum Total Protein (6.4-8.9) g/dL Albumin (3.5-5.7) g/dL Globulin (2.4-3.5) g/dL Albumin/Globulin Ratio (1.1-2.2) Urine Color Yellow (Yellow) Urine Clarity Turbid A (Clear) Urine pH 6.5 (5.0-8.0) pH Units Ur Specific [place] 1.016 (1.010-1.025) Urine Protein >=300 H (Neg-Trace) mg/dL Urine Glucose (UA) Normal (Normal) mg/dL Urine Ketones Negative (Negative) mg/dL Urine Blood Large H (Negative) Urine Nitrite Negative (Negative) Urine Bilirubin Negative (Negative) Urine Urobilinogen Normal (Normal) mg/dL Ur Leukocyte Esterase Large H (Negative) Urine Microscopic RBC 3-5 H (0-3) per hpf Urine Microscopic WBC TNTC H (0-3) per hpf Ur Squamous Epith Cells Many H (None-Few) per lpf Urine Bacteria Many H (None-Few) per hpf Hyaline Casts Few (None-Few) per lpf Ur Culture Indicated? YES A (NO) - Radiology Data Radiology results reviewed: Yes I reviewed the patient's radiology results. - EKG Data EKG attestation: Yes I reviewed and interpreted this EKG. EKG results narrative: Sinus rhythm rate 87 FL 207 QRS 96 QT/QTc 395/476. Inverted T waves in inferior and lateral leads. Study compared to previous dated 02/11/18 Critical Care Time Critical Care Time: Yes Total Critical Care Time: 30 Attestation: The high probability of a clinically significant, sudden or life threatening deterioration of the [] system(s) required my full and direct attention, intervention and personal management. The aggregate critical care time was [] minutes. This time is in addition to time spent performing reported procedures but includes the following: [] Data Review and interpretation [] Patient assessment and monitoring of vital signs [] Documentation [] Medication orders and management
[2018-10-24 17:27] LABS: Basophils % 0.2 %; Hematocrit 35.8 % (35.3-44.9); Hemoglobin 11.8 g/dL (11.5-15.4); Immature Granulocytes % 0.5 % (0-4); Lymphocytes # 1.6 K/mcL (0.6-4.6); Lymphocytes % 8.3 %; Mean Platelet Volume 10.2 fL (9.4-12.4); Monocytes # 0.9 K/mcL (0.0-1.3); Monocytes % 4.6 %; Neutrophils # 17.1 K/mcL (1.6-8.9); Platelet Count 159 K/mcL (140-400); Red Blood Count 3.58 M/mcL (3.82-4.97); Red Cell Distribution Width 13.4 % (11.5-14.5); Segmented Neutrophils % 86.4 %; White Blood Count 19.8 K/mcL (4.3-11.1)
[2018-10-24 17:36] LABS: INR 1.1; Prothrombin Time 12.4 Seconds (9.4-12.1)
[2018-10-24 17:46] LABS: Albumin/Globulin Ratio 1.4 (1.1-2.2); Bilirubin,Direct 0.2 mg/dL (0.0-0.2); Bilirubin,Indirect 0.4 mg/dL (0.0-1.2); Bilirubin,Total 0.6 mg/dL (0.3-1.0); Calcium 9.7 mg/dL (8.6-10.3); Globulin 2.8 g/dL (2.4-3.5); Magnesium 2.5 mg/dL (1.6-2.6); Total Protein 6.8 g/dL (6.4-8.9)
[2018-10-24 18:11] LABS: Bilirubin,Urine Negative (Negative); Blood,Urine Large (Negative); Clarity,Urine Turbid (Clear); Color,Urine Yellow (Yellow); Glucose,Urine (UA) Normal (Normal); Ketones,Urine Negative (Negative); Leukocyte Esterase,Urine Large (Negative); Nitrite,Urine Negative (Negative); PH,Urine 6.5 pH Units (5.0-8.0); Protein,Urine >=300 mg/dL (Neg-Trace); Specific Gravity,Urine 1.016 (1.010-1.025); Urobilinogen,Urine Normal (Normal)
[2018-10-24 18:13] LABS: Bacteria,Urine Many per hpf (None-Few); Hyaline Casts,Urine Few per lpf (None-Few); Squamous Epithelial Cell,Urine Many per lpf (None-Few); WBC,Urine TNTC per hpf (0-3)
[2018-10-24] MEDS ORDERED: Piperacillin/Tazobactam 3.375 GM in 0.9 % Sodium Chloride Mini Bag 100 ML IVPB ONE (18:17)
[2018-10-24] MEDS ORDERED: Naloxone 0.4 MG/ML INJ IVP PRN (18:50)
--- NOTE | 2018-10-24 19:42 | Internal Med History&Physical ---
Date of Encounter: 10/24/18 Time of Encounter: 19:39 Internal Medicine - H&P: HPI Chief complaint: Nausea, vomiting, diarrhea History of present illness: Ms. Mcgraw is a 83 year old female past medical history of ESRD on dialysis MWF, dementia, hypothyroidism, CVA who presented from her extended care facility due to reports of vomiting. Patient is a poor historian in light of her dementia and alert to person only, and much of the information was obtained from records. Patient did endorse abdominal pain. Upon initial arrival patient was afebrile, hemodynamically stable saturating 95% on room air. Initial laboratory workup was notable for a leukocytosis of 19.8. Lactic acid within normal limits at 1.3. Urinalysis showed large leukocyte esterase. CT of the abdomen and pelvis shows moderate perivesical fat stranding suspicious for cystitis, thickening of the urothelium and renal pelvis and ureters suggestive of inflammation, bilateral nephrolithiasis and distention of the rectosigmoid colon with wall thickening with stool suggestive of stercoral colitis. On my assessment patient was alert oriented 1. Currently denies any pain. Past Med Surg Social Fam HX - Past Medical History Medical history: dementia, dialysis, GERD, renal disease, thyroid disease, other (herpes encephalitis) Additional medical history: anemia. lung nodule Psychiatric history: anxiety - Past Surgical History Surgical History: non-contributory Additional surgical history: unknown surgical hx, right side arm fistula - Social History Smoking Status: Never smoker Smokeless Tobacco Status: No Alcohol use: none Drug use: none Internal Medicine - H&P: Meds Bisacodyl [Dulcolax] 10 mg RC DAILY PRN 07/19/17 [History] Folic Acid 1 mg PO DAILY 07/19/17 [History] Magnesium Hydroxide [Milk of Magnesia] 2,400 mg PO DAILY PRN 07/19/17 [History] Polyethylene Glycol 3350 [MiraLAX Powder Bulk 17.9 Oz] 17 gm PO DAILY PRN 07/19/17 [History] Sennosides/Docusate Sodium [Colace 2-in-1 Tablet] 1 tab PO BID PRN 07/19/17 [History] Atorvastatin [Lipitor] 40 mg PO HS #30 tablet 08/15/17 [Rx] Acetaminophen [Non-Aspirin] 650 mg PO Q4H PRN 02/11/18 [History] Levothyroxine Sodium [Synthroid] 137 mcg PO DAILY 02/11/18 [History] Sevelamer Carbonate [Renvela] 0.8 gm PO TID 02/11/18 [History] Cholecalciferol (Vitamin D3) [Vitamin D] 2,000 unit PO DAILY 10/24/18 [History] Polyvinyl Alcohol [Artificial Tears] 1 drop BOTH EYES Q1H PRN 10/24/18 [History] Aspirin 81 mg PO DAILY 10/25/18 [History] Ondansetron HCl [Zofran] 4 mg PO Q8H PRN 10/25/18 [History] Allergy/AdvReac Type Severity Reaction Status Date / Time darifenacin Allergy Unknown See Verified 10/25/18 16:02 Comments ciprofloxacin AdvReac Nausea Verified 10/25/18 16:02 Sulfa (Sulfonamide AdvReac Nausea Verified 10/25/18 16:02 Antibiotics) All Systems PM: A 10-system review of systems was performed and is negative for pertinent findings except as documented above in the HPI. - Constitutional Constitutional: no chills, no fever(s), no night sweats - EENT Eyes: no change in vision, no discharge, no pain, no photophobia Ears: no ear discharge, no ear pain, no tinnitus Nose, mouth and throat: no dysphagia, no nasal discharge, no neck pain, no sore throat - Cardiovascular Cardiovascular ROS IM: no chest pain, no diaphoresis, no dyspnea, no lig htheadedness, no palpitations, no syncope - Respiratory Respiratory: no cough, no dyspnea, no wheezing, no excessive phlegm production - Gastrointestinal Gastrointestinal: no abdominal pain, no diarrhea, no hematemesis, no hematochezia, no melena, no nausea, no vomiting - Genitourinary Genitourinary: no change in urinary stream, no dysuria, no flank pain, no hematuria - Musculoskeletal Musculoskeletal ROS IM: no numbness, no tingling - Integumentary Integumentary IM: no rash, no unusual bruising - Neurological Neurological ROS: no confusion, no convulsions, no focal weakness, no numbness, no tingling, no tremor(s) - Hematologic/Lymphatic Hematologic/Lymphatic: no easy bruising - Constitutional Vitals: Temp Pulse Resp BP Pulse Ox 99.2 F 88 16 121/60 95 10/24/18 16:38 10/24/18 18:56 10/24/18 18:56 10/24/18 18:56 10/24/18 18:56 Exam: General: Alert and oriented 1 Skin:Normal color, no rash, no lesions. HEENT:EOM, pupils equal, round and reactive. Cardiovascular:Normal S1 & S2, no rubs, murmurs or gallops. No JVD. Pulse reg ular. Lungs:Normal breath sounds, no wheezes or crackles. Abdomen:Soft, non-tender, no rigidity. Extremities:No deformity, no edema or tenderness, no joint swelling or clubbing. Neurological:Normal cognition and motor skills. Pulses:Carotid and radial pulses normal +2. Rest of the physical exam is non contributory Internal Med - H&P Results - Labs CBC & Chem 7: 10/25/18 09:13 10/25/18 09:13 Labs: Short CBC 10/24/18 Range/Units 16:09 WBC 19.8 H (4.3-11.1) K/mcL Hgb 11.8 (11.5-15.4) g/dL Hct 35.8 (35.3-44.9) % Plt Count 159 (140-400) K/mcL Neutrophils # 17.1 H (1.6-8.9) K/mcL BMP 10/24/18 16:09 Sodium 139 Potassium 5.0 Chloride 103 Carbon Dioxide 25 BUN 65 H Creatinine 5.75 H Glucose 126 H Calcium 9.7 Liver Function 10/24/18 Range/Units 16:09 Total Bilirubin 0.6 (0.3-1.0) mg/dL Direct Bilirubin 0.2 (0.0-0.2) mg/dL AST 18 (13-39) Units/L ALT 14 (7-52) Units/L Alkaline Phosphatase 109 H (34-104) Units/L Albumin 4.0 (3.5-5.7) g/dL Urine 10/24/18 Range/Units 18:00 Urine Color Yellow (Yellow) Urine Clarity Turbid A (Clear) Urine pH 6.5 (5.0-8.0) pH Units Ur Specific [place] 1.016 (1.010-1.025) Urine Protein >=300 H (Neg-Trace) mg/dL Urine Glucose (UA) Normal (Normal) mg/dL - Impressions ITS Impressions Abdomen/Pelvis CT 10/24/18 16:42 IMPRESSION: Moderate perivesical fat stranding suspicious for cystitis. There is also suspected thickening of the urothelium of the renal pelves and ureters suggesting inflammation. Bilateral nephrolithiasis. Distention of the rectosigmoid colon with stool; there is associated rectosigmoid colonic wall thickening and adjacent stranding. Correlation for stercoral colitis is recommended. D/ / Dariela Lloyd Cha, MD / Dariela Lloyd Cha, MD Interpreting Provider: Dariela Lloyd Cha, MD - Assessment and Plan (1) UTI (urinary tract infection) Current Visit: Yes Status: Acute Assessment and plan: Patient presenting with nausea and vomiting. Found to have a leukocytosis of 19.8. Urine suggestive of UTI with large leukocyte esterase. Previous urine cultures positive for Escherichia coli, Klebsiella and enterococcus faecalis all of which showing sensitivity to Zosyn. -Continue Zosyn -Follow up urine and blood cultures Qualifiers: Urinary tract infection type: acute pyelonephritis Qualified Code(s): N10 - Acute pyelonephritis (2) ESRD (end stage renal disease) on dialysis Current Visit: No Status: Chronic Assessment and plan: History of end-stage renal disease on dialysis Saturday, Saturday, Saturday. Patient missed dialysis session today due to vomiting. She does not appear to be fluid overloaded at this time. -Consult to nephrology for management of dialysis. (3) Constipation Current Visit: No Status: Acute Assessment and plan: Continue patient's stool softener regimen. Qualifiers: Constipation type: unspecified constipation type Qualified Code(s): K59.00 - Constipation, unspecified (4) SIRS (systemic inflammatory response syndrome) Current Visit: Yes Status: Acute Assessment and plan: Patient technically meets 1 of 4 SIRS criteria with leukocytosis likely 2/2 to UTI. Patient currently hemodynamically stable and in fact mildly hypertensive likely secondary to missed dialysis session and fluid retention. -Hold fluids for now. -Continue antibiotics -Follow up cultures (5) DVT prophylaxis Current Visit: No Status: Acute Assessment and plan: Subcutaneous heparin (6) Nausea & vomiting Current Visit: Yes Status: Acute Assessment and plan: Antiemetics as needed Qualifiers: Qualified Code(s): R11.2 - Nausea with vomiting, unspecified - Time Spent With Patient Total time spent is greater than 50% in coordination of care (as documented) at patient's floor/unit and/or counseling patient:
[2018-10-24] MEDS ORDERED: Artificial Tears SOLN 15 ML BOTTLE BOTH EYES PRN (21:08)
[2018-10-24] MEDS ORDERED: Acetaminophen 325 MG TABLET PO PRN (21:08)
[2018-10-24] MEDS ORDERED: MOM Conc 10 ML UD.LIQ PO PRN (21:08)
[2018-10-24] MEDS ORDERED: Ondansetron ODT 4 MG TAB.RAPDIS PO PRN (21:08)
[2018-10-24] MEDS ORDERED: Bisacodyl 10 MG RECTAL SUPPOSITORY RC PRN (21:08)
[2018-10-24] MEDS: Sennosides/Docusate Sodium TABLET PO SCH (22:28)
[2018-10-25 06:15] LABS: Acinetobacter baumannii by PCR Not Detected (Not Detect); Candida albicans by PCR Not Detected (Not Detect); Candida glabrata by PCR Not Detected (Not Detect); Candida krusei by PCR Not Detected (Not Detect); Candida parapsilosis by PCR Not Detected (Not Detect); Candida tropicalis by PCR Not Detected (Not Detect); Enterobacter cloacae Cmplx PCR Not Detected (Not Detect); Enterobacteriaceae by PCR DETECTED (Not Detect); Enterococcus by PCR Not Detected (Not Detect); Escherichia coli by PCR DETECTED (Not Detect); Klebsiella oxytoca by PCR Not Detected (Not Detect); Klebsiella pneumoniae by PCR Not Detected (Not Detect); Proteus by PCR Not Detected (Not Detect); Pseudomonas aeruginosa by PCR Not Detected (Not Detect); Serratia marcescens by PCR Not Detected (Not Detect); Staphylococcus aureus by PCR Not Detected (Not Detect); Staphylococcus by PCR Not Detected (Not Detect); Streptococcus agalactiae(B)PCR Not Detected (Not Detect); Streptococcus by PCR Not Detected (Not Detect); Streptococcus pneumoniae PCR Not Detected (Not Detect); Streptococcus pyogenes (A) PCR Not Detected (Not Detect); blaKPC Carbapenem-Resist Gene Not Detected (Not Detect); mecA Methicillin-Resist Gene Not Detected (Not Detect); vanA/B Vancomycin-Resist Genes Not Detected (Not Detect)
[2018-10-25] MEDS: *HR* Heparin 5,000 UNIT/ML VIAL SQ SCH ×3 (06:21→22:49)
[2018-10-25] MEDS: Piperacillin/Tazobactam 3.375 GM in 0.9 % Sodium Chloride Mini Bag 100 ML IVPB SCH ×3 (06:21→20:24)
[2018-10-25] MEDS ORDERED: Aspirin Enteric Coated 325 MG Tablet PO SCH (09:00)
[2018-10-25 09:29] LABS: Basophils % 0.2 %; Hematocrit 34.8 % (35.3-44.9); Hemoglobin 11.5 g/dL (11.5-15.4); Immature Granulocytes % 0.5 % (0-4); Lymphocytes # 1.3 K/mcL (0.6-4.6); Lymphocytes % 9.6 %; Mean Corpuscular Hemoglobin 33.7 pg (28.0-33.3); Mean Corpuscular Volume 102.1 fL (83.0-100.0); Mean Platelet Volume 10.1 fL (9.4-12.4); Monocytes # 0.6 K/mcL (0.0-1.3); Monocytes % 4.2 %; Neutrophils # 11.6 K/mcL (1.6-8.9); Platelet Count 146 K/mcL (140-400); Red Blood Count 3.41 M/mcL (3.82-4.97); Red Cell Distribution Width 13.5 % (11.5-14.5); Segmented Neutrophils % 85.5 %; White Blood Count 13.6 K/mcL (4.3-11.1)
[2018-10-25 09:41] LABS: Calcium 9.1 mg/dL (8.6-10.3); Potassium 4.8 mEq/L (3.5-5.1)
[2018-10-25] MEDS: Folic Acid 1 MG TABLET PO SCH (09:55)
[2018-10-25] MEDS: Cholecalciferol (D-3) 1,000 UNIT (25MCG) TABLET PO SCH (09:55)
[2018-10-25] MEDS: Sennosides/Docusate Sodium TABLET PO SCH ×2 (09:55→20:25)
[2018-10-25 09:57] LABS: Hepatitis B Surface Antibody 77.77 mIU/mL
[2018-10-25 10:09] LABS: Hepatitis B Surface Antigen Nonreactive (Nonreactive)
--- NOTE | 2018-10-25 11:01 | Internal Med Progress Note ---
Hospitalist Progress Note - Encounter Date of Encounter: 10/25/18 Time of Encounter: 08:00 - Subjective Interval History: H&P reviewed. Patient with history of ESRD on hemodialysis, heart failure with preserved EF, hypertension, CVA, was admitted overnight due to sepsis secondary to pyelonephritis and presumptive E. coli bacteremia. Started on IV Zosyn overnight and remains afebrile and hemodynamically stable. Due to underlying dementia, patient is not able to elaborate much on the episodes of vomiting she had but appears to be comfortable now. - Exam Vitals: Temp Pulse Resp BP Pulse Ox 99.6 F 87 16 118/67 93 10/25/18 07:47 10/25/18 07:47 10/25/18 07:47 10/25/18 07:47 10/25/18 07:47 Exam: General: Alert and oriented x self, not in acute distress. Cardiovascular:Normal S1 & S2, No JVD. Pulse regular. Lungs: clear to auscultation, no wheezes/rales Abdomen:Soft, non-tender, no rigidity. : No significant CVA tenderness Extremities:No deformity or swelling Neurological:Non-focal - Assessment and Plan (1) UTI (urinary tract infection) Current Visit: Yes Status: Acute Assessment and Plan: presented with nausea and vomiting. Found to have a leukocytosis of 19.8 and urinalysis +ve for large amount of leukocyte esterase. Previous urine cultures positive for Escherichia coli, Klebsiella and enterococcus faecalis all of which showing sensitivity to Zosyn and pt is currently growing presumably E. coli in urine continue IV Abx Follow up on urine and blood cultures (2) Bacteremia due to Gram-negative bacteria Current Visit: Yes Status: Acute Assessment and Plan: due to the above, presumably E. coli on zosyn (3) SIRS (systemic inflammatory response syndrome) Current Visit: Yes Status: Acute Assessment and Plan: Patient meets 1 of 4 SIRS criteria with leukocytosis likely 2/2 to acute pyelonephritis abx as above and follow up on cultures (4) ESRD (end stage renal disease) on dialysis Current Visit: No Status: Chronic Assessment and Plan: HD per nephro while inpatient (5) (HFpEF) heart failure with preserved ejection fraction Current Visit: Yes Status: Chronic Assessment and Plan: not in decompensation. fluid removal per nephrology (6) Essential hypertension Current Visit: No Status: Chronic Assessment and Plan: holding home meds for now (7) DVT prophylaxis Current Visit: No Status: Acute Assessment and Plan: Subcutaneous heparin - Time Spent with Patient Total time spent is greater than 50% in coordination of care (as documented) at patient's floor/unit and/or counseling patient: 25 - 35 minutes Plan of Care Discussed with: nurse Internal Medicine: Result - Labs CBC & Chem 7: 10/25/18 09:13 10/25/18 09:13 Labs: Short CBC 10/24/18 10/25/18 Range/Units 16:09 09:13 WBC 19.8 H 13.6 H (4.3-11.1) K/mcL Hgb 11.8 11.5 (11.5-15.4) g/dL Hct 35.8 34.8 L (35.3-44.9) % Plt Count 159 146 (140-400) K/mcL Neutrophils # 17.1 H 11.6 H (1.6-8.9) K/mcL BMP 10/24/18 10/25/18 16:09 09:13 Sodium 139 141 Potassium 5.0 4.8 Chloride 103 104 Carbon Dioxide 25 23 BUN 65 H 73 H Creatinine 5.75 H 6.30 H Glucose 126 H 119 H Calcium 9.7 9.1 Liver Function 10/24/18 Range/Units 16:09 Total Bilirubin 0.6 (0.3-1.0) mg/dL Direct Bilirubin 0.2 (0.0-0.2) mg/dL AST 18 (13-39) Units/L ALT 14 (7-52) Units/L Alkaline Phosphatase 109 H (34-104) Units/L Albumin 4.0 (3.5-5.7) g/dL Urine 10/24/18 Range/Units 18:00 Urine Color Yellow (Yellow) Urine Clarity Turbid A (Clear) Urine pH 6.5 (5.0-8.0) pH Units Ur Specific [place] 1.016 (1.010-1.025) Urine Protein >=300 H (Neg-Trace) mg/dL Urine Glucose (UA) Normal (Normal) mg/dL - ABG Interpretation ABG results: PT/INR, D-dimer PT 12.4 Seconds (9.4-12.1) H 10/24/18 16:09 - Impressions Impressions Abdomen/Pelvis CT 10/24/18 16:42 IMPRESSION: Moderate perivesical fat stranding suspicious for cystitis. There is also suspected thickening of the urothelium of the renal pelves and ureters suggesting inflammation. Bilateral nephrolithiasis. Distention of the rectosigmoid colon with stool; there is associated rectosigmoid colonic wall thickening and adjacent stranding. Correlation for stercoral colitis is recommended. D/ / Dariela Lloyd Cha, MD / Dariela Lloyd Cha, MD Interpreting Provider: Dariela Lloyd Cha, MD Consult Discharge Plan - Plan (1) UTI (urinary tract infection) Qualifiers: Urinary tract infection type: acute pyelonephritis Qualified Code(s): N10 - Acute pyelonephritis (5) (HFpEF) heart failure with preserved ejection fraction Qualifiers: Heart failure chronicity: chronic Qualified Code(s): I50.32 - Chronic diastolic (congestive) heart failure
--- NOTE | 2018-10-25 13:05 | Nephrology Consult Note ---
Date of Encounter: 10/25/18 Time of Encounter: 13:05 Assessment and Plan (1) ESRD (end stage renal disease) on dialysis Current Visit: No Status: Chronic HD MWF. Renal vitamins. Renal dose medications. Renal diet. Additional dialysis and ultrafiltration as needed. Plan for dialysis today. (2) Nausea & vomiting Current Visit: Yes Status: Acute Qualifiers: Qualified Code(s): R11.2 - Nausea with vomiting, unspecified (3) Bacteremia due to Gram-negative bacteria Current Visit: Yes Status: Acute Antibiotics per the primary team (4) SIRS (systemic inflammatory response syndrome) Current Visit: Yes Status: Acute Secondary to urinary tract infection with bacteremia (5) Dementia Current Visit: No Status: Chronic Qualifiers: Dementia type: Alzheimer's disease Alzheimer's disease onset: unspecified onset Dementia behavioral disturbance: without behavioral disturbance Qualified Code(s): G30.9 - Alzheimer's disease, unspecified; F02.80 - Dementia in other diseases classified elsewhere without behavioral disturbance History of Present Illness - Reason for Consult Consult date: 10/25/18 end stage renal disease - Chief Complaint ESRD - History of Present Illness Ms. Mcgraw is an 83 yo woman with a history of ESRD who presents for the evaluation of vomiting. Mauro receives dialysis on a MWF schedule, but did not get dialysis on Saturday. She is demented and the history is from her family at the bedside and the chart. Past Med Surg Social Fam HX - Past Medical History Medical history: dementia, dialysis, GERD, renal disease, thyroid disease, other Additional medical history: anemia. lung nodule Psychiatric history: anxiety - Past Surgical History Surgical History: non-contributory Additional surgical history: unknown surgical hx, right side arm fistula - Social History Smoking Status: Never smoker Smokeless Tobacco Status: No Alcohol use: none Drug use: none Medications and Allergies Bisacodyl [Dulcolax] 10 mg RC DAILY PRN 07/19/17 [History] Folic Acid 1 mg PO DAILY 07/19/17 [History] Magnesium Hydroxide [Milk of Magnesia] 2,400 mg PO DAILY PRN 07/19/17 [History] Polyethylene Glycol 3350 [MiraLAX Powder Bulk 17.9 Oz] 17 gm PO DAILY PRN 07/19/17 [History] Sennosides/Docusate Sodium [Colace 2-in-1 Tablet] 1 tab PO BID PRN 07/19/17 [History] Atorvastatin [Lipitor] 40 mg PO HS #30 tablet 08/15/17 [Rx] Acetaminophen [Non-Aspirin] 650 mg PO Q4H PRN 02/11/18 [History] Levothyroxine Sodium [Synthroid] 137 mcg PO DAILY 02/11/18 [History] Sevelamer Carbonate [Renvela] 0.8 gm PO TID 02/11/18 [History] Cholecalciferol (Vitamin D3) [Vitamin D] 2,000 unit PO DAILY 10/24/18 [History] Polyvinyl Alcohol [Artificial Tears] 1 drop BOTH EYES Q1H PRN 10/24/18 [History] Aspirin 81 mg PO DAILY 10/25/18 [History] Ondansetron HCl [Zofran] 4 mg PO Q8H PRN 10/25/18 [History] Allergy/AdvReac Type Severity Reaction Status Date / Time darifenacin Allergy Unknown See Verified 10/25/18 16:02 Comments ciprofloxacin AdvReac Nausea Verified 10/25/18 16:02 Sulfa (Sulfonamide AdvReac Nausea Verified 10/25/18 16:02 Antibiotics) Review of Systems ROS unobtainable: due to mental status Exam - Vital Signs Vital signs: Initial Vital Signs Temp Pulse Resp BP Pulse Ox 99.2 F 84 14 118/64 94 10/24/18 16:38 10/24/18 16:38 10/24/18 16:38 10/24/18 16:38 10/24/18 16:38 Vital Signs - Last 8 Hours Temp Pulse Resp BP Pulse Ox 10/25/18 11:02 98.1 F 73 16 106/57 91 10/25/18 07:47 99.6 F 87 16 118/67 93 10/25/18 05:39 98.6 F 88 14 128/68 93 Intake and Output 10/24/18 10/25/18 10/25/18 23:59 07:59 15:59 Intake Total 100 / 100 60 / 280 220 / 280 Output Total 250 / 250 Balance 100 / 100 -190 / 30 220 / 30 Intake: IV Fluids 100 / 100 100 / 100 Zosyn 3.375 GM In 0.9 % Sodium 100 / 100 100 / 100 Chloride (Mini-Bag +) 100 ML @ 25 mls/hr IVPB Q8H [facility] Rx#: [id number] Oral 60 / 180 120 / 180 Output: Catheter 250 / 250 Other: Meal Breakfast Percent of Meal Consumed 80% Weight 49.714 kg - General Appearance General appearance: well-developed, well-nourished, chronically ill, frail EENT: ATNC Neck: supple Cardiology: regular rate Integumentary: warm and dry Neurologic: confused Musculoskeletal: no cyanosis Psychiatric: mood/affect appropriate Results - Lab Results 10/25/18 09:13 10/25/18 09:13 Most recent lab results 10/25/18 09:13 Calcium 9.1 Consult Discharge Plan - Plan Referrals: Navid Frias [Primary Care Provider] -
[2018-10-25] MEDS ORDERED: 0.9 % Sodium Chloride 250 ML IVC PRN (13:18)
[2018-10-25] MEDS ORDERED: 0.9 % Sodium Chloride 1,000 ML PRIME SCH (13:30)
[2018-10-26 03:43] LABS: Basophils % 0.3 %; Eosinophils % 0.3 %; Hematocrit 34.2 % (35.3-44.9); Hemoglobin 11.3 g/dL (11.5-15.4); Immature Granulocytes % 0.8 % (0-4); Lymphocytes # 1.9 K/mcL (0.6-4.6); Lymphocytes % 20.4 %; Mean Corpuscular Hemoglobin 33.4 pg (28.0-33.3); Mean Corpuscular Volume 101.2 fL (83.0-100.0); Mean Platelet Volume 10.4 fL (9.4-12.4); Monocytes # 0.6 K/mcL (0.0-1.3); Monocytes % 6.9 %; Neutrophils # 6.6 K/mcL (1.6-8.9); Platelet Count 139 K/mcL (140-400); Red Blood Count 3.38 M/mcL (3.82-4.97); Red Cell Distribution Width 13.3 % (11.5-14.5); Segmented Neutrophils % 71.3 %; White Blood Count 9.3 K/mcL (4.3-11.1)
[2018-10-26 04:00] LABS: Calcium 9.2 mg/dL (8.6-10.3); Potassium 3.9 mEq/L (3.5-5.1)
[2018-10-26] MEDS: *HR* Heparin 5,000 UNIT/ML VIAL SQ SCH ×3 (06:02→20:54)
[2018-10-26] MEDS: Piperacillin/Tazobactam 3.375 GM in 0.9 % Sodium Chloride Mini Bag 100 ML IVPB SCH ×2 (06:02→17:23)
--- NOTE | 2018-10-26 10:02 | Nephrology Progress Note ---
Date of Encounter: 10/26/18 Time of Encounter: 10:02 - Assessment and Plan (1) ESRD (end stage renal disease) on dialysis Current Visit: No Status: Chronic (2) Nausea & vomiting Current Visit: Yes Status: Acute Qualifiers: Qualified Code(s): R11.2 - Nausea with vomiting, unspecified (3) Bacteremia due to Gram-negative bacteria Current Visit: Yes Status: Acute (4) SIRS (systemic inflammatory response syndrome) Current Visit: Yes Status: Acute (5) Dementia Current Visit: No Status: Chronic Qualifiers: Dementia type: Alzheimer's disease Alzheimer's disease onset: unspecified onset Dementia behavioral disturbance: without behavioral disturbance Qualified Code(s): G30.9 - Alzheimer's disease, unspecified; F02.80 - Dementia in other diseases classified elsewhere without behavioral disturbance Objective - Vital Signs Vital signs: Vital Signs Temp Pulse Resp BP Pulse Ox 10/26/18 07:34 97.9 F 65 16 107/59 95 10/26/18 03:57 97.4 F L 70 20 121/66 95 10/25/18 23:28 97.6 F 83 20 102/61 94 10/25/18 20:37 100.2 F H 89 20 113/62 93 10/25/18 20:00 97.4 F L 18 109/57 10/25/18 19:15 92/53 10/25/18 19:00 96/50 10/25/18 18:45 99/55 10/25/18 18:30 101/53 10/25/18 18:15 100/53 10/25/18 18:00 104/68 10/25/18 17:45 107/62 10/25/18 17:30 105/64 10/25/18 17:15 100/58 10/25/18 17:00 111/52 10/25/18 16:45 119/52 10/25/18 16:30 115/58 10/25/18 16:15 118/54 10/25/18 16:00 110/68 10/25/18 15:45 98.6 F 18 122/60 10/25/18 15:00 98.9 F 77 16 109/62 91 10/25/18 11:02 98.1 F 73 16 106/57 91 Intake and Output 10/25/18 10/26/18 10/26/18 23:59 07:59 15:59 Intake Total 100 / 100 Output Total 2600 / 2850 250 / 250 Balance -2600 / -1848 -150 / -150 Intake: IV Fluids 100 / 100 Zosyn 3.375 GM In 0.9 % Sodium 100 / 100 Chloride (Mini-Bag +) 100 ML @ 25 mls/hr IVPB Q12H [facility] Rx#: [id number] Output: Urine 0 / 0 Total Dialysis (HD) Output 2600 / 2600 Catheter 250 / 250 Other: Hemodialysis Net Fluid Removed 2000 (mL) - Lab 10/26/18 03:20 10/26/18 03:20 Most recent lab results 10/26/18 03:20 Calcium 9.2 Consult Discharge Plan - Plan Referrals: Navid Frias [Primary Care Provider] -
[2018-10-26] MEDS: Aspirin 81 MG TAB.CHEW PO SCH (10:49)
[2018-10-26] MEDS: Folic Acid 1 MG TABLET PO SCH (10:49)
[2018-10-26] MEDS: Cholecalciferol (D-3) 1,000 UNIT (25MCG) TABLET PO SCH (10:49)
[2018-10-26] MEDS: Sennosides/Docusate Sodium TABLET PO SCH ×2 (10:49→20:54)
--- NOTE | 2018-10-26 12:52 | Internal Med Progress Note ---
Hospitalist Progress Note - Encounter Date of Encounter: 10/26/18 Time of Encounter: 11:00 - Subjective Interval History: Patient had temperature of 100.2 x 1 overnight but otherwise appears to be comfortable. No new complaints, continues to deny any flank pain or dysuria but history is limited due to her underlying dementia. No nausea/vomiting. - Exam Vitals: Temp Pulse Resp BP Pulse Ox 98.0 F 69 16 107/56 95 10/26/18 10:45 10/26/18 10:45 10/26/18 10:45 10/26/18 10:45 10/26/18 10:53 Exam: General: Alert and oriented x self, not in acute distress. Cardiovascular:Normal S1 & S2, No JVD. Pulse regular. Lungs: clear to auscultation, no wheezes/rales Abdomen:Soft, non-tender, no rigidity. : No significant CVA tenderness Extremities:No deformity or swelling Neurological:Non-focal - Assessment and Plan (1) UTI (urinary tract infection) Current Visit: Yes Status: Acute Assessment and Plan: presented with nausea and vomiting. Found to have a leukocytosis of 19.8 and urinalysis +ve for large amount of leukocyte esterase. Previous urine cultures positive for Escherichia coli, Klebsiella and enterococcus faecalis all of which showing sensitivity to Zosyn and pt is currently growing E coli in blood urine culture -ve WBC normalized with IV zosyn, continue repeat blood cultures today follow up on final sensitivities, anticipate d/c tomorrow (2) Bacteremia Current Visit: Yes Status: Acute Assessment and Plan: E coli bacteremia from 10/24, likely due to pyelonephritis repeat cultures today IV abx as above (3) SIRS (systemic inflammatory response syndrome) Current Visit: Yes Status: Acute Assessment and Plan: Patient meets 1 of 4 SIRS criteria with leukocytosis likely 2/2 to acute pyelonephritis abx as above and follow up on cultures (4) ESRD (end stage renal disease) on dialysis Current Visit: No Status: Chronic Assessment and Plan: HD per nephro while inpatient (5) (HFpEF) heart failure with preserved ejection fraction Current Visit: Yes Status: Chronic Assessment and Plan: not in decompensation. fluid removal per nephrology (6) Essential hypertension Current Visit: No Status: Chronic Assessment and Plan: remains normotensive, holding home meds for now (7) DVT prophylaxis Current Visit: Yes Status: Acute Assessment and Plan: Subcutaneous heparin - Time Spent with Patient Total time spent is greater than 50% in coordination of care (as documented) at patient's floor/unit and/or counseling patient: 25 - 35 minutes Plan of Care Discussed with: family Internal Medicine: Result - Labs CBC & Chem 7: 10/26/18 03:20 10/26/18 03:20 Labs: Short CBC 10/26/18 Range/Units 03:20 WBC 9.3 (4.3-11.1) K/mcL Hgb 11.3 L (11.5-15.4) g/dL Hct 34.2 L (35.3-44.9) % Plt Count 139 L (140-400) K/mcL Neutrophils # 6.6 (1.6-8.9) K/mcL BMP 10/26/18 03:20 Sodium 139 Potassium 3.9 Chloride 99 Carbon Dioxide 28 BUN 25 H Creatinine 3.23 H Glucose 97 Calcium 9.2 - ABG Interpretation ABG results: PT/INR, D-dimer PT 12.4 Seconds (9.4-12.1) H 10/24/18 16:09 Consult Discharge Plan - Plan Referrals: Navid Frias [Primary Care Provider] - (1) UTI (urinary tract infection) Qualifiers: Urinary tract infection type: acute pyelonephritis Qualified Code(s): N10 - Acute pyelonephritis (5) (HFpEF) heart failure with preserved ejection fraction Qualifiers: Heart failure chronicity: chronic Qualified Code(s): I50.32 - Chronic diastolic (congestive) heart failure
[2018-10-27 04:14] LABS: Hemoglobin 11.3 g/dL (11.5-15.4); Mean Corpuscular HGB Conc 33.2 g/dL (31.6-35.5); Mean Corpuscular Hemoglobin 33.4 pg (28.0-33.3); Mean Corpuscular Volume 100.6 fL (83.0-100.0); Mean Platelet Volume 10.4 fL (9.4-12.4); Platelet Count 140 K/mcL (140-400); Red Blood Count 3.38 M/mcL (3.82-4.97); Red Cell Distribution Width 13.2 % (11.5-14.5)
[2018-10-27 04:34] LABS: Potassium 4.1 mEq/L (3.5-5.1)
[2018-10-27] MEDS: Piperacillin/Tazobactam 3.375 GM in 0.9 % Sodium Chloride Mini Bag 100 ML IVPB SCH (06:12)
[2018-10-27] MEDS: *HR* Heparin 5,000 UNIT/ML VIAL SQ SCH (06:12)
[2018-10-27] MEDS ORDERED: 0.9 % Sodium Chloride 250 ML IVC PRN (07:40)
[2018-10-27] MEDS ORDERED: 0.9 % Sodium Chloride 1,000 ML PRIME SCH (07:45)
[2018-10-27] MEDS: Sennosides/Docusate Sodium TABLET PO SCH (08:45)
[2018-10-27] MEDS: Cholecalciferol (D-3) 1,000 UNIT (25MCG) TABLET PO SCH (08:45)
[2018-10-27] MEDS: Folic Acid 1 MG TABLET PO SCH (08:45)
[2018-10-27] MEDS: Aspirin 81 MG TAB.CHEW PO SCH (08:45)
[2018-10-27] MEDS ORDERED: cefTRIAXone 2,000 MG in 0.9 % Sodium Chloride Mini Bag 100 ML IVPB SCH (09:00)
--- NOTE | 2018-10-27 09:30 | Discharge Summary ---
- NOTES TO OUTPATIENT PROVIDER Notes to Outpatient Provider: Follow up with Urology as outpatient Orders not resulted at time of discharge: Pending orders 10/24/18 16:09 Culture,Blood [BC] Stat 10/26/18 03:20 Culture,Blood [BC] AM 0400 Date of Encounter: 10/27/18 Time of Encounter: 07:15 - Discharge Diagnosis (1) UTI (urinary tract infection) Priority: Primary Status: Acute Qualifiers: Urinary tract infection type: acute pyelonephritis Qualified Code(s): N10 - Acute pyelonephritis (2) Bacteremia Priority: Secondary Status: Acute (3) SIRS (systemic inflammatory response syndrome) Priority: Secondary Status: Acute (4) ESRD (end stage renal disease) on dialysis Priority: Secondary Status: Chronic (5) (HFpEF) heart failure with preserved ejection fraction Priority: Secondary Status: Chronic Qualifiers: Heart failure chronicity: chronic Qualified Code(s): I50.32 - Chronic diastolic (congestive) heart failure (6) Essential hypertension Priority: Secondary Status: Chronic (7) DVT prophylaxis Priority: Secondary Status: Acute Hospital course: Ms. Mcgraw is a 83 year old female with history of ESRD on hemodialysis, heart failure with preserved EF, hypertension, CVA, who was admitted overnight due to E. coli bacteremia secondary to pyelonephritis. Clinically improved with IV zosyn and was transitioned to PO Omnicef after blood cultures finalized. She will complete 13 more days of PO Omnicef and follow up with Urology as outpatient. Discharge discussed with: patient, nurse, case management - Time Spent with Patient Total time spent providing and/or coordinating discharge services: 32 mins - Discharge Medications Prescriptions: New Cefdinir [Omnicef] 300 mg PO BID 13 Days #26 capsule Continued Folic Acid 1 mg PO DAILY Sennosides/Docusate Sodium [Colace 2-in-1 Tablet] 1 tab PO BID PRN PRN Reason: Constipation Bisacodyl [Dulcolax] 10 mg RC DAILY PRN PRN Reason: Constipation Polyethylene Glycol 3350 [MiraLAX Powder Bulk 17.9 Oz] 17 gm PO DAILY PRN PRN Reason: Constipation Magnesium Hydroxide [Milk of Magnesia] 2,400 mg PO DAILY PRN PRN Reason: Constipation Atorvastatin [Lipitor] 40 mg PO HS #30 tablet Sevelamer Carbonate [Renvela] 0.8 gm PO TID Acetaminophen [Non-Aspirin] 650 mg PO Q4H PRN PRN Reason: pain/fever Levothyroxine Sodium [Synthroid] 137 mcg PO DAILY Cholecalciferol (Vitamin D3) [Vitamin D3] 2,000 unit PO DAILY Polyvinyl Alcohol [Artificial Tears] 1 drop BOTH EYES Q1H PRN PRN Reason: Dry Eye(S) Aspirin 81 mg PO DAILY Ondansetron HCl [Zofran] 4 mg PO Q8H PRN PRN Reason: Nausea Home Medications: Bisacodyl [Dulcolax] 10 mg RC DAILY PRN 07/19/17 [History] Folic Acid 1 mg PO DAILY 07/19/17 [History] Magnesium Hydroxide [Milk of Magnesia] 2,400 mg PO DAILY PRN 07/19/17 [History] Polyethylene Glycol 3350 [MiraLAX Powder Bulk 17.9 Oz] 17 gm PO DAILY PRN 07/19/17 [History] Sennosides/Docusate Sodium [Colace 2-in-1 Tablet] 1 tab PO BID PRN 07/19/17 [History] Atorvastatin [Lipitor] 40 mg PO HS #30 tablet 08/15/17 [Rx] Acetaminophen [Non-Aspirin] 650 mg PO Q4H PRN 02/11/18 [History] Levothyroxine Sodium [Synthroid] 137 mcg PO DAILY 02/11/18 [History] Sevelamer Carbonate [Renvela] 0.8 gm PO TID 02/11/18 [History] Cholecalciferol (Vitamin D3) [Vitamin D3] 2,000 unit PO DAILY 10/24/18 [History] Polyvinyl Alcohol [Artificial Tears] 1 drop BOTH EYES Q1H PRN 10/24/18 [History] Aspirin 81 mg PO DAILY 10/25/18 [History] Ondansetron HCl [Zofran] 4 mg PO Q8H PRN 10/25/18 [History] Cefdinir [Omnicef] 300 mg PO BID 13 Days #26 capsule 10/27/18 [Rx] Allergies/Adverse Reactions: Allergy/AdvReac Type Severity Reaction Status Date / Time darifenacin Allergy Unknown See Verified 10/25/18 16:02 Comments ciprofloxacin AdvReac Nausea Verified 10/25/18 16:02 Sulfa (Sulfonamide AdvReac Nausea Verified 10/25/18 16:02 Antibiotics) Date of admission: 10/25/18 16:53 Primary care physician: Navid Frias Consults: 10/24/18 19:50 Consult to Nephrology [CONS] Routine Consulting Provider: Kidney Sabra/ISABELL/ZAKCARY/JOSEPH Reason for Consult: End-stage renal disease on dialysis. Missed most recent dialysis session Call Completed: No 10/24/18 23:16 Consult to Nutrition [CONS] Routine Comment: Consulting Provider: NUTRITION Reason for Dietary Consult: Diet Education 10/25/18 00:21 Consult to Proofer [CONS] Routine Reason for SW Consult: [facility] 10/25/18 13:30 Consult to Dialysis [CONS] ONCE 10/27/18 07:42 Consult to Nurse Navigator [CONS] Routine Comment: hd 10/27/18 07:45 Consult to Dialysis [CONS] ONCE - Constitutional Vitals: Temp Pulse Resp BP Pulse Ox 98.0 F 75 16 125/69 95 10/27/18 07:33 10/27/18 07:33 10/27/18 07:33 10/27/18 07:33 10/27/18 07:33 Exam: General: Alert and oriented x self, not in acute distress. Cardiovascular:Normal S1 & S2, No JVD. Pulse regular. Lungs: clear to auscultation, no wheezes/rales Abdomen:Soft, non-tender, no rigidity. : No significant CVA tenderness Extremities:No deformity or swelling Neurological:Non-focal - Patient Status Disposition: Transfer SNF Condition: Fair Overall status at discharge: patient is progressing back to baseline - Discharge Instructions Instructions: Urinary Tract Infection in Women (DC), Chronic Hypertension (DC) Follow Up With: Navid Frias [Primary Care Provider] - Rubio Mann MD [Partnered Physician] - Forms: ED Satisfaction Letter - Diet and Activity Activity: as per physical therapy Diet: advance to your usual diet
--- NOTE | 2018-10-27 09:34 | Physician Discharge Referral ---
ExtendedCare Referral Info Institutional Level of Care: Skilled - Diagnosis (1) UTI (urinary tract infection) Priority: Primary Status: Acute (2) Bacteremia Priority: Secondary Status: Acute (3) SIRS (systemic inflammatory response syndrome) Priority: Secondary Status: Acute (4) ESRD (end stage renal disease) on dialysis Priority: Secondary Status: Chronic (5) (HFpEF) heart failure with preserved ejection fraction Priority: Secondary Status: Chronic (6) Essential hypertension Priority: Secondary Status: Chronic (7) DVT prophylaxis Priority: Secondary Status: Acute - Transfer Medications Prescriptions: Cefdinir [Omnicef] 300 mg PO BID 13 Days #26 capsule Home Medications: Bisacodyl [Dulcolax] 10 mg RC DAILY PRN 07/19/17 [History] Folic Acid 1 mg PO DAILY 07/19/17 [History] Magnesium Hydroxide [Milk of Magnesia] 2,400 mg PO DAILY PRN 07/19/17 [History] Polyethylene Glycol 3350 [MiraLAX Powder Bulk 17.9 Oz] 17 gm PO DAILY PRN 07/19/17 [History] Sennosides/Docusate Sodium [Colace 2-in-1 Tablet] 1 tab PO BID PRN 07/19/17 [History] Atorvastatin [Lipitor] 40 mg PO HS #30 tablet 08/15/17 [Rx] Acetaminophen [Non-Aspirin] 650 mg PO Q4H PRN 02/11/18 [History] Levothyroxine Sodium [Synthroid] 137 mcg PO DAILY 02/11/18 [History] Sevelamer Carbonate [Renvela] 0.8 gm PO TID 02/11/18 [History] Cholecalciferol (Vitamin D3) [Vitamin D3] 2,000 unit PO DAILY 10/24/18 [History] Polyvinyl Alcohol [Artificial Tears] 1 drop BOTH EYES Q1H PRN 10/24/18 [History] Aspirin 81 mg PO DAILY 10/25/18 [History] Ondansetron HCl [Zofran] 4 mg PO Q8H PRN 10/25/18 [History] Cefdinir [Omnicef] 300 mg PO BID 13 Days #26 capsule 10/27/18 [Rx] Allergies/Adverse Reactions: Allergy/AdvReac Type Severity Reaction Status Date / Time darifenacin Allergy Unknown See Verified 10/25/18 16:02 Comments ciprofloxacin AdvReac Nausea Verified 10/25/18 16:02 Sulfa (Sulfonamide AdvReac Nausea Verified 10/25/18 16:02 Antibiotics) - Respiratory Orders Smoking Cessation: Smoking cessation has been advised. For more information, call the [place] Tobacco Quit Line at 8-352-XFIF-NOW. - Rehabiliation Orders Rehab Orders: Evaluation for Physical Therapy, Evaluation for Occupational Therapy CERTIFICATION: I certify that the transfer of the above named patient to an Extended Care Facility is necessary for the continuing treatment of the diagnosis listed. The above information is true and accurate reflection of patient's current condition. Confidential - Redisclosure prohibited without a patient's written consent.
--- NOTE | 2018-10-27 10:45 | Nephrology Progress Note ---
Date of Encounter: 10/27/18 Time of Encounter: 10:43 - Assessment and Plan (1) ESRD (end stage renal disease) on dialysis Current Visit: No Status: Chronic HD MWF. Renal vitamins. Renal dose medications. Renal diet. Additional dialysis and ultrafiltration as needed. Plan for HD today, july d/c to [facility] after. (2) Bacteremia due to Gram-negative bacteria Current Visit: Yes Status: Acute Antibiotics per the primary team (3) Dementia Current Visit: No Status: Chronic Per primary. Qualifiers: Dementia type: Alzheimer's disease Alzheimer's disease onset: unspecified onset Dementia behavioral disturbance: without behavioral disturbance Qualified Code(s): G30.9 - Alzheimer's disease, unspecified; F02.80 - Dementia in other diseases classified elsewhere without behavioral disturbance (4) SIRS (systemic inflammatory response syndrome) Current Visit: Yes Status: Acute Secondary to urinary tract infection with bacteremia (5) Nausea & vomiting Current Visit: Yes Status: Acute Qualifiers: Qualified Code(s): R11.2 - Nausea with vomiting, unspecified Subjective Principal diagnosis: vomiting Interval history: Pt seen and examined, primary nurse at bedside. Pt is only alert to self. ROS not obtainable. Objective - Vital Signs Vital signs: Vital Signs Temp Pulse Resp BP Pulse Ox 10/27/18 07:33 98.0 F 75 16 125/69 95 10/27/18 04:10 98.7 F 71 20 135/68 97 10/26/18 23:53 98.7 F 71 20 115/60 96 10/26/18 19:35 98.6 F 74 20 129/52 97 10/26/18 15:16 98.6 F 81 17 106/58 97 10/26/18 10:53 95 10/26/18 10:45 98.0 F 69 16 107/56 95 Intake and Output 10/26/18 10/27/18 10/27/18 23:59 07:59 15:59 Intake Total 100 / 420 0 / 0 Output Total 250 / 250 Balance 100 / 170 -250 / -250 0 / -250 Intake: IV Fluids 100 / 300 Zosyn 3.375 GM In 0.9 % Sodium 100 / 300 Chloride (Mini-Bag +) 100 ML @ 25 mls/hr IVPB Q12H [facility] Rx#: [id number] Oral 0 / 0 Output: Catheter 250 / 250 Other: Meal Breakfast Percent of Meal Consumed 100% Stool Size Large Stool Consistency loose soft Stool Color Brown # Bowel Movement Diapers 1 - General Appearance General appearance: Present: well-developed, well-nourished EENT: Present: ATNC, hearing intact, vision intact Neck: Present: supple Respiratory: Present: clear Cardiology: Present: no edema, normal S1, normal S2 Gastrointestinal: Present: normoactive bowel sounds, no tenderness, no guarding Integumentary: Present: no rash, warm and dry Neurologic: Present: alert and oriented x3 Musculoskeletal: Present: no deformities, no erythema Psychiatric: Present: mood/affect appropriate, cooperative - Lab 10/27/18 03:55 10/27/18 03:55 Most recent lab results 10/27/18 03:55 Calcium 9.0 Consult Discharge Plan - Plan Instructions: Urinary Tract Infection in Women (DC), Chronic Hypertension (DC) Referrals: Rubio Mann MD [Partnered Physician] - Navid Frias [Primary Care Provider] - Prescriptions: Cefdinir [Omnicef] 300 mg PO BID 13 Days #26 capsule
[2018-10-27 15:26] VITALS: BP 128/46
--- NOTE | 2018-10-29 13:16 | Electrocardiograph Report ---
[address] [place], [place] [address] Test Date: 2018-10-24 Pat Name: Ruma Mcgraw Department: [id number] Room: 2A12 Gender: Director Speech And Hearing: : 1935 Requested By: Dwight Petty Order Number: [id number] Reading MD: Alin Rhodes Measurements Intervals [place] Rate: 87 P: 70 OK: 207 QRS: -20 QRSD: 96 T: -66 QT: 395 QTc: 476 Interpretive Statements Sinus rhythm Borderline left axis deviation Electronically Signed On 10-29-2018 13:14:41 EDT by Alin Rhodes
== END 2018-10-27 17:12 | DRG 690 ==
LOC: EMEROOARM 16:30 → 2ANU 16:30 → SUATTDRO 19:55 → 2ANU 20:35
PROVIDERS: ADMIT Student in an Organized Health Care Education/Training Program; ATTEND Internal Medicine

== ENCOUNTER 2019-02-05 21:12 | Inpatient (IN) ==
[2019-02-05] MEDS ORDERED: 0.9 % Sodium Chloride 1,000 ML ONE (21:23)
[2019-02-05] MEDS ORDERED: Acetaminophen 650 MG RECTAL SUPP RC ONE ×2 (21:25→21:28)
[2019-02-05] MEDS ORDERED: 0.9 % Sodium Chloride 500 ML IVC ONE ×3 (21:28→22:45)
[2019-02-05 21:36] LABS: ABG Base Excess 5 mEq/L (-2 to 3); ABG HCO3 29 mEq/L (21-27); ABG Oxygen Saturation 90 % (95-98); ABG PCO2 37 mmHg (35-45); ABG PO2 52 mmHg (85-104); ABG TCO2 30 mEq/L (20-26)
[2019-02-05 21:49] LABS: Hemoglobin 11.6 g/dL (11.5-15.4); Lymphocytes # 0.6 K/mcL (0.6-4.6); Mean Corpuscular HGB Conc 33.1 g/dL (31.6-35.5); Mean Corpuscular Hemoglobin 33.5 pg (28.0-33.3); Mean Corpuscular Volume 101.2 fL (83.0-100.0); Mean Platelet Volume 9.4 fL (9.4-12.4); Platelet Count 277 K/mcL (140-400); Red Blood Count 3.46 M/mcL (3.82-4.97); Red Cell Distribution Width 14.5 % (11.5-14.5); White Blood Count 15.2 K/mcL (4.3-11.1)
[2019-02-05 21:59] LABS: Calcium 9.4 mg/dL (8.6-10.3); Potassium 4.6 mEq/L (3.5-5.1)
[2019-02-05 22:10] LABS: Neutrophils # 14.3 K/mcL (1.6-8.9); Platelet Estimate Normal (Normal)
[2019-02-05 22:15] LABS: Troponin I 0.07 ng/mL (< 0.04)
[2019-02-05] MEDS ORDERED: Piperacillin/Tazobactam 3.375 GM in 0.9 % Sodium Chloride Mini Bag 100 ML IVPB ONE ×2 (22:17→22:29)
[2019-02-05] MEDS ORDERED: Azithromycin 500 MG in D5% in Water 250 ML IVPB STA (22:17)
[2019-02-05] MEDS ORDERED: Cefepime HCl 2,000 MG in Water for inj. (sterile) 20 ML IVP STA (22:28)
[2019-02-05] MEDS ORDERED: Piperacillin/Tazobactam 3.375 GM in Water for inj. (sterile) 20 ML IVP ONE (22:45)
[2019-02-05] MEDS ORDERED: Aspirin 325 MG TABLET PO ONE (23:21)
[2019-02-05] MEDS ORDERED: 0.9 % Sodium Chloride 1,000 ML IVC ONE (23:32)
[2019-02-06] MEDS ORDERED: Naloxone 0.4 MG/ML INJ IVP PRN (01:23)
[2019-02-06] MEDS ORDERED: 0.9 % Sodium Chloride 1,000 ML IVC ONE (02:52)
[2019-02-06] MEDS ORDERED: Sennosides/Docusate Sodium TABLET PO PRN (02:54)
[2019-02-06] MEDS ORDERED: Bisacodyl 10 MG RECTAL SUPPOSITORY RC PRN (02:54)
[2019-02-06] MEDS ORDERED: 0.9 % Sodium Chloride 1,000 ML IVC SCH (03:00)
[2019-02-06 03:58] LABS: Hemoglobin 10.2 g/dL (11.5-15.4); Mean Corpuscular HGB Conc 32.9 g/dL (31.6-35.5); Mean Corpuscular Hemoglobin 33.4 pg (28.0-33.3); Mean Corpuscular Volume 101.6 fL (83.0-100.0); Mean Platelet Volume 9.5 fL (9.4-12.4); Platelet Count 253 K/mcL (140-400); Red Blood Count 3.05 M/mcL (3.82-4.97); Red Cell Distribution Width 14.6 % (11.5-14.5); White Blood Count 14.8 K/mcL (4.3-11.1)
[2019-02-06 04:20] LABS: Calcium 8.6 mg/dL (8.6-10.3); Potassium 4.4 mEq/L (3.5-5.1)
[2019-02-06 04:21] LABS: Lymphocytes # 0.3 K/mcL (0.6-4.6); Monocytes # 0.6 K/mcL (0.0-1.3); Neutrophils # 13.9 K/mcL (1.6-8.9); Platelet Estimate Normal (Normal)
[2019-02-06] MEDS: *HR* Heparin 5,000 UNIT/ML VIAL SQ SCH ×2 (06:01→17:12)
[2019-02-06] MEDS: Aspirin 81 MG TAB.CHEW PO SCH (07:52)
[2019-02-06] MEDS ORDERED: *HR* Metoprolol 5 MG/5 ML VIAL IVP ONE (10:34)
[2019-02-06] MEDS ORDERED: 0.9 % Sodium Chloride 500 ML IVC SCH (10:45)
[2019-02-06] MEDS ORDERED: 0.9 % Sodium Chloride 250 ML IVC PRN (11:15)
[2019-02-06] MEDS ORDERED: *HR* Heparin 10,000 UNIT/10 ML VIAL IV PRN (11:15)
[2019-02-06] MEDS ORDERED: 0.9 % Sodium Chloride 1,000 ML PRIME SCH (11:15)
[2019-02-06] MEDS ORDERED: 0.9 % Sodium Chloride 1,000 ML ONE (11:19)
[2019-02-06] MEDS: Piperacillin/Tazobactam 3.375 GM in 0.9 % Sodium Chloride Mini Bag 100 ML IVPB SCH (16:22)
[2019-02-06 17:04] LABS: ABG Base Excess 8 mEq/L (-2 to 3); ABG HCO3 31 mEq/L (21-27); ABG Oxygen Saturation 95 % (95-98); ABG PCO2 36 mmHg (35-45); ABG PH 7.54 pH Units (7.32-7.45); ABG PO2 67 mmHg (85-104); ABG TCO2 32 mEq/L (20-26); Blood Gas Modality NIV
[2019-02-06 17:25] LABS: INR 1.2
[2019-02-06 17:41] LABS: Bilirubin,Urine Small (Negative); Blood,Urine Moderate (Negative); Clarity,Urine Turbid (Clear); Color,Urine Red (Yellow); Glucose,Urine (UA) Normal (Normal); Ketones,Urine Trace mg/dL (Negative); Leukocyte Esterase,Urine Moderate (Negative); Nitrite,Urine Positive (Negative); Protein,Urine >=300 mg/dL (Neg-Trace); Specific Gravity,Urine 1.018 (1.010-1.025); Urobilinogen,Urine Normal (Normal)
[2019-02-06 17:44] LABS: Bacteria,Urine Many per hpf (None-Few); Squamous Epithelial Cell,Urine Many per lpf (None-Few); WBC,Urine TNTC per hpf (0-3)
[2019-02-06 17:59] LABS: RBC,Urine 30-50 per hpf (0-3); Yeast,Urine Moderate per hpf (None Seen)
[2019-02-06] MEDS ORDERED: *HR* Warfarin 5 MG TABLET PO ONE (18:00)
[2019-02-06] MEDS ORDERED: Warfarin perPT PO PRN (18:00)
[2019-02-07] MEDS: Piperacillin/Tazobactam 3.375 GM in 0.9 % Sodium Chloride Mini Bag 100 ML IVPB SCH ×2 (01:11→11:35)
[2019-02-07 03:29] LABS: Hematocrit 27.8 % (35.3-44.9); Hemoglobin 8.9 g/dL (11.5-15.4); Platelet Count 221 K/mcL (140-400); Red Cell Distribution Width 14.6 % (11.5-14.5); White Blood Count 21.4 K/mcL (4.3-11.1)
[2019-02-07 03:30] LABS: INR 1.5; Prothrombin Time 17.1 Seconds (9.4-12.1)
[2019-02-07 03:45] LABS: Calcium 8.9 mg/dL (8.6-10.3); Potassium 4.2 mEq/L (3.5-5.1)
[2019-02-07 05:36] LABS: Platelet Estimate Normal (Normal)
[2019-02-07 05:37] LABS: Lymphocytes # 1.7 K/mcL (0.6-4.6); Neutrophils # 19.7 K/mcL (1.6-8.9)
[2019-02-07] MEDS: *HR* Heparin 5,000 UNIT/ML VIAL SQ SCH (06:54)
[2019-02-07] MEDS ORDERED: D5% in Water 1,000 ML IVC PRN (07:45)
[2019-02-07] MEDS ORDERED: *HR* Dextrose 50 % in Water (Syg) 50 ML SYRINGE IVP PRN (07:45)
[2019-02-07] MEDS ORDERED: Dextrose Gel 15 GM/37.5 ML TUBE PO PRN ×2 (07:45)
[2019-02-07] MEDS: Aspirin 81 MG TAB.CHEW PO SCH (08:32)
[2019-02-07 09:40] LABS: Lactate Dehydrogenase 301 Units/L (140-271)
[2019-02-07 09:44] LABS: Iron 16 mcg/dL (50-170); Transferrin < 75 mg/dL (203-362)
[2019-02-07 10:06] LABS: Ferritin > 1500 ng/mL (10-120)
[2019-02-07] MEDS ORDERED: Vancomycin 1 EACH in 0.9 % Sodium Chloride 250 ML IVPB SCH (11:00)
[2019-02-07] MEDS ORDERED: D5% in 0.9% NACL 1,000 ML IVC SCH (16:30)
[2019-02-07] MEDS ORDERED: D5% in 0.9% NACL 500 ML IVC SCH (17:45)
[2019-02-07] MEDS ORDERED: *HR* Warfarin 3 MG TABLET PO ONE (18:00)
[2019-02-07 22:29] LABS: Amphetamines NEGATIVE ng/mL (Cutoff 30); Barbiturates NEGATIVE ng/mL (Cutoff 75); Benzodiazepines NEGATIVE ng/mL (Cutoff 75); Buprenorphine NEGATIVE ng/mL (Cutoff 1); Cocaine NEGATIVE ng/mL (Cutoff 30); Methadone NEGATIVE ng/mL (Cutoff 40); Methamphetamines NEGATIVE ng/mL (Cutoff 30); Opiates NEGATIVE ng/mL (Cutoff 30); Phencyclidine NEGATIVE ng/mL (Cutoff 15)
[2019-02-08] MEDS: Piperacillin/Tazobactam 3.375 GM in 0.9 % Sodium Chloride Mini Bag 100 ML IVPB SCH ×2 (00:02→12:51)
[2019-02-08 05:45] LABS: Hematocrit 29.2 % (35.3-44.9); Hemoglobin 9.4 g/dL (11.5-15.4); Mean Corpuscular HGB Conc 32.2 g/dL (31.6-35.5); Mean Corpuscular Hemoglobin 33.1 pg (28.0-33.3); Mean Corpuscular Volume 102.8 fL (83.0-100.0); Mean Platelet Volume 10.1 fL (9.4-12.4); Nucleated Red Blood Cells 0.1 /100 WBC (0); Platelet Count 220 K/mcL (140-400); Red Blood Count 2.84 M/mcL (3.82-4.97); Red Cell Distribution Width 14.7 % (11.5-14.5); White Blood Count 21.4 K/mcL (4.3-11.1)
[2019-02-08 05:51] LABS: INR 4.1
[2019-02-08 05:53] LABS: Prothrombin Time 46.3 Seconds (9.4-12.1)
[2019-02-08 06:02] LABS: Calcium 8.6 mg/dL (8.6-10.3); Potassium 3.9 mEq/L (3.5-5.1)
[2019-02-08 06:10] LABS: Lymphocytes # 2.1 K/mcL (0.6-4.6); Neutrophils # 18.8 K/mcL (1.6-8.9); Platelet Estimate Normal (Normal)
[2019-02-08 06:36] LABS: INR 4.3
[2019-02-08 06:43] LABS: Prothrombin Time 48.4 Seconds (9.4-12.1)
[2019-02-08] MEDS: Aspirin 81 MG TAB.CHEW PO SCH (07:53)
[2019-02-08] MEDS ORDERED: Acetaminophen 650 MG RECTAL SUPP RC PRN (08:05)
[2019-02-08] MEDS ORDERED: D5% in 0.9% NACL 1,000 ML IVC SCH (14:30)
[2019-02-09] MEDS: Piperacillin/Tazobactam 3.375 GM in 0.9 % Sodium Chloride Mini Bag 100 ML IVPB SCH (00:45)
[2019-02-09] MEDS ORDERED: *HR* Etomidate 20 MG/10 ML AMPUL IVP ONE (01:01)
[2019-02-09] MEDS ORDERED: Aminoglycoside Consult 1 EACH MC ONE (01:01)
[2019-02-09 04:22] LABS: Hematocrit 30.5 % (35.3-44.9); Hemoglobin 10.1 g/dL (11.5-15.4); Mean Corpuscular HGB Conc 33.1 g/dL (31.6-35.5); Mean Corpuscular Hemoglobin 33.1 pg (28.0-33.3); Mean Platelet Volume 10.6 fL (9.4-12.4); Platelet Count 219 K/mcL (140-400); Red Blood Count 3.05 M/mcL (3.82-4.97); Red Cell Distribution Width 15.1 % (11.5-14.5)
[2019-02-09 04:42] LABS: Calcium 8.5 mg/dL (8.6-10.3); Potassium 3.9 mEq/L (3.5-5.1)
[2019-02-09 04:44] LABS: INR 8.7; Prothrombin Time 98.6 Seconds (9.4-12.1)
[2019-02-09] MEDS ORDERED: *HR* Phytonadione 10 MG/ML AMPUL SQ ONE (06:21)
[2019-02-09] MEDS ORDERED: 0.9 % Sodium Chloride 250 ML IVC PRN (08:09)
[2019-02-09] MEDS ORDERED: *HR* Heparin 10,000 UNIT/10 ML VIAL IV PRN (08:09)
[2019-02-09] MEDS ORDERED: 0.9 % Sodium Chloride 1,000 ML PRIME SCH (08:15)
[2019-02-09] MEDS: Aspirin 81 MG TAB.CHEW PO SCH (09:08)
[2019-02-09] MEDS ORDERED: D5% in 0.45% NACL 1,000 ML IVC SCH (09:30)
[2019-02-09] MEDS ORDERED: E-Z-PAQUE (BARIUM SULF) SUSP 1 BOTTLE PO ONE (10:54)
[2019-02-09] MEDS: E-Z-HD (BARIUM SULF) SUSPENSION PO ONE ×2 (11:40→11:41)
[2019-02-09] MEDS ORDERED: *HR* Metoprolol 5 MG/5 ML VIAL IVP PRN (14:27)
[2019-02-09] MEDS ORDERED: *HR* Metoprolol 5 MG/5 ML VIAL IVP SCH (16:00)
[2019-02-09] MEDS ORDERED: Vancomycin 500 MG in 0.9 % Sodium Chloride Mini Bag 100 ML IVPB SCH (16:00)
[2019-02-09 16:11] LABS: Adenovirus Not Detected (Not Detect); Bordetella Pertussis Not Detected (Not Detect); Chlamydophila pneumoniae Not Detected (Not Detect); Coronavirus 229E Not Detected (Not Detect); Coronavirus HKU1 Not Detected (Not Detect); Coronavirus NL63 Not Detected (Not Detect); Coronavirus OC43 Not Detected (Not Detect); Human Metapneumovirus Not Detected (Not Detect); Human Rhinovirus/Enterovirus Not Detected (Not Detect); Influenza A Subtype 2009 H1 Not Detected (Not Detect); Influenza A Untypeable Not Detected (Not Detect); Influenza B Not Detected (Not Detect); Mycoplasma pneumoniae Not Detected (Not Detect); Parainfluenza Virus 1 Not Detected (Not Detect); Parainfluenza Virus 2 Not Detected (Not Detect); Parainfluenza Virus 3 Not Detected (Not Detect); Parainfluenza Virus 4 Not Detected (Not Detect); Respiratory Syncytial Virus Not Detected (Not Detect)
[2019-02-09] MEDS ORDERED: 0.9 % Sodium Chloride 500 ML ONE (16:14)
[2019-02-09] MEDS ORDERED: Sodium Bicarbonate 50 MEQ/50 ML VIAL IVP ONE (16:43)
[2019-02-09 16:45] LABS: ABG Base Excess -14 mEq/L (-2 to 3); ABG HCO3 15 mEq/L (21-27); ABG Oxygen Saturation 97 % (95-98); ABG PCO2 52 mmHg (35-45); ABG PH 7.07 pH Units (7.32-7.45); ABG PO2 125 mmHg (85-104); ABG TCO2 17 mEq/L (20-26); Blood Gas Pressure Support 16 cm H2O
[2019-02-09] MEDS ORDERED: Sodium Bicarbonate 50 MEQ/50 ML VIAL ONE (16:47)
[2019-02-09] MEDS ORDERED: Piperacillin/Tazobactam 3.375 GM in 0.9 % Sodium Chloride Mini Bag 100 ML IVPB SCH (18:00)
[2019-02-09] MEDS: Norepinephrine 4 MG in 0.9 % Sodium Chloride 250 ML IVC SCH ×2 (18:17→21:09)
[2019-02-09] MEDS ORDERED: *HR* FentaNYL (PF) 100 MCG/2 ML VIAL IVP PRN (18:42)
[2019-02-09] MEDS ORDERED: *HR* Midazolam HCl 2 MG/2 ML VIAL IVP PRN (18:42)
[2019-02-09] MEDS ORDERED: Vancomycin 500 MG in 0.9 % Sodium Chloride Mini Bag 100 ML IVPB ONE (19:30)
[2019-02-09] MEDS ORDERED: Artificial Tears SOLN 15 ML BOTTLE BOTH EYES PRN ×2 (19:40→19:47)
[2019-02-09] MEDS ORDERED: FentaNYL (PF) 1,000 MCG in 0.9 % Sodium Chloride 80 ML IVC SCH (20:00)
[2019-02-09 20:03] LABS: Hematocrit 26.6 % (35.3-44.9); Hemoglobin 8.2 g/dL (11.5-15.4); Mean Corpuscular HGB Conc 30.8 g/dL (31.6-35.5); Mean Corpuscular Hemoglobin 33.3 pg (28.0-33.3); Mean Corpuscular Volume 108.1 fL (83.0-100.0); Mean Platelet Volume 10.8 fL (9.4-12.4); Nucleated Red Blood Cells 1.5 /100 WBC (0); Platelet Count 182 K/mcL (140-400); Red Blood Count 2.46 M/mcL (3.82-4.97); Red Cell Distribution Width 15.5 % (11.5-14.5)
[2019-02-09] MEDS ORDERED: Azithromycin 500 MG in 0.9 % Sodium Chloride 250 ML IVPB ONE (20:14)
[2019-02-09 20:20] LABS: INR 5.3; Prothrombin Time 60.8 Seconds (9.4-12.1)
[2019-02-09] MEDS: Artificial Tears SOLN 15 ML BOTTLE BOTH EYES SCH ×2 (20:20→20:22)
[2019-02-09 20:24] LABS: Albumin 2.3 g/dL (3.5-5.7); Albumin/Globulin Ratio 0.8 (1.1-2.2); Bilirubin,Total 0.7 mg/dL (0.3-1.0); Calcium 8.4 mg/dL (8.6-10.3); Magnesium 2.5 mg/dL (1.6-2.6); Phosphorous 6.4 mg/dL (2.7-4.5); Potassium 3.8 mEq/L (3.5-5.1); Total Protein 5.3 g/dL (6.4-8.9)
[2019-02-09 20:28] LABS: Troponin I 0.1 ng/mL (< 0.04)
[2019-02-09 20:29] LABS: ABG Base Excess -15 mEq/L (-2 to 3); ABG HCO3 10 mEq/L (21-27); ABG Oxygen Saturation 99 % (95-98); ABG PCO2 22 mmHg (35-45); ABG PH 7.29 pH Units (7.32-7.45); ABG PO2 175 mmHg (85-104); ABG TCO2 11 mEq/L (20-26); Blood Gas Modality ASSIST CONTROL; Blood Gas VT 550 cc
[2019-02-09 20:41] LABS: Eosinophils # 1.2 K/mcL (0.0-0.6); Lymphocytes # 5.8 K/mcL (0.6-4.6); Macrocytosis Present (Not Present); Monocytes # 1.2 K/mcL (0.0-1.3); Neutrophils # 47.6 K/mcL (1.6-8.9); Platelet Estimate Normal (Normal)
[2019-02-09] MEDS ORDERED: Vasopressin 40 UNIT in D5% in Water 100 ML IVC SCH (20:45)
[2019-02-09] MEDS ORDERED: Chlorhexidine Rinse 15 ML MOUTHWASH MM SCH ×2 (21:00)
[2019-02-09] MEDS ORDERED: Ringers Solution, Lactated 1,000 ML IVC ONE (21:28)
[2019-02-09] MEDS ORDERED: Phenylephrine 10 MG in 0.9 % Sodium Chloride 250 ML IVC SCH (21:30)
[2019-02-09] MEDS ORDERED: 0.9 % Sodium Chloride 1,000 ML IVC ONE (21:52)
[2019-02-09] MEDS ORDERED: EPINEPHrine 1 MG in D5% in Water 250 ML IVC SCH (22:00)
[2019-02-09] MEDS ORDERED: Norepinephrine 8 MG in 0.9 % Sodium Chloride 250 ML IVC SCH (22:30)
[2019-02-09] MEDS ORDERED: Phenylephrine 50 MG in 0.9 % Sodium Chloride 250 ML IVC SCH (23:00)
[2019-02-09] MEDS ORDERED: Sodium Bicarbonate 150 MEQ in D5% in Water 1,000 ML IVC SCH (23:00)
[2019-02-10] MEDS: Artificial Tears SOLN 15 ML BOTTLE BOTH EYES SCH ×2 (00:05→00:06)
[2019-02-10 01:03] VITALS: BP 62/41
[2019-02-10] MEDS ORDERED: levoFLOXacin 750 MG/150 ML 750 MG/150 ML BAG IVPB SCH (09:00)
[2019-02-10] MEDS ORDERED: Aspirin Enteric Coated 81 MG Tablet PO ONE (19:45)
== END 2019-02-10 01:02 | disposition expired | DRG 871 ==
LOC: 2NNU 21:12 → EMEROOARM 21:12 → SUATTDRO 02-06 00:25 → 2NNU 02-06 00:50 → ICNU 02-09 19:26
PROVIDERS: ADMIT Family Medicine; ATTEND Internal Medicine